=== PATIENT | female | born 1945 | race Caucasian/White ===

== ENCOUNTER 2016-07-27 14:31 | Emergency (ER) | payer MEDICARE ==
[2016-07-27] MEDS ORDERED: SODIUM CHLORIDE 0.9% 1,000 ML IV STA (15:24)
[2016-07-27] MEDS ORDERED: SODIUM CHLORIDE 0.9% 500 ML IV STA (15:24)
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
[2016-07-27 15:56] LABS: Anisocytosis Slight; Basophils % (A) 0 %; CH 28.9; CHCM 32.3; Eosinophils # (A) 0.1 k/uL (0-0.7); Eosinophils % (A) 1 %; HCT 38.2 % (34.0-46.0); HDW 3.05; HGB 12.2 gm/dL (11.4-16.0); Hypochromasia Slight; Luc # (Auto) 0.25; Luc % (Auto) 3; Lymphocytes # (A) 0.5 k/uL (1.0-4.8); Lymphocytes % (A) 7 %; MCH 28.6 pg (25.0-35.0); MCHC 31.8 g/dL (31.0-37.0); MCV 89.8 fL (80.0-100.0); Mean Platelet Volume 6.8; Monocytes # (A) 0.3 k/uL (0-1.0); Monocytes % (A) 4 %; Neutrophils # (A) 6.7 k/uL (1.3-7.7); Neutrophils % (A) 85 %; RBC 4.26 m/uL (3.80-5.40); RDW 17.9 % (11.5-15.5); WBC 7.8 k/uL (3.8-10.6)
[2016-07-27 16:10] LABS: ALT 41 U/L (9-52); AST 25 U/L (14-36); Alkaline Phosphatase 61 U/L (38-126); Anion Gap 13 mmol/L; Blood Urea Nitrogen 16 mg/dL (7-17); Calcium 9.5 mg/dL (8.4-10.2); Carbon Dioxide 30 mmol/L (22-30); Chloride 99 mmol/L (98-107); Glucose 104 mg/dL (74-99); Non-African American GFR(MDRD) >60 (>60 ml/min/1.73 sqM); Potassium 3.3 mmol/L (3.5-5.1); Sodium 142 mmol/L (137-145); Total Bilirubin 0.4 mg/dL (0.2-1.3); Total Protein 6.8 g/dL (6.3-8.2)
[2016-07-27 16:29] LABS: Appearance,Urine Clear (Clear); Bacteria,Urine Rare /hpf; Bilirubin,Urine Negative (Negative); Glucose,Urine (UA) Negative (Negative); Ketones,Urine Negative (Negative); Leukocyte Esterase,Urine Negative (Negative); Mucus,Urine Rare /hpf; Nitrite,Urine Negative (Negative); PH, Urine 6.5 (5.0-8.0); Particle Count 3590; Protein,Urine 1+ (Negative); RBC,Urine 5 /hpf (0-5); Specific Gravity,Urine 1.021 (1.001-1.035); Squamous Epithelial Cell,Urine <1 /hpf (0-4); UA Billing (MACRO vs. MICRO) MICRO; Urobilinogen,Urine <2.0 mg/dL (<2.0); WBC,Urine 2 /hpf (0-5)
[2016-07-27] MEDS ORDERED: POTASSIUM CHLORIDE ER 20 MEQ TAB.ER PO STA (16:44)
[2016-07-27] MEDS ORDERED: MUPIROCIN 2% OINT 22 GM TUBE TOPICAL SCH (17:00)
[2016-07-27 18:04] VITALS: BP 148/71; PULSE 63; RESP 18; TEMP 97.6
== END 2016-07-27 18:03 | disposition home or self-care (01) ==
LOC: EC 14:31
DX: M34.9 Systemic sclerosis, unspecified (principal); T65.891A Toxic effect of other specified substances, accidental (unintentional), initial encounter; T21.54XA Corrosion of first degree of lower back, initial encounter; Z79.899 Other long term (current) drug therapy; Z79.52 Long term (current) use of systemic steroids; Z88.2 Allergy status to sulfonamides; F32.9 Major depressive disorder, single episode, unspecified; K22.70 Barrett's esophagus without dysplasia; I27.2 Other secondary pulmonary hypertension
CPT/HCPCS: 36415; 80053; 81001; 85025; 87086; 96360; 99285

== ENCOUNTER 2016-09-14 13:13 | Inpatient (IN) | payer MEDICARE ==
[2016-09-14] MEDS ORDERED: SODIUM CHLORIDE 0.9% 500 ML IV STA (15:44)
--- NOTE | 2016-09-14 15:55 | ED ---
General Adult HPI - General Chief complaint: Upper Respiratory Infection Stated complaint: weakness Time Seen by Provider: 09/14/16 15:17 Source: patient, family, RN notes reviewed, old records reviewed Mode of arrival: wheelchair Limitations: no limitations - History of Present Illness Initial comments: Chief complaint and history of present illness 70-year-old female here with significant other. The patient reports that she has had a productive brownish to greenish colored phlegm cough increasing since 4 AM this morning. Also feels somewhat dizzy. Patient reports she fell several weeks ago. Patient generally feels weak and tired. Discomfort with coughing. No nausea no vomiting no diarrhea. No reported neuro deficits. No focal or lateralizing complaints. - Related Data Home Medications Medication Instructions Recorded Confirmed Oxymorphone HCl [Opana ER] 20 mg PO DAILY PRN 11/11/13 09/14/16 fentaNYL 100MCG/HR PATCH 1 patch TRANSDERM Q48H 11/11/13 09/14/16 [Duragesic 100MCG/HR] Methotrexate Sodium [Methotrexate] 25 mg PO PRESCOTT 12/09/14 09/14/16 Furosemide [Lasix] 20 mg PO DAILY PRN 03/19/15 09/14/16 Cholecalciferol [Vitamin D3] 5,000 unit PO DAILY 02/23/16 09/14/16 Esomeprazole Magnesium [NexIUM] 20 mg PO BID 02/23/16 09/14/16 Sertraline HCl [Sertraline HCl] 200 mg PO QAM 02/23/16 09/14/16 predniSONE 10 mg PO DAILY 02/23/16 09/14/16 Folic Acid 1 mg PO DAILY 06/30/16 09/14/16 Ibuprofen [Motrin] 600 mg PO Q12H PRN 06/30/16 09/14/16 Sildenafil [Revatio] 20 mg PO TID 06/30/16 09/14/16 traZODone HCL [Desyrel] 50 mg PO HS 06/30/16 09/14/16 Previous Rx's Medication Instructions Recorded Levofloxacin [Levaquin] 500 mg PO DAILY #9 tab 09/14/16 Allergies Allergy/AdvReac Type Severity Reaction Status Date / Time Sulfa (Sulfonamide Allergy Rash/Hives Verified 09/14/16 16:32 Antibiotics) Review of Systems ROS Statement: Those systems with pertinent positive or pertinent negative responses have been documented in the HPI. Review of systems. Patient denies any headache or visual acuity changes. Denies any neck pain. Reports that she been dizzy several times since bumping her head after a fall over a week ago. Patient reports she started having productive cough this morning around 4 AM which may difficult to sleep. She used her significant other's albuterol updraft machine which helped. She otherwise uses a puffer. Patient's denying any chest pain or less she coughs. No nausea no vomiting no back pain. No extremity weakness specific to any particular extremity but she reports she just generally feels weak and tired. Otherwise denying any pain. All systems are reviewed Past medical problems significant for pulmonary hypertension, scleroderma and Osorio's esophagitis. Surgeries include total hysterectomy which led to adhesions and a bowel resection. As well as cholecystectomy and appendectomy. Patient denies any other surgeries. Family history significant for father with throat cancer. Patient has ALLERGIES to sulfa. She quit smoking 32 years ago. Drinks alcohol rarely socially. ROS Other: All systems not noted in ROS Statement are negative. Past Medical History Past Medical History: Hypertension Additional Past Medical History / Comment(s): sclerederma, osorio's disease, gaves disease History of Any Multi-Drug Resistant Organisms: None Reported Past Surgical History: Bowel Resection, Cholecystectomy, Hysterectomy Past Psychological History: Depression Smoking Status: Never smoker Past Alcohol Use History: None Reported Past Drug Use History: None Reported General Exam - General Exam Comments Initial Comments: General: The patient is awake and alert, in no distress, and does not appear acutely ill. States she started having significant coughing which is productive brownish to greenish in color since 4 AM. Anterior chest wall pain with coughing which is reproducible. Vital signs show temperature 97.4 pulse elevated at 1:15. Respiratory rate 18 pulse ox 95% room air blood pressure 121/ 59. Eye: Pupils are equal, round and reactive to light, extra-ocular movements are intact ; there is normal conjunctiva bilaterally. No signs of icterus. Ears, nose, mouth and throat: There are moist mucous membranes and no oral lesions. Neck: The neck is supple, there is no tenderness , no anterior cervical lymphadenopathy. Cardiovascular: Tachycardic heart rate, 1:15.. No murmur, rub or gallop is appreciated. Respiratory: Lungs are clear to auscultation, respirations are non-labored, breath sounds are equal. No wheezes, stridor, rales, or rhonchi. Gastrointestinal: Soft, non-distended, non-tender abdomen without masses or organomegaly noted. There is no rebound or guarding present. No CVA tenderness. Bowel sounds are unremarkable. Back: There is no tenderness to palpation in the midline. There is no obvious deformity. No rashes noted. Musculoskeletal: Normal ROM, no tenderness, There is no pedal edema. There is no calf tenderness or swelling. Sensation intact. Patient's skin on her fingers extremely tight. Patient does have scleroderma Neurological: CN II-XII intact, There are no obvious motor or sensory deficits. Coordination appears grossly intact. Speech is normal. No neuro deficits noted or complained of. Skin: Patient has taken skin history scleroderma. Limitations: no limitations Course Vital Signs 09/14/16 09/14/16 09/14/16 13:25 15:30 16:00 Temperature 97.4 F L 97.8 F Pulse Rate 115 H 110 H Respiratory 18 20 18 Rate Blood Pressure 121/59 118/68 O2 Sat by Pulse 95 99 Oximetry EKG Findings - EKG Comments: EKG Findings:: EKG was done and reviewed at 1615 showing sinus tachycardia rate 12. No acute ST elevation no ectopy no ischemic changes. Rate 102. Arm was 150 QRS 84 QT [address] Morin Medical Decision Making - Medical Decision Making Medical decision making; patient's white count 10 hemoglobin 11 hematocrit 37 with a potassium 3.5. BUN 11 creatinine 0.6 with GFR greater than 60. Glucose 104. Troponin less than 0.012. Flu a and B reported to be negative by lab. Chest x-ray was done and reviewed by radiologist his final impression is new mild to moderate right lower lobe findings suggest developing bronchopneumonia. As read by Dr. Master Mcmahon CT of the brain was done and reviewed in its entirety. Radiologist's final impression is no acute intracranial hemorrhage, mass effect or midline shifts seen. As read by Dr. Mason The patient be started on Levaquin and sent home on Levaquin. Told to rehydrate herself at home. Continue with her home medications follow-up with family physician. - Lab Data Result diagrams: 09/14/16 17:06 09/14/16 17:06 Lab Results 09/14/16 09/14/16 09/14/16 Range/Units 16:21 17:06 17:06 WBC 10.2 (3.8-10.6) k/uL RBC 4.07 (3.80-5.40) m/uL Hgb 11.3 L (11.4-16.0) gm/dL Hct 37.7 (34.0-46.0) % MCV 92.7 (80.0-100.0) fL MCH 27.8 (25.0-35.0) pg MCHC 29.9 L (31.0-37.0) g/dL RDW 18.8 H (11.5-15.5) % Plt Count 240 (150-450) k/uL Neutrophils % (Manual) 74.0 % Band Neutrophils % 20.0 % Lymphocytes % (Manual) 4.0 % Monocytes % (Manual) 2.0 % Neutrophils # (Manual) 9.6 H (1.3-7.7) k/uL Lymphocytes # (Manual) 0.4 L (1.0-4.8) k/uL Monocytes # (Manual) 0.2 (0-1.0) k/uL Nucleated RBCs 0 (0-0) /100 WBC Manual Slide Review Performed Hypochromasia Slight Anisocytosis Slight Sodium 137 (137-145) mmol/L Potassium 3.5 (3.5-5.1) mmol/L Chloride 102 (98-107) mmol/L Carbon Dioxide 24 (22-30) mmol/L Anion Gap 11 mmol/L BUN 11 (7-17) mg/dL Creatinine 0.60 (0.52-1.04) mg/dL Est GFR (MDRD) Af Amer >60 (>60 ml/min/1.73 sqM) Est GFR (MDRD) Non-Af >60 (>60 ml/min/1.73 sqM) Glucose 104 H (74-99) mg/dL Calcium 9.2 (8.4-10.2) mg/dL Total Creatine Kinase (30-135) U/L CK-MB (CK-2) (0.0-2.4) ng/mL CK-MB (CK-2) Rel Index Troponin I (0.000-0.034) ng/mL Influenza Type A RNA Not Detected (Not Detectd) Influenza Type B (PCR) Not Detected (Not Detectd) 09/14/16 Range/Units 17:06 WBC (3.8-10.6) k/uL RBC (3.80-5.40) m/uL Hgb (11.4-16.0) gm/dL Hct (34.0-46.0) % MCV (80.0-100.0) fL MCH (25.0-35.0) pg MCHC (31.0-37.0) g/dL RDW (11.5-15.5) % Plt Count (150-450) k/uL Neutrophils % (Manual) % Band Neutrophils % % Lymphocytes % (Manual) % Monocytes % (Manual) % Neutrophils # (Manual) (1.3-7.7) k/uL Lymphocytes # (Manual) (1.0-4.8) k/uL Monocytes # (Manual) (0-1.0) k/uL Nucleated RBCs (0-0) /100 WBC Manual Slide Review Hypochromasia Anisocytosis Sodium (137-145) mmol/L Potassium (3.5-5.1) mmol/L Chloride (98-107) mmol/L Carbon Dioxide (22-30) mmol/L Anion Gap mmol/L BUN (7-17) mg/dL Creatinine (0.52-1.04) mg/dL Est GFR (MDRD) Af Amer (>60 ml/min/1.73 sqM) Est GFR (MDRD) Non-Af (>60 ml/min/1.73 sqM) Glucose (74-99) mg/dL Calcium (8.4-10.2) mg/dL Total Creatine Kinase 83 (30-135) U/L CK-MB (CK-2) 1.1 (0.0-2.4) ng/mL CK-MB (CK-2) Rel Index 1.3 Troponin I <0.012 (0.000-0.034) ng/mL Influenza Type A RNA (Not Detectd) Influenza Type B (PCR) (Not Detectd) Disposition Clinical Impression: Bronchopneumonia Disposition: HOME SELF-CARE Condition: Stable Instructions: Simple Eosinophilic Pneumonia (ED) Additional Instructions: Increase fluids, use updraft as needed, take Levaquin until completed. Prescriptions: Levofloxacin [Levaquin] 500 mg PO DAILY #9 tab Time of Disposition: 18:38
[2016-09-14 17:18] LABS: Anisocytosis Slight; CH 28.9; CHCM 31.3; HCT 37.7 % (34.0-46.0); HDW 2.81; HGB 11.3 gm/dL (11.4-16.0); Hypochromasia Slight; Immature Gran Flag Marked; MCH 27.8 pg (25.0-35.0); MCHC 29.9 g/dL (31.0-37.0); MCV 92.7 fL (80.0-100.0); RBC 4.07 m/uL (3.80-5.40); RDW 18.8 % (11.5-15.5); WBC 10.2 k/uL (3.8-10.6); WBC (Perox) 10.91
[2016-09-14 17:27] LABS: Anion Gap 11 mmol/L; Blood Urea Nitrogen 11 mg/dL (7-17); Calcium 9.2 mg/dL (8.4-10.2); Carbon Dioxide 24 mmol/L (22-30); Chloride 102 mmol/L (98-107); Glucose 104 mg/dL (74-99); Non-African American GFR(MDRD) >60 (>60 ml/min/1.73 sqM); Potassium 3.5 mmol/L (3.5-5.1); Sodium 137 mmol/L (137-145)
--- NOTE | 2016-09-14 17:29 | CT ---
EXAMINATION TYPE: CT brain wo con DATE OF EXAM: 09/14/2016 5:23 PM COMPARISON: NONE HISTORY: Patient fell 4 days ago with blow to head and complains of new onset dizziness. CT DLP: 1022 mGycm Automated exposure control for dose reduction was used. FINDINGS: There is no acute intracranial hemorrhage, mass effect, or midline shift identified. The ventricles and sulci are within normal limits in size. The globes are intact and the visualized sinuses are grecia ar. IMPRESSION: No acute intracranial hemorrhage, mass effect, or midline shift is seen.
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
[2016-09-14 17:38] LABS: Add Differential Manual Differential
[2016-09-14 17:41] LABS: Manual Review Performed; Nucleated Red Blood Cells 0 /100 WBC (0-0); Total Cells Counted 100
[2016-09-14 17:42] LABS: Creatine Kinase 83 U/L (30-135)
[2016-09-14 17:54] LABS: Creatine Kinase MB 1.1 ng/mL (0.0-2.4); Troponin I <0.012 ng/mL (0.000-0.034)
[2016-09-14] MEDS ORDERED: LEVOFLOXACIN 500MG-D5W PMX 500 MG in DEXTROSE/WATER 1 100ML.BAG IVPB STA (18:21)
[2016-09-14] MEDS ORDERED: LEVOFLOXACIN 500 MG TAB PO STA (18:31)
[2016-09-14] MEDS: LEVOFLOXACIN 500MG-D5W PMX 500 MG in DEXTROSE/WATER 1 100ML.BAG IVPB SCH (20:24)
[2016-09-14] MEDS ORDERED: ACETAMINOPHEN TAB 500 MG TAB PO STA (20:35)
[2016-09-14] MEDS ORDERED: ACETAMINOPHEN TAB 325 MG TAB PO PRN (20:58)
[2016-09-14] MEDS ORDERED: NALOXONE 0.4 MG/ML 1 ML VIAL IV PRN (20:58)
[2016-09-14] MEDS ORDERED: AZITHROMYCIN 500 MG in SODIUM CHLORIDE 0.9% 250 ML IVPB STA (21:03)
[2016-09-14] MEDS ORDERED: FUROSEMIDE 20 MG TAB PO PRN (21:04)
[2016-09-14] MEDS ORDERED: IBUPROFEN 600 MG TAB PO PRN (21:04)
[2016-09-14] MEDS: SODIUM CHLORIDE 0.9% 1,000 ML IV SCH (22:02)
[2016-09-14] MEDS: FAMOTIDINE 20 MG TAB PO SCH (22:46)
[2016-09-14 23:04] VITALS: BMI 31.5
[2016-09-15] MEDS: SILDENAFIL 20 MG TAB PO SCH ×4 (00:01→22:24)
[2016-09-15] MEDS: HEPARIN SODIUM,PORCINE 5,000 UNIT/ML 1 ML VIAL SQ SCH ×3 (08:18→23:31)
[2016-09-15] MEDS: guaiFENesin-Coden 100-10MG/5ML 10 ML CUP PO PRN (08:18)
[2016-09-15] MEDS: FAMOTIDINE 20 MG TAB PO SCH ×2 (08:19→21:32)
[2016-09-15] MEDS: CHOLECALCIFEROL 1,000 UNIT TAB PO SCH ×2 (08:19→08:26)
[2016-09-15] MEDS: FOLIC ACID 1 MG TAB PO SCH (08:19)
[2016-09-15] MEDS: SERTRALINE 100 MG TAB PO SCH (08:19)
[2016-09-15] MEDS: predniSONE 10 MG TAB PO SCH (10:41)
[2016-09-15] MEDS: SODIUM CHLORIDE 0.9% 1,000 ML IV SCH (14:47)
[2016-09-15] MEDS: OXYMORPHONE HCL 5 MG TABLET PO PRN (16:59)
[2016-09-15] MEDS: LEVOFLOXACIN 500MG-D5W PMX 500 MG in DEXTROSE/WATER 1 100ML.BAG IVPB SCH (20:40)
[2016-09-15] MEDS: AZITHROMYCIN 500 MG TAB PO SCH (20:43)
[2016-09-15] MEDS: traZODone HCL 50 MG TAB PO SCH (20:43)
[2016-09-15] MEDS: IPRATROPIUM-ALBUTEROL 3 ML NEB INHALATION PRN (21:41)
[2016-09-15] MEDS ORDERED: cefTRIAXone 1,000 MG in SODIUM CHLORIDE 0.9% 100 ML IVPB SCH (22:00)
--- NOTE | 2016-09-15 22:49 | HP ---
CHIEF COMPLAINT: Fever, cough. HISTORY OF PRESENT ILLNESS: This is a 70-year-old female who presents to the hospital with complaints of cough and fever. The patient's symptoms have been present for the past few days. In the emergency room, she was noted to have a temperature of 102.4. ( ) She had been seen in the emergency room also because of a recent fall. The patient fell 4 days ago. She has a history of scleroderma and has been on immunosuppressants. She denies any chest pain. No fever. No shortness of breath. No other symptoms. He past medical history is significant for Alexis esophagus and gastroesophageal reflux, scleroderma, thrombophlebitis, right ankle and left lower leg. Past surgical history significant for tonsillectomy, total abdominal hysterectomy, bilateral salpingo-oophorectomy, sternoclavicular muscle torticollis, bowel resection 1995. PERSONAL HISTORY: Nonsmoker, quit smoking 26 years ago. Used to smoke a pack per day for 18 years. Alcohol: None. ALLERGIES: SULFA, WHICH CAUSES HIVES. MEDICATIONS: 1. Trazodone 50 mg at bedtime. 2. Prednisone 10 mg daily. 3. Duragesic 100 mcg q.72 hours. 4. Revatio 20 mg t.i.d. 5. Sertraline 200 mg daily. 6. Oxymorphone 20 mg daily p.r.n. 7. Methotrexate 25 mg every Monday. 8. Ibuprofen 600 mg p.r.n. q.12. 9. Lasix 20 mg daily p.r.n. 10. folic acid 1 mg daily. 11. Nexium 20 mg b.i.d. 12. Vitamin D3 unit 5000 units daily. 13. Has been on Levaquin 500 mg daily. SOCIAL HISTORY: Patient is and lives with her spouse. She is recently retired. FAMILY MEDICAL HISTORY: Father at the age of 68. He had a hemorrhagic CVA and hypertension, also had laryngeal CA. mother at the age of 82. She had a history of sepsis post hip surgery. Has a brother, 86 and a brother, 67 in adequate health. No sisters. The patient has a son, 49 years of age, in good health. REVIEW OF SYSTEMS: NEURO: Denies any headaches, dizziness. No double vision, blurred vision. No symptoms of TIA, syncope, seizures. PSYCH: No anxiety, depression. CARDIAC: No chest pain, angina, palpitation. RESPIRATORY: Present complaint. No cough. No chest pain. GI: No nausea, vomiting. Abdominal pain, some diarrhea. : No symptoms of dysuria, hematuria, urgency, frequency. EXTREMITIES: Chronic pain. CONSTITUTIONAL: Fever, chills. PHYSICAL EXAMINATION: Pleasant female, at present in no distress. Vital signs reveal temperature 96.3, pulse 91, respirations 16, blood pressure 134/61, pulse ox 98% on 3L. Earlier in the emergency room, the patient had a temperature of 102.5. HEENT: Normocephalic. NECK: Supple. No JVD. Oral cavity is dry. Pupils reactive. Neck reveals no JVD, carotid bruits or thyromegaly. CHEST: Clear to percussion. Occasional rhonchi. CARDIAC: Distant heart sounds. S1, S2 with no gallops. Systolic murmur 2/6 left sternal border. ABDOMEN: Soft, no palpable masses. Bowel sounds normal. No organomegaly. No abdominal bruits. Extremities reveal trace edema. NEUROLOGICAL: Awake, alert, oriented with well-coordinated movements. Skin reveals some subcutaneous calcinosis. LABORATORY ASSESSMENT: Chest x-ray would suggest right lower lobe infiltrate. White count is normal at 10.2, hemoglobin 11.3. Electrolytes are normal. Influenza not detected. ASSESSMENT: 1. Pneumonia. 2. History of scleroderma. 3. Alexis esophagus. 4. Chronic pain. 5. History of pulmonary hypertension. PLAN: The patient is stable. Continue present medical regimen. The patient's condition was discussed with the patient. The patient has been on IV antibiotics. Prognosis remains guarded.
[2016-09-15] MEDS ORDERED: AZITHROMYCIN 500 MG in SODIUM CHLORIDE 0.9% 250 ML IVPB SCH (23:00)
[2016-09-16] MEDS: SODIUM CHLORIDE 0.9% 1,000 ML IV SCH ×2 (05:48→20:41)
[2016-09-16] MEDS: IPRATROPIUM-ALBUTEROL 3 ML NEB INHALATION PRN ×4 (07:23→19:50)
[2016-09-16] MEDS: FAMOTIDINE 20 MG TAB PO SCH ×2 (08:31→20:38)
[2016-09-16] MEDS: CHOLECALCIFEROL 1,000 UNIT TAB PO SCH (08:31)
[2016-09-16] MEDS: HEPARIN SODIUM,PORCINE 5,000 UNIT/ML 1 ML VIAL SQ SCH ×3 (08:31→23:06)
[2016-09-16] MEDS: SILDENAFIL 20 MG TAB PO SCH ×3 (08:32→23:06)
[2016-09-16] MEDS: SERTRALINE 100 MG TAB PO SCH (08:32)
[2016-09-16] MEDS: predniSONE 10 MG TAB PO SCH (08:32)
[2016-09-16] MEDS: FOLIC ACID 1 MG TAB PO SCH (08:32)
--- NOTE | 2016-09-16 12:37 | CDI ---
In responding to this query, please exercise your independent professional judgment. The [facility] Coding Staff and Clinical Documentation Specialists appreciate your assistance in clarifying documentation, maintaining compliance with coding guidelines, accurately documenting patients condition and capturing severity of illness. The fact that a question is asked does not imply that any particular answer is desired or expected. Communication forms are a method of clarifying documentation and are not made part of the Legal Health Record. Thank you in advance for your clarification. Last Revision, May [address] [place] [address] Documentation Clarification Form Date: 09/16/2016 12:30:00 PM From: Liza Minaya Admit Date: 09/14/2016 8:58:00 PM Patient Name: Darby Cordero Visit Number: [id number] Dr. Charly Quintanilla History/Risk Factors: Pneumonia On Immunosuppresants Scleroderma Clinical Indicators: WBC 10.2 Vitals: temp 102.5, hr 101, rr 20, bp 128/77, sats 97% 3Lnc Treatment: Antibiotics: IV Levquin given then d/c'd, IV Rocephin, PO Zithromax IV fluids @ 70 cc/hr In your professional opinion, can you please clarify if these findings signify one of the following conditions, whether the condition is POA, and cause, if known? Sepsis Other (please specify) Unable to Determine Please document in your progress notes and discharge summary in order to capture severity of illness and risk of mortality. Include clinical findings that support your diagnosis. FYI: Press F11 to launch patient chart. Place X here if this finding has no clinical significance, is not applicable or if you are not able to provide any additional documentation. MTDD
[2016-09-16] MEDS: guaiFENesin-Coden 100-10MG/5ML 10 ML CUP PO PRN (14:33)
[2016-09-16] MEDS: OXYMORPHONE HCL 5 MG TABLET PO PRN (14:33)
[2016-09-16] MEDS: traZODone HCL 50 MG TAB PO SCH (20:37)
[2016-09-16] MEDS: AZITHROMYCIN 500 MG TAB PO SCH (20:38)
[2016-09-17] MEDS: IPRATROPIUM-ALBUTEROL 3 ML NEB INHALATION PRN ×5 (02:28→19:54)
--- NOTE | 2016-09-17 06:59 | XR ---
EXAMINATION TYPE: XR chest 2V DATE OF EXAM: 09/17/2016 6:28 AM COMPARISON: Prior chest x-ray from 3 days ago. HISTORY: History of scleroderma and pulmonary hypertension presents with cough and pneumonia for 5 da ys TECHNIQUE: Frontal and lateral views of the chest are obtained. FINDINGS: A right internal jugular Mediport catheter are stable in appearance. There is no new focal air space opacity, pleural effusion, or pneumothorax seen. There is persistent right medial basilar infiltrate and/or atelectasis. The cardiac silhouette size is stable and mildly enlarged. The osse ous structures are intact. IMPRESSION: Persistent right medial basilar infiltrate and/or atelectasis, no new infiltrate is seen .
[2016-09-17 08:01] LABS: Anisocytosis Slight; CH 28.6; CHCM 30.6; HDW 2.72; Hypochromasia Moderate; MCH 29.1 pg (25.0-35.0); MCV 93.8 fL (80.0-100.0); Macrocytosis Slight; Mean Platelet Volume 7.2; RBC 2.99 m/uL (3.80-5.40); RDW 18.9 % (11.5-15.5)
[2016-09-17 08:04] LABS: HGB 8.7 gm/dL (11.4-16.0)
[2016-09-17] MEDS: SODIUM CHLORIDE 0.9% 1,000 ML IV SCH (08:17)
[2016-09-17] MEDS: CHOLECALCIFEROL 1,000 UNIT TAB PO SCH (08:18)
[2016-09-17] MEDS: HEPARIN SODIUM,PORCINE 5,000 UNIT/ML 1 ML VIAL SQ SCH ×3 (08:18→23:01)
[2016-09-17] MEDS: FAMOTIDINE 20 MG TAB PO SCH ×2 (08:19→20:10)
[2016-09-17] MEDS: SERTRALINE 100 MG TAB PO SCH (08:19)
[2016-09-17] MEDS: FOLIC ACID 1 MG TAB PO SCH (08:19)
[2016-09-17] MEDS: SILDENAFIL 20 MG TAB PO SCH ×3 (08:19→23:01)
[2016-09-17] MEDS: predniSONE 10 MG TAB PO SCH (08:19)
--- NOTE | 2016-09-17 09:40 | PN ---
CHIEF COMPLAINT: Re-evaluation. HISTORY OF PRESENT ILLNESS: This is a 70-year-old who was admitted to the hospital with fever and suggestion of pneumonia. The patient has an underlying history of scleroderma and is on immunosuppressive. The patient was feeling better yesterday evening, however, this morning she feels tired out and some wheezing, occasional cough and congestion. The patient has no further fever. REVIEW OF SYSTEMS: NEURO: Denies any headaches, dizziness. PSYCH: No anxiety. CARDIAC: No chest pain, angina, palpitation. RESPIRATORY: No shortness of breath, cough. GI: No nausea, vomiting, abdominal pain. Does have history of mild chronic diarrhea. : No symptoms of dysuria, hematuria. EXTREMITIES: No pain. CONSTITUTIONAL: The patient extremities, back pain. CONSTITUTIONAL: No fever or chills. PHYSICAL EXAMINATION: Pleasant female in no distress at present. Vital signs reveal temperature 97.3, pulse 83, respirations 18, blood pressure 128/58, pulse ox 98% on 3 liters. HEENT: Normocephalic. NECK: No JVD. Chest is clear to auscultation with few rhonchi, scattered. CARDIAC: Distant heart sounds. S1, S2 with no gallops. Systolic murmur 2/6 left sternal border. ABDOMEN: Soft. Bowel sounds present. EXTREMITIES: Reveal no edema. NEUROLOGICAL: Awake, alert, oriented with well coordinated movements. LABORATORY ASSESSMENT: None new. ASSESSMENT: 1. Right lower lobe pneumonia. 2. Scleroderma. 3. Hypertension. 4. On immunosuppressive. PLAN: The patient is stable. Continue present medical regimen. The patient's condition discussed with the patient says. The patient's fevers had defervesced and the patient has no further fever. We will continue the same regimen of antibiotic. Patient's condition was discussed with the patient. Prognosis guarded. Repeat chest x-ray and labs in the morning.
[2016-09-17] MEDS ORDERED: methylPREDNISolone SOD SUCCI 125 MG/2 ML VIAL IV SCH (10:15)
[2016-09-17] MEDS ORDERED: RX INFO: IV CONTRAST WAS GIVEN 1 EACH MISC MISCELLANE PRN (13:46)
--- NOTE | 2016-09-17 13:56 | P.CNPUL ---
History of Present Illness Consult date: 09/17/16 Reason for consult: dyspnea History of present illness: 70-year-old female patient with history of scleroderma who is presenting to the hospital because of worsening shortness of breath, cough, increased sweats, and progressive worsening in the respiratory status over the past 4 days. The patient has been under the care of Dr. Quintanilla and [facility] regarding her scleroderma. Her disease was diagnosed many years back and she was told to have limited disease to her skin without the typical crest manifestation. The patient has also been told not to have any interstitial lung disease or pulmonary hypertension yet she tells that she has seen Dr. Letty Valadez at [facility] and she was been placed on Rovatio which is a medication typically uses for pulmonary hypertension. In terms of therapy, she had Cytoxan therapy many years back and she quit that 3 years ago and currently she is on methotrexate on a weekly basis. She has chronic GE reflux/Osorio's esophagus and telangiectasias. No long-term oxygen therapy. No anticoagulation. She has a remote history of DVT of the lower extremities yet she has not been on the coagulation for all this years. In terms of this current hospitalization, the patient is having increased dry cough which is episodic and quite frequent. Unable to bring up any sputum. No chest pain. She has crackles in lung bases are rather coarse and she has a chest x-ray that was done at time of admission that showed a limited right lower lobe pulmonary infiltrates and subsequent chest x-ray showed cardiomegaly with some increased interstitial markings. No consolidation. No focal airspace disease. Nevertheless, the patient is hypoxic and currently she is on 4l/min of oxygen by nasal cannula. She tells that her breathing condition has been essentially poor and on and off she was being respiratory infections since May 2016. No previous reports Ustick lung infections. She is currently covered with a combination of Rocephin and Zithromax. Improvement has been limited and for that reason a pulmonary consultation was requested. Review of Systems full review of system was done and the positive findings are almost above in history of present illness Past Medical History Past Medical History: Hypertension Additional Past Medical History / Comment(s): sclerederma, osorio's disease, gaves disease, pulmonary hypertension, History of Any Multi-Drug Resistant Organisms: None Reported Past Surgical History: Bowel Resection, Cholecystectomy, Hysterectomy Additional Past Surgical History / Comment(s): ovaries removed also Past Psychological History: Depression Smoking Status: Never smoker Past Alcohol Use History: None Reported Past Drug Use History: None Reported - Past Family History Father Family Medical History: Cancer Additional Family Medical History / Comment(s): throat cancer Mother Family Medical History: Chest Pain / Angina, Osteoarthritis (OA) Medications and Allergies Home Medications Medication Instructions Recorded Confirmed Type Oxymorphone HCl [Opana ER] 20 mg PO DAILY PRN 11/11/13 09/14/16 History fentaNYL 100MCG/HR PATCH 1 patch TRANSDERM Q48H 11/11/13 09/14/16 History [Duragesic 100MCG/HR] Methotrexate Sodium [Methotrexate] 25 mg PO PRESCOTT 12/09/14 09/14/16 History Furosemide [Lasix] 20 mg PO DAILY PRN 03/19/15 09/14/16 History Cholecalciferol [Vitamin D3] 5,000 unit PO DAILY 02/23/16 09/14/16 History Esomeprazole Magnesium [NexIUM] 20 mg PO BID 02/23/16 09/14/16 History Sertraline HCl [Sertraline HCl] 200 mg PO QAM 02/23/16 09/14/16 History predniSONE 10 mg PO DAILY 02/23/16 09/14/16 History Folic Acid 1 mg PO DAILY 06/30/16 09/14/16 History Ibuprofen [Motrin] 600 mg PO Q12H PRN 06/30/16 09/14/16 History Sildenafil [Revatio] 20 mg PO TID 06/30/16 09/14/16 History traZODone HCL [Desyrel] 50 mg PO HS 06/30/16 09/14/16 History Allergies Allergy/AdvReac Type Severity Reaction Status Date / Time Sulfa (Sulfonamide Allergy Rash/Hives Verified 09/14/16 16:32 Antibiotics) Physical Exam Vitals: Vital Signs Temp Pulse Pulse Pulse Resp BP Pulse Ox 09/17/16 11:15 94 09/17/16 11:05 92 09/17/16 08:00 20 09/17/16 07:22 108 H 09/17/16 07:10 104 H 09/17/16 07:00 98.4 F 94 20 140/69 95 09/17/16 02:37 99 09/17/16 02:28 96 09/17/16 00:00 17 09/16/16 22:09 98.2 F 93 17 126/60 94 L 09/16/16 20:58 92 L 09/16/16 20:00 77 09/16/16 19:50 80 09/16/16 16:13 84 09/16/16 16:00 84 18 09/16/16 15:00 97.8 F 77 18 116/63 97 Intake and Output 09/16/16 09/17/16 09/17/16 22:59 06:59 14:59 Intake Total 610 560 Balance 610 560 Intake: IV 560 560 Sodium Chloride 0.9% 1, 560 560 000 ml @ 70 mls/hr IV . [id number] UMESH Rx#:[id number] Oral 50 Other: Voiding Method Toilet Toilet Toilet # Voids 2 1 1 # Bowel Movements 1 1 Head exam was generally normal. There was no scleral icterus or corneal arcus. Mucous membranes were moist.Neck was supple and without jugular venous distension, thyromegaly, or carotid bruits. Carotids were easily palpable bilaterally. There was no adenopathy. There is some skin thickening over the anterior neck area consistent with scleroderma. Lung sounds are diminished and there is some coarse crackles in lung bases bilaterally.Cardiac exam revealed the PMI to be normally situated and sized. The rhythm was regular and no extrasystoles were noted during several minutes of auscultation. The first and second heart sounds were normal and physiologic splitting of the second heart sound was noted. There were no murmurs, rubs, clicks, or gallops.Abdominal exam revealed normal bowel sounds. The abdomen was soft, non-tender, and without masses, organomegaly, or appreciable enlargement of the abdominal aorta. Extremities reveal skin changes consistent with scleroderma. There are occasional telangiectasias involving the skin. No cyanosis. No clubbing. Neurologically awake and there is no focal neurological deficit. Results - Laboratory Findings CBC and BMP: 09/17/16 07:02 09/14/16 17:06 Abnormal lab findings: Abnormal Labs 09/17/16 07:02 RBC 2.99 L Hgb 8.7 L D Hct 28.0 L RDW 18.9 H - Diagnostic Findings Chest x-ray: image reviewed Assessment and Plan Plan: Assessment 1 acute hypoxic respiratory failure and a 70-year-old female patient who presented with symptoms of increased shortness of breath and cough with some limited infiltration of the right lung base raising the suspicion for pneumonia. In fact the patient was febrile at time of admission and she had a T -max of 102.5. Cultures of been all negative and the patient is immunosuppressed with the utilization of methotrexate for scleroderma. 2 scleroderma, limited 3 questionable pulmonary hypertension maintained on sildenafil by mouth which is typically used for pulmonary hypertension treatment and scleroderma patient although typically not as a single agent. 4 remote history of DVT, currently on no anticoagulants 5 Osorio's esophagus with significant esophageal dysmotility and GERD 6 marked drop in hemoglobin down to 8.7 from baseline of 11.3, no evidence of any GI bleed Plan There is an obvious consented for a pulmonary infection in an immunocompromised patient with methotrexate. Toxicity from methotrexate involving the lungs and oriented interstitial lung disease secondary to scleroderma is felt to be less likely due to the rather acuteness of the patient's presentation and the presence of fever which typically support an acute infection over the other possibilities. In terms of an infection, the possibilities of many specially the patient is immunocompromised. One possibility is a PCP lung infection specially the patient has a rather subacute course and she's been feeling poorly over the past 2-3 months at least. As such, a computed tomography scan of the chest will be needed to characterize the extent of the pulmonary infiltration and decide if the bronchoscopy will be needed for a bronchioloalveolar lavage and microbial analysis. Meanwhile, continue the Rocephin and Zithromax for now. I am also concerned of the possibility of pulmonary hypertension I think is very reasonable to obtain an echocardiogram to reassess the patient's PA pressures. Continue the oral sildenafil for now.
[2016-09-17] MEDS: OXYMORPHONE HCL 5 MG TABLET PO PRN (17:05)
[2016-09-17] MEDS: guaiFENesin-Coden 100-10MG/5ML 10 ML CUP PO PRN (17:05)
[2016-09-17] MEDS: methylPREDNISolone SOD SUCCI 125 MG/2 ML VIAL IV SCH ×2 (17:06→23:01)
--- NOTE | 2016-09-17 19:39 | CT ---
EXAMINATION TYPE: CT chest w con DATE OF EXAM: 09/17/2016 3:23 PM COMPARISON: Prior chest x-ray same day, prior chest CT 26 October 2012 HISTORY: Dyspnea, Scleroderma CT DLP: 439.80 mGycm Automated exposure control for dose reduction was used. CONTRAST: CT scan of the chest is performed with IV Contrast, patient injected with 100 ml mL of Omnipaque 300. FINDINGS: LUNGS: There are areas of groundglass opacity within the lungs, parenchymal bands are also present. T here are septal subpleural lines especially at the lung bases. Dependent atelectatic changes with sma ll effusions are present. No endobronchial lesion or pericardial effusion is evident. MEDIASTINUM: There are no greater than 1 cm hilar or mediastinal lymph nodes. No pericardial effusi on is seen. AORTA: No additional significant abnormality is seen. OTHER: No additional significant abnormality is seen. IMPRESSION: Abnormal findings in the lungs as described could be indicative of patient's underlying diagnosis, there are areas of alveolitis, parenchymal bands as described.
[2016-09-17] MEDS: traZODone HCL 50 MG TAB PO SCH (20:10)
[2016-09-17] MEDS: AZITHROMYCIN 500 MG TAB PO SCH (20:10)
[2016-09-18] MEDS: IPRATROPIUM-ALBUTEROL 3 ML NEB INHALATION PRN ×4 (07:24→20:25)
[2016-09-18] MEDS: SODIUM CHLORIDE 0.9% 1,000 ML IV SCH ×2 (07:41→08:32)
[2016-09-18 08:22] LABS: Anisocytosis Slight; CH 28.6; CHCM 30.1; HCT 30.2 % (34.0-46.0); HDW 2.78; HGB 9.5 gm/dL (11.4-16.0); Hypochromasia Marked; MCH 29.8 pg (25.0-35.0); MCHC 31.4 g/dL (31.0-37.0); MCV 95.1 fL (80.0-100.0); Macrocytosis Slight; Mean Platelet Volume 7.5; RBC 3.17 m/uL (3.80-5.40); RDW 18.6 % (11.5-15.5); WBC 3.6 k/uL (3.8-10.6)
[2016-09-18] MEDS: CHOLECALCIFEROL 1,000 UNIT TAB PO SCH (08:30)
[2016-09-18] MEDS: SERTRALINE 100 MG TAB PO SCH (08:31)
[2016-09-18] MEDS: FAMOTIDINE 20 MG TAB PO SCH ×2 (08:31→21:14)
[2016-09-18] MEDS: methylPREDNISolone SOD SUCCI 125 MG/2 ML VIAL IV SCH ×2 (08:31→16:16)
[2016-09-18] MEDS: HEPARIN SODIUM,PORCINE 5,000 UNIT/ML 1 ML VIAL SQ SCH ×2 (08:31→16:17)
[2016-09-18] MEDS: SILDENAFIL 20 MG TAB PO SCH ×3 (08:32→22:12)
[2016-09-18] MEDS: FOLIC ACID 1 MG TAB PO SCH (08:32)
[2016-09-18] MEDS ORDERED: METHOTREXATE SODIUM 2.5 MG TAB PO SCH (09:00)
--- NOTE | 2016-09-18 11:26 | PN ---
DATE OF SERVICE: 09/17/2016 CHIEF COMPLAINT: Reevaluation. HISTORY OF PRESENT ILLNESS: This 70-year-old female was admitted to the hospital because of shortness of breath, cough, fever. The patient's fever has defervesced. The patient was feeling somewhat better yesterday; however, this morning the patient went for an x-ray and without the oxygen got extremely short of breath. Later in the night she got a little delirious when the oxygen had fallen off and she had been without oxygen in the sleep. She is feeling otherwise reasonable except for dyspnea. REVIEW OF SYSTEMS: NEURO: Denies any headaches, dizziness. PSYCH: No anxiety. Some apprehension. CARDIAC: No chest pain, angina, palpitations. RESPIRATORY: Shortness of breath, cough. No hemoptysis. GI: No nausea, vomiting, abdominal pain, diarrhea. : No symptoms of dysuria, hematuria, urgency, frequency. EXTREMITIES: No pain or edema. CONSTITUTIONAL: No fever, chills. PHYSICAL EXAMINATION: Pleasant female, at present been afebrile, temperature 98.4, pulse 94, respirations 20, blood pressure 140/69, pulse ox 95% on 4 L. HEENT: Normocephalic. NECK: No JVD. CHEST: Reveals decreased air flow with a few rhonchi at the right base. No wheezing appreciated. CARDIAC: Distant heart sounds. S1, S2 with no gallops. Systolic murmur 2/6 left sternal border. ABDOMEN: Soft. Bowel sounds present. EXTREMITIES: Trace edema. NEUROLOGIC: Awake, alert, oriented with well-coordinated movements. LABORATORY ASSESSMENT: CBC revealed a hemoglobin of 8.7, white count 9.0. Chest x-ray reveals no changes except some persistent right lower lobe atelectasis versus infiltrate. ASSESSMENT: 1. Acute respiratory failure. 2. Pneumonia. 3. History of scleroderma. 4. Anemia with drop in hemoglobin now with no evidence of bleeding. 5. History of pulmonary hypertension. PLAN: Patient at present is stable with oxygen; however, the patient's general condition is guarded. We will have pulmonary disease reevaluate the patient. Patient's condition was discussed with the patient. Prognosis is guarded. Condition discussed with spouse.
--- NOTE | 2016-09-18 13:23 | P.PN ---
Subjective Principal diagnosis: 70-year-old female patient with history of scleroderma who is presenting to the hospital because of worsening shortness of breath, cough, increased sweats, and progressive worsening in the respiratory status over the past 4 days. The patient has been under the care of Dr. Quintanilla and [facility] regarding her scleroderma. Her disease was diagnosed many years back and she was told to have limited disease to her skin without the typical crest manifestation. The patient has also been told not to have any interstitial lung disease or pulmonary hypertension yet she tells that she has seen Dr. Letty Valadez at [facility] and she was been placed on Rovatio which is a medication typically uses for pulmonary hypertension. In terms of therapy, she had Cytoxan therapy many years back and she quit that 3 years ago and currently she is on methotrexate on a weekly basis. She has chronic GE reflux/Alexis's esophagus and telangiectasias. No long-term oxygen therapy. No anticoagulation. She has a remote history of DVT of the lower extremities yet she has not been on the coagulation for all this years. In terms of this current hospitalization, the patient is having increased dry cough which is episodic and quite frequent. Unable to bring up any sputum. No chest pain. She has crackles in lung bases are rather coarse and she has a chest x-ray that was done at time of admission that showed a limited right lower lobe pulmonary infiltrates and subsequent chest x-ray showed cardiomegaly with some increased interstitial markings. No consolidation. No focal airspace disease. Nevertheless, the patient is hypoxic and currently she is on 4l/min of oxygen by nasal cannula. She tells that her breathing condition has been essentially poor and on and off she was being respiratory infections since May 2016. No previous reports Ustick lung infections. She is currently covered with a combination of Rocephin and Zithromax. Improvement has been limited and for that reason a pulmonary consultation was requested. On today's evaluation of 09/18/2016, the patient is still having difficulty breathing and cough. Infected condition is been essentially unchanged over the past 24 hours. As mentioned earlier, pneumonia was suspected and the patient was sent for a CAT scan of the chest which showed no evidence of an interstitial lung disease. There was some limited groundglass opacities in the lung bases bilaterally along with some parenchymal bands in the lung bases. Small effusions are also present. No mediastinal lymphadenopathy. The overall picture is consistent with an underlying infectious process. The patient has not shown adequate response to the routine antibiotics are being utilized. I think she will need a bronchoscopy for bronchoalveolar lavage to make sure there is no opportunistic infection underlying condition. Objective - Vital Signs Vital signs: Vital Signs Temp 96.6 F L 09/18/16 07:00 Pulse 76 09/18/16 11:07 Resp 20 09/18/16 07:00 BP 134/76 09/18/16 07:00 Pulse Ox 92 L 09/18/16 07:00 Intake & Output 09/17/16 09/18/16 09/18/16 18:59 06:59 18:59 Intake Total 940 560 Balance 940 560 Intake: IV 490 560 Sodium Chloride 0.9% 1, 490 560 000 ml @ 70 mls/hr IV . [id number] UMESH Rx#:[id number] Intake, IV Titration 50 Amount cefTRIAXone 1,000 mg In 50 Sodium Chloride 0.9% 50 ml @ 100 mls/hr IVPB Q24H UMESH Rx#:[id number] Oral 400 Other: Voiding Method Toilet Toilet Toilet # Voids 2 2 # Bowel Movements 1 - Exam Head exam was generally normal. There was no scleral icterus or corneal arcus. Mucous membranes were moist.Neck was supple and without jugular venous distension, thyromegaly, or carotid bruits. Carotids were easily palpable bilaterally. There was no adenopathy. There is some skin thickening over the anterior neck area consistent with scleroderma. Lung sounds are diminished and there is some coarse crackles in lung bases bilaterally.Cardiac exam revealed the PMI to be normally situated and sized. The rhythm was regular and no extrasystoles were noted during several minutes of auscultation. The first and second heart sounds were normal and physiologic splitting of the second heart sound was noted. There were no murmurs, rubs, clicks, or gallops.Abdominal exam revealed normal bowel sounds. The abdomen was soft, non-tender, and without masses, organomegaly, or appreciable enlargement of the abdominal aorta. Extremities reveal skin changes consistent with scleroderma. There are occasional telangiectasias involving the skin. No cyanosis. No clubbing. Neurologically awake and there is no focal neurological deficit. - Labs CBC & Chem 7: 09/18/16 07:41 09/14/16 17:06 Labs: Abnormal Lab Results - Last 24 Hours (Table) 09/18/16 Range/Units 07:41 WBC 3.6 L (3.8-10.6) k/uL RBC 3.17 L (3.80-5.40) m/uL Hgb 9.5 L (11.4-16.0) gm/dL Hct 30.2 L (34.0-46.0) % RDW 18.6 H (11.5-15.5) % Assessment and Plan Plan: Assessment 1 acute hypoxic respiratory failure and a 70-year-old female patient who presented with symptoms of increased shortness of breath and cough with some limited infiltration of the right lung base raising the suspicion for pneumonia. In fact the patient was febrile at time of admission and she had a T -max of 102.5. Cultures of been all negative and the patient is immunosuppressed with the utilization of methotrexate for scleroderma. On 09/18/2016, CAT scan of the chest was done and showed some limited groundglass changes in lung bases bilaterally without evidence of any interstitial lung disease. I do suspect that this is a infectious process which has not responded to routine antibiotics and the patient will benefit from bronchoscopy and bronchial alveolar lavage looking for any which was taken infections. 2 scleroderma, limited 3 questionable pulmonary hypertension maintained on sildenafil by mouth which is typically used for pulmonary hypertension treatment and scleroderma patient although typically not as a single agent. 4 remote history of DVT, currently on no anticoagulants 5 Alexis's esophagus with significant esophageal dysmotility and GERD 6 marked drop in hemoglobin down to 8.7 from baseline of 11.3, no evidence of any GI bleed Plan There is an obvious consented for an underlying lung infection based on the CAT scan findings. Doubt interstitial lung disease. No scleroderma lungs. Based on this, and based on the failure to respond to routine antibiotics, would recommend a bronchoscopy and the bronchioloalveolar lavage to make sure there is no open shows thick infection underlying this patient's symptoms. I think it 's reasonable to hold the methotrexate for a while. Subsequent hemoglobin today is at 9.5. I have elected discussion with the patient and her . I think is reasonable to keep her nothing by mouth and significant do a bronchoscopy and the bronchioloalveolar lavage of her lungs tomorrow during this current hospital stay.
[2016-09-18] MEDS: guaiFENesin-Coden 100-10MG/5ML 10 ML CUP PO PRN ×2 (13:46→19:37)
[2016-09-18] MEDS: OXYMORPHONE HCL 5 MG TABLET PO PRN (19:37)
[2016-09-18] MEDS: traZODone HCL 50 MG TAB PO SCH (21:14)
[2016-09-18] MEDS: LEVOFLOXACIN 750MG-D5W PMX 750 MG in DEXTROSE/WATER 1 150ML.BAG IVPB SCH (22:12)
[2016-09-19] MEDS: HEPARIN SODIUM,PORCINE 5,000 UNIT/ML 1 ML VIAL SQ SCH
[2016-09-19] MEDS: SODIUM CHLORIDE 0.9% 1,000 ML IV SCH ×3 (05:23→23:18)
[2016-09-19] MEDS: IPRATROPIUM-ALBUTEROL 3 ML NEB INHALATION PRN (07:55)
[2016-09-19 09:59] LABS: ALT 33 U/L (9-52); AST 18 U/L (14-36); Alkaline Phosphatase 40 U/L (38-126); Anion Gap 11 mmol/L; Blood Urea Nitrogen 20 mg/dL (7-17); Calcium 8.8 mg/dL (8.4-10.2); Carbon Dioxide 24 mmol/L (22-30); Chloride 107 mmol/L (98-107); Glucose 110 mg/dL (74-99); Non-African American GFR(MDRD) >60 (>60 ml/min/1.73 sqM); Potassium 3.8 mmol/L (3.5-5.1); Sodium 142 mmol/L (137-145); Total Bilirubin 0.4 mg/dL (0.2-1.3); Total Protein 5.8 g/dL (6.3-8.2)
[2016-09-19] MEDS: methylPREDNISolone SOD SUCCI 125 MG/2 ML VIAL IV SCH ×4 (10:10→23:18)
[2016-09-19] MEDS: CHOLECALCIFEROL 1,000 UNIT TAB PO SCH (10:11)
[2016-09-19] MEDS: FAMOTIDINE 20 MG TAB PO SCH ×2 (10:11→21:19)
[2016-09-19] MEDS: FOLIC ACID 1 MG TAB PO SCH (10:12)
[2016-09-19] MEDS: SILDENAFIL 20 MG TAB PO SCH ×3 (10:13→21:18)
--- NOTE | 2016-09-19 10:27 | ECHOF ---
Referral Reason:DYSPNEA MEASUREMENTS -------- HEIGHT: 160.0 cm WEIGHT: 80.7 kg BP: 139/81 RVIDd: 3.2 cm (< 3.3) IVSd: 1.1 cm (0.6 - 1.1) LVIDd: 4.7 cm (3.9 - 5.3) LVPWd: 1.2 cm (0.6 - 1.1) IVSs: 1.7 cm LVIDs: 3.2 cm LVPWs: 1.9 cm LA Diam: 3.6 cm (2.7 - 3.8) LAESV Index (A-L): 16.29 ml/m Ao Diam: 2.6 cm (2.0 - 3.7) AV Cusp: 1.8 cm (1.5 - 2.6) LA Diam: 3.8 cm (2.7 - 3.8) MV EXCURSION: 13.536 mm (> 18.000) MV EF SLOPE: 127 mm/s (70 - 150) EPSS: 0.8 cm MV E Iker: 1.36 m/s MV DecT: 143 ms MV A Iker: 1.20 m/s MV E/A Ratio: 1.13 AV maxP.27 mmHg AV meanP.27 mmHg RAP: 10.00 mmHg RVSP: 43.58 mmHg FINDINGS -------- This was a technically adequate study. The left ventricular size is normal. There is borderline concentric left ventricular hypertrophy. Overall left ventricular systolic function is normal with, an EF between 55 - 60 %. The right ventricle is normal in size. Normal LA size by volume 22+/-6 ml/m2. The aortic valve was not well visualized. The mitral valve leaflets are mildly thickened. Mild mitral annular calcification present. Mild mitral regurgitation is present. Mild tricuspid regurgitation present. There is mild pulmonary hypertension. The right ventricular systolic pressure, as measured by Doppler, is 43.58mmHg. The pulmonic valve was not well visualized. The aortic root size is normal. Normal inferior vena cava with less than 50% inspiratory collapse consistent with estimated right atrial pressure of 10 mmHg. There is no pericardial effusion. CONCLUSIONS -------- 1. This was a technically adequate study. 2. Mild mitral regurgitation is present. 3. Mild tricuspid regurgitation present. 4. There is mild pulmonary hypertension. 5. The right ventricular systolic pressure, as measured by Doppler, is 43.58mmHg. 6. The pulmonic valve was not well visualized. 7. The aortic root size is normal. 8. Normal inferior vena cava with less than 50% inspiratory collapse consistent with estimated right atrial pressure of 10 mmHg. 9. There is no pericardial effusion. 10. The left ventricular size is normal. 11. There is borderline concentric left ventricular hypertrophy. 12. Overall left ventricular systolic function is normal with, an EF between 55 - 60 %. 13. The right ventricle is normal in size. 14. Normal LA size by volume 22+/-6 ml/m2. 15. The aortic valve was not well visualized. 16. The mitral valve leaflets are mildly thickened. 17. Mild mitral annular calcification present. SOFTWARE DEVELOPER CONSULTANT: Sana Courtney RDCS
[2016-09-19] MEDS ORDERED: SALINE NASAL GEL 14.1 GM TUBE TOPICAL PRN (10:58)
[2016-09-19] MEDS ORDERED: SODIUM CHLORIDE 0.65% NASAL SPRAY 44 ML BTL NASAL PRN (11:00)
[2016-09-19] MEDS ORDERED: GLYCOPYRROLATE 0.2 MG/ML 2 ML VIAL ONE (12:15)
[2016-09-19] MEDS ORDERED: PROPOFOL 10 MG/ML 20 ML VIAL IV ONE (12:15)
[2016-09-19] MEDS ORDERED: LIDOCAINE 1% INJ 10MG/ML (20 ML MDV) ONE (12:15)
[2016-09-19] MEDS ORDERED: fentaNYL (PF) 50 MCG/ML 2 ML AMP ONE (12:15)
[2016-09-19] MEDS ORDERED: KETAMINE 10 MG/ML 20 ML VIAL ONE (12:15)
[2016-09-19] MEDS ORDERED: MIDAZOLAM 2 MG/2 ML VIAL ONE (12:15)
[2016-09-19] MEDS ORDERED: IV FLUID CONTINUATION 1,000 ML IV ONE (12:17)
[2016-09-19] MEDS ORDERED: LIDOCAINE 2% INJ 20 MG/ML INTRATRACH ONE (12:42)
--- NOTE | 2016-09-19 13:48 | P.PN ---
Subjective Principal diagnosis: Bilateral pneumonia, history of scleroderma. 70-year-old female patient with history of scleroderma who is presenting to the hospital because of worsening shortness of breath, cough, increased sweats, and progressive worsening in the respiratory status over the past 4 days. The patient has been under the care of Dr. Quintanilla and [facility] regarding her scleroderma. Her disease was diagnosed many years back and she was told to have limited disease to her skin without the typical crest manifestation. The patient has also been told not to have any interstitial lung disease or pulmonary hypertension yet she tells that she has seen Dr. Letty Valadez at [facility] and she was been placed on Rovatio which is a medication typically uses for pulmonary hypertension. In terms of therapy, she had Cytoxan therapy many years back and she quit that 3 years ago and currently she is on methotrexate on a weekly basis. She has chronic GE reflux/Alexis's esophagus and telangiectasias. No long-term oxygen therapy. No anticoagulation. She has a remote history of DVT of the lower extremities yet she has not been on the coagulation for all this years. In terms of this current hospitalization, the patient is having increased dry cough which is episodic and quite frequent. Unable to bring up any sputum. No chest pain. She has crackles in lung bases are rather coarse and she has a chest x-ray that was done at time of admission that showed a limited right lower lobe pulmonary infiltrates and subsequent chest x-ray showed cardiomegaly with some increased interstitial markings. No consolidation. No focal airspace disease. Nevertheless, the patient is hypoxic and currently she is on 4l/min of oxygen by nasal cannula. She tells that her breathing condition has been essentially poor and on and off she was being respiratory infections since May 2016. No previous reports Ustick lung infections. She is currently covered with a combination of Rocephin and Zithromax. Improvement has been limited and for that reason a pulmonary consultation was requested. On today's evaluation of 09/18/2016, the patient is still having difficulty breathing and cough. Infected condition is been essentially unchanged over the past 24 hours. As mentioned earlier, pneumonia was suspected and the patient was sent for a CAT scan of the chest which showed no evidence of an interstitial lung disease. There was some limited groundglass opacities in the lung bases bilaterally along with some parenchymal bands in the lung bases. Small effusions are also present. No mediastinal lymphadenopathy. The overall picture is consistent with an underlying infectious process. The patient has not shown adequate response to the routine antibiotics are being utilized. I think she will need a bronchoscopy for bronchoalveolar lavage to make sure there is no opportunistic infection underlying condition. Patient was reevaluated today on 09/19/2016, she is basically about the same, continues to have shortness of breath and cough. She is not changing much, I reviewed the CT of the chest, and I discussed her condition with Dr. Wilcox who saw her for the last few days, and we both agreed on scheduling the patient for bronchoscopy today which I did in the last 12 hours. Her findings are mostly findings of infection and. Secretions noted in the airways bilaterally especially in the lower lobe. Lavage of the right middle lobe and left lower lobe was done. And the fluid was sent for different diagnostic studies. Objective - Vital Signs Vital signs: Vital Signs Temp 97.5 F L 09/19/16 07:00 Pulse 80 09/19/16 08:10 Resp 16 09/19/16 07:00 BP 139/81 09/19/16 07:00 Pulse Ox 100 09/19/16 07:00 Intake & Output 09/18/16 09/19/16 09/19/16 18:59 06:59 18:59 Intake Total 540 910 200 Balance 540 910 200 Intake: IV 490 420 200 Sodium Chloride 0.9% 1, 490 420 000 ml @ 70 mls/hr IV . [id number] [facility] Rx#:[id number] Intake, IV Titration 50 50 Amount cefTAZidime 1 gm In 50 Sodium Chloride 0.9% 50 ml @ 100 mls/hr IVPB Q8HR [facility] Rx#:[id number] cefTRIAXone 1,000 mg In 50 Sodium Chloride 0.9% 50 ml @ 100 mls/hr IVPB Q24H [facility] Rx#:[id number] Oral 440 Other: Voiding Method Toilet Toilet Toilet # Voids 2 2 - Exam Head exam was generally normal. There was no scleral icterus or corneal arcus. Mucous membranes were moist.Neck was supple and without jugular venous distension, thyromegaly, or carotid bruits. Carotids were easily palpable bilaterally. There was no adenopathy. There is some skin thickening over the anterior neck area consistent with scleroderma. Lung sounds are diminished and there is some coarse crackles in lung bases bilaterally.Cardiac exam revealed the PMI to be normally situated and sized. The rhythm was regular and no extrasystoles were noted during several minutes of auscultation. The first and second heart sounds were normal and physiologic splitting of the second heart sound was noted. There were no murmurs, rubs, clicks, or gallops. Abdominal exam revealed normal bowel sounds. The abdomen was soft, non-tender, and without masses, organomegaly, or appreciable enlargement of the abdominal aorta. Extremities reveal skin changes consistent with scleroderma. There are occasional telangiectasias involving the skin. No cyanosis. No clubbing. Neurologically awake and there is no focal neurological deficit. - Labs CBC & Chem 7: 09/18/16 07:41 09/19/16 07:53 Labs: Abnormal Lab Results - Last 24 Hours (Table) 09/19/16 Range/Units 07:53 BUN 20 H (7-17) mg/dL Glucose 110 H (74-99) mg/dL Total Protein 5.8 L (6.3-8.2) g/dL Albumin 3.2 L (3.5-5.0) g/dL Assessment and Plan Plan: 1 acute hypoxic respiratory failure and a 70-year-old female patient who presented with symptoms of increased shortness of breath and cough with some limited infiltration of the right lung base raising the suspicion for pneumonia. In fact the patient was febrile at time of admission and she had a T -max of 102.5. Cultures of been all negative and the patient is immunosuppressed with the utilization of methotrexate for scleroderma. On 09/18/2016, CAT scan of the chest was done and showed some limited groundglass changes in lung bases bilaterally without evidence of any interstitial lung disease. I do suspect that this is a infectious process which has not responded to routine antibiotics and the patient will benefit from bronchoscopy and bronchial alveolar lavage looking for any which was taken infections. On 09/19/2016, patient underwent a bronchoscopy and BAL, results of which are pending. But the findings of the airways were mostly findings of infection with purulent secretions noted in lower lobe. 2 scleroderma, limited 3 questionable pulmonary hypertension maintained on sildenafil by mouth which is typically used for pulmonary hypertension treatment and scleroderma patient although typically not as a single agent. 4 remote history of DVT, currently on no anticoagulants 5 Alexis's esophagus with significant esophageal dysmotility and GERD 6 marked drop in hemoglobin down to 8.7 from baseline of 11.3, no evidence of any GI bleed Recommendation: Continue present antibiotics, will adjust antibiotics accordingly based on the cultures from the BAL which are pending. Discussed her condition with her after the bronchoscopy procedure. Time with Patient: Less than 30
[2016-09-19] MEDS: SERTRALINE 100 MG TAB PO SCH (14:04)
[2016-09-19 16:17] LABS: RBC, Body Fluid 2100 /uL
--- NOTE | 2016-09-19 17:07 | PN ---
DATE OF SERVICE: 09/18/2016 CHIEF COMPLAINT: Re-evaluation. HISTORY OF PRESENT ILLNESS: This lady was admitted to the hospital with shortness of breath, cough, and fever. The patient is noted to have evidence suggestive of pneumonia. The patient's chest CT shows ( ). She does have an underlying history of scleroderma. The patient has been afebrile following initial temperature. However, the patient continues to have shortness of breath. She does have underlying suggestion of pulmonary hypertension. Echocardiogram pending. REVIEW OF SYSTEMS: NEURO: Denies any headaches, dizziness. PSYCH: Some anxiety. CARDIAC: No chest pain, angina, palpitations. RESPIRATORY: Cough. No hemoptysis. GI: No nausea, vomiting, abdominal pain, diarrhea. : No dysuria or hematuria. EXTREMITIES: No pain. CONSTITUTIONAL: No fever or chills. PHYSICAL EXAMINATION: Pleasant 70-year-old female, at present afebrile, temperature 96.6, pulse 75, respirations 20, blood pressure 134/76, pulse ox of 92% on 4 liters. HEENT: Normocephalic. NECK: No JVD. Chest is clear to percussion. The patient has some rhonchi and crackles at the right base. Lung burks reveal otherwise adequate air flow. No wheezing. CARDIAC: Distant heart sounds. S1, S2 with no gallops. Systolic murmur 2/6 left sternal border. ABDOMEN: Soft. Bowel sounds present. EXTREMITIES: Trace edema. NEUROLOGIC: Awake, alert, oriented x3 with well-coordinated movements. LABORATORY ASSESSMENT: CBC revealed a white count of 3.6. Hemoglobin is 9.5, platelets 231 CAT scan as mentioned above. ASSESSMENT: 1. Alveolitis. 2. Acute respiratory failure. 3. Scleroderma. 4. Pulmonary hypertension. PLAN: Continue present medical regimen. The patient's condition was discussed with the patient. We will switch antibiotics to Fortaz and Levaquin. The patient has been evaluated by pulmonary and plan for bronchoscopy.
[2016-09-19] MEDS: LEVOFLOXACIN 750MG-D5W PMX 750 MG in DEXTROSE/WATER 1 150ML.BAG IVPB SCH (21:18)
[2016-09-19] MEDS: traZODone HCL 50 MG TAB PO SCH (21:19)
[2016-09-19] MEDS: guaiFENesin-Coden 100-10MG/5ML 10 ML CUP PO PRN (22:10)
[2016-09-20] MEDS: CHOLECALCIFEROL 1,000 UNIT TAB PO SCH (08:07)
[2016-09-20] MEDS: FAMOTIDINE 20 MG TAB PO SCH ×2 (08:09→21:07)
[2016-09-20] MEDS: FOLIC ACID 1 MG TAB PO SCH (08:09)
[2016-09-20] MEDS: SILDENAFIL 20 MG TAB PO SCH ×3 (08:09→21:07)
[2016-09-20] MEDS: SERTRALINE 100 MG TAB PO SCH (08:09)
[2016-09-20] MEDS: predniSONE 20 MG TAB PO SCH (08:54)
--- NOTE | 2016-09-20 10:57 | PCN ---
DATE OF PROCEDURE: PROCEDURE: Bronchoscopy with bronchoalveolar lavage of the right lobe and left lower lobe, plus random washings of purulent secretions bilaterally. PREOPERATIVE DIAGNOSIS: Pneumonia involving both lungs, especially left lower lobe and right lower lobe. POSTOPERATIVE DIAGNOSIS: Pneumonia involving both lungs, especially left lower lobe and right lower lobe. ANESTHESIA USED: IV conscious sedation. Please refer to HOTBED LEVER OPERATOR documentation. DESCRIPTION OF PROCEDURE: Patient was prepared according to the bronchoscopy protocol. The patient was placed in a supine position. O2 was applied via nasal cannula, and we were monitoring O2 saturation continuously via pulse oximetry. Cardiac rhythm was also monitored continuously and blood pressure was intermittently monitored. After adequate IV conscious sedation, once 2% lidocaine was placed instilled into the right nostril, and the bronchoscope was advanced through the right nostril down to the area of the vocal cords. The vocal cords were patent. Lidocaine was applied over the vocal cords and the bronchoscope was advanced further down and a thorough examination was done of the trachea, dannielle, right upper lobe, right middle lobe, right lower lobe, left upper lobe, lingula, and left lower lobe. 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 There was evidence of purulent secretions in both lungs, and these secretions were also noted to be in the distal trachea and in the dannielle area. The secretions were suctioned thoroughly, and I was able to do a lavage of the right middle lobe and a lavage of the left lower lobe. Purulent secretions were obtained and they were sent for different diagnostic studies. Close examination of the right upper lobe, and left upper lobe showed thickened mucosa, but no evidence of suspicious endobronchial tumors. Again, thickening of the mucosa was noted throughout the whole bronchial tree. The procedure was well tolerated. No evidence of any immediate complication. Fluid was sent for different diagnostic studies and different cultures including PCP stain and PCR.
[2016-09-20] MEDS: IPRATROPIUM-ALBUTEROL 3 ML NEB INHALATION PRN ×3 (11:04→19:24)
[2016-09-20] MEDS: guaiFENesin-Coden 100-10MG/5ML 10 ML CUP PO PRN (12:23)
--- NOTE | 2016-09-20 12:54 | PN ---
CHIEF COMPLAINT: Re-evaluation. HISTORY OF PRESENT ILLNESS: This is a 70-year-old female was admitted to the hospital with pneumonia. The patient suspected of gram-negative pneumonia and has been started on Fortaz and Levaquin. The patient is feeling somewhat better today. She does have some degree of pulmonary hypertension and scleroderma. The patient is being followed by pulmonary. REVIEW OF SYSTEMS: NEURO: Denies any headaches, dizziness. PSYCH: No anxiety. CARDIAC: No chest pain, angina, palpitation. RESPIRATORY: Some shortness of breath. No cough, hemoptysis. GI: No nausea, vomiting, abdominal pain, diarrhea. : No symptoms of dysuria, hematuria, urgency, frequency. EXTREMITIES: No pain or edema. CONSTITUTIONAL: No fever or chills. PHYSICAL EXAMINATION: Pleasant female in no distress with oxygen on. VITAL SIGNS: Temperature 97.5, pulse 70, respirations 16, blood pressure 139/81, pulse ox 100% on 4-L. HEENT: Normocephalic. NECK: No JVD. CHEST EXAMINATION: Clear to percussion. The patient has some dry crackles. CARDIAC: Distant S1, S2. No gallops. Systolic murmur 2/6 left sternal border. ABDOMEN: Soft. Bowel sounds present. EXTREMITIES: No edema. Trace edema. NEUROLOGIC: Awake, alert, oriented with well coordinated movements. LABORATORY ASSESSMENT: Electrolytes are normal. BUN 20, creatinine 0.7, albumin 3.2. ASSESSMENT: 1. Alveolitis/pneumonitis. 2. Scleroderma. 3. Anemia. 4. Acute respiratory failure. PLAN: The patient is stable. Continue present medical regimen. The patient's condition discussed with the patient. Prognosis guarded. Patient being followed by Pulmonary.
--- NOTE | 2016-09-20 13:28 | P.PN ---
Subjective Principal diagnosis: Bilateral pneumonia, history of scleroderma. 70-year-old female patient with history of scleroderma who is presenting to the hospital because of worsening shortness of breath, cough, increased sweats, and progressive worsening in the respiratory status over the past 4 days. The patient has been under the care of Dr. Quintanilla and [facility] regarding her scleroderma. Her disease was diagnosed many years back and she was told to have limited disease to her skin without the typical crest manifestation. The patient has also been told not to have any interstitial lung disease or pulmonary hypertension yet she tells that she has seen Dr. Letty Valadez at [facility] and she was been placed on Rovatio which is a medication typically uses for pulmonary hypertension. In terms of therapy, she had Cytoxan therapy many years back and she quit that 3 years ago and currently she is on methotrexate on a weekly basis. She has chronic GE reflux/Alexis's esophagus and telangiectasias. No long-term oxygen therapy. No anticoagulation. She has a remote history of DVT of the lower extremities yet she has not been on the coagulation for all this years. In terms of this current hospitalization, the patient is having increased dry cough which is episodic and quite frequent. Unable to bring up any sputum. No chest pain. She has crackles in lung bases are rather coarse and she has a chest x-ray that was done at time of admission that showed a limited right lower lobe pulmonary infiltrates and subsequent chest x-ray showed cardiomegaly with some increased interstitial markings. No consolidation. No focal airspace disease. Nevertheless, the patient is hypoxic and currently she is on 4l/min of oxygen by nasal cannula. She tells that her breathing condition has been essentially poor and on and off she was being respiratory infections since May 2016. No previous reports Ustick lung infections. She is currently covered with a combination of Rocephin and Zithromax. Improvement has been limited and for that reason a pulmonary consultation was requested. On today's evaluation of 09/18/2016, the patient is still having difficulty breathing and cough. Infected condition is been essentially unchanged over the past 24 hours. As mentioned earlier, pneumonia was suspected and the patient was sent for a CAT scan of the chest which showed no evidence of an interstitial lung disease. There was some limited groundglass opacities in the lung bases bilaterally along with some parenchymal bands in the lung bases. Small effusions are also present. No mediastinal lymphadenopathy. The overall picture is consistent with an underlying infectious process. The patient has not shown adequate response to the routine antibiotics are being utilized. I think she will need a bronchoscopy for bronchoalveolar lavage to make sure there is no opportunistic infection underlying condition. Patient was reevaluated today on 09/19/2016, she is basically about the same, continues to have shortness of breath and cough. She is not changing much, I reviewed the CT of the chest, and I discussed her condition with Dr. Wilcox who saw her for the last few days, and we both agreed on scheduling the patient for bronchoscopy today which I did in the last 12 hours. Her findings are mostly findings of infection and. Secretions noted in the airways bilaterally especially in the lower lobe. Lavage of the right middle lobe and left lower lobe was done. And the fluid was sent for different diagnostic studies. The patient was seen again today 09/20/2016 on the regular medical floor. She is awake and alert in no acute distress. She is status post bronchoscopy with BAL yesterday. Cultures are pending. She is maintained on ceftazidime and Levaquin. She denies any worsening shortness of breath. She continues with a loose nonproductive cough. Her cough has subsided today as compared to yesterday. Objective - Vital Signs Vital signs: Vital Signs Temp 97 F L 09/20/16 07:00 Pulse 64 09/20/16 11:15 Resp 20 09/20/16 07:00 BP 166/79 09/20/16 07:00 Pulse Ox 98 09/20/16 07:00 Intake & Output 09/19/16 09/20/16 09/20/16 18:59 06:59 18:59 Intake Total 760 490 Balance 760 490 Weight 80.739 kg Intake: IV 760 490 Sodium Chloride 0.9% 1, 560 490 000 ml @ 70 mls/hr IV . [id number] [facility] Rx#:[id number] Other: Voiding Method Toilet Toilet Toilet # Voids 3 2 - Exam GENERAL EXAM: Alert, comfortable in no apparent distress. HEAD: Normocephalic. EYES: Normal reaction of pupils, equal size. NOSE: Clear with pink turbinates. THROAT: No erythema or exudates. NECK: No masses, no JVD. CHEST: No chest wall deformity. LUNGS: Equal air entry with few scattered rhonchi. Diminished. CVS: S1 and S2 normal with no audible murmurs, regular rhythm. ABDOMEN: No hepatosplenomegaly, normal bowel sounds, no guarding or rigidity. Extremities: Changes of scleroderma noted. Peripheral pulses are intact. - Labs CBC & Chem 7: 09/18/16 07:41 09/19/16 07:53 Labs: Microbiology - Last 24 Hours (Table) 09/19/16 12:40 Gram Stain - Preliminary Bronchial Washings - Right Bronchial Washings Culture - Preliminary 09/19/16 12:40 Fungal Culture - Preliminary Bronchial Washings - Right 09/19/16 12:40 Acid Fast Bacilli Culture - Preliminary Bronchial Washings - Right Assessment and Plan Plan: Impression: 1 acute hypoxic respiratory failure and a 70-year-old female patient who presented with symptoms of increased shortness of breath and cough with some limited infiltration of the right lung base raising the suspicion for pneumonia. In fact the patient was febrile at time of admission and she had a T -max of 102.5. Cultures of been all negative and the patient is immunosuppressed with the utilization of methotrexate for scleroderma. On 09/18/2016, CAT scan of the chest was done and showed some limited groundglass changes in lung bases bilaterally without evidence of any interstitial lung disease. I do suspect that this is a infectious process which has not responded to routine antibiotics and the patient will benefit from bronchoscopy and bronchial alveolar lavage looking for any which was taken infections. On 09/19/2016, patient underwent a bronchoscopy and BAL, results of which are pending. But the findings of the airways were mostly findings of infection with purulent secretions noted in lower lobe. on 09/20/2016 the patient is awake and alert in no acute distress. She is breathing easier today as compared to yesterday. Cultures pending. 2 scleroderma, limited 3 questionable pulmonary hypertension maintained on sildenafil by mouth which is typically used for pulmonary hypertension treatment and scleroderma patient although typically not as a single agent. 4 remote history of DVT, currently on no anticoagulants 5 Alexis's esophagus with significant esophageal dysmotility and GERD 6 marked drop in hemoglobin down to 8.7 from baseline of 11.3, no evidence of any GI bleed. Most recent hemoglobin 9.5. Plan: The patient was seen and evaluated by Dr. Hdez. She continues to improve daily. We are waiting culture results from them bronchial lavage. we'll continue with her current medications for now. We will increase her activity as tolerated. We'll continue to follow.
[2016-09-20] MEDS: OXYMORPHONE HCL 5 MG TABLET PO PRN (16:56)
[2016-09-20] MEDS: LEVOFLOXACIN 750MG-D5W PMX 750 MG in DEXTROSE/WATER 1 150ML.BAG IVPB SCH (20:04)
[2016-09-20] MEDS: traZODone HCL 50 MG TAB PO SCH (21:07)
--- NOTE | 2016-09-21 07:47 | XR ---
EXAMINATION TYPE: XR chest 2V DATE OF EXAM: 09/21/2016 6:44 AM COMPARISON: 09/17/2016 TECHNIQUE: PA and lateral views submitted. HISTORY: Pneumonia FINDINGS: Lateral view demonstrates tiny bilateral effusions and degenerative change of the spine. Mediport cat heter seen the heart is mildly enlarged. There is subsegmental changes along the left lung base near the costophrenic angle. IMPRESSION: 1. Subsegmental changes bilateral lung bases with tiny effusions particularly on the lateral view. Di fferential include pneumonia correlate clinically. Findings appear stable.
[2016-09-21] MEDS: CHOLECALCIFEROL 1,000 UNIT TAB PO SCH (08:32)
--- NOTE | 2016-09-21 08:34 | PN ---
DATE OF SERVICE: 09/20/2016 CHIEF COMPLAINT: Re-evaluation. HISTORY OF PRESENT ILLNESS: A 70-year-old female was admitted to the hospital with fever and a suspected right lower lobe pneumonia. The patient has underlying history of scleroderma. She is actually feeling somewhat better today. She did have a bronchoscopy yesterday. Bronchoscopy shows inflammatory cells. No evidence of malignancy. REVIEW OF SYSTEMS: NEURO: Denies any headaches, dizziness. PSYCH: No anxiety. CARDIAC: No chest pain, angina, palpitation. RESPIRATORY: Denies much shortness of breath, except when she moves. Persistent cough, which is improving. GI: No nausea, vomiting, abdominal pain. Loose stools. : No symptoms of dysuria, hematuria. EXTREMITIES: Some chronic pain. CONSTITUTIONAL: No fever or chills. PHYSICAL EXAMINATION: Pleasant female in no distress. Vital signs reveals temperature 97, pulse 59, respirations 20, blood pressure 166/79, pulse ox of 98% on 2 liters. HEENT: Normocephalic. NECK: No JVD. CHEST: Clear to auscultation with mild decreased air flow at the bases but improved air flow compared to admission. A few scattered rhonchi. CARDIAC: Distant heart sounds. S1, S2 with no gallops. Systolic murmur 2/6 left sternal border. ABDOMEN: Soft, no palpable masses. Bowel sounds normal. No organomegaly. No abdominal bruits. EXTREMITIES: Trace edema in lower extremities. NEUROLOGIC: Awake, alert, oriented, well-coordinated movements. LABORATORY ASSESSMENT: As mentioned above. Bronchial washes do show some Tatiana albicans. ASSESSMENT: 1. Pneumonia alveolitis, improving, suspect gram-negative. 2. History of scleroderma. 3. Anemia. 4. History of depression, controlled. 5. History of pulmonary hypertension. PLAN: The patient is stable. Continue present medical regimen. The patient's condition discussed with the patient. Prognosis remains guarded. Pulmonary is following the patient. The patient's condition ( ) pulmonary feels patient is improving. We will discontinue the Solu-Medrol. Replace the patient's heparin dozing back as the patient bronchoscope was done. Patient's general condition discussed with the patient. Prognosis guarded.
[2016-09-21] MEDS: FLUCONAZOLE 150 MG TAB PO SCH (09:21)
[2016-09-21] MEDS: FAMOTIDINE 20 MG TAB PO SCH ×2 (09:23→21:25)
[2016-09-21] MEDS: SERTRALINE 100 MG TAB PO SCH (09:26)
[2016-09-21] MEDS: predniSONE 20 MG TAB PO SCH (09:26)
[2016-09-21] MEDS: FOLIC ACID 1 MG TAB PO SCH (09:26)
[2016-09-21] MEDS: SILDENAFIL 20 MG TAB PO SCH ×3 (09:26→21:25)
--- NOTE | 2016-09-21 12:17 | P.PN ---
Subjective Principal diagnosis: Bilateral pneumonia, history of scleroderma. 70-year-old female patient with history of scleroderma who is presenting to the hospital because of worsening shortness of breath, cough, increased sweats, and progressive worsening in the respiratory status over the past 4 days. The patient has been under the care of Dr. Quintanilla and [facility] regarding her scleroderma. Her disease was diagnosed many years back and she was told to have limited disease to her skin without the typical crest manifestation. The patient has also been told not to have any interstitial lung disease or pulmonary hypertension yet she tells that she has seen Dr. Letty Valadez at [facility] and she was been placed on Rovatio which is a medication typically uses for pulmonary hypertension. In terms of therapy, she had Cytoxan therapy many years back and she quit that 3 years ago and currently she is on methotrexate on a weekly basis. She has chronic GE reflux/Alexis's esophagus and telangiectasias. No long-term oxygen therapy. No anticoagulation. She has a remote history of DVT of the lower extremities yet she has not been on the coagulation for all this years. In terms of this current hospitalization, the patient is having increased dry cough which is episodic and quite frequent. Unable to bring up any sputum. No chest pain. She has crackles in lung bases are rather coarse and she has a chest x-ray that was done at time of admission that showed a limited right lower lobe pulmonary infiltrates and subsequent chest x-ray showed cardiomegaly with some increased interstitial markings. No consolidation. No focal airspace disease. Nevertheless, the patient is hypoxic and currently she is on 4l/min of oxygen by nasal cannula. She tells that her breathing condition has been essentially poor and on and off she was being respiratory infections since May 2016. No previous reports Ustick lung infections. She is currently covered with a combination of Rocephin and Zithromax. Improvement has been limited and for that reason a pulmonary consultation was requested. On today's evaluation of 09/18/2016, the patient is still having difficulty breathing and cough. Infected condition is been essentially unchanged over the past 24 hours. As mentioned earlier, pneumonia was suspected and the patient was sent for a CAT scan of the chest which showed no evidence of an interstitial lung disease. There was some limited groundglass opacities in the lung bases bilaterally along with some parenchymal bands in the lung bases. Small effusions are also present. No mediastinal lymphadenopathy. The overall picture is consistent with an underlying infectious process. The patient has not shown adequate response to the routine antibiotics are being utilized. I think she will need a bronchoscopy for bronchoalveolar lavage to make sure there is no opportunistic infection underlying condition. Patient was reevaluated today on 09/19/2016, she is basically about the same, continues to have shortness of breath and cough. She is not changing much, I reviewed the CT of the chest, and I discussed her condition with Dr. Wilcox who saw her for the last few days, and we both agreed on scheduling the patient for bronchoscopy today which I did in the last 12 hours. Her findings are mostly findings of infection and. Secretions noted in the airways bilaterally especially in the lower lobe. Lavage of the right middle lobe and left lower lobe was done. And the fluid was sent for different diagnostic studies. The patient was seen again today 09/20/2016 on the regular medical floor. She is awake and alert in no acute distress. She is status post bronchoscopy with BAL yesterday. Cultures are pending. She is maintained on ceftazidime and Levaquin. She denies any worsening shortness of breath. She continues with a loose nonproductive cough. Her cough has subsided today as compared to yesterday. She is seen again today 09/21/2016 in follow-up. She is awake and alert in no acute distress. Today's chest x-ray shows minimal atelectatic changes in the bases otherwise clear. Bronchoscopy wash revealed Tatiana albicans otherwise unremarkable She's been initiated on Diflucan. Cytology is negative for malignancy. She is maintaining O2 saturations in the mid 90s on room air. She is afebrile. Objective - Vital Signs Vital signs: Vital Signs Temp 98.4 F 09/21/16 07:00 Pulse 69 09/21/16 07:00 Resp 18 09/21/16 07:00 BP 142/61 09/21/16 07:00 Pulse Ox 94 L 09/21/16 08:07 Intake & Output 09/20/16 09/21/16 09/21/16 18:59 06:59 18:59 Intake Total 70 600 Balance 70 600 Intake: Intake, IV Titration 70 200 Amount Levofloxacin 750Mg-D5w 150 Pmx 750 mg In Dextrose/ Water 1 150ml.bag @ 100 mls/hr IVPB Q24H [facility] Rx#: [id number] Sodium Chloride 0.9% 1, 70 000 ml @ 70 mls/hr IV . [id number] [facility] Rx#:[id number] cefTAZidime 1 gm In 50 Sodium Chloride 0.9% 50 ml @ 100 mls/hr IVPB Q8HR [facility] Rx#:[id number] Oral 400 Other: Voiding Method Toilet Toilet # Voids 2 1 - Exam GENERAL EXAM: Alert, comfortable in no apparent distress. HEAD: Normocephalic. EYES: Normal reaction of pupils, equal size. NOSE: Clear with pink turbinates. THROAT: No erythema or exudates. NECK: No masses, no JVD. CHEST: No chest wall deformity. LUNGS: Equal air entry with few scattered rhonchi. Diminished. CVS: S1 and S2 normal with no audible murmurs, regular rhythm. ABDOMEN: No hepatosplenomegaly, normal bowel sounds, no guarding or rigidity. Extremities: Changes of scleroderma noted. Peripheral pulses are intact. - Labs CBC & Chem 7: 09/18/16 07:41 09/19/16 07:53 Labs: Microbiology - Last 24 Hours (Table) 09/19/16 12:40 Gram Stain - Final Bronchial Washings - Right Bronchial Washings Culture - Final Tatiana albicans 09/19/16 12:40 Acid Fast Bacilli Smear - Final Bronchial Washings - Right Acid Fast Bacilli Culture - Preliminary Assessment and Plan Plan: Impression: 1 acute hypoxic respiratory failure and a 70-year-old female patient who presented with symptoms of increased shortness of breath and cough with some limited infiltration of the right lung base raising the suspicion for pneumonia. In fact the patient was febrile at time of admission and she had a T -max of 102.5. Cultures of been all negative and the patient is immunosuppressed with the utilization of methotrexate for scleroderma. On 09/18/2016, CAT scan of the chest was done and showed some limited groundglass changes in lung bases bilaterally without evidence of any interstitial lung disease. I do suspect that this is a infectious process which has not responded to routine antibiotics and the patient will benefit from bronchoscopy and bronchial alveolar lavage looking for any which was taken infections. On 09/19/2016, patient underwent a bronchoscopy and BAL, results of which are pending. But the findings of the airways were mostly findings of infection with purulent secretions noted in lower lobe. on 09/20/2016 the patient is awake and alert in no acute distress. She is breathing easier today as compared to yesterday. Cultures pending. On 09/21/2016 pathology is negative for malignancy, only Tatiana albicans on bronchial wash. Initiated on Diflucan. Chest x-rays improved. 2 scleroderma, limited 3 questionable pulmonary hypertension maintained on sildenafil by mouth which is typically used for pulmonary hypertension treatment and scleroderma patient although typically not as a single agent. 4 remote history of DVT, currently on no anticoagulants 5 Alexis's esophagus with significant esophageal dysmotility and GERD 6 marked drop in hemoglobin down to 8.7 from baseline of 11.3, no evidence of any GI bleed. Most recent hemoglobin 9.5. Plan: The patient was seen and evaluated by Dr. Hdez. She is stable from the pulmonary standpoint and is cleared for discharge once cleared medically. She' ll complete her course of antibiotics, Diflucan and prednisone taper to her daily dose of 10 mg. She could follow-up in our office in 1-2 weeks' time. She is however encouraged to call sooner with any recurrence of symptoms or other questions or concerns.
[2016-09-21] MEDS: LEVOFLOXACIN 750MG-D5W PMX 750 MG in DEXTROSE/WATER 1 150ML.BAG IVPB SCH (19:47)
[2016-09-21] MEDS: traZODone HCL 50 MG TAB PO SCH (21:24)
[2016-09-21] MEDS: guaiFENesin-Coden 100-10MG/5ML 10 ML CUP PO PRN (21:31)
[2016-09-21 22:30] VITALS: RESP 16
[2016-09-22] MEDS: HEPARIN SODIUM,PORCINE 5,000 UNIT/ML 1 ML VIAL SQ SCH ×3 (00:43→08:51)
[2016-09-22 07:59] LABS: Mis test requested (Non-blood) P.jirovecii (PCP)
[2016-09-22 08:06] VITALS: BP 139/80; PULSE 74; TEMP 98
[2016-09-22] MEDS: CHOLECALCIFEROL 1,000 UNIT TAB PO SCH (08:30)
[2016-09-22] MEDS: predniSONE 20 MG TAB PO SCH (08:41)
[2016-09-22] MEDS: FAMOTIDINE 20 MG TAB PO SCH (08:41)
[2016-09-22] MEDS: FOLIC ACID 1 MG TAB PO SCH (08:41)
[2016-09-22] MEDS: SERTRALINE 100 MG TAB PO SCH (08:41)
[2016-09-22] MEDS: FLUCONAZOLE 150 MG TAB PO SCH (08:41)
[2016-09-22] MEDS: SILDENAFIL 20 MG TAB PO SCH (08:41)
--- NOTE | 2016-09-22 09:02 | PN ---
DATE OF SERVICE: 09/21/2016 CHIEF COMPLAINT: Re-evaluation. HISTORY OF PRESENT ILLNESS: This is a 70-year-old female feels better today. She does have she says she had an uncomfortable night. However, no fever or chills. No shortness of breath. Does have some cough. REVIEW OF SYSTEMS: NEURO: Denies any headaches, dizziness. PSYCH: No anxiety. Some apprehension. CARDIAC: No chest pain, angina, palpitation. RESPIRATORY: Denies shortness of breath and a little cough. No hemoptysis. GI: No nausea, vomiting, abdominal pain some loose stools. : No symptoms of dysuria, hematuria. EXTREMITIES: No pain. CONSTITUTIONAL: No fever, chills. PHYSICAL EXAMINATION: Pleasant female in no distress. Vital signs reveal temperature 98.4, pulse 69. Respirations are 18, blood pressure 142/61, pulse ox 94% on room air. HEENT: Normocephalic. NECK: No JVD. Chest is clear to auscultation with mild decreased air flow at the bases. CARDIAC: Distant heart sounds. S1, S2 with no gallops. Systolic murmur 2/6 left sternal border. ABDOMEN: Soft, no palpable masses. Bowel sounds present. Extremities reveal trace edema. NEUROLOGIC: Awake, alert, oriented with well-coordinated movements. LABORATORY ASSESSMENT: Chest x-ray which was reviewed with the radiologist. Does show subsegmental changes both in the basis and tiny effusions especially noted on the lateral view. Findings are stable. ASSESSMENT: 1. Resolving pneumonia, probably gram-negative. 2. History of scleroderma. 3. Underlying history of pulmonary hypertension. PLAN: The patient is stable. Continue present medical regimen. The patient's condition discussed with the patient. Prognosis guarded. Potentially discharge home tomorrow. Patient to be monitored for any hypoxia with activity if she does, then she may require oxygen. The patient's condition was discussed with the patient. Prognosis guarded. Patient is seen by pulmonary.
[2016-09-22 16:02] LABS: Mis test requested (Non-blood) Mycoplasma pneumoPCR
--- NOTE | 2016-09-29 10:00 | P.DS ---
Providers Date of admission: 09/14/16 20:58 Attending physician: Charly Quintanilla Consults: 09/17/16 12:06 Consult Physician Urgent Consulting Provider: Josey Wilcox Consult Reason/Comments: sob Do you want consulting provider notified?: Yes Primary care physician: Charly Quintanilla Hospital Course: Hospital course: This 70-year-old female was admitted to the hospital because of shortness of breath cough and a high temperature. Patient has a history of scleroderma. She has had recent respiratory infections treated. She is known to have associated pulmonary hypertension on treatment. Patient follows with the physicians at specialty clinics in [facility]. Patient in view of her bowel was admitted to the hospital started on IV antibiotics. She is noted to have evidence suggestive of right lower lobe pneumonia. The patient was not progressing well. She was at this point switched over to 4 days and continue Levaquin with suspicion that she may have a gram-negative pneumonia. Patient is an immunocompromised host due to taking methotrexate. And history of scleroderma. Patient was seen by pulmonary. She was taken in for bronchoscopy and lavage. Noted to have inflammatory cells. She did have also Tatiana in the sputum. The patient with the changeover antibiotics condition improved significantly. Her acute shortness of breath and hypoxia resolved. Patient has a history of chronic anemia and did drop her hemoglobin soft with no evidence of bleeding. At this point patient was stable enough to be discharged. Patient will follow up with Dr. Quintanilla and her specialty clinics at [facility] Final diagnosis to include 1. Right lower lobe pneumonia probably gram-negative 2. Acute respiratory failure 3. Immunocompromised status due to medical therapy 4. Scleroderma 5. Anemia 6. Chronic pain 7. Pulmonary hypertension Patient Condition at Discharge: Stable Plan - Discharge Summary New Discharge Prescriptions: Levofloxacin [Levaquin] 500 mg PO DAILY #9 tab predniSONE 10 mg PO DIRECTED #30 tab Discharge Medication List Oxymorphone HCl [Opana ER] 20 mg PO DAILY PRN 11/11/13 [History] fentaNYL 100MCG/HR PATCH [Duragesic 100MCG/HR] 1 patch TRANSDERM Q48H 11/11/13 [ History] Furosemide [Lasix] 20 mg PO DAILY PRN 03/19/15 [History] Cholecalciferol [Vitamin D3] 5,000 unit PO DAILY 02/23/16 [History] Esomeprazole Magnesium [NexIUM] 20 mg PO BID 02/23/16 [History] Sertraline HCl [Sertraline HCl] 200 mg PO QAM 02/23/16 [History] Folic Acid 1 mg PO DAILY 06/30/16 [History] Ibuprofen [Motrin] 600 mg PO Q12H PRN 06/30/16 [History] Sildenafil [Revatio] 20 mg PO TID 06/30/16 [History] traZODone HCL [Desyrel] 50 mg PO HS 06/30/16 [History] Levofloxacin [Levaquin] 500 mg PO DAILY #9 tab 09/14/16 [Rx] predniSONE 10 mg PO DIRECTED #30 tab 09/22/16 [Rx] Follow up Appointment(s)/Referral(s): Charly Quintanilla MD [Primary Care Provider] - 09/27/16 10:30 am Patient Instructions/Handouts: Prednisone (By mouth), Levofloxacin (By mouth), Pneumonia (DC) Activity/Diet/Wound Care/Special Instructions: Increase fluids, take Levaquin until completed. Discharge Disposition: HOME SELF-CARE
== END 2016-09-22 10:25 | disposition home or self-care (01) | DRG 177 ==
LOC: EC 13:13 → 5MS5E 20:58
PROVIDERS: ADMIT Internal Medicine; ATTEND Internal Medicine
PROC: 0B9B8ZX Drainage of Left Lower Lobe Bronchus, Via Natural or Artificial Opening Endoscopic, Diagnostic (ICD-10-PCS; principal; 2016-09-19 07:30)
PROC: 0B958ZX Drainage of Right Middle Lobe Bronchus, Via Natural or Artificial Opening Endoscopic, Diagnostic (ICD-10-PCS; principal; 2016-09-19 07:30)
DX: J15.6 Pneumonia due to other Gram-negative bacteria (principal); J96.01 Acute respiratory failure with hypoxia; I27.2 Other secondary pulmonary hypertension; I10 Essential (primary) hypertension; D64.9 Anemia, unspecified; G89.29 Other chronic pain; K21.9 Gastro-esophageal reflux disease without esophagitis; K22.4 Dyskinesia of esophagus; K22.70 Barrett's esophagus without dysplasia; M34.9 Systemic sclerosis, unspecified; Z80.2 Family history of malignant neoplasm of other respiratory and intrathoracic organs; Z80.8 Family history of malignant neoplasm of other organs or systems; Z82.49 Family history of ischemic heart disease and other diseases of the circulatory system; Z86.718 Personal history of other venous thrombosis and embolism; Z86.72 Personal history of thrombophlebitis; Z87.891 Personal history of nicotine dependence; Z90.710 Acquired absence of both cervix and uterus; Z91.81 History of falling; Z88.2 Allergy status to sulfonamides; Z79.52 Long term (current) use of systemic steroids; Z79.899 Other long term (current) drug therapy
CPT/HCPCS: 31624; 36415; 70450; 71020; 71260; 80048; 80053; 82550; 82553; 84484; 85025; 85027; 87070; 87102; 87116; 87205; 87206; 87252; 87299; 87496; 87498; 87502; 87529; 87541; 87581; 87798; 88108; 88305; 89050; 93005; 93306; 94640; 94760; 96361; 96365; 99285

== ENCOUNTER → 2016-10-03 | Outpatient (CLI) | payer MEDICARE ==
--- NOTE | 2016-10-03 13:36 | US ---
EXAMINATION TYPE: US venous doppler duplex LE LT DATE OF EXAM: 10/03/2016 1:25 PM COMPARISON: NONE CLINICAL HISTORY: M79.89 Other specified soft tissue disorders LLE. Swelling to left leg SIDE PERFORMED: Left VESSELS IMAGED: External Iliac Vein (EIV) Common Femoral Vein Deep Femoral Vein Greater Saphenous Vein * Femoral Vein Popliteal Vein Small Saphenous Vein * Proximal Calf Veins (* superficial vessels) No popliteal fossa lesion was identified. Left Leg: Appears negative for DVT Tech impression to Dr Dong at [facility] @ 1:25 IMPRESSION: THIS EXAMINATION IS NEGATIVE FOR DVT WITHIN THE LEFT LEG.
== END | disposition home or self-care (01) ==
LOC: RADUSWWP 13:04
PROVIDERS: ATTEND Emergency Medicine
DX: M79.89 Other specified soft tissue disorders (principal)

== ENCOUNTER → 2016-12-14 | Outpatient (CLI) | payer MEDICARE ==
[2016-12-14 13:44] LABS: Basophils % (A) 0 %; CH 27.4; CHCM 31.8; Eosinophils # (A) 0.2 k/uL (0-0.7); Eosinophils % (A) 2 %; HCT 36.3 % (34.0-46.0); HDW 3.06; HGB 11.6 gm/dL (11.4-16.0); Hypochromasia Slight; Luc % (Auto) 1; Lymphocytes # (A) 0.3 k/uL (1.0-4.8); Lymphocytes % (A) 3 %; MCH 27.6 pg (25.0-35.0); MCHC 31.9 g/dL (31.0-37.0); MCV 86.4 fL (80.0-100.0); Mean Platelet Volume 6.6; Monocytes # (A) 0.2 k/uL (0-1.0); Monocytes % (A) 2 %; Neutrophils # (A) 7.9 k/uL (1.3-7.7); Neutrophils % (A) 92 %; RBC 4.21 m/uL (3.80-5.40); RDW 15.9 % (11.5-15.5); WBC 8.6 k/uL (3.8-10.6); WBC (Perox) 9.08
[2016-12-14 14:04] LABS: ALT 36 U/L (9-52); AST 19 U/L (14-36); Alkaline Phosphatase 50 U/L (38-126); Anion Gap 11 mmol/L; Blood Urea Nitrogen 17 mg/dL (7-17); Carbon Dioxide 24 mmol/L (22-30); Chloride 107 mmol/L (98-107); Glucose 109 mg/dL (74-99); Iron 55 ug/dL (37-170); Non-African American GFR(MDRD) >60 (>60 ml/min/1.73 sqM); Potassium 4.3 mmol/L (3.5-5.1); Sodium 142 mmol/L (137-145); Total Bilirubin 0.2 mg/dL (0.2-1.3); Total Protein 6.6 g/dL (6.3-8.2)
[2016-12-14 14:13] LABS: % Iron Saturation 13.4 % (20-50); Total Iron Binding Capacity 410 ug/dL (265-497)
[2016-12-14 14:51] LABS: Vitamin B12 292 pg/mL
== END | disposition home or self-care (01) ==
LOC: LABWHC1 13:11
PROVIDERS: ATTEND Physician Assistant
DX: E61.1 Iron deficiency (principal); G62.9 Polyneuropathy, unspecified; R53.83 Other fatigue
CPT/HCPCS: 36415; 80053; 82607; 82728; 83540; 83550; 84207; 84439; 84443; 84466; 84481; 85025

== ENCOUNTER → 2017-01-02 | Outpatient (CLI) | payer MEDICARE ==
[2017-01-02 13:08] LABS: ALT 49 U/L (9-52); AST 35 U/L (14-36); Alkaline Phosphatase 66 U/L (38-126); Anion Gap 11 mmol/L; Blood Urea Nitrogen 17 mg/dL (7-17); Calcium 9.5 mg/dL (8.4-10.2); Carbon Dioxide 25 mmol/L (22-30); Chloride 105 mmol/L (98-107); Glucose 99 mg/dL (74-99); Non-African American GFR(MDRD) >60 (>60 ml/min/1.73 sqM); Potassium 4.9 mmol/L (3.5-5.1); Sodium 141 mmol/L (137-145); Total Bilirubin 0.4 mg/dL (0.2-1.3); Total Protein 6.9 g/dL (6.3-8.2)
[2017-01-02 13:13] LABS: Anisocytosis Slight; Basophils % (A) 0 %; CH 26.7; CHCM 31.7; Eosinophils # (A) 0.1 k/uL (0-0.7); Eosinophils % (A) 2 %; HCT 37.6 % (34.0-46.0); HDW 3.02; HGB 12.1 gm/dL (11.4-16.0); Hypochromasia Slight; Luc % (Auto) 1; Lymphocytes # (A) 0.3 k/uL (1.0-4.8); Lymphocytes % (A) 3 %; MCH 27.2 pg (25.0-35.0); MCHC 32.2 g/dL (31.0-37.0); MCV 84.6 fL (80.0-100.0); Mean Platelet Volume 7.2; Monocytes # (A) 0.3 k/uL (0-1.0); Monocytes % (A) 4 %; Neutrophils # (A) 7.9 k/uL (1.3-7.7); Neutrophils % (A) 90 %; RBC 4.44 m/uL (3.80-5.40); RDW 17.5 % (11.5-15.5); WBC 8.8 k/uL (3.8-10.6); WBC (Perox) 9.23
== END | disposition home or self-care (01) ==
LOC: LABWHC1 12:16
PROVIDERS: ATTEND Internal Medicine
DX: Z51.81 Encounter for therapeutic drug level monitoring (principal); M34.9 Systemic sclerosis, unspecified; D64.9 Anemia, unspecified
CPT/HCPCS: 36415; 80053; 85025

== ENCOUNTER → 2017-02-15 | Outpatient (CLI) | payer MEDICARE ==
--- NOTE | 2017-02-16 10:49 | MM ---
Reason for exam: screening (asymptomatic). Last mammogram was performed 1 year and 10 months ago. History: Patient is postmenopausal. Family history of breast cancer in maternal aunt. Taking estrogen for 16 years. Physical Findings: A clinical breast exam by your physician is recommended on an annual basis and results should be correlated with mammographic findings. MG 3D Screening Mammo W/Cad Bilateral CC and MLO view(s) were taken. Prior study comparison: May 01, 2015, bilateral MG screening mammo w CAD. April 13, 2011, bilateral digital screening mammo w/CAD. The breast tissue is heterogeneously dense. This may lower the sensitivity of mammography. No significant changes when compared with prior studies. ASSESSMENT: Negative, BI-RAD 1 RECOMMENDATION: Routine screening mammogram of both breasts in 1 year.
== END | disposition home or self-care (01) ==
LOC: RADMAMWWP 13:13
PROVIDERS: ATTEND Internal Medicine
DX: Z12.31 Encounter for screening mammogram for malignant neoplasm of breast (principal)
CPT/HCPCS: 77063; G0202

== ENCOUNTER → 2017-02-15 | Outpatient (CLI) | payer MEDICARE ==
[2017-02-15 13:35] LABS: Appearance,Urine Clear (Clear); Bilirubin,Urine Negative (Negative); Glucose,Urine (UA) Negative (Negative); Ketones,Urine Negative (Negative); Leukocyte Esterase,Urine Negative (Negative); Nitrite,Urine Negative (Negative); Protein,Urine Trace (Negative); Specific Gravity,Urine 1.015 (1.001-1.035); UA Billing (MACRO vs. MICRO) CHEM; Urobilinogen,Urine <2.0 mg/dL (<2.0)
[2017-02-15 13:54] LABS: Anisocytosis Slight; Basophils % (A) 0 %; CH 25.6; CHCM 30.4; Eosinophils # (A) 0.1 k/uL (0-0.7); Eosinophils % (A) 1 %; HCT 34.1 % (34.0-46.0); HDW 3.21; HGB 10.6 gm/dL (11.4-16.0); Hypochromasia Marked; Luc # (Auto) 0.19; Luc % (Auto) 2; Lymphocytes # (A) 0.5 k/uL (1.0-4.8); Lymphocytes % (A) 5 %; MCH 26.3 pg (25.0-35.0); MCV 84.7 fL (80.0-100.0); Monocytes # (A) 0.5 k/uL (0-1.0); Monocytes % (A) 5 %; Neutrophils # (A) 8.6 k/uL (1.3-7.7); Neutrophils % (A) 87 %; RBC 4.03 m/uL (3.80-5.40); RDW 17.3 % (11.5-15.5); WBC 9.9 k/uL (3.8-10.6); WBC (Perox) 10.21
== END | disposition home or self-care (01) ==
LOC: LABWHC1 12:41
PROVIDERS: ATTEND Internal Medicine
DX: Z01.812 Encounter for preprocedural laboratory examination (principal); R82.79 Other abnormal findings on microbiological examination of urine
CPT/HCPCS: 36415; 81003; 85025; 87070; 87086; 93005; 99213

== ENCOUNTER → 2017-07-05 | Outpatient (CLI) | payer MEDICARE ==
[2017-07-05 15:51] LABS: Anisocytosis Moderate; Basophils % (A) 0 %; Eosinophils # (A) 0.1 k/uL (0-0.7); Eosinophils % (A) 0 %; HCT 35.8 % (34.0-46.0); HGB 10.3 gm/dL (11.4-16.0); Hypochromasia Marked; Lymphocytes # (A) 0.2 k/uL (1.0-4.8); Lymphocytes % (A) 2 %; MCH 25.5 pg (25.0-35.0); MCHC 28.8 g/dL (31.0-37.0); MCV 88.7 fL (80.0-100.0); Macrocytosis Slight; Microcytosis Slight; Monocytes # (A) 0.2 k/uL (0-1.0); Monocytes % (A) 2 %; Neutrophils # (A) 9.8 k/uL (1.3-7.7); Neutrophils % (A) 95 %; Platelet Count 384 k/uL (150-450); RBC 4.03 m/uL (3.80-5.40); RDW 22.9 % (11.5-15.5); WBC 10.4 k/uL (3.8-10.6)
[2017-07-05 15:58] LABS: ALT 42 U/L (9-52); AST 30 U/L (14-36); Albumin 4.1 g/dL (3.5-5.0); Alkaline Phosphatase 56 U/L (38-126); Anion Gap 11 mmol/L; Blood Urea Nitrogen 14 mg/dL (7-17); Calcium 9.6 mg/dL (8.4-10.2); Carbon Dioxide 26 mmol/L (22-30); Chloride 104 mmol/L (98-107); Glucose 131 mg/dL (74-99); Potassium 4.1 mmol/L (3.5-5.1); Sodium 141 mmol/L (137-145); Total Bilirubin 0.4 mg/dL (0.2-1.3); Total Protein 6.5 g/dL (6.3-8.2)
== END | disposition home or self-care (01) ==
LOC: LABWHC1 15:16
PROVIDERS: ATTEND Internal Medicine
DX: M34.9 Systemic sclerosis, unspecified (principal); Z51.81 Encounter for therapeutic drug level monitoring; Z92.21 Personal history of antineoplastic chemotherapy
CPT/HCPCS: 36415; 80053; 85025; 88108

== ENCOUNTER 2017-10-31 10:01 | Day surgery (SDC) | payer MEDICARE ==
[2017-10-25 12:53] VITALS: BMI 31.1
[~2017-10-31 10:01] MED LIST: LACTATED RINGERS 1,000 ML IV SCH; LIDOCAINE 1% 20 ML VIAL (10MG/ML) FOR IV START INTRADERMA PRN
[2017-10-31 11:04] VITALS: RESP 18; TEMP 99.1
[2017-10-31] MEDS: CYCLOPENTOLATE 1% OPHTH SOLN 2 ML BTL OP ONE ×3 (11:10→11:23)
[2017-10-31] MEDS: PHENYLEPHRINE 10% OPHTH DROPS 5 ML BTL OP ONE ×3 (11:12→11:25)
[2017-10-31] MEDS: FLURBIPROFEN 0.03% OPHTH DROPS 2.5 ML BTL OP ONE ×3 (11:14→11:28)
[2017-10-31] MEDS ORDERED: LACTATED RINGERS 1,000 ML IV ONE (11:18)
[2017-10-31 11:21] LABS: Glucose,Whole Blood 91 mg/dL (75-99)
[2017-10-31] MEDS ORDERED: PROPOFOL 10 MG/ML 20 ML VIAL IV ONE (11:51)
[2017-10-31] MEDS ORDERED: LIDOCAINE 1% INJ 10MG/ML (20 ML MDV) ONE (11:51)
[2017-10-31] MEDS ORDERED: BALANCED SALT IRRIG SOLN COMB2 15 ML IRRIG.SOLN INTRAOCULA ONE (12:02)
[2017-10-31] MEDS ORDERED: TIMOLOL 0.5% OPHTH SOLN (PF) 0.2 ML DROPERETTE RIGHT EYE ONE (12:02)
[2017-10-31] MEDS ORDERED: NEOMYCIN-POLYMYXIN-DEXAMETH OINT 3.5 GM TUBE RIGHT EYE ONE (12:02)
[2017-10-31] MEDS ORDERED: HYALURONATE SODIUM INTRAOCULAR 1 EACH SYRINGE (10MG/ML) INTRAOCULA ONE (12:02)
[2017-10-31] MEDS ORDERED: EPINEPHrine (PF) 0.5 ML in BALANCED SALT IRRIG SOLN COMB2 500 ML IRRIGATION ONE (12:04)
--- NOTE | 2017-10-31 12:19 | P.OP ---
Date of Procedure: 10/31/17 Procedure(s) Performed: PREOPERATIVE DIAGNOSIS: Cataract, right eye. POSTOPERATIVE DIAGNOSIS: Cataract, right eye. OPERATION: Phacoemulsification cataract, right eye. DESCRIPTION OF PROCEDURE: The patient was taken to the preoperative holding area. Intravenous Propofol was given so as to bring about adequate sedation. The following mixture was given for local anesthesia: 5 mL of 2% lidocaine, 5 mL of 0.75% Marcaine, and 1 mL of Wydase. Approximately 4 mL was injected in the retrobulbar space of the surgical eye. Additional 1 mL was then directed to the temporal area of the surgical eye. This was performed to allow adequate neurological block of the facial muscles. The patient was revived and then taken into the operative room. The patient was prepped and draped in the usual sterile manner for the operative eye. A lid speculum was put into position. The conjunctiva was resected back from the limbus in the 12 o'clock position. Bleeding was controlled with electrocautery. A #69 blade was then used and a half-thickness scleral incision approximately 1-mm posterior to the limbus was made on bare sclera. This was shelved in the clear cornea using a crescent knife. Next a 15-degree blade was used to make a stab incision at the 3 o' clock position at the corneolimbal interface. Keratome blade was then used and the superior wound was extended into the anterior chamber. Viscoelastic was injected into the anterior chamber and to maintain its form. Next, a cystotome was used and a continuous anterior capsulotomy was made without difficulty. Hydrodissection using a blunt cannula and BSS was performed. Phaco probe was then employed and a groove extending from 12 to 6 o'clock in the lens was created. A Roby wand was used through the stab incision so as to perform a divide and conquer technique. Next an irrigation aspiration probe was utilized and any residual cortex was removed from the eye. Again, viscoelastic was injected into the anterior chamber. An Mitchell posterior chamber lens implant was placed in the cartridge and injected into the anterior chamber without difficulty. The Wish Daysey hook was utilized to spin the lens into position and this was again performed without any difficulty. The irrigation and aspiration probe was again employed and any residual viscoelastic was removed from the eye. Then BSS was injected into the limbal stab incision and the anterior chamber re-inflated. The conjunctiva was reapproximated using electrocautery. One drop of 0.25% Timoptic was placed over the corneal along with TobraDex ophthalmic ointment. Two sterile patches and a Ibrahim eye shield were taped into position. The patient was transported to the recovery room in stable condition. Pathology: none sent Condition: stable Disposition: same day
[2017-10-31 12:44] VITALS: BP 124/63; PULSE 72
[2017-10-31] MEDS ORDERED: BUPIVACAINE (PF) 0.75% 5 ML, HYALURONIDASE, HUMAN RECOMB 150 UNIT, LIDOCAINE 2% (PF) 10... MISCELLANE ONE ×3 (23:00)
[2017-10-31] MEDS ORDERED: TIMOLOL 0.5% OPHTH DROPS 5 ML BTL OP ONE (23:00)
[2017-10-31] MEDS ORDERED: GENTAMICIN/PREDNISOL AC OPHTH OINT 3.5GM OPHTHALMIC ONE (23:00)
== END 2017-10-31 13:01 | disposition home or self-care (01) ==
LOC: OR 10:01
PROVIDERS: ATTEND Ophthalmology
DX: H25.13 Age-related nuclear cataract, bilateral (principal); I10 Essential (primary) hypertension; K21.9 Gastro-esophageal reflux disease without esophagitis; F32.9 Major depressive disorder, single episode, unspecified; I27.20 Pulmonary hypertension, unspecified; M34.9 Systemic sclerosis, unspecified; Z96.651 Presence of right artificial knee joint; Z87.891 Personal history of nicotine dependence; Z90.49 Acquired absence of other specified parts of digestive tract; Z90.710 Acquired absence of both cervix and uterus; Z86.718 Personal history of other venous thrombosis and embolism; Z88.2 Allergy status to sulfonamides; Z82.49 Family history of ischemic heart disease and other diseases of the circulatory system; Z82.61 Family history of arthritis; Z79.52 Long term (current) use of systemic steroids; Z79.899 Other long term (current) drug therapy
CPT/HCPCS: 66984; V2632; J3470; J2001 ×2; J0171; J2704

== ENCOUNTER → 2018-10-11 | Outpatient (CLI) | payer MEDICARE ==
--- NOTE | 2018-10-12 10:22 | BD ---
EXAMINATION TYPE: Axial Bone Density DATE OF EXAM: 10/11/2018 COMPARISON: 05.01.2015 CLINICAL HISTORY: 72 YR OLD FEMALE....ICD-10 CODE: Z78.0 POST MENOPAUSAL Height: 62 Weight: 192 FRAX RISK QUESTIONS: Glucocorticoids (More than 3mos): YES (Ex: prednisone, prednisolone, methylprednisolone, dexamethasone, and hydrocortisone). Secondary Osteoporosis: YES 3. Menopause before 45: YES RISK FACTORS HISTORY OF: Active: SOMEWHAT Postmenopausal woman: 43 YRS OLD, TOTAL HYST. Lost more than 2 inches in height since high school: YES MEDICATIONS: Prednisone or other steroids: PREDNISONE, 10 MG DAILY, FOR ABOUT 11 YRS, FOR SCLERODERMA. Thyroid Medications: YES, SYNTHROID, FOR ABOUT 2.5 YRS Additional Medications: LASIX, ZOLOFT, HX OF CHEMO, CALCIUM WITH VIT D, REFLUX MEDS, BIOLOGIC ACTEMRA Additional History: SCLERODERMA, EXAM MEASUREMENTS: Bone mineral densitometry was performed using the Attune RTD System. Bone mineral density as measured about the Lumbar spine is: ----- L1-L4(G/cm2): 1.589 T Score Values are as follows: ----- L1: 1.8 ----- L2: 1.8 ----- L3: 4.2 ----- L4: 5.5 ----- L1-L4: 3.4 Bone mineral density has: Decreased -4.7% since study of: 05.01.2015 Bone mineral density about the R hip (g/cm2): 1.178 Bone mineral density about the L hip (g/cm2): 1.300 T Score values are as follows: -----R Neck: -0.2 -----L Neck: 1.3 -----R Total: 1.3 -----L Total: 2.3 Bone mineral density has: Decreased -2.8% since study of: 05.01.2015 FRAX%s: THERE IS A 11.1% CHANCE FOR A MAJOR OSTEOPOROTIC FX AND A 0.9% FOR HIP.....PROBABILITY FOR FX IN 10 YRS TIME IMPRESSION: No evidence for osteoporosis or osteopenia. NOTE: T-SCORE=SD OF THE YOUNG ADULT MEAN.
--- NOTE | 2018-10-12 10:57 | MM ---
Reason for exam: screening (asymptomatic). Last mammogram was performed 1 year and 8 months ago. History: Patient is postmenopausal. Family history of breast cancer in maternal aunt. Took estrogen for 16 years. Physical Findings: A clinical breast exam by your physician is recommended on an annual basis and results should be correlated with mammographic findings. MG 3D Screening Mammo W/Cad Bilateral CC and MLO view(s) were taken. Prior study comparison: February 15, 2017, bilateral MG 3d screening mammo w/cad. May 01, 2015, bilateral MG screening mammo w CAD. The breast tissue is heterogeneously dense. This may lower the sensitivity of mammography. There is no discrete abnormality. No significant changes when compared with prior studies. ASSESSMENT: Benign, BI-RAD 2 RECOMMENDATION: Routine screening mammogram of both breasts in 1 year.
== END | disposition home or self-care (01) ==
LOC: RADMAMWWP 13:49
PROVIDERS: ATTEND Internal Medicine
DX: Z12.31 Encounter for screening mammogram for malignant neoplasm of breast (principal); Z13.820 Encounter for screening for osteoporosis; Z78.0 Asymptomatic menopausal state; Z79.52 Long term (current) use of systemic steroids
CPT/HCPCS: 77063; 77067; 77080

== ENCOUNTER → 2019-03-06 | Outpatient (CLI) | payer MEDICARE ==
--- NOTE | 2019-03-07 07:17 | US ---
EXAMINATION TYPE: US venous doppler duplex LE DATE OF EXAM: 03/06/2019 4:21 PM COMPARISON: NONE CLINICAL HISTORY: L94.1 LINEAR SCLERODERMA. SIDE PERFORMED: Bilateral TECHNIQUE: The lower extremity deep venous system is examined utilizing real time linear array sonog geovanna with graded compression, doppler sonography and color-flow sonography. VESSELS IMAGED: External Iliac Vein (EIV) Common Femoral Vein Deep Femoral Vein Greater Saphenous Vein * Femoral Vein Popliteal Vein Small Saphenous Vein * Proximal Calf Veins (* superficial vessels) Grayscale, color doppler, spectral doppler imaging performed of the deep veins of the lower extremiti es. There is normal flow, compressibility, vascular waveforms. Right Leg: Negative for DVT Left Leg: Negative for DVT IMPRESSION: No sonographic evidence of deep venous thrombosis within either lower extremity.
== END ==
LOC: RADUSWWP 13:40
PROVIDERS: ATTEND Internal Medicine Infectious Disease
DX: L94.1 Linear scleroderma (principal); L97.512 Non-pressure chronic ulcer of other part of right foot with fat layer exposed
CPT/HCPCS: 93922; 93970

== ENCOUNTER 2019-08-21 17:17 | Inpatient (IN) | payer MEDICARE ==
[2019-08-21] MEDS ORDERED: DEXAMETHASONE SOD PHOSPHATE 10 MG/ML 1 ML VIAL IV STA (18:38)
[2019-08-21] MEDS ORDERED: SODIUM CHLORIDE 0.9% 1,000 ML IV STA ×2 (18:38)
[2019-08-21] MEDS ORDERED: IPRATROPIUM-ALBUTEROL 3 ML NEB INHALATION STA (18:38)
[2019-08-21] MEDS ORDERED: KETOROLAC 30 MG/ML 1 ML VIAL IVP STA (18:38)
[2019-08-21] MEDS ORDERED: SODIUM CHLORIDE 0.9% 500 ML 500 ML IV STA (18:38)
[2019-08-21] MEDS ORDERED: ACETAMINOPHEN TAB 500 MG TAB PO STA (18:38)
--- NOTE | 2019-08-21 18:38 | ED ---
SOB HPI - General Chief Complaint: Shortness of Breath Stated Complaint: Flu symptoms Time Seen by Provider: 08/21/19 17:55 Source: patient, RN notes reviewed, old records reviewed Mode of arrival: ambulatory Limitations: no limitations - History of Present Illness Initial Comments: This is a 73-year-old female DF for evaluation patient has a for evaluation regarding weakness diagnosis of flu fever persistent fever with nausea no vomiting patient positive for flu but is very weak dehydrated and not feeling well for a few days now. Persistent fevers. MD Complaint: cough (Body aches and pains) -: days(s) Severity: moderate Severity scale (1-10): 5 Quality: aching Consistency: constant Improves With: nothing, rest Worsens With: nothing Context: recent URI, recent illness Associated Symptoms: cough, nausea/vomiting Treatments Prior to Arrival: none - Related Data Home Medications Medication Instructions Recorded Confirmed Furosemide [Lasix] 20 mg PO DAILY PRN 03/19/15 10/31/17 Cholecalciferol [Vitamin D3] 5,000 unit PO DAILY 02/23/16 10/31/17 Esomeprazole Magnesium [NexIUM] 20 mg PO BID 02/23/16 10/31/17 Sertraline HCl 200 mg PO QAM 02/23/16 10/31/17 Folic Acid 1 mg PO DAILY 06/30/16 10/31/17 Sildenafil [Revatio] 20 mg PO TID 06/30/16 10/31/17 traZODone HCL [Desyrel] 50 mg PO HS 06/30/16 10/31/17 Magnesium 200 mg PO DAILY 10/25/17 10/31/17 Methotrexate Sodium [Methotrexate] 22.5 mg PO PRESCOTT 10/25/17 10/31/17 Multivit-Min/Iron/Folic/Lutein 1 each PO DAILY 10/25/17 10/31/17 [Centrum Silver Women Tablet] Neurontin 1 tab PO TID 10/25/17 10/31/17 fentaNYL 75MCG/HR PATCH [Duragesic 75 mcg TRANSDERM Q72H 10/25/17 10/31/17 75MCG/HR] predniSONE 10 mg PO DAILY 10/25/17 10/31/17 Allergies Allergy/AdvReac Type Severity Reaction Status Date / Time Sulfa (Sulfonamide Allergy Rash/Hives Verified 08/21/19 17:45 Antibiotics) Review of Systems ROS Statement: Those systems with pertinent positive or pertinent negative responses have been documented in the HPI. ROS Other: All systems not noted in ROS Statement are negative. Past Medical History Past Medical History: Deep Vein Thrombosis (DVT), Eye Disorder, GERD/Reflux, Hypertension, Musculoskeletal Disorder Additional Past Medical History / Comment(s): violeta cataracts, neuropathy violeta feet, sclerederma, osorio's esophogus, gaves disease, (r/t stomach) pulmonary hypertension, History of Any Multi-Drug Resistant Organisms: None Reported Past Surgical History: Bowel Resection, Cholecystectomy, Hysterectomy, Joint Replacement Additional Past Surgical History / Comment(s): rt knee replacement, oopherectomy post partial hysterectomy, EGD, COLONOSCOPY Past Anesthesia/Blood Transfusion Reactions: No Reported Reaction Past Psychological History: Depression Smoking Status: Former smoker Past Alcohol Use History: None Reported Past Drug Use History: None Reported - Past Family History Father Family Medical History: Cancer Additional Family Medical History / Comment(s): throat cancer Mother Family Medical History: Chest Pain / Angina, Osteoarthritis (OA) General Exam Limitations: no limitations General appearance: alert, in no apparent distress Head exam: Present: atraumatic, normocephalic, normal inspection Eye exam: Present: normal appearance, PERRL, EOMI. Absent: scleral icterus, conjunctival injection, periorbital swelling ENT exam: Present: normal exam, mucous membranes moist Neck exam: Present: normal inspection. Absent: tenderness, meningismus, lymphadenopathy Respiratory exam: Present: normal lung sounds bilaterally. Absent: respiratory distress, wheezes, rales, rhonchi, stridor Cardiovascular Exam: Present: regular rate, normal rhythm, normal heart sounds. Absent: systolic murmur, diastolic murmur, rubs, gallop, clicks GI/Abdominal exam: Present: soft, normal bowel sounds. Absent: distended, tenderness, guarding, rebound, rigid Extremities exam: Present: normal inspection, full ROM, normal capillary refill. Absent: tenderness, pedal edema, joint swelling, calf tenderness Back exam: Present: normal inspection Neurological exam: Present: alert, oriented X3, CN II-XII intact Psychiatric exam: Present: normal affect, normal mood Skin exam: Present: warm, dry, intact, normal color. Absent: rash Course Vital Signs 08/21/19 08/21/19 08/21/19 17:42 20:29 20:35 Temperature 98.3 F Pulse Rate 61 76 80 Respiratory 18 Rate Blood Pressure 130/61 O2 Sat by Pulse 91 L Oximetry 08/21/19 20:49 Temperature 98.3 F Pulse Rate 90 Respiratory 18 Rate Blood Pressure 148/80 O2 Sat by Pulse 98 Oximetry - Reevaluation(s) Reevaluation #1: 08/21/19 22:13 Medical records reviewed Reevaluation #2: 08/21/19 22:13 Patient states she still feels very weak dehydrated, informed of test results, patient does not feel good to be discharged home - Consultations Consultation #1: spoke jon Robertson, Dr. Kolb is okay to admit Medical Decision Making - Medical Decision Making 73 female DF for evaluation of weakness recent diagnosis of positive flu but also with complicated urinary tract infection currently. We'll admit for IV antibiotics hydration and supportive therapy - Lab Data Result diagrams: 08/21/19 18:55 08/21/19 18:55 Lab Results 08/21/19 08/21/19 08/21/19 Range/Units 18:55 18:55 18:55 WBC 4.2 (3.8-10.6) k/uL RBC 4.76 (3.80-5.40) m/uL Hgb 14.6 (11.4-16.0) gm/dL Hct 46.2 H (34.0-46.0) % MCV 97.1 (80.0-100.0) fL MCH 30.7 (25.0-35.0) pg MCHC 31.6 (31.0-37.0) g/dL RDW 15.7 H (11.5-15.5) % Plt Count 235 (150-450) k/uL Neutrophils % 89 % Lymphocytes % 3 % Monocytes % 4 % Eosinophils % 1 % Basophils % 1 % Neutrophils # 3.7 (1.3-7.7) k/uL Lymphocytes # 0.1 L (1.0-4.8) k/uL Monocytes # 0.2 (0-1.0) k/uL Eosinophils # 0.1 (0-0.7) k/uL Basophils # 0.0 (0-0.2) k/uL Sodium 137 (137-145) mmol/L Potassium 3.1 L (3.5-5.1) mmol/L Chloride 103 (98-107) mmol/L Carbon Dioxide 25 (22-30) mmol/L Anion Gap 9 mmol/L BUN 20 H (7-17) mg/dL Creatinine 0.86 (0.52-1.04) mg/dL Est GFR (CKD-EPI)AfAm 79 (>60 ml/min/1.73 sqM) Est GFR (CKD-EPI)NonAf 68 (>60 ml/min/1.73 sqM) Glucose 135 H (74-99) mg/dL Plasma Lactic Acid Jeanmarie 1.2 (0.7-2.0) mmol/L Calcium 9.0 (8.4-10.2) mg/dL Phosphorus 3.7 (2.5-4.5) mg/dL Magnesium 2.0 (1.6-2.3) mg/dL Total Bilirubin 0.5 (0.2-1.3) mg/dL AST 51 H (14-36) U/L ALT 60 H (4-34) U/L Alkaline Phosphatase 92 (38-126) U/L Troponin I (0.000-0.034) ng/mL NT-Pro-B Natriuret Pep pg/mL Total Protein 6.4 (6.3-8.2) g/dL Albumin 4.0 (3.5-5.0) g/dL Urine Color Urine Appearance (Clear) Urine pH (5.0-8.0) Ur Specific Tyler (1.001-1.035) Urine Protein (Negative) Ur Protein Confirm Urine Glucose (UA) (Negative) Urine Ketones (Negative) Urine Blood (Negative) Urine Nitrite (Negative) Urine Bilirubin (Negative) Urine Urobilinogen (<2.0) mg/dL Ur Leukocyte Esterase (Negative) Urine RBC (0-5) /hpf Urine WBC (0-5) /hpf Urine WBC Clumps (None) /hpf Ur Squamous Epith Cells (0-4) /hpf Urine Bacteria (None) /hpf Hyaline Casts (0-2) /lpf Urine Mucus (None) /hpf Influenza Type A RNA (Not Detectd) Influenza Type B (PCR) (Not Detectd) 08/21/19 08/21/19 08/21/19 Range/Units 18:55 18:55 19:27 WBC (3.8-10.6) k/uL RBC (3.80-5.40) m/uL Hgb (11.4-16.0) gm/dL Hct (34.0-46.0) % MCV (80.0-100.0) fL MCH (25.0-35.0) pg MCHC (31.0-37.0) g/dL RDW (11.5-15.5) % Plt Count (150-450) k/uL Neutrophils % % Lymphocytes % % Monocytes % % Eosinophils % % Basophils % % Neutrophils # (1.3-7.7) k/uL Lymphocytes # (1.0-4.8) k/uL Monocytes # (0-1.0) k/uL Eosinophils # (0-0.7) k/uL Basophils # (0-0.2) k/uL Sodium (137-145) mmol/L Potassium (3.5-5.1) mmol/L Chloride (98-107) mmol/L Carbon Dioxide (22-30) mmol/L Anion Gap mmol/L BUN (7-17) mg/dL Creatinine (0.52-1.04) mg/dL Est GFR (CKD-EPI)AfAm (>60 ml/min/1.73 sqM) Est GFR (CKD-EPI)NonAf (>60 ml/min/1.73 sqM) Glucose (74-99) mg/dL Plasma Lactic Acid Jeanmarie (0.7-2.0) mmol/L Calcium (8.4-10.2) mg/dL Phosphorus (2.5-4.5) mg/dL Magnesium (1.6-2.3) mg/dL Total Bilirubin (0.2-1.3) mg/dL AST (14-36) U/L ALT (4-34) U/L Alkaline Phosphatase (38-126) U/L Troponin I <0.012 (0.000-0.034) ng/mL NT-Pro-B Natriuret Pep 115 pg/mL Total Protein (6.3-8.2) g/dL Albumin (3.5-5.0) g/dL Urine Color Urine Appearance (Clear) Urine pH (5.0-8.0) Ur Specific Tyler (1.001-1.035) Urine Protein (Negative) Ur Protein Confirm Urine Glucose (UA) (Negative) Urine Ketones (Negative) Urine Blood (Negative) Urine Nitrite (Negative) Urine Bilirubin (Negative) Urine Urobilinogen (<2.0) mg/dL Ur Leukocyte Esterase (Negative) Urine RBC (0-5) /hpf Urine WBC (0-5) /hpf Urine WBC Clumps (None) /hpf Ur Squamous Epith Cells (0-4) /hpf Urine Bacteria (None) /hpf Hyaline Casts (0-2) /lpf Urine Mucus (None) /hpf Influenza Type A RNA Detected H (Not Detectd) Influenza Type B (PCR) Not Detected (Not Detectd) 08/21/19 Range/Units 20:51 WBC (3.8-10.6) k/uL RBC (3.80-5.40) m/uL Hgb (11.4-16.0) gm/dL Hct (34.0-46.0) % MCV (80.0-100.0) fL MCH (25.0-35.0) pg MCHC (31.0-37.0) g/dL RDW (11.5-15.5) % Plt Count (150-450) k/uL Neutrophils % % Lymphocytes % % Monocytes % % Eosinophils % % Basophils % % Neutrophils # (1.3-7.7) k/uL Lymphocytes # (1.0-4.8) k/uL Monocytes # (0-1.0) k/uL Eosinophils # (0-0.7) k/uL Basophils # (0-0.2) k/uL Sodium (137-145) mmol/L Potassium (3.5-5.1) mmol/L Chloride (98-107) mmol/L Carbon Dioxide (22-30) mmol/L Anion Gap mmol/L BUN (7-17) mg/dL Creatinine (0.52-1.04) mg/dL Est GFR (CKD-EPI)AfAm (>60 ml/min/1.73 sqM) Est GFR (CKD-EPI)NonAf (>60 ml/min/1.73 sqM) Glucose (74-99) mg/dL Plasma Lactic Acid Jeanmarie (0.7-2.0) mmol/L Calcium (8.4-10.2) mg/dL Phosphorus (2.5-4.5) mg/dL Magnesium (1.6-2.3) mg/dL Total Bilirubin (0.2-1.3) mg/dL AST (14-36) U/L ALT (4-34) U/L Alkaline Phosphatase (38-126) U/L Troponin I (0.000-0.034) ng/mL NT-Pro-B Natriuret Pep pg/mL Total Protein (6.3-8.2) g/dL Albumin (3.5-5.0) g/dL Urine Color Yellow Urine Appearance Slightly Cloudy H (Clear) Urine pH 6.0 (5.0-8.0) Ur Specific Tyler 1.015 (1.001-1.035) Urine Protein 2+ H (Negative) Ur Protein Confirm PULMONARY DISEASE SPECIALIST Urine Glucose (UA) Negative (Negative) Urine Ketones Negative (Negative) Urine Blood Moderate (Negative) Urine Nitrite Positive H (Negative) Urine Bilirubin Negative (Negative) Urine Urobilinogen 0.2 (<2.0) mg/dL Ur Leukocyte Esterase Large (Negative) Urine RBC 13 H (0-5) /hpf Urine WBC 122 H (0-5) /hpf Urine WBC Clumps Few H (None) /hpf Ur Squamous Epith Cells 1 (0-4) /hpf Urine Bacteria Many H (None) /hpf Hyaline Casts 16 H (0-2) /lpf Urine Mucus Moderate H (None) /hpf Influenza Type A RNA (Not Detectd) Influenza Type B (PCR) (Not Detectd) - EKG Data -: EKG Interpreted by Me (EKG shows sinus rhythm rate of 90, WI 154, QRS 70, QTc 447) - Radiology Data Radiology results: report reviewed (Chest x-ray is negative for acute disease), image reviewed Disposition Clinical Impression: Weakness, UTI (urinary tract infection), Influenza Disposition: ADMITTED IP TO THIS HOSP Condition: Fair Is patient prescribed a controlled substance at d/c from ED?: No Referrals: Charly Quintanilla MD [Primary Care Provider] - 1-2 days
[2019-08-21 19:12] LABS: Basophils % (A) 1 %; Eosinophils # (A) 0.1 k/uL (0-0.7); Eosinophils % (A) 1 %; HCT 46.2 % (34.0-46.0); HGB 14.6 gm/dL (11.4-16.0); Lymphocytes # (A) 0.1 k/uL (1.0-4.8); Lymphocytes % (A) 3 %; MCH 30.7 pg (25.0-35.0); MCHC 31.6 g/dL (31.0-37.0); MCV 97.1 fL (80.0-100.0); Mean Platelet Volume 7.1; Monocytes # (A) 0.2 k/uL (0-1.0); Monocytes % (A) 4 %; Neutrophils # (A) 3.7 k/uL (1.3-7.7); Neutrophils % (A) 89 %; Platelet Count 235 k/uL (150-450); RBC 4.76 m/uL (3.80-5.40); RDW 15.7 % (11.5-15.5); WBC 4.2 k/uL (3.8-10.6)
[2019-08-21 19:22] LABS: Phosphorus 3.7 mg/dL (2.5-4.5); Potassium 3.1 mmol/L (3.5-5.1); Total Bilirubin 0.5 mg/dL (0.2-1.3); Total Protein 6.4 g/dL (6.3-8.2)
[2019-08-21] MEDS ORDERED: POTASSIUM BICARBONATE/CIT AC 20 MEQ TABLET.EFF PO ONE (19:33)
--- NOTE | 2019-08-21 19:40 | XR ---
EXAMINATION TYPE: XR chest 2V DATE OF EXAM: 08/21/2019 COMPARISON: 02/06/2017 HISTORY: Possible pneumonia. Weakness. TECHNIQUE: FINDINGS: Heart and mediastinum are normal. Lungs are clear. Diaphragm is normal. Bony thorax is inta ct. IMPRESSION: Normal chest. No change.
[2019-08-21 21:33] LABS: Appearance,Urine Slightly Cloudy (Clear); Bilirubin,Urine Negative (Negative); Blood,Urine Moderate (Negative); Color,Urine Yellow; Glucose,Urine (UA) Negative (Negative); Ketones,Urine Negative (Negative); Nitrite,Urine Positive (Negative); Protein,Urine 2+ (Negative); Specific Gravity,Urine 1.015 (1.001-1.035); Urobilinogen,Urine 0.2 mg/dL (<2.0)
[2019-08-21 21:34] LABS: Bacteria,Urine Many /hpf; Leukocyte Esterase,Urine Large (Negative); RBC,Urine 13 /hpf (0-5); Squamous Epithelial Cell,Urine 1 /hpf (0-4); WBC,Urine 122 /hpf (0-5)
[2019-08-21 21:35] LABS: Hyaline Casts,Urine 16 /lpf (0-2); Mucus,Urine Moderate /hpf
[2019-08-21] MEDS ORDERED: HYDROcodone/APAP 5-325MG 1 EACH TAB PO PRN (23:18)
--- NOTE | 2019-08-22 00:05 | P.HPIM ---
History of Present Illness H&P Date: 08/21/19 Chief Complaint: Fatigue and flulike symptoms The patient is a 73-year-old female with a past medical history of scleroderma, Raynaud's syndrome on chronic methotrexate and prednisone therapy who presented to the ER via private vehicle with chief complaint of weakness and fatigue and flulike symptoms. The patient reports symptoms of sore throat, weakness fatigue and myalgias in her extremities beginning this past Monday, she reports her was recently diagnosed with influenza and that both him and her taking Tamiflu, she reports taking 5 doses. She has had intermittent drenching sweats and fevers over the weekend and has had diminishing appetite, anorexia, weight loss and increasing weakness. She reports a nonproductive cough during that time and mild shortness of breath, she denies any wheezing. She denies any chest pain. She reports some loose stools, denies abdominal pain and nausea. She denies any recent exposure to antibiotics but appears to be taking Macrobid on review of her home meds. She reported being C. diff negative 4 weeks ago. She denies any dysuria or frequency but mentions urgency and incomplete voiding and diminished output In the ER the patient had a comprehensive workup, abnormal labs include serum potassium of 3.1, BUS of 20, blood sugar 135, AST 51 ALTs 60. EKG showed normal sinus rhythm, chest x-ray showed normal chest, influenza A was positive, urinalysis is nitrite positive cloudy large leuk esterase urine WBCs 122 with many urine bacteria Review of Systems Pertinent positives per HPI all other review is otherwise negative except per HPI Past Medical History Past Medical History: Deep Vein Thrombosis (DVT), Eye Disorder, GERD/Reflux, Hypertension, Musculoskeletal Disorder Additional Past Medical History / Comment(s): violeta cataracts, neuropathy violeta feet, sclerederma, osorio's esophogus, gaves disease, (r/t stomach) pulmonary hypertension, History of Any Multi-Drug Resistant Organisms: None Reported Past Surgical History: Bowel Resection, Cholecystectomy, Hysterectomy, Joint Replacement Additional Past Surgical History / Comment(s): rt knee replacement, oopherectomy post partial hysterectomy, EGD, COLONOSCOPY Past Anesthesia/Blood Transfusion Reactions: No Reported Reaction Past Psychological History: Depression Smoking Status: Former smoker Past Alcohol Use History: None Reported Past Drug Use History: None Reported - Past Family History Father Family Medical History: Cancer Additional Family Medical History / Comment(s): throat cancer Mother Family Medical History: Chest Pain / Angina, Osteoarthritis (OA) Medications and Allergies Home Medications Medication Instructions Recorded Confirmed Type Cholecalciferol [Vitamin D3] 5,000 unit PO DAILY 02/23/16 08/21/19 History Esomeprazole Magnesium [NexIUM] 20 mg PO BID 02/23/16 08/21/19 History Sertraline HCl 200 mg PO DAILY 02/23/16 08/21/19 History Sildenafil [Revatio] 20 mg PO TID 06/30/16 08/21/19 History Methotrexate Sodium [Methotrexate] 17.5 mg PO TH 10/25/17 08/21/19 History Multivit-Min/Iron/Folic/Lutein 1 tab PO DAILY 10/25/17 08/21/19 History [Centrum Silver Women Tablet] fentaNYL 75MCG/HR PATCH [Duragesic 1 patch TRANSDERM Q72H 10/25/17 08/21/19 History 75MCG/HR] predniSONE 5 mg PO DAILY 10/25/17 08/21/19 History Ferrous Sulfate [Feosol] 325 mg PO Q48H 08/21/19 08/21/19 History Folic Acid 0.4 mg PO DAILY 08/21/19 08/21/19 History Gabapentin 600 mg PO TID 08/21/19 08/21/19 History HYDROcodone/APAP 5-325MG [Stratton 1 tab PO DAILY PRN 08/21/19 08/21/19 History 5-325] Levothyroxine Sodium [Synthroid] 25 mcg PO DAILY 08/21/19 08/21/19 History Magnesium Oxide 400 mg PO DAILY 08/21/19 08/21/19 History Nitrofurantoin Monohyd/M-Cryst 100 mg PO BID 08/21/19 08/21/19 History [Macrobid] Oseltamivir [Tamiflu] 75 mg PO BID 08/21/19 08/21/19 History Tocilizumab [Actemra Actpen] 162 mg SQ WE 08/21/19 08/21/19 History guaiFENesin-Coden 100-10MG/5ML 10 ml PO Q6H PRN 08/21/19 08/21/19 History [Robitussin AC] predniSONE 2 mg PO DAILY 08/21/19 08/21/19 History traZODone HCL 100 mg PO HS 08/21/19 08/21/19 History Allergies Allergy/AdvReac Type Severity Reaction Status Date / Time Sulfa (Sulfonamide Allergy Rash/Hives Verified 08/21/19 17:45 Antibiotics) Physical Exam Vitals: Vital Signs Temp Pulse Resp BP Pulse Ox 08/21/19 20:49 98.3 F 90 18 148/80 98 08/21/19 20:35 80 08/21/19 20:29 76 08/21/19 17:42 98.3 F 61 18 130/61 91 L Intake and Output 08/21/19 08/21/19 08/22/19 14:59 22:59 06:59 Other: Weight 83.915 kg Constitutional: No acute distress, conversant, pleasant Eyes: Anicteric sclerae, moist conjunctiva, no lid-lag, PERRLA ENMT: NC/AT,Oropharynx clear, no erythema, exudates Neck:Supple, FROM, no masses, or JVD, No carotid bruits; No thyromegaly Lungs: Unlabored diminished with coarse breath sounds in the bases Cardiovascular: Heart regular in rate and rhythm, No murmurs, gallops, or rubs no peripheral edema Abdominal: Soft Nontender, nom distended, no guarding, no rebound or rigidity, Normoactive bowel sounds No hepatomegaly, No splenomegaly, No palpable mass No abdominal wall hernia noted Skin: Normal temperature, tone, texture, turgor, No induration No subcutaneous nodules, No rash, lesions, No ulcers Extremities:No digital cyanosis No clubbing, Pedal pulses intact and symmetrical Radial pulses intact and symmetrical, No calf tenderness Psychiatric: Alert and oriented to person, place and time, Appropriate affect Intact judgement Neuro: Muscles Strength 5/5 in all 4 extremities, Sensation to light touch grossly present throughout, Cranial nerves II-XII grossly intact. No focal sensory deficits Results CBC & Chem 7: 08/21/19 18:55 08/21/19 18:55 Labs: Abnormal Lab Results - Last 24 Hours (Table) 08/21/19 08/21/19 08/21/19 Range/Units 18:55 18:55 19:27 Hct 46.2 H (34.0-46.0) % RDW 15.7 H (11.5-15.5) % Lymphocytes # 0.1 L (1.0-4.8) k/uL Potassium 3.1 L (3.5-5.1) mmol/L BUN 20 H (7-17) mg/dL Glucose 135 H (74-99) mg/dL AST 51 H (14-36) U/L ALT 60 H (4-34) U/L Urine Appearance (Clear) Urine Protein (Negative) Urine Nitrite (Negative) Urine RBC (0-5) /hpf Urine WBC (0-5) /hpf Urine WBC Clumps (None) /hpf Urine Bacteria (None) /hpf Hyaline Casts (0-2) /lpf Urine Mucus (None) /hpf Influenza Type A RNA Detected H (Not Detectd) 08/21/19 Range/Units 20:51 Hct (34.0-46.0) % RDW (11.5-15.5) % Lymphocytes # (1.0-4.8) k/uL Potassium (3.5-5.1) mmol/L BUN (7-17) mg/dL Glucose (74-99) mg/dL AST (14-36) U/L ALT (4-34) U/L Urine Appearance Slightly Cloudy H (Clear) Urine Protein 2+ H (Negative) Urine Nitrite Positive H (Negative) Urine RBC 13 H (0-5) /hpf Urine WBC 122 H (0-5) /hpf Urine WBC Clumps Few H (None) /hpf Urine Bacteria Many H (None) /hpf Hyaline Casts 16 H (0-2) /lpf Urine Mucus Moderate H (None) /hpf Influenza Type A RNA (Not Detectd) Assessment and Plan Assessment: Flu Hypokalemia Urinary tract infection Transaminitis Generalized weakness Plan: The patient is placed in observation anticipated less than 2 midnight stay with the flu after presenting with systemic signs of fever and generalized weakness and fatigue the patient on chronic immunosuppression with methotrexate and prednisone due to scleroderma and Raynaud's syndrome. The patient was started outpatient with Tamiflu which will be continued for another 5 doses, she is placed on IV fluid hydration, supportive therapy with antiemetics antipyretics pain medications. Her potassium will be replaced, the patient is also started on empiric IV antibiotics with Rocephin for potential UTI. Blood and urine Urine cultures are pending. She is also started on duo nebs bronchitis either breathing treatments. We'll continue to follow her clinical course. CODE STATUS: Full code Anticipated discharge place: Home Discussed plan of care with: Patient ER physician Greater than 60 minutes was spent in evaluation of this patient
[2019-08-22] MEDS: OSELTAMIVIR 75 MG CAP PO SCH ×3 (01:00→21:22)
[2019-08-22] MEDS: traZODone HCL 50 MG TAB PO SCH ×2 (01:05→21:22)
[2019-08-22] MEDS: POTASSIUM CHLORIDE 20 MEQ in WATER FOR INJECTION 1 100ML.BAG IVPB SCH ×2 (01:06→08:55)
[2019-08-22] MEDS: guaiFENesin-Coden 100-10MG/5ML 10 ML CUP PO PRN ×3 (03:00→19:43)
[2019-08-22] MEDS: IPRATROPIUM-ALBUTEROL 3 ML NEB INHALATION SCH ×6 (03:17→23:16)
[2019-08-22] MEDS: LEVOTHYROXINE 25 MCG TAB PO SCH (09:04)
[2019-08-22] MEDS: CHOLECALCIFEROL 1,000 UNIT TAB PO SCH (09:07)
[2019-08-22] MEDS: predniSONE 5 MG TAB PO SCH (09:09)
[2019-08-22] MEDS: PANTOPRAZOLE 40 MG TABLET PO SCH ×2 (09:09→21:22)
[2019-08-22] MEDS: predniSONE 1 MG TAB PO SCH (09:10)
[2019-08-22] MEDS: FOLIC ACID 1 MG TAB PO SCH (09:10)
[2019-08-22] MEDS: SILDENAFIL 20 MG TAB PO SCH ×3 (09:11→21:34)
[2019-08-22] MEDS: MAGNESIUM OXIDE 400 MG TAB PO SCH (09:11)
[2019-08-22] MEDS: VIT A,C & E-LUTEIN-MINERALS 1 EACH TAB PO SCH (09:12)
[2019-08-22] MEDS: SERTRALINE 100 MG TAB PO SCH (09:12)
[2019-08-22] MEDS: GABAPENTIN 300 MG CAP PO SCH ×3 (09:17→21:22)
--- NOTE | 2019-08-22 14:38 | P.PN ---
Subjective Progress Note Date: 08/22/19 Principal diagnosis: Flu Patient was seen and examined. No acute events overnight. Patient needs report dry cough and intense fatigue and generalized weakness. She continues report urinary urgency but no dysuria or hematuria. She denies any chest pain or palpitations. No nausea or vomiting. No fever but does report chills. Objective - Vital Signs Vital signs: Vital Signs Temp 98.5 F 08/22/19 07:00 Pulse 91 08/22/19 11:26 Resp 16 08/22/19 08:00 BP 129/67 08/22/19 07:00 Pulse Ox 99 08/22/19 07:00 Intake & Output 08/21/19 08/22/19 08/22/19 18:59 06:59 18:59 Weight 83.915 kg - Exam General: [non toxic], [no distress], [appears at stated age] Derm: [warm], [dry] Head: [atraumatic], [normocephalic], [symmetric] Eyes: [EOMI], [no lid lag], [anicteric sclera] Mouth: [no lip lesion], [mucus membranes moist] Cardiovascular: [S1S2 reg], [tachycardia], [positive posterior tibial pulse bilateral], Lungs: [Expiratory wheezing bilateral], [no rhonchi, no rales] , [no accessory muscle use] Abdominal: [soft], [ nontender to palpation], [no guarding], [no appreciable organomegaly] Ext: [no gross muscle atrophy], [no edema], [no contractures] Neuro: [no focal neuro deficits] Psych: [Alert], [oriented], [appropriate affect] - Labs CBC & Chem 7: 08/21/19 18:55 08/21/19 18:55 Labs: Abnormal Lab Results - Last 24 Hours (Table) 08/21/19 08/21/19 08/21/19 Range/Units 18:55 18:55 19:27 Hct 46.2 H (34.0-46.0) % RDW 15.7 H (11.5-15.5) % Lymphocytes # 0.1 L (1.0-4.8) k/uL Potassium 3.1 L (3.5-5.1) mmol/L BUN 20 H (7-17) mg/dL Glucose 135 H (74-99) mg/dL AST 51 H (14-36) U/L ALT 60 H (4-34) U/L Urine Appearance (Clear) Urine Protein (Negative) Urine Nitrite (Negative) Urine RBC (0-5) /hpf Urine WBC (0-5) /hpf Urine WBC Clumps (None) /hpf Urine Bacteria (None) /hpf Hyaline Casts (0-2) /lpf Urine Mucus (None) /hpf Influenza Type A RNA Detected H (Not Detectd) 08/21/19 Range/Units 20:51 Hct (34.0-46.0) % RDW (11.5-15.5) % Lymphocytes # (1.0-4.8) k/uL Potassium (3.5-5.1) mmol/L BUN (7-17) mg/dL Glucose (74-99) mg/dL AST (14-36) U/L ALT (4-34) U/L Urine Appearance Slightly Cloudy H (Clear) Urine Protein 2+ H (Negative) Urine Nitrite Positive H (Negative) Urine RBC 13 H (0-5) /hpf Urine WBC 122 H (0-5) /hpf Urine WBC Clumps Few H (None) /hpf Urine Bacteria Many H (None) /hpf Hyaline Casts 16 H (0-2) /lpf Urine Mucus Moderate H (None) /hpf Influenza Type A RNA (Not Detectd) Microbiology - Last 24 Hours (Table) 08/21/19 20:51 Urine Culture - Preliminary Urine,Voided Assessment and Plan Assessment: Influenza with COPD exacerbation Urinary tract infection Hypokalemia Transaminitis Influenza A positive. Plans: Tamiflu. DuoNeb scheduled. Continue home dose of prednisone. Robitussin as needed for cough. Supplemental O2 to maintain O2 saturation greater than 92%. UA positive nitrite. Plans: Continue Rocephin. Follow urine culture. Potassium 3.1. Plans: Replacement protocol. Repeat BMP tomorrow morning. AST 51 ALT 60. Unknown significance. Plans: Repeat CMP tomorrow morning. [Patient continues to complain of generalized weakness, shortness of breath with wheezing. Hemodynamically she is stable. We will continue to monitor the patient overnight with nebulize treatments [id number]. Continue IV antibiotics for UTI. Plans on DC tomorrow if patient improved.]
[2019-08-22] MEDS: traZODone HCL 100 MG TAB PO SCH ×2 (21:22→21:29)
[2019-08-23] MEDS: IPRATROPIUM-ALBUTEROL 3 ML NEB INHALATION SCH ×5 (03:52→20:22)
[2019-08-23] MEDS: LEVOTHYROXINE 25 MCG TAB PO SCH (05:43)
[2019-08-23] MEDS: GABAPENTIN 300 MG CAP PO SCH ×3 (08:26→21:08)
[2019-08-23] MEDS: OSELTAMIVIR 75 MG CAP PO SCH ×2 (08:27→21:07)
[2019-08-23] MEDS: SILDENAFIL 20 MG TAB PO SCH ×3 (08:27→22:20)
[2019-08-23] MEDS: VIT A,C & E-LUTEIN-MINERALS 1 EACH TAB PO SCH (08:27)
[2019-08-23] MEDS: SERTRALINE 100 MG TAB PO SCH (08:28)
[2019-08-23] MEDS: PANTOPRAZOLE 40 MG TABLET PO SCH ×2 (08:28→21:07)
[2019-08-23] MEDS: predniSONE 1 MG TAB PO SCH (08:28)
[2019-08-23] MEDS: predniSONE 5 MG TAB PO SCH (08:28)
[2019-08-23] MEDS: FOLIC ACID 1 MG TAB PO SCH (08:29)
[2019-08-23] MEDS: CHOLECALCIFEROL 1,000 UNIT TAB PO SCH (08:29)
[2019-08-23] MEDS: MAGNESIUM OXIDE 400 MG TAB PO SCH (08:29)
[2019-08-23 08:54] LABS: Albumin 3.8 g/dL (3.5-5.0); Calcium 8.5 mg/dL (8.4-10.2); Potassium 2.8 mmol/L (3.5-5.1); Total Bilirubin 0.5 mg/dL (0.2-1.3); Total Protein 6.1 g/dL (6.3-8.2)
[2019-08-23 09:00] LABS: Anisocytosis Slight; Basophils % (A) 1 %; Eosinophils # (A) 0.2 k/uL (0-0.7); Eosinophils % (A) 3 %; HGB 13.8 gm/dL (11.4-16.0); Lymphocytes % (A) 13 %; MCH 31.5 pg (25.0-35.0); MCV 98.5 fL (80.0-100.0); Macrocytosis Slight; Mean Platelet Volume 7.6; Monocytes # (A) 0.4 k/uL (0-1.0); Monocytes % (A) 5 %; Neutrophils % (A) 77 %; Platelet Count 277 k/uL (150-450); RBC 4.37 m/uL (3.80-5.40); RDW 16.1 % (11.5-15.5); WBC 7.7 k/uL (3.8-10.6)
[2019-08-23] MEDS ORDERED: FERROUS SULFATE 325 MG TAB PO SCH (09:00)
[2019-08-23] MEDS ORDERED: Potassium Replacement Protocol 1 EACH MISC MISCELLANE PRN (11:30)
[2019-08-23] MEDS ORDERED: BENZONATATE 100 MG CAP PO PRN (12:12)
[2019-08-23] MEDS ORDERED: BENZONATATE 100 MG CAP PO STA (12:12)
[2019-08-23] MEDS ORDERED: POTASSIUM CHLORIDE 2 MEQ/ML 20 ML VIAL IVPB SCH (12:15)
--- NOTE | 2019-08-23 12:19 | P.PN ---
Subjective Progress Note Date: 08/23/19 Principal diagnosis: Flu Patient was seen and examined. No acute events overnight. Patient continues to report dry cough and intense fatigue and generalized weakness. Patient states her appetite has improved. Patient reports diarrhea that has been ongoing since admission. Patient states C. diff was ruled out by her PCP. She continues report urinary urgency but no dysuria or hematuria. She denies any chest pain or palpitations. No nausea or vomiting. No fever but does report chills. Objective - Vital Signs Vital signs: Vital Signs Temp 96.9 F L 08/23/19 04:32 Pulse 74 08/23/19 11:54 Resp 20 08/23/19 04:32 BP 114/61 08/23/19 04:32 Pulse Ox 93 L 08/23/19 04:32 Intake & Output 08/22/19 08/23/19 08/23/19 18:59 06:59 18:59 Intake Total 1810 Balance 1810 Intake: Intake, IV Titration 500 Amount Sodium Chloride 0.9% 1, 400 000 ml @ 100 mls/hr IV . Q10H STA Rx#:[id number] cefTRIAXone 1 gm In 100 Sodium Chloride 0.9% 50 ml @ 100 mls/hr IVPB Q12H UMESH Rx#:[id number] Oral 1310 Other: # Voids 2 2 - Exam General: [non toxic], [no distress], [appears at stated age] Derm: [warm], [dry] Head: [atraumatic], [normocephalic], [symmetric] Eyes: [EOMI], [no lid lag], [anicteric sclera] Mouth: [no lip lesion], [mucus membranes moist] Cardiovascular: [S1S2 reg], [no murmur], [positive posterior tibial pulse bilateral], Lungs: [Decreased breath sounds bilaterally], [no rhonchi, no rales] , [no accessory muscle use] Abdominal: [soft], [ nontender to palpation], [no guarding], [no appreciable organomegaly] Ext: [no gross muscle atrophy], [no edema], [no contractures] Neuro: [no focal neuro deficits] Psych: [Alert], [oriented], [appropriate affect] - Labs CBC & Chem 7: 08/23/19 08:11 02/21/20 08:11 Labs: Abnormal Lab Results - Last 24 Hours (Table) 08/23/19 08/23/19 Range/Units 08:11 08:11 RDW 16.1 H (11.5-15.5) % Potassium 2.8 L (3.5-5.1) mmol/L Chloride 109 H (98-107) mmol/L Carbon Dioxide 17 L (22-30) mmol/L AST 42 H (14-36) U/L ALT 36 H (4-34) U/L Total Protein 6.1 L (6.3-8.2) g/dL Microbiology - Last 24 Hours (Table) 08/21/19 20:51 Urine Culture - Preliminary Urine,Voided Gram Neg Bacilli 08/21/19 18:55 Blood Culture - Preliminary Blood No Growth after 24 hours Assessment and Plan Assessment: Influenza with COPD exacerbation Hyperchloremic metabolic acidosis Urinary tract infection Hypokalemia likely related to diarrhea Transaminitis Influenza A positive. Plans: Tamiflu. DuoNeb scheduled. Continue home dose of prednisone. Scheduled Robitussin for cough and added Tessalon Perles. Supplemental O2 to maintain O2 saturation greater than 92%. Likely due to infused IVF. Plans: DC IVF and encourage hydration by mouth. UA positive nitrite. Plans: Continue Rocephin. Follow urine culture. Potassium 2.8. Related to diarrhea. Plans: Replacement protocol. Repeat BMP in the afternoon. AST 42 ALT 36. Unknown significance. Plans: Patient will need to follow-up in the outpatient setting with her PCP. [Patient shows slight improvement. Hemodynamically she is stable. Her potassium has further decreased this morning and will be replaced intravenously and oral. Repeat BMP in the afternoon. Likely DC today if potassium normalized.]
[2019-08-23] MEDS: guaiFENesin-Coden 100-10MG/5ML 10 ML CUP PO SCH ×2 (13:13→18:51)
[2019-08-23] MEDS: POTASSIUM CHLORIDE ER 20 MEQ TAB.ER PO SCH ×3 (13:13→15:12)
[2019-08-23] MEDS: POTASSIUM CHLORIDE 10 MEQ in WATER FOR INJECTION 1 100ML.BAG IVPB SCH ×4 (13:14→22:26)
[2019-08-23] MEDS: traZODone HCL 50 MG TAB PO SCH (21:08)
[2019-08-24] MEDS: IPRATROPIUM-ALBUTEROL 3 ML NEB INHALATION SCH ×4 (00:27→13:20)
[2019-08-24] MEDS: guaiFENesin-Coden 100-10MG/5ML 10 ML CUP PO SCH ×3 (01:36→12:52)
[2019-08-24] MEDS: LEVOTHYROXINE 25 MCG TAB PO SCH (05:14)
[2019-08-24 05:38] VITALS: RESP 20
[2019-08-24 08:42] LABS: African American GFR (CKD) >90 (>60 ml/min/1.73 sqM); Anion Gap 6 mmol/L; Blood Urea Nitrogen 14 mg/dL (7-17); Calcium 8.6 mg/dL (8.4-10.2); Carbon Dioxide 23 mmol/L (22-30); Chloride 109 mmol/L (98-107); Glucose 67 mg/dL (74-99); Non-African American GFR(CKD) 86 (>60 ml/min/1.73 sqM); Potassium 3.7 mmol/L (3.5-5.1); Sodium 138 mmol/L (137-145)
[2019-08-24] MEDS: PANTOPRAZOLE 40 MG TABLET PO SCH (10:28)
[2019-08-24] MEDS: SERTRALINE 100 MG TAB PO SCH (10:28)
[2019-08-24] MEDS: GABAPENTIN 300 MG CAP PO SCH (10:28)
[2019-08-24] MEDS: MAGNESIUM OXIDE 400 MG TAB PO SCH (10:29)
[2019-08-24] MEDS: OSELTAMIVIR 75 MG CAP PO SCH (10:29)
[2019-08-24] MEDS: FOLIC ACID 1 MG TAB PO SCH (10:29)
[2019-08-24] MEDS: CHOLECALCIFEROL 1,000 UNIT TAB PO SCH (10:31)
[2019-08-24] MEDS: VIT A,C & E-LUTEIN-MINERALS 1 EACH TAB PO SCH (10:49)
[2019-08-24] MEDS: predniSONE 1 MG TAB PO SCH (10:49)
[2019-08-24] MEDS: SILDENAFIL 20 MG TAB PO SCH (10:49)
[2019-08-24] MEDS: predniSONE 5 MG TAB PO SCH (10:49)
--- NOTE | 2019-08-24 10:57 | P.DS ---
Providers Date of admission: 08/23/19 09:06 Expected date of discharge: 08/24/19 Attending physician: Gregory Crenshaw MD Primary care physician: Charly Quintanilla [facility] Course: 73-year-old female with a past medical history of scleroderma, Raynaud's syndrome on chronic methotrexate and prednisone therapy who presented to the ER via private vehicle with chief complaint of weakness and fatigue and flulike symptoms. The patient reports symptoms of sore throat, weakness fatigue and myalgias in her extremities beginning this past Monday, she reports her was recently diagnosed with influenza and that both him and her taking Tamiflu, she reports taking 5 doses. Patient also had complaints of diarrhea prior to admission. In the ED, she underwent comprehensive workup. Abnormal labs include serum potassium of 3.1, BUN of 20, blood sugar 135, AST 51 ALT 60. EKG showed normal sinus rhythm, chest x-ray showed normal chest, influenza A was positive, urinalysis is nitrite positive. Patient was admitted for symptomatic treatment of influenza and for urinary tract infection. Patient had COPD exacerbation secondary to influenza. She was restarted on Tamiflu. She was given DuoNeb scheduled. She was continued on her home dose of prednisone. She was given Robitussin with codeine along with Tessalon Perles for cough that she had. Patient was initially started on Rocephin for UTI. Urine culture came back positive for E. coli that is indeterminant with ceftriaxone. Plan was to discharge the patient home with nitrofurantoin for a total of 3 days. Patient continued to have diarrhea and was noted to be hypokalemic which needed to be replaced. C. diff was checked 4 weeks ago due to this diarrhea and was negative. Patient was seen and examined. No acute events overnight. Patient reports considerable improvement in her cough since starting Tessalon. She continues to have diarrhea but improved today. She denies any chest pain, shortness of breath or palpitations. No nausea or vomiting. No fever or chills. Want to go home today. General: [non toxic], [no distress], [appears at stated age] Derm: [warm], [dry] Head: [atraumatic], [normocephalic], [symmetric] Eyes: [EOMI], [no lid lag], [anicteric sclera] Mouth: [no lip lesion], [mucus membranes moist] Cardiovascular: [S1S2 reg], [no murmur], [positive DP pulse bilateral], Lungs: [Decreased breath sounds bilaterally], [no rhonchi, no rales] , [no accessory muscle use] Abdominal: [soft], [ nontender to palpation], [no guarding], [no appreciable organomegaly] Ext: [no gross muscle atrophy], [no edema], [no contractures] Neuro: [no focal neuro deficits] Psych: [Alert], [oriented], [appropriate affect] Influenza with COPD exacerbation Hyperchloremic metabolic acidosis Urinary tract infection Hypokalemia likely related to diarrhea Transaminitis Influenza A positive. Plans: Tamiflu. DuoNeb scheduled. Continue home dose of prednisone. Scheduled Robitussin for cough and added Tessalon Perles. Supplem ental O2 to maintain O2 saturation greater than 92%. Likely due to infused IVF. Plans: DC IVF and encourage hydration by mouth. UA positive nitrite. Urine culture positive for E. coli sensitive to n itrofurantoin. Plans: Switched to nitrofurantoin for discharge. Potassium 2.8. Related to diarrhea. Plans: Potassium is within normal limits today. AST 42 ALT 36. Unknown significance. Plans: Patient will need to follow-up in the outpatient setting with her PCP. [Patient shows slight improvement. Hemodynamically she is stable. DC home today. This complex discharge took about 35 minutes to complete.] Pertinent Studies: Chest x-ray Patient Condition at Discharge: Stable Plan - Discharge Summary New Discharge Prescriptions: New Oseltamivir [Tamiflu] 75 mg PO BID #14 cap Benzonatate [Tessalon Perles] 100 mg PO TID PRN #21 cap PRN Reason: Cough Continue Cholecalciferol [Vitamin D3 (25 Mcg = 1000 Iu)] 5,000 unit PO DAILY Sertraline HCl 200 mg PO DAILY Esomeprazole Magnesium [NexIUM] 20 mg PO BID Sildenafil [Revatio] 20 mg PO TID Methotrexate Sodium [Methotrexate] 17.5 mg PO TH predniSONE 5 mg PO DAILY fentaNYL 75MCG/HR PATCH [Duragesic 75MCG/HR] 1 patch TRANSDERM Q72H Multivit-Min/Iron/Folic/Lutein [Centrum Silver Women Tablet] 1 tab PO DAILY guaiFENesin-Coden 100-10MG/5ML [Robitussin AC] 10 ml PO Q6H PRN PRN Reason: Cough HYDROcodone/APAP 5-325MG [[place]ax[place] 5-325] 1 tab PO DAILY PRN PRN Reason: Pain Ferrous Sulfate [Feosol] 325 mg PO Q48H Magnesium Oxide 400 mg PO DAILY Gabapentin 600 mg PO TID Folic Acid 0.4 mg PO DAILY traZODone HCL 100 mg PO HS Levothyroxine Sodium [Synthroid] 25 mcg PO DAILY predniSONE 2 mg PO DAILY Tocilizumab [Actemra Actpen] 162 mg SQ WE Nitrofurantoin Monohyd/M-Cryst [Macrobid] 100 mg PO BID #6 cap Discontinued Oseltamivir [Tamiflu] 75 mg PO BID Discharge Medication List Cholecalciferol [Vitamin D3 (25 Mcg = 1000 Iu)] 5,000 unit PO DAILY 02/23/16 [History] Esomeprazole Magnesium [NexIUM] 20 mg PO BID 02/23/16 [History] Sertraline HCl 200 mg PO DAILY 02/23/16 [History] Sildenafil [Revatio] 20 mg PO TID 06/30/16 [History] Methotrexate Sodium [Methotrexate] 17.5 mg PO TH 10/25/17 [History] Multivit-Min/Iron/Folic/Lutein [Centrum Silver Women Tablet] 1 tab PO DAILY 10/25/17 [History] fentaNYL 75MCG/HR PATCH [Duragesic 75MCG/HR] 1 patch TRANSDERM Q72H 10/25/17 [History] predniSONE 5 mg PO DAILY 10/25/17 [History] Ferrous Sulfate [Feosol] 325 mg PO Q48H 08/21/19 [History] Folic Acid 0.4 mg PO DAILY 08/21/19 [History] Gabapentin 600 mg PO TID 08/21/19 [History] HYDROcodone/APAP 5-325MG [Baxter 5-325] 1 tab PO DAILY PRN 08/21/19 [History] Levothyroxine Sodium [Synthroid] 25 mcg PO DAILY 08/21/19 [History] Magnesium Oxide 400 mg PO DAILY 08/21/19 [History] Tocilizumab [Actemra Actpen] 162 mg SQ WE 08/21/19 [History] guaiFENesin-Coden 100-10MG/5ML [Robitussin AC] 10 ml PO Q6H PRN 08/21/19 [History] predniSONE 2 mg PO DAILY 08/21/19 [History] traZODone HCL 100 mg PO HS 08/21/19 [History] Benzonatate [Tessalon Perles] 100 mg PO TID PRN #21 cap 08/24/19 [Rx] Nitrofurantoin Monohyd/M-Cryst [Macrobid] 100 mg PO BID #6 cap 08/24/19 [Rx] Oseltamivir [Tamiflu] 75 mg PO BID #14 cap 08/24/19 [Rx] Follow up Appointment(s)/Referral(s): Charly Quintanilla MD [Primary Care Provider] - 1-2 days Activity/Diet/Wound Care/Special Instructions: Diet: Low fiber Follow-up PCP within 3 days of discharge. Take Tamiflu for another 7 days. Take nitrofurantoin for 3 days. Take all medications as advised. Discharge Disposition: HOME SELF-CARE
[2019-08-24] MEDS ORDERED: POTASSIUM CHLORIDE ER 20 MEQ TAB.ER PO SCH (11:00)
[2019-08-24 12:48] VITALS: BP 135/75; PULSE 91; TEMP 98
== END 2019-08-24 14:04 | disposition home or self-care (01) | DRG 191 ==
LOC: EC 17:17 → 4SSUR 22:12 → 5NMEDONC 08-22 14:27 → OBSVTOIN 08-23 09:06 → UNDODISIN 08-24 14:04
PROVIDERS: ADMIT Family Medicine; ATTEND Family Medicine
DX: J44.1 Chronic obstructive pulmonary disease with (acute) exacerbation (principal); E87.2 Acidosis; N39.0 Urinary tract infection, site not specified; J10.1 Influenza due to other identified influenza virus with other respiratory manifestations; I27.20 Pulmonary hypertension, unspecified; M34.9 Systemic sclerosis, unspecified; B96.20 Unspecified Escherichia coli [E. coli] as the cause of diseases classified elsewhere; E87.6 Hypokalemia; F32.9 Major depressive disorder, single episode, unspecified; I10 Essential (primary) hypertension; I73.00 Raynaud's syndrome without gangrene; K22.70 Barrett's esophagus without dysplasia; E86.0 Dehydration; H26.9 Unspecified cataract; K21.9 Gastro-esophageal reflux disease without esophagitis; R19.7 Diarrhea, unspecified; R74.0 Nonspecific elevation of levels of transaminase and lactic acid dehydrogenase [LDH]; G62.9 Polyneuropathy, unspecified; E05.00 Thyrotoxicosis with diffuse goiter without thyrotoxic crisis or storm; Z79.890 Hormone replacement therapy; Z79.899 Other long term (current) drug therapy; Z79.52 Long term (current) use of systemic steroids; Z96.651 Presence of right artificial knee joint; Z90.711 Acquired absence of uterus with remaining cervical stump; Z87.891 Personal history of nicotine dependence; Z88.2 Allergy status to sulfonamides; Z86.718 Personal history of other venous thrombosis and embolism; Z90.49 Acquired absence of other specified parts of digestive tract; Z90.722 Acquired absence of ovaries, bilateral; Z80.8 Family history of malignant neoplasm of other organs or systems; Z82.61 Family history of arthritis
CPT/HCPCS: 36415; 71046; 80048; 80053; 81001; 83605; 83735; 83880; 84100; 84484; 85025; 87040; 87077; 87086; 87186; 87502; 93005; 94640; 96361; 96365; 96366; 96375; 99285

== ENCOUNTER → 2019-12-23 | Outpatient (CLI) | payer MEDICARE | END | disposition home or self-care (01) | LOC: LABWHC1 10:50 | PROVIDERS: ATTEND Internal Medicine | DX: Z11.59 Encounter for screening for other viral diseases (principal) ==

== ENCOUNTER 2020-04-09 16:50 | Emergency (ER) | payer MEDICARE ==
[2020-04-09 17:16] VITALS: TEMP 98
--- NOTE | 2020-04-09 17:35 | ED ---
General Adult HPI - General Chief complaint: Extremity Problem,Nontraumatic Stated complaint: Doppler Us sent by PCP Time Seen by Provider: 04/09/20 17:08 Source: patient, RN/MD (I did speak with Dr. cardenas who wanted patient to have ultrasound), RN notes reviewed Mode of arrival: wheelchair Limitations: no limitations - History of Present Illness Initial comments: Patient is a pleasant 74-year-old female presenting to the emergency Department with complaints of right leg swelling. Onset of symptoms was this morning. Patient does have some discomfort. No fever. Patient does have history of DVT 47 years ago. Patient is not currently on any anticoagulation. Patient does have history of cellulitis with similar symptoms previously. No chest pain. Patient has chronic dyspnea from scleroderma that is unchanged. - Related Data Home Medications Medication Instructions Recorded Confirmed Cholecalciferol [Vitamin D3 (25 5,000 unit PO DAILY 02/23/16 08/21/19 Mcg = 1000 Iu)] Esomeprazole Magnesium [NexIUM] 20 mg PO BID 02/23/16 08/21/19 Sertraline HCl 200 mg PO DAILY 02/23/16 08/21/19 Sildenafil [Revatio] 20 mg PO TID 06/30/16 08/21/19 Multivit-Min/Iron/Folic/Lutein 1 tab PO DAILY 10/25/17 08/21/19 [Centrum Silver Women Tablet] fentaNYL 75MCG/HR PATCH [Duragesic 1 patch TRANSDERM Q72H 10/25/17 08/21/19 75MCG/HR] metHOTREXate sodium [Methotrexate] 17.5 mg PO TH 10/25/17 08/21/19 predniSONE 5 mg PO DAILY 10/25/17 08/21/19 Ferrous Sulfate [Feosol] 325 mg PO Q48H 08/21/19 08/21/19 Folic Acid 0.4 mg PO DAILY 08/21/19 08/21/19 Gabapentin 600 mg PO TID 08/21/19 08/21/19 HYDROcodone/APAP 5-325MG [[place] 1 tab PO DAILY PRN 08/21/19 08/21/19 5-325] Levothyroxine Sodium [Synthroid] 25 mcg PO DAILY 08/21/19 08/21/19 Magnesium Oxide 400 mg PO DAILY 08/21/19 08/21/19 Tocilizumab [Actemra Actpen] 162 mg SQ WE 08/21/19 08/21/19 guaiFENesin-Coden 100-10MG/5ML 10 ml PO Q6H PRN 08/21/19 08/21/19 [Robitussin AC] predniSONE 2 mg PO DAILY 08/21/19 08/21/19 traZODone HCL 100 mg PO HS 08/21/19 08/21/19 Previous Rx's Medication Instructions Recorded Benzonatate [Tessalon Perles] 100 mg PO TID PRN #21 cap 08/24/19 Nitrofurantoin Monohyd/M-Cryst 100 mg PO BID #6 cap 08/24/19 [Macrobid] Oseltamivir [Tamiflu] 75 mg PO BID #14 cap 08/24/19 Cephalexin [Keflex] 500 mg PO QID #40 cap 04/09/20 Allergies Allergy/AdvReac Type Severity Reaction Status Date / Time Sulfa (Sulfonamide Allergy Rash/Hives Verified 04/09/20 17:16 Antibiotics) Review of Systems ROS Statement: Those systems with pertinent positive or pertinent negative responses have been documented in the HPI. ROS Other: All systems not noted in ROS Statement are negative. Constitutional: Denies: fever Eyes: Denies: eye pain ENT: Denies: ear pain Respiratory: Reports: as per HPI. Denies: cough Cardiovascular: Denies: chest pain Endocrine: Denies: fatigue Gastrointestinal: Denies: abdominal pain Genitourinary: Denies: dysuria Musculoskeletal: Denies: back pain Skin: Reports: as per HPI, rash Past Medical History Past Medical History: Deep Vein Thrombosis (DVT), Eye Disorder, GERD/Reflux, Hypertension, Musculoskeletal Disorder Additional Past Medical History / Comment(s): violeta cataracts, neuropathy violeta feet, sclerederma, osorio's esophogus, gaves disease, (r/t stomach) pulmonary hypertension, History of Any Multi-Drug Resistant Organisms: None Reported Past Surgical History: Bowel Resection, Cholecystectomy, Hysterectomy, Joint Replacement Additional Past Surgical History / Comment(s): rt knee replacement, oopherectomy post partial hysterectomy, EGD, COLONOSCOPY Past Anesthesia/Blood Transfusion Reactions: No Reported Reaction Past Psychological History: Depression Smoking Status: Never smoker Past Alcohol Use History: Rare Past Drug Use History: None Reported - Past Family History Father Family Medical History: Cancer Additional Family Medical History / Comment(s): throat cancer Mother Family Medical History: Chest Pain / Angina, Osteoarthritis (OA) General Exam Limitations: no limitations General appearance: alert, in no apparent distress Head exam: Present: normocephalic Eye exam: Present: normal appearance Neck exam: Present: normal inspection Respiratory exam: Present: normal lung sounds bilaterally Cardiovascular Exam: Present: regular rate, normal rhythm Expanded Peripheral pulses: 2+: Posterior Tibialis (R), Dorsalis Pedis (R) GI/Abdominal exam: Present: soft. Absent: tenderness Extremities exam: Present: other (Right lower leg with mild swelling and erythema. There is warmth. There is some tenderness in the calf and popliteal region) Neurological exam: Present: alert. Absent: motor sensory deficit Psychiatric exam: Present: normal affect, normal mood Skin exam: Present: erythema Course Vital Signs 04/09/20 17:12 Temperature 98.0 F Pulse Rate 56 L Respiratory 18 Rate Blood Pressure 121/52 O2 Sat by Pulse 96 Oximetry Medical Decision Making - Medical Decision Making Patient reevaluated and updated - Radiology Data Radiology results: report reviewed (Ultrasound negative for DVT) Disposition Clinical Impression: Cellulitis of right lower leg Disposition: HOME SELF-CARE Condition: Stable Instructions (If sedation given, give patient instructions): Cellulitis (ED) Additional Instructions: Please follow-up with primary care physician in the next day or 2 for recheck. Return for chest pain or shortness of breath, fevers, increased pain or swelling, increased redness or warmth, worsening symptoms or other concerns. Prescription was sent to [facility] Prescriptions: Cephalexin [Keflex] 500 mg PO QID #40 cap Is patient prescribed a controlled substance at d/c from ED?: No Referrals: Martin Cardenas MD [Primary Care Provider] - 1-2 days Time of Disposition: 19:23
--- NOTE | 2020-04-09 19:01 | US ---
EXAMINATION TYPE: US venous doppler duplex LE RT DATE OF EXAM: 04/09/2020 6:32 PM COMPARISON: US 2019 CLINICAL HISTORY: Pain and swelling. Pain and swelling within right leg x 1 day. Hx DVT many years ag o in the lower extremities. Patient does not take blood thinners. SIDE PERFORMED: Right TECHNIQUE: The lower extremity deep venous system is examined utilizing real time linear array sonog geovanna with graded compression, doppler sonography and color-flow sonography. VESSELS IMAGED: External Iliac Vein (EIV) Common Femoral Vein Deep Femoral Vein Greater Saphenous Vein * Femoral Vein Popliteal Vein Small Saphenous Vein * Proximal Calf Veins (* superficial vessels) RIGHT LOWER EXTREMITY FINDINGS: No direct or indirect evidence of DVT from the prox calf veins to EI V. IMPRESSION: Negative for DVT, right lower extremity.
[2020-04-09] MEDS ORDERED: CEPHALEXIN 500MG STARTER PACK 4 CAP BTL PO STA (19:26)
[2020-04-10 00:13] VITALS: BP 123/70; PULSE 64; RESP 19
== END 2020-04-09 19:44 | disposition home or self-care (01) ==
LOC: SUPCPDRO 16:50 → EC 16:50
DX: L03.115 Cellulitis of right lower limb (principal); F32.9 Major depressive disorder, single episode, unspecified; G62.9 Polyneuropathy, unspecified; K21.9 Gastro-esophageal reflux disease without esophagitis; I10 Essential (primary) hypertension; I27.20 Pulmonary hypertension, unspecified; M34.9 Systemic sclerosis, unspecified; K22.70 Barrett's esophagus without dysplasia; Z79.899 Other long term (current) drug therapy; Z79.52 Long term (current) use of systemic steroids; Z88.2 Allergy status to sulfonamides; Z86.718 Personal history of other venous thrombosis and embolism; Z96.651 Presence of right artificial knee joint; Z90.49 Acquired absence of other specified parts of digestive tract
CPT/HCPCS: 99283

== ENCOUNTER → 2020-05-20 | Outpatient (CLI) | payer MEDICARE | END | disposition home or self-care (01) | LOC: LABWHC1 11:13 | PROVIDERS: ATTEND Internal Medicine | DX: Z20.828 Contact with and (suspected) exposure to other viral communicable diseases (principal) | CPT/HCPCS: 36415; 86769 ==

== ENCOUNTER → 2020-08-17 | Outpatient (CLI) | payer MEDICARE ==
[2020-08-17 21:52] LABS: Protein, Total 6.8 g/dL (6.2-8.2)
[2020-08-17 22:57] LABS: Ferritin 23.5 ng/mL (10.0-291.0)
[2020-08-17 23:13] LABS: % Iron Saturation 13.81 (12.00-45.00); Folate, Serum >24.0 ng/mL; Iron 70 ug/dL (50-170); Total Iron Binding Capacity 507 ug/dL (228-460)
[2020-08-18 08:31] LABS: Free Kappa Lt Chain Qnt, Serum 1.03 mg/dL (0.33-1.94)
[2020-08-18 13:59] LABS: Albumin 4.65 g/dL (3.80-4.90); Gamma Globulin 0.49 g/dL (0.70-1.50)
== END | disposition home or self-care (01) ==
LOC: LABWHC1 12:26
PROVIDERS: ATTEND Internal Medicine
DX: D50.0 Iron deficiency anemia secondary to blood loss (chronic) (principal); M34.9 Systemic sclerosis, unspecified; D75.9 Disease of blood and blood-forming organs, unspecified
CPT/HCPCS: 36415; 82607; 82728; 82746; 83540; 83550; 83883; 84165; 84166; 84443; 86334

== ENCOUNTER → 2020-12-03 | Outpatient (CLI) | payer MEDICARE ==
[2020-12-03 15:08] LABS: Basophils # (A) 0.02 X 10*3/uL (0.00-0.10); Basophils % (A) 0.5 %; Eosinophils # (A) 0.07 X 10*3/uL (0.04-0.35); Eosinophils % (A) 1.7 %; HCT 33.1 % (37.2-46.3); HGB 10.9 g/dL (12.0-15.0); Lymphocytes # (A) 0.68 X 10*3/uL (0.90-5.00); Lymphocytes % (A) 16.2 %; MCH 35.5 pg (27.0-32.0); MCHC 32.9 g/dL (32.0-37.0); MCV 107.8 fL (80.0-97.0); Mean Platelet Volume 9.1 fL (9.5-12.2); Monocytes # (A) 0.56 X 10*3/uL (0.20-1.00); Monocytes % (A) 13.4 %; Neutrophils # (A) 2.82 X 10*3/uL (1.80-7.70); Neutrophils % (A) 67.2 %; Platelet Count 242 X 10*3/uL (140-440); RBC 3.07 X 10*6/uL (4.10-5.20); RDW 21.8 % (11.5-14.5); WBC 4.19 X 10*3/uL (4.50-10.00)
[2020-12-04 04:54] LABS: African American GFR (CKD) 84.2 (60.0-200.0); Albumin 4.3 g/dL (3.80-4.90); Albumin/Globulin Ratio 2.53 (1.60-3.17); BUN/Creat Ratio 21.25 Ratio (12.00-20.00); Calcium 9.3 mg/dL (8.7-10.3); Globulin 1.7 g/dL (1.6-3.3); Non-African American GFR(CKD) 72.6 (60.0-200.0); Potassium 3.9 mmol/L (3.5-5.5); Total Bilirubin 0.3 mg/dL (0.3-1.2)
== END | disposition home or self-care (01) ==
LOC: LABWHC1 09:35
PROVIDERS: ATTEND Internal Medicine
DX: M34.9 Systemic sclerosis, unspecified (principal)
CPT/HCPCS: 36415; 80053; 85025

== ENCOUNTER → 2020-12-03 | Outpatient (CLI) | payer MEDICARE ==
--- NOTE | 2020-12-03 15:13 | US ---
EXAMINATION TYPE: US kidneys/renal and bladder DATE OF EXAM: 12/03/2020 COMPARISON: 10/26/2012 recent prior MRI comparison is not at this institution. CLINICAL HISTORY: N28.1 BENIGN CYST OF KIDNEY. Recent MRI, not here, showed renal cysts EXAM MEASUREMENTS: Right Kidney: 9.2 x 4.0 x 4.9 cm Left Kidney: 9.2 x 4.5 x 4.5 cm Right Kidney: superior pole cyst seen 2.1 x 1.4 x 1.3cm Left Kidney: inferior pole cyst seen = 1.4 x 1.6 x 1.3cm Bladder: wnl Bilateral Jets seen: yes No hydronephrosis or shadowing renal calculi. There are bilateral renal cysts. IMPRESSION: 1. Bilateral renal cysts. 2. No hydronephrosis or shadowing renal calculi.
== END | disposition home or self-care (01) ==
LOC: RADUSWWP 09:02
PROVIDERS: ATTEND Internal Medicine
DX: N28.1 Cyst of kidney, acquired (principal)
CPT/HCPCS: 76770

== ENCOUNTER → 2020-12-29 | Outpatient (CLI) | payer MEDICARE ==
--- NOTE | 2020-12-29 12:48 | US ---
EXAMINATION TYPE: US venous doppler duplex LE RT DATE OF EXAM: 12/29/2020 12:12 PM COMPARISON: NONE CLINICAL HISTORY: I80.0 Phlebitis and thrombophlebitis of superficia. Swelling. SIDE PERFORMED: Right TECHNIQUE: The lower extremity deep venous system is examined utilizing real time linear array sonog geovanna with graded compression, doppler sonography and color-flow sonography. VESSELS IMAGED: Common Femoral Vein Deep Femoral Vein Greater Saphenous Vein * Femoral Vein Popliteal Vein Small Saphenous Vein * Proximal Calf Veins (* superficial vessels) Right Leg: Negative for DVT IMPRESSION: No evidence for DVT at this time.
== END | disposition home or self-care (01) ==
LOC: RADUSWWP 11:47
PROVIDERS: ATTEND Podiatrist
DX: Z48.89 Encounter for other specified surgical aftercare (principal); I80.9 Phlebitis and thrombophlebitis of unspecified site; M20.21 Hallux rigidus, right foot; M77.8 Other enthesopathies, not elsewhere classified; L97.513 Non-pressure chronic ulcer of other part of right foot with necrosis of muscle; M19.071 Primary osteoarthritis, right ankle and foot

== ENCOUNTER 2021-01-01 18:51 | Inpatient (IN) | payer MEDICARE ==
[2021-01-01] MEDS ORDERED: HYDROmorphone 0.5 MG/0.5 ML SYRINGE IVP STA (19:25)
[2021-01-01] MEDS ORDERED: ONDANSETRON 4 MG/2 ML VIAL IVP STA (19:25)
--- NOTE | 2021-01-01 19:38 | ED ---
Extremity Problem HPI - General Chief complaint: Extremity Problem,Nontraumatic Stated complaint: infected toe Time Seen by Provider: 01/01/21 18:57 Source: patient Mode of arrival: ambulatory Limitations: no limitations - History of Present Illness Initial comments: 75-year-old female patient who is post-op day #11 after foot surgery with Dr. Ricketts [facility], presents for evaluation of swelling and redness to her foot and leg. She also reports purulent drainage from the incision site. Patient states that she had the dressing removed on Monday and it looked similar, she has been taking Augmentin and it does not appear improved at all. She reports pain over the dorsal aspect of her right great toe. Does take [place] twice daily with minimal relief. Denies any fever, chills, nausea, or vomiting. Denies having diabetes. Does have history of scleroderma and neuropathy. - Related Data Home Medications Medication Instructions Recorded Confirmed Cholecalciferol [Vitamin D3 (25 5,000 unit PO DAILY 02/23/16 08/21/19 Mcg = 1000 Iu)] Esomeprazole Magnesium [NexIUM] 20 mg PO BID 02/23/16 08/21/19 Sertraline HCl 200 mg PO DAILY 02/23/16 08/21/19 Sildenafil [Revatio] 20 mg PO TID 06/30/16 08/21/19 Multivit-Min/Iron/Folic/Lutein 1 tab PO DAILY 10/25/17 08/21/19 [Centrum Silver Women Tablet] fentaNYL 75MCG/HR PATCH [Duragesic 1 patch TRANSDERM Q72H 10/25/17 08/21/19 75MCG/HR] metHOTREXate sodium [Methotrexate] 17.5 mg PO TH 10/25/17 08/21/19 predniSONE 5 mg PO DAILY 10/25/17 08/21/19 Ferrous Sulfate [Feosol] 325 mg PO Q48H 08/21/19 08/21/19 Folic Acid 0.4 mg PO DAILY 08/21/19 08/21/19 Gabapentin 600 mg PO TID 08/21/19 08/21/19 HYDROcodone/APAP 5-325MG [[place] 1 tab PO DAILY PRN 08/21/19 08/21/19 5-325] Levothyroxine Sodium [Synthroid] 25 mcg PO DAILY 08/21/19 08/21/19 Magnesium Oxide 400 mg PO DAILY 08/21/19 08/21/19 Tocilizumab [Actemra Actpen] 162 mg SQ WE 08/21/19 08/21/19 guaiFENesin-Coden 100-10MG/5ML 10 ml PO Q6H PRN 08/21/19 08/21/19 [Robitussin AC] predniSONE 2 mg PO DAILY 08/21/19 08/21/19 traZODone HCL 100 mg PO HS 08/21/19 08/21/19 Previous Rx's Medication Instructions Recorded Benzonatate [Tessalon Perles] 100 mg PO TID PRN #21 cap 08/24/19 Nitrofurantoin Monohyd/M-Cryst 100 mg PO BID #6 cap 08/24/19 [Macrobid] Oseltamivir [Tamiflu] 75 mg PO BID #14 cap 08/24/19 Cephalexin [Keflex] 500 mg PO QID #40 cap 04/09/20 Allergies Allergy/AdvReac Type Severity Reaction Status Date / Time Sulfa (Sulfonamide Allergy Rash/Hives Verified 01/01/21 18:55 Antibiotics) Review of Systems ROS Statement: Those systems with pertinent positive or pertinent negative responses have been documented in the HPI. ROS Other: All systems not noted in ROS Statement are negative. Past Medical History Past Medical History: Deep Vein Thrombosis (DVT), Eye Disorder, GERD/Reflux, Hypertension, Musculoskeletal Disorder Additional Past Medical History / Comment(s): violeta cataracts, neuropathy violeta feet, sclerederma, osoroi's esophogus, gaves disease, (r/t stomach) pulmonary hypertension, History of Any Multi-Drug Resistant Organisms: None Reported Past Surgical History: Bowel Resection, Cholecystectomy, Hysterectomy, Joint Replacement Additional Past Surgical History / Comment(s): rt knee replacement, oopherectomy post partial hysterectomy, EGD, COLONOSCOPY. Right foot surgery Past Anesthesia/Blood Transfusion Reactions: No Reported Reaction Past Psychological History: Depression Smoking Status: Never smoker Past Alcohol Use History: Rare Past Drug Use History: None Reported - Past Family History Father Family Medical History: Cancer Additional Family Medical History / Comment(s): throat cancer Mother Family Medical History: Chest Pain / Angina, Osteoarthritis (OA) General Exam Limitations: no limitations General appearance: alert, in no apparent distress, other (This is a well- developed, well-nourished elderly female patient in no acute distress. Vital signs upon presentation are temperature 98.2F, pulse 83, respirations 16, blood pressure 167/76, pulse ox 98% on room air.) Eye exam: Present: normal appearance, PERRL, EOMI. Absent: scleral icterus, conjunctival injection, periorbital swelling ENT exam: Present: normal exam, normal oropharynx, mucous membranes moist Respiratory exam: Present: normal lung sounds bilaterally. Absent: respiratory distress, wheezes, rales, rhonchi, stridor Cardiovascular Exam: Present: regular rate, normal rhythm, normal heart sounds. Absent: systolic murmur, diastolic murmur, rubs, gallop, clicks Extremities exam: Present: full ROM, normal capillary refill, other (Soft tissue swelling with overlying erythema noted from the right great toe extending over the dorsal foot and anterior lower leg. 6cm incision noted to the lateral great toe, with areas of possible necrosis, purulent drainage. Pedal pulse 2+. ). Absent: normal inspection, tenderness, pedal edema, joint swelling, calf tenderness Neurological exam: Present: alert, oriented X3, CN II-XII intact Psychiatric exam: Present: normal affect, normal mood Skin exam: Present: warm, dry, intact, normal color. Absent: rash Course Vital Signs 01/01/21 18:52 Temperature 98.0 F Pulse Rate 83 Respiratory 16 Rate Blood Pressure 167/76 O2 Sat by Pulse 98 Oximetry Medical Decision Making - Medical Decision Making 75-year-old female patient is postop day #11 after having foot surgery with Dr. Ricketts , comes in reporting swelling, redness, increased pain to the foot. She has been taking Augmentin for the last 4-5 days. No fever. Vitals are normal. White blood cell count is normal. Physical examination did reveal purulent drainage, soft tissue swelling, overlying erythema, possible necrosis to the overlying skin. Xray negative for osteomyelitis. She will be admitted for IV antibiotics. Orthopedics consulted. She is agreeable this plan. Case discussed with my attending Dr. Silva. - Lab Data Result diagrams: 01/01/21 19:51 01/01/21 19:51 Lab Results 01/01/21 01/01/21 01/01/21 Range/Units 19:51 19:51 19:51 WBC 6.2 (3.8-10.6) k/uL RBC 3.71 L (3.80-5.40) m/uL Hgb 11.4 (11.4-16.0) gm/dL Hct 34.2 (34.0-46.0) % MCV 92.3 (80.0-100.0) fL MCH 30.6 (25.0-35.0) pg MCHC 33.2 (31.0-37.0) g/dL RDW 16.9 H (11.5-15.5) % Plt Count 261 (150-450) k/uL MPV 7.0 Neutrophils % 92 % Lymphocytes % 3 % Monocytes % 4 % Eosinophils % 0 % Basophils % 0 % Neutrophils # 5.7 (1.3-7.7) k/uL Lymphocytes # 0.2 L (1.0-4.8) k/uL Monocytes # 0.2 (0-1.0) k/uL Eosinophils # 0.0 (0-0.7) k/uL Basophils # 0.0 (0-0.2) k/uL Anisocytosis Slight Sodium 141 (137-145) mmol/L Potassium 3.6 (3.5-5.1) mmol/L Chloride 107 (98-107) mmol/L Carbon Dioxide 24 (22-30) mmol/L Anion Gap 10 mmol/L BUN 15 (7-17) mg/dL Creatinine 0.60 (0.52-1.04) mg/dL Est GFR (CKD-EPI)AfAm >90 (>60 ml/min/1.73 sqM) Est GFR (CKD-EPI)NonAf >90 (>60 ml/min/1.73 sqM) Glucose 132 H (74-99) mg/dL Plasma Lactic Acid Jeanmarie 1.5 (0.7-2.0) mmol/L Calcium 9.4 (8.4-10.2) mg/dL Total Bilirubin 0.1 L (0.2-1.3) mg/dL AST 44 H (14-36) U/L ALT 40 H (4-34) U/L Alkaline Phosphatase 61 (38-126) U/L Total Protein 6.7 (6.3-8.2) g/dL Albumin 4.2 (3.5-5.0) g/dL - Radiology Data Radiology results: report reviewed, image reviewed 3 views of the right foot are obtained. Report was reviewed in its entirety. Impression by Dr. Zacarias shows shallow ulcer on the ball foot. Generally soft tissue swelling suggestive sialitis or soft tissue edema. Osteopenia. No acute osseous abnormalities seen her radiographic evidence for osteomyelitis at this time. Disposition Clinical Impression: Surgical site infection, Cellulitis of right foot Disposition: ADMITTED IP TO THIS [facility] Condition: Serious Referrals: Martin Cardenas MD [Primary Care Provider] - 1-2 days Decision to Admit Reason: Admit from EC Decision Date: 01/01/21 Decision Time: 21:36
[2021-01-01 20:16] LABS: ALT 40 U/L (4-34); AST 44 U/L (14-36); African American GFR (CKD) >90 (>60 ml/min/1.73 sqM); Albumin 4.2 g/dL (3.5-5.0); Alkaline Phosphatase 61 U/L (38-126); Anion Gap 10 mmol/L; Blood Urea Nitrogen 15 mg/dL (7-17); Calcium 9.4 mg/dL (8.4-10.2); Carbon Dioxide 24 mmol/L (22-30); Chloride 107 mmol/L (98-107); Glucose 132 mg/dL (74-99); Non-African American GFR(CKD) >90 (>60 ml/min/1.73 sqM); Potassium 3.6 mmol/L (3.5-5.1); Sodium 141 mmol/L (137-145); Total Bilirubin 0.1 mg/dL (0.2-1.3); Total Protein 6.7 g/dL (6.3-8.2)
[2021-01-01 20:17] LABS: Anisocytosis Slight; Basophils % (A) 0 %; Eosinophils % (A) 0 %; HCT 34.2 % (34.0-46.0); HGB 11.4 gm/dL (11.4-16.0); Lymphocytes # (A) 0.2 k/uL (1.0-4.8); Lymphocytes % (A) 3 %; MCH 30.6 pg (25.0-35.0); MCHC 33.2 g/dL (31.0-37.0); MCV 92.3 fL (80.0-100.0); Monocytes # (A) 0.2 k/uL (0-1.0); Monocytes % (A) 4 %; Neutrophils # (A) 5.7 k/uL (1.3-7.7); Neutrophils % (A) 92 %; Platelet Count 261 k/uL (150-450); RBC 3.71 m/uL (3.80-5.40); RDW 16.9 % (11.5-15.5); WBC 6.2 k/uL (3.8-10.6)
--- NOTE | 2021-01-01 21:02 | XR ---
EXAMINATION TYPE: XR foot complete RT DATE OF EXAM: 01/01/2021 COMPARISON: None HISTORY: 75-year-old female right great toe surgery, redness and edema, infection. TECHNIQUE: 3 views FINDINGS: Soft tissue swelling of the great toe. No discrete bony destruction. No periostitis. Moderate sized p lantar heel spur. Generalized soft tissue swelling. There is a shallow ulcer along the ball of the fo ot. IMPRESSION: Shallow ulcer along the ball of the foot. Generalized soft tissue swelling suggesting cellulitis or s oft tissue edema. Osteopenia. No acute osseous abnormality seen or radiographic evidence for osteomye litis at this time.
[2021-01-01] MEDS ORDERED: AMPICILLIN-SULBACTAM 3 GM in SODIUM CHLORIDE 0.9% 100 ML IVPB STA (21:30)
[2021-01-01] MEDS ORDERED: VANCOMYCIN IV PER PHARMACY 1 EACH MISC MISCELLANE PRN (21:30)
[2021-01-01] MEDS ORDERED: NALOXONE 0.4 MG/ML 1 ML VIAL IV PRN (21:30)
[2021-01-01] MEDS ORDERED: VANCOMYCIN 1,500 MG in SODIUM CHLORIDE 0.9% 250 ML IVPB ONE (21:45)
[2021-01-01] MEDS: HYDROmorphone 0.5 MG/0.5 ML SYRINGE IVP PRN (22:45)
[2021-01-01 23:16] VITALS: RESP 17
[2021-01-02] MEDS ORDERED: traZODone HCL 100 MG TAB PO SCH (01:13)
--- NOTE | 2021-01-02 03:04 | P.HPIM ---
History of Present Illness H&P Date: 01/01/21 Chief Complaint: right foot wound 75 year old female with scleroderma patient had surgery done about 2 weeks ago , for chronic wound over the base of the right big toe. after a week from surgery , she noticed ongoing drainage from her surgical wound. she went and saw her foot doctor , who started her on augmentine, and changed dressing. despite these measures, she noticed continued drainage, swelling , and erythema over the right foot . for which her doc recommended today that she comes to the hospital for IV ABx she denies any fever or chills, she continued to take prednisone and methotrexate since surgery otherwise she denies any fever, chills, chest pain , trouble breathing , abd pain , nausea vomiting, changes in bowel or urinary habits xray done in th ED did not show evidence of osteomyelitis Review of Systems Pertinent positives as noted in HPI. All other systems were reviewed and are negative Past Medical History Past Medical History: Deep Vein Thrombosis (DVT), Eye Disorder, GERD/Reflux, Hypertension, Musculoskeletal Disorder Additional Past Medical History / Comment(s): violeta cataracts, neuropathy violeta feet, sclerederma, osorio's esophogus, gaves disease, (r/t stomach) pulmonary hypertension, History of Any Multi-Drug Resistant Organisms: None Reported Past Surgical History: Bowel Resection, Cholecystectomy, Hysterectomy, Joint Replacement Additional Past Surgical History / Comment(s): rt knee replacement, oopherectomy post partial hysterectomy, EGD, COLONOSCOPY. Right foot surgery Past Anesthesia/Blood Transfusion Reactions: No Reported Reaction Past Psychological History: Depression Smoking Status: Never smoker Past Alcohol Use History: Rare Past Drug Use History: None Reported - Past Family History Father Family Medical History: Cancer Additional Family Medical History / Comment(s): throat cancer Mother Family Medical History: Chest Pain / Angina, Osteoarthritis (OA) Medications and Allergies Home Medications Medication Instructions Recorded Confirmed Type Esomeprazole Magnesium [NexIUM] 20 mg PO BID 02/23/16 01/01/21 History Sertraline HCl 200 mg PO DAILY 02/23/16 01/01/21 History Sildenafil [Revatio] 20 mg PO TID 06/30/16 01/01/21 History Multivit-Min/Iron/Folic/Lutein 1 tab PO DAILY 10/25/17 01/01/21 History [Centrum Silver Women Tablet] fentaNYL 75MCG/HR PATCH [Duragesic 1 patch TRANSDERM Q72H 10/25/17 01/01/21 History 75MCG/HR] metHOTREXate sodium [Methotrexate] 17.5 mg PO TH 10/25/17 01/01/21 History predniSONE 10 mg PO DAILY 10/25/17 01/01/21 History Gabapentin 600 mg PO TID 08/21/19 01/01/21 History HYDROcodone/APAP 5-325MG [[place] 1 tab PO Q6H PRN 08/21/19 01/01/21 History 5-325] Levothyroxine Sodium [Synthroid] 25 mcg PO DAILY 08/21/19 01/01/21 History Magnesium Oxide 400 mg PO DAILY 08/21/19 01/01/21 History traZODone HCL 100 mg PO HS 08/21/19 01/01/21 History Amoxicillin/Potassium Clav 1 tab PO Q12HR 01/01/21 01/01/21 History [Augmentin 500-125 Tablet] Ascorbic Acid [Vitamin C] 500 mg PO DAILY 01/01/21 01/01/21 History Ondansetron Odt [Zofran Odt] 4 mg PO Q8HR PRN 01/01/21 01/01/21 History Vitamin E (Dl,Tocopheryl Acet) 400 unit PO DAILY 01/01/21 01/01/21 History [Vitamin E] Allergies Allergy/AdvReac Type Severity Reaction Status Date / Time Sulfa (Sulfonamide Allergy Rash/Hives Verified 01/01/21 18:55 Antibiotics) Physical Exam Vitals: Vital Signs Temp Pulse Resp BP Pulse Ox 01/01/21 18:52 98.0 F 83 16 167/76 98 Intake and Output 01/01/21 01/01/21 01/01/21 06:59 14:59 22:59 Other: Weight 83.915 kg Constitutional: No acute distress, conversant, pleasant Eyes: Anicteric sclerae, moist conjunctiva, Pupils equal round reactive to light ENMT: NC/AT Oropharynx clear, no erythema, or exudates Neck: Supple, FROM, no masses, or JVD No carotid bruits No thyromegaly Lungs: Clear to auscultation Clear to percussion Normal respiratory effort, no accessory muscle use Cardiovascular: Heart regular in rate and rhythm, No murmurs, gallops, or rubs No peripheral edema Abdominal: Soft Nontender, no guarding, rebound or rigidity Abdomen moving with respiration Normoactive bowel sounds No hepatomegaly, No splenomegaly No palpable mass No abdominal wall hernia noted Skin: surgical wound with stiches over the medial aspect of the right big toe base, with drainage , mild erythema and tenderness to palpation , warm to the touch Extremities: No digital cyanosis No clubbing Pedal pulses weak and symmetrical, capillary refill immediate Radial pulses intact and symmetrical No calf tenderness Psychiatric: Alert and oriented to person, place and time Appropriate affect fair judgement Neuro Muscles Strength 5/5 in all 4 extremities Sensation to light touch grossly present throughout Cranial nerves II-XII grossly intact No focal sensory deficits Lymphatics: no palpable cervical or supraclavicular , or inguinal lymph nodes Results CBC & Chem 7: 01/01/21 19:51 01/01/21 19:51 Labs: Abnormal Lab Results - Last 24 Hours (Table) 01/01/21 01/01/21 Range/Units 19:51 19:51 RBC 3.71 L (3.80-5.40) m/uL RDW 16.9 H (11.5-15.5) % Lymphocytes # 0.2 L (1.0-4.8) k/uL Glucose 132 H (74-99) mg/dL Total Bilirubin 0.1 L (0.2-1.3) mg/dL AST 44 H (14-36) U/L ALT 40 H (4-34) U/L Assessment and Plan Assessment: Surgical wound infection of the rightbig toe, failed outpatient therapy follow up cultures Vanco surgery consult monitor jessica taylor pain control hold methotrexate scleroderma hypertension pulmonary hypertension barretts esophagus resume homemeds hold methtrexate DVT PPX heparin sc tid full code anticipated length of stay > 2 midnight anticipated discharge to home
[2021-01-02] MEDS: HYDROmorphone 0.5 MG/0.5 ML SYRINGE IVP PRN (05:03)
[2021-01-02] MEDS ORDERED: AMPICILLIN-SULBACTAM 3 GM in SODIUM CHLORIDE 0.9% 100 ML IVPB SCH (06:00)
[2021-01-02] MEDS ORDERED: LEVOTHYROXINE 25 MCG TAB PO SCH (06:30)
[2021-01-02] MEDS ORDERED: PANTOPRAZOLE 40 MG TABLET PO SCH (07:30)
[2021-01-02 07:49] VITALS: BP 113/67; PULSE 66; TEMP 97.4
[2021-01-02] MEDS ORDERED: VANCOMYCIN 1,500 MG in SODIUM CHLORIDE 0.9% 250 ML IVPB SCH ×2 (09:00→12:00)
[2021-01-02] MEDS ORDERED: GABAPENTIN 300 MG CAP PO SCH (09:00)
[2021-01-02] MEDS ORDERED: predniSONE 10 MG TAB PO SCH (09:00)
[2021-01-02] MEDS ORDERED: SERTRALINE 100 MG TAB PO SCH (09:00)
--- NOTE | 2021-01-02 10:41 | P.CNOR ---
History of Present Illness - HPI Consult date: 01/02/21 Consult reason: other History of present illness: The patient is a 75-year-old pleasant female who underwent right foot surgery about [address] Mock. She had a history of ulceration at the base of her foot and underwent the sesamoid removal. She initially was doing well but developed some redness and erythema around the site. She was started on antibiotics about 6 days ago when she saw Dr. Mock at the office. She had been taking Augmentin although she feels that she was not making good improvement presented to the hospital yesterday evening. She was admitted for observation for her cellulitis and started on further antibiotics with Unasyn and vancomycin. She feels she is making some improvement with this. She denies any fevers chills. She denies any calf pain or thigh pain. She denies any chest pain or shortness of breath. She feels that there is some drainage at the site and this seems to be clearing up. Review of Systems As stated per HPI. Denies chest pain shortness breath. Denies any fevers chills or night sweats. Her right foot seems to be improving with her continued antibiotics. Past Medical History Past Medical History: Deep Vein Thrombosis (DVT), Eye Disorder, GERD/Reflux, Hypertension, Musculoskeletal Disorder Additional Past Medical History / Comment(s): violeta cataracts, neuropathy violeta feet, sclerederma, osorio's esophogus, gaves disease, (r/t stomach) pulmonary h ypertension, History of Any Multi-Drug Resistant Organisms: None Reported Past Surgical History: Bowel Resection, Cholecystectomy, Hysterectomy, Joint Replacement Additional Past Surgical History / Comment(s): rt knee replacement, oopherectomy post partial hysterectomy, EGD, COLONOSCOPY. Right foot surgery Past Anesthesia/Blood Transfusion Reactions: No Reported Reaction Past Psychological History: Depression Smoking Status: Never smoker Past Alcohol Use History: Rare Past Drug Use History: None Reported - Past Family History Father Family Medical History: Cancer Additional Family Medical History / Comment(s): throat cancer Mother Family Medical History: Chest Pain / Angina, Osteoarthritis (OA) Medications and Allergies Home Medications Medication Instructions Recorded Confirmed Type Esomeprazole Magnesium [NexIUM] 20 mg PO BID 02/23/16 01/01/21 History Sertraline HCl 200 mg PO DAILY 02/23/16 01/01/21 History Sildenafil [Revatio] 20 mg PO TID 06/30/16 01/01/21 History Multivit-Min/Iron/Folic/Lutein 1 tab PO DAILY 10/25/17 01/01/21 History [Centrum Silver Women Tablet] fentaNYL 75MCG/HR PATCH [[place]ages[place] 1 patch TRANSDERM Q72H 10/25/17 01/01/21 History 75MCG/HR] metHOTREXate sodium [Methotrexate] 17.5 mg PO TH 10/25/17 01/01/21 History predniSONE 10 mg PO DAILY 10/25/17 01/01/21 History Gabapentin 600 mg PO TID 08/21/19 01/01/21 History HYDROcodone/APAP 5-325MG [[place] 1 tab PO Q6H PRN 08/21/19 01/01/21 History 5-325] Levothyroxine Sodium [Synthroid] 25 mcg PO DAILY 08/21/19 01/01/21 History Magnesium Oxide 400 mg PO DAILY 08/21/19 01/01/21 History traZODone HCL 100 mg PO HS 08/21/19 01/01/21 History Amoxicillin/Potassium Clav 1 tab PO Q12HR 01/01/21 01/01/21 History [Augmentin 500-125 Tablet] Ascorbic Acid [Vitamin C] 500 mg PO DAILY 01/01/21 01/01/21 History Ondansetron Odt [Zofran Odt] 4 mg PO Q8HR PRN 01/01/21 01/01/21 History Vitamin E (Dl,Tocopheryl Acet) 400 unit PO DAILY 01/01/21 01/01/21 History [Vitamin E] Cephalexin [Keflex] 500 mg PO Q12HR 7 Days #28 cap 01/02/21 Rx Clindamycin [Cleocin] 150 mg PO Q6H #56 cap 01/02/21 Rx Allergies Allergy/AdvReac Type Severity Reaction Status Date / Time Sulfa (Sulfonamide Allergy Rash/Hives Verified 01/01/21 18:55 Antibiotics) Physical Examination Osteopathic Statement: *. No significant issues noted on an osteopathic structural exam other than those noted in the History and Physical/Consult. - Ankle & Foot right Ankle appearance: erythema (Her incision at the medial aspect of her MTP joint her great toe appears to be healing appropriately. There is no active drainage at that site. There is an ulceration at the bottom of her MTP joint. It appe ars to be healing. There is some minimaldiffuse erythema but no specific fluid collection.), other (Her compartments are soft. There is no purulence there is no pus. Calf is soft nontender thighs Soft nontender. Other extremities have no active or passive range of motion pain there is no streaking or skin) Results - Labs Labs: Abnormal Lab Results - Last 24 Hours (Table) 01/01/21 01/01/21 Range/Units 19:51 19:51 RBC 3.71 L (3.80-5.40) m/uL RDW 16.9 H (11.5-15.5) % Lymphocytes # 0.2 L (1.0-4.8) k/uL Glucose 132 H (74-99) mg/dL Total Bilirubin 0.1 L (0.2-1.3) mg/dL AST 44 H (14-36) U/L ALT 40 H (4-34) U/L Microbiology - Last 24 Hours (Table) 01/01/21 19:51 Gram Stain - Preliminary Foot - Right Wound Culture - Preliminary H & H 01/01/21 Range/Units 19:51 Hgb 11.4 (11.4-16.0) gm/dL Hct 34.2 (34.0-46.0) % Result Diagrams: 01/01/21 19:51 01/01/21 19:51 - Diagnostic results Ankle/Foot x-ray: report reviewed, image reviewed (X-ray shows the evidence of ulceration at the bottom of foot. There is no specific fluid collection or new fracture. She is status post sesamoid bone removal) Assessment and Plan Assessment: Right foot cellulitis with superficial infection 2 weeks status post surgical intervention for removal of sesamoid bone at the right great toe History of plantar ulceration Improving wound site with antibiotic management Plan: Right foot cellulitis with superficial infection 2 weeks status post surgical intervention for removal of sesamoid bone at the right great toe History of plantar ulceration Improving wound site with antibiotic management The patient feels that she is having some limited success with her Augmentin at home. She is having improvement after having IV antibiotics here in the hospital. There is no streaking and the erythema is almost completely gone at this point. I think it would be okay to switch her to a different antibiotic. For appropriate coverage. We will change her over to clindamycin and Keflex for multi-coverage for her. I discussed this with Dr. Ricketts and he is in agreement. The patient was comfortable with this and we will try to send her home today with close follow-up in the next couple of days with Dr. Ricketts. If she is having worsening she understands that she can return to the hospital but hopefully it will continue to improve with continued antibiotic management. We do not have plans for further surgical intervention at this point. She will continue her local wound care and oral antibiotics at home
--- NOTE | 2021-01-02 11:30 | P.DS ---
<Pavel Taylor - Last Filed: 01/02/21 14:06> Providers Expected date of discharge: 01/02/21 Hospital Course: Discharge Diagnosis: Cellulitis of right foot with superficial infection Delayed surgical wound healing Ulcer of right foot plantar surface Scleroderma Hypertension Pulmonary hypertension Alexis's esophagus Hospital Course: Patient is a 71-year-old female with a past medical history of scleroderma on methotrexate and chronic wound to her right lower extremity. Patient recently underwent debridement of this wound 2 weeks ago by recreation specialist and stated that approximately one week ago she noted some drainage from her surgical site and returned to her foot doctor who then started her on Augmentin. Patient reports she has been on Augmentin for 5 days and has seen some improvement in the redness and swelling, however she reports she felt something wasn't right and had pain in her right foot so she came to the emergency department last night. Patient was admitted under observation status for further evaluation of her right foot wound. Patient was started on IV antibiotics vancomycin and Zosyn. She was admitted under our services and also evaluated by Dr. Palomares, Speech And Drama Teacher. Patient's wound was cultured. Patient's condition stable. No need for IV antibiotics at this time. Patient is being discharged home on a 7 day course of cephalexin and clindamycin. Patient to follow-up outpatient as instructed with her PCP Dr. Cardenas and her recreation specialist Dr. Mock in 3 days. Patient seen and examined at bedside. Reports pain is controlled and denies having any other complaints or needs. Patient reports that she feels that the remainder of the redness she experienced after her 5 day course of Augmentin has completely resolved since receiving the IV antibiotics. Patient denies having any fevers, chills, diaphoresis, headache, lightheadedness, dizziness, chest pain, palpitations, shortness of breath, abdominal pain, changes in appetite, nausea, vomiting, or experiencing any numbness/tingling/weakness in her extremities. Vital signs reviewed and stable. General: Nontoxic, no distress and appears stated age. Derm: Skin warm and dry, normal coloration for ethnicity. Healing ulcer plantar surface of right foot. Minimal erythema only at the incision site of medial aspect of right foot, clear drainage noted on dressing, no purulent drainage noted. Sutures intact. Head: Atraumatic, normocephalic and symmetric. Eyes: EOMs intact, no lid lag, and anicteric sclera Mouth: no lip lesions, mucus membranes moist Cardiovascular: regular rate and rhythm with normal S1S2, no murmur, positive posterior tibial pulses bilaterally, and cap refill < 2 seconds. Lungs: Respirations even, regular, and unlabored on room air. Lungs CTA bila terally, no rhonchi, no rales, no wheezing, and no accessory muscle usage. Abdominal: soft, nontender to palpation, no guarding, no appreciable organomegaly Ext: ROM intact. No gross muscle atrophy, no edema, no contractures Neuro: Speech clear, face symmetrical and CN II-XII grossly intact with no noted focal neuro deficits Psych: Alert and oriented to person, place, time, and situation. Appropriate and pleasant affect. A total of 45 minutes of time were spent preparing this complex discharge summary. Patient Condition at Discharge: Stable Plan - Discharge Summary New Discharge Prescriptions: New Cephalexin [Keflex] 500 mg PO Q12HR 7 Days #28 cap Clindamycin [Cleocin] 150 mg PO Q6H #56 cap Continue Sertraline HCl 200 mg PO DAILY Esomeprazole Magnesium [NexIUM] 20 mg PO BID Sildenafil [Revatio] 20 mg PO TID metHOTREXate sodium [Methotrexate] 17.5 mg PO TH predniSONE 10 mg PO DAILY fentaNYL 75MCG/HR PATCH [Duragesic 75MCG/HR] 1 patch TRANSDERM Q72H Multivit-Min/Iron/Folic/Lutein [Centrum Silver Women Tablet] 1 tab PO DAILY HYDROcodone/APAP 5-325MG [[place] 5-325] 1 tab PO Q6H PRN PRN Reason: Pain Magnesium Oxide 400 mg PO DAILY Gabapentin 600 mg PO TID traZODone HCL 100 mg PO HS Levothyroxine Sodium [Synthroid] 25 mcg PO DAILY Ascorbic Acid [Vitamin C] 500 mg PO DAILY Vitamin E (Dl,Tocopheryl Acet) [Vitamin E] 400 unit PO DAILY Ondansetron Odt [Zofran ODT] 4 mg PO Q8HR PRN PRN Reason: Nausea And Vomiting Discontinued Amoxicillin/Potassium Clav [Augmentin 500-125 Tablet] 1 tab PO Q12HR Discharge Medication List Esomeprazole Magnesium [NexIUM] 20 mg PO BID 02/23/16 [History] Sertraline HCl 200 mg PO DAILY 02/23/16 [History] Sildenafil [Revatio] 20 mg PO TID 06/30/16 [History] Multivit-Min/Iron/Folic/Lutein [Centrum Silver Women Tablet] 1 tab PO DAILY 10/25/17 [History] fentaNYL 75MCG/HR PATCH [Duragesic 75MCG/HR] 1 patch TRANSDERM Q72H 10/25/17 [History] metHOTREXate sodium [Methotrexate] 17.5 mg PO TH 10/25/17 [History] predniSONE 10 mg PO DAILY 10/25/17 [History] Gabapentin 600 mg PO TID 08/21/19 [History] HYDROcodone/APAP 5-325MG [[place] 5-325] 1 tab PO Q6H PRN 08/21/19 [History] Levothyroxine Sodium [Synthroid] 25 mcg PO DAILY 08/21/19 [History] Magnesium Oxide 400 mg PO DAILY 08/21/19 [History] traZODone HCL 100 mg PO HS 08/21/19 [History] Ascorbic Acid [Vitamin C] 500 mg PO DAILY 01/01/21 [History] Ondansetron Odt [Zofran ODT] 4 mg PO Q8HR PRN 01/01/21 [History] Vitamin E (Dl,Tocopheryl Acet) [Vitamin E] 400 unit PO DAILY 01/01/21 [History] Cephalexin [Keflex] 500 mg PO Q12HR 7 Days #28 cap 01/02/21 [Rx] Clindamycin [Cleocin] 150 mg PO Q6H #56 cap 01/02/21 [Rx] Follow up Appointment(s)/Referral(s): Martin Cardenas MD [Primary Care Provider] - 1-2 days Dallas Mock DPM [Doctor of Osteopathic Medicine] - 3 Days Patient Instructions/Handouts: Cellulitis (DC) Activity/Diet/Wound Care/Special Instructions: Keep site clean and dry. Dry dressing change as needed. Take oral antibiotics as written. Discharge Disposition: HOME SELF-CARE <Lucy Grant - Last Filed: 01/02/21 18:02> Providers Date of admission: 01/02/21 09:22 Attending physician: Thien Rangel MD Consults: 01/01/21 21:34 Consult Physician Routine Consulting Provider: Smitha Palomares Consult Reason/Comments: Surgical site infection; cellulitis Do you want consulting provider notified?: Already Contacted Primary care physician: Martin Cardenas MD Hospital Course: Pavel Taylor NP rendered care for this patient independently, reviewed the findings and plan as documented in the note above. I did not physically speak with or examine the patient on this date.
== END 2021-01-02 13:34 | disposition home or self-care (01) | DRG 863 ==
LOC: EC 18:51 → 6NMEDSUR 22:30 → OBSVTOIN 01-02 09:22
PROVIDERS: ADMIT Internal Medicine; ATTEND Internal Medicine
DX: T81.41XA Infection following a procedure, superficial incisional surgical site, initial encounter (principal); L03.115 Cellulitis of right lower limb; Z20.822 Contact with and (suspected) exposure to COVID-19; F32.9 Major depressive disorder, single episode, unspecified; I10 Essential (primary) hypertension; I27.20 Pulmonary hypertension, unspecified; K22.70 Barrett's esophagus without dysplasia; L97.519 Non-pressure chronic ulcer of other part of right foot with unspecified severity; M34.9 Systemic sclerosis, unspecified; Z79.890 Hormone replacement therapy; Z79.899 Other long term (current) drug therapy; Z80.8 Family history of malignant neoplasm of other organs or systems; Z90.711 Acquired absence of uterus with remaining cervical stump; Z96.651 Presence of right artificial knee joint; K21.9 Gastro-esophageal reflux disease without esophagitis; G62.9 Polyneuropathy, unspecified
CPT/HCPCS: 36415; 80053; 83605; 85025; 87040; 87070; 87205; 96365; 96367; 96375; 99284

== ENCOUNTER → 2021-01-21 | Outpatient (CLI) | payer MEDICARE ==
--- NOTE | 2021-01-21 16:00 | XR ---
Right foot HISTORY: Osteomyelitis, infection, postop 3 views the right foot correlated to prior exam 01/01/2021 Soft tissue swelling is extensive medial to the metatarsophalangeal joint of the first digit and over the dorsum of the foot. There is overlying dressing. There is some soft tissue calcifications presen t at the level of the distal metaphysis of the right first metatarsal. Some lucencies present within the soft tissues. Alignment is maintained. Bone mineralization is reduced. No evident periostitis or evident bone destruction. Small calcific density present at the medial aspect of the metatarsal phala ngeal joint is punctate. Degenerative changes are present at the tibiotalar joint, there is a plantar calcaneal spur. IMPRESSION: Correlate for cellulitis, difficult to exclude underlying abscess, bone scan may be of be nefit to assess for osteomyelitis.
== END | disposition home or self-care (01) ==
LOC: RADXRMAIN 12:25
PROVIDERS: ATTEND Nurse Practitioner Family
DX: M86.8X7 Other osteomyelitis, ankle and foot (principal)

== ENCOUNTER → 2021-08-30 | Outpatient (CLI) | payer MEDICARE ==
[2021-08-30 18:26] LABS: HCT 37.5 % (37.2-46.3); MCH 26.1 pg (27.0-32.0); MCHC 29.3 g/dL (32.0-37.0); MCV 89.1 fL (80.0-97.0); Mean Platelet Volume 9.4 fL (9.5-12.2); NRBC Per 100 WBC 0 /100 WBCS (0.0-0.0); Platelet Count 321 X 10*3/uL (140-440); RBC 4.21 X 10*6/uL (4.10-5.20); RDW 21.6 % (11.5-14.5); WBC 8.64 X 10*3/uL (4.50-10.00)
[2021-08-30 20:17] LABS: ALT 14 U/L (8-44); AST 13 U/L (13-35); African American GFR (CKD) 98.9 (60.0-200.0); Albumin 4.4 g/dL (3.8-4.9); Albumin/Globulin Ratio 1.63 (1.60-3.17); Alkaline Phosphatase 55 U/L (41-126); BUN/Creat Ratio 22.86 Ratio (12.00-20.00); Calcium 9.5 mg/dL (8.7-10.3); Carbon Dioxide 21.3 mmol/L (20.0-27.5); Chloride 105 mmol/L (96-109); Globulin 2.7 g/dL (1.6-3.3); Glucose 110 mg/dL (70-110); Non-African American GFR(CKD) 85.4 (60.0-200.0); Potassium 3.8 mmol/L (3.5-5.5); Sodium 140 mmol/L (135-145); Total Bilirubin <0.15 mg/dL (0.30-1.20); Total Protein 7.1 g/dL (6.2-8.2)
== END | disposition home or self-care (01) ==
LOC: LABWHC1 11:36
PROVIDERS: ATTEND Internal Medicine
DX: M34.9 Systemic sclerosis, unspecified (principal)
CPT/HCPCS: 36415; 80053; 85027; 87799

== ENCOUNTER → 2021-08-31 | Outpatient (CLI) | payer MEDICARE ==
--- NOTE | 2021-08-31 14:32 | BD ---
EXAMINATION TYPE: Axial Bone Density DATE OF EXAM: 08/31/2021 COMPARISON: DEXA bone scan October 11, 2018 CLINICAL HISTORY: Postmenopausal female. Height: 5 FT 1 1/2 IN Weight: 185 FRAX RISK QUESTIONS: Alcohol (3 or more units per day): NO Family History (Parent hip fracture): NO Glucocorticoids (More than 3mos): YES (Ex: prednisone, prednisolone, methylprednisolone, dexamethasone, and hydrocortisone). History of Fracture in Adulthood: NO Secondary Osteoporosis: 1. Type 1 Diabetes: NO 2. Hyperthyroidism: NO 3. Menopause before 45: PART AGE 43 OVARIES REMOVED AGE 47 4. Malnutrition: NO 5. Chronic liver disease: NO Rheumatoid Arthritis: YES Current Tobacco Use: NO RISK FACTORS HISTORY OF: Surgery to Spine/Hip(right/left)/Wrist (right/left): NO Family History of Osteoporosis: UNSURE Active: NO Diet low in dairy products/other sources of calcium: NO Postmenopausal woman: YES Take estrogen and/or progesterone medications: TOOK HRT FOR APPROX 5 YEARS FOLLOWING HYST Lost more than 2 inches in height since high school: YES Frequent falls: NO Poor Health: FAIR Hyperparathyroidism: NO Adrenal Insufficiency: NO MEDICATIONS: Prednisone or other steroids: YES How Long: APPPROX 12 YEARS Thyroid Medications: YES Which medication: SYNTHROID, How Long: APPROX 4 YEARS Additional Medications: PREDNISONE, SYNTHROID, LASIX, ZOLOFT, OMEPRAZOLE,VEIN RECORDS MANAGEMENT COORDINATOR, METHOTREXATE , Additional History: SCLERODERMA CHEMO EXAM MEASUREMENTS: Bone mineral densitometry was performed using the [employer] System. Bone mineral density as measured about the Lumbar spine is: ----- L1-L4(G/cm2): 1.471 T Score Values are as follows: ----- L2: 0.6 ----- L3: 3.3 ----- L4: 3.5 ----- L1-L4: 2.4 Bone mineral density has: DECREASED -9.2 % since study of: 2018 Bone mineral density about the R hip (g/cm2): 0.990 Bone mineral density about the L hip (g/cm2): 1.084 T Score values are as follows: -----R Neck: -0.3 -----L Neck: 0.3 -----R Total: 0.9 -----L Total: 1.3 Bone mineral density has: DECREASED -7.3 % since study of: 2019 IMPRESSION: Normal (Values between +1 and -1 indicate normal bone mass). Consider repeating this study in 5 year s or sooner if there is some new clinical indication. NOTE: T-SCORE=SD OF THE YOUNG ADULT MEAN.
--- NOTE | 2021-09-01 09:09 | MM ---
Reason for exam: screening (asymptomatic). Last mammogram was performed 2 years and 11 months ago. History: Patient is postmenopausal. Family history of breast cancer in maternal aunt at age 60. Took estrogen for 16 years. Physical Findings: A clinical breast exam by your physician is recommended on an annual basis and results should be correlated with mammographic findings. MG Screening Mammo w CAD Bilateral CC and MLO view(s) were taken. Prior study comparison: October 11, 2018, bilateral MG 3d screening mammo w/cad. February 15, 2017, bilateral MG 3d screening mammo w/cad. The breast tissue is heterogeneously dense. This may lower the sensitivity of mammography. Stable punctate calcifications. There is no discrete abnormality. No significant changes when compared with prior studies. ASSESSMENT: Benign, BI-RAD 2 RECOMMENDATION: Routine screening mammogram of both breasts in 1 year.
== END | disposition home or self-care (01) ==
LOC: RADMAMWWP 10:12
PROVIDERS: ATTEND Internal Medicine
DX: Z12.31 Encounter for screening mammogram for malignant neoplasm of breast (principal); M89.9 Disorder of bone, unspecified; N95.9 Unspecified menopausal and perimenopausal disorder
CPT/HCPCS: 77067; 77080

== ENCOUNTER 2021-10-28 10:54 | Emergency (ER) | payer MEDICARE ==
[2021-10-28 11:13] VITALS: BP 144/73; PULSE 72; RESP 18; TEMP 98
[2021-10-28 12:09] LABS: Appearance,Urine Cloudy (Clear); Bacteria,Urine Many /hpf; Bilirubin,Urine Negative (Negative); Blood,Urine Negative (Negative); Color,Urine Yellow; Glucose,Urine (UA) Negative (Negative); Ketones,Urine Negative (Negative); Leukocyte Esterase,Urine Large (Negative); Mucus,Urine Few /hpf; Nitrite,Urine Positive (Negative); Protein,Urine 1+ (Negative); Specific Gravity,Urine 1.022 (1.001-1.035); Squamous Epithelial Cell,Urine 1 /hpf (0-4); Urobilinogen,Urine <2.0 mg/dL (<2.0); WBC,Urine 122 /hpf (0-5)
--- NOTE | 2021-10-28 12:15 | ED ---
Back Pain HPI - General Chief Complaint: Back Pain/Injury Stated Complaint: Back Pain Time Seen by Provider: 10/28/21 11:15 Source: patient, family, RN notes reviewed Limitations: no limitations - History of Present Illness Initial Comments: This is a 75-year-old female who presents to the emergency department with right lower back pain. States that this pain has been present for the last 10 days. She has chronic back pain but states that this is different. She also notes t hat her urine is much darker in color and she has not been urinating as much as normal. Denies any dysuria. Her primary care provider advised she come to the emergency department to rule out a kidney stone. Denies any history of kidney stones. She does have some nausea but denies any associated vomiting. MD Complaint: back pain Onset/Timin -: days(s) Similar Symptoms Previously: No Radiation: none Treatments Prior to Arrival: NSAIDS - Related Data Home Medications Medication Instructions Recorded Confirmed Esomeprazole Magnesium [NexIUM] 20 mg PO DAILY 02/23/16 10/28/21 Sertraline HCl 200 mg PO DAILY 02/23/16 10/28/21 Sildenafil [Revatio] 20 mg PO TID 06/30/16 10/28/21 Multivit-Min/Iron/Folic/Lutein 1 tab PO DAILY 10/25/17 10/28/21 [Centrum Silver Women Tablet] fentaNYL 75MCG/HR PATCH [Duragesic 1 patch TRANSDERM Q72H 10/25/17 10/28/21 75MCG/HR] metHOTREXate sodium [Methotrexate] 17.5 mg PO TH 10/25/17 10/28/21 predniSONE 10 mg PO DAILY 10/25/17 10/28/21 Gabapentin 600 mg PO TID 08/21/19 10/28/21 HYDROcodone/APAP 5-325MG [[place] 1 tab PO DAILY PRN 08/21/19 10/28/21 5-325] Levothyroxine Sodium [Synthroid] 25 mcg PO DAILY 08/21/19 10/28/21 Magnesium Oxide 400 mg PO DAILY 08/21/19 10/28/21 traZODone HCL 100 mg PO HS 08/21/19 10/28/21 Ascorbic Acid [Vitamin C] 500 mg PO DAILY 01/01/21 10/28/21 Vitamin E (Dl,Tocopheryl Acet) 400 unit PO DAILY 01/01/21 10/28/21 [Vitamin E (400 Iu = 180 mg)] Previous Rx's Medication Instructions Recorded Cephalexin [Keflex] 500 mg PO Q12HR 7 Days #14 cap 10/28/21 Allergies Allergy/AdvReac Type Severity Reaction Status Date / Time Sulfa (Sulfonamide Allergy Rash/Hives Verified 10/28/21 11:13 Antibiotics) Review of Systems ROS Statement: Those systems with pertinent positive or pertinent negative responses have been documented in the HPI. ROS Other: All systems not noted in ROS Statement are negative. Constitutional: Denies: fever, chills ENT: Denies: ear pain, throat pain Respiratory: Denies: cough, dyspnea Cardiovascular: Denies: chest pain, palpitations Gastrointestinal: Reports: nausea. Denies: abdominal pain, vomiting, diarrhea Genitourinary: Reports: frequency (decreased). Denies: urgency, dysuria Musculoskeletal: Reports: back pain Skin: Denies: rash Neurological: Denies: headache Past Medical History Past Medical History: Deep Vein Thrombosis (DVT), Eye Disorder, GERD/Reflux, H ypertension, Musculoskeletal Disorder Additional Past Medical History / Comment(s): violeta cataracts, neuropathy violeta feet, sclerederma, osorio's esophogus, gaves disease, (r/t stomach) pulmonary hypertension, History of Any Multi-Drug Resistant Organisms: None Reported Past Surgical History: Bowel Resection, Cholecystectomy, Hysterectomy, Joint Replacement Additional Past Surgical History / Comment(s): rt knee replacement, oopherectomy post partial hysterectomy, EGD, COLONOSCOPY. Right foot surgery Past Anesthesia/Blood Transfusion Reactions: No Reported Reaction Past Psychological History: Depression Smoking Status: Never smoker Past Alcohol Use History: Rare Past Drug Use History: None Reported - Past Family History Father Family Medical History: Cancer Additional Family Medical History / Comment(s): throat cancer Mother Family Medical History: Chest Pain / Angina, Osteoarthritis (OA) General Exam Limitations: no limitations General appearance: alert, in no apparent distress Head exam: Present: atraumatic, normocephalic, normal inspection Respiratory exam: Present: normal lung sounds bilaterally. Absent: respiratory distress, wheezes, rales, rhonchi, stridor Cardiovascular Exam: Present: regular rate, normal rhythm, normal heart sounds. Absent: systolic murmur, diastolic murmur, rubs, gallop, clicks GI/Abdominal exam: Present: soft, normal bowel sounds. Absent: distended, tenderness, guarding, rebound, rigid Back exam: Absent: CVA tenderness (R), CVA tenderness (L) Neurological exam: Present: alert, oriented X3, CN II-XII intact Psychiatric exam: Present: normal affect, normal mood Skin exam: Present: warm, dry, intact, normal color. Absent: rash Course Vital Signs 10/28/21 11:11 Temperature 98 F Pulse Rate 72 Respiratory 18 Rate Blood Pressure 144/73 O2 Sat by Pulse 97 Oximetry Medical Decision Making - Medical Decision Making This is a 75-year-old male who presents to the emergency department for right lower back pain. Given that this is a new pain, her urine is darker in color, and she has decreased frequency, will obtain a CT without contrast to evaluate for possible renal calculi. Urinalysis positive for nitrates consistent with a UTI. CT abdomen and pelvis did not reveal any renal calculi, but referred to abnormal appearance of the left lower pole calyx extending into the pelvis. Increased hyperdensity and prominence. A uroepithelial neoplasm must be excluded in this case. Patient was given urology information, and advised to contact them for an appointment to further evaluate this abnormality. Keflex prescribed to be taken twice daily for 7 days to treat the UTI. Return precautions reviewed in depth, the patient is instructed to return to the emergency department with any new, worsening, or concerning symptoms. Patient verbalized understanding. This case was discussed in detail with the attending ED physician. Presentation, findings, and treatment plan discussed in detail as well. - Lab Data Result diagrams: 10/28/21 12:12 10/28/21 12:12 Lab Results 10/28/21 10/28/21 10/28/21 Range/Units 11:49 12:12 12:12 WBC 7.4 (3.8-10.6) k/uL RBC 4.03 (3.80-5.40) m/uL Hgb 11.4 (11.4-16.0) gm/dL Hct 35.7 (34.0-46.0) % MCV 88.6 (80.0-100.0) fL MCH 28.4 (25.0-35.0) pg MCHC 32.0 (31.0-37.0) g/dL RDW 19.4 H (11.5-15.5) % Plt Count 324 (150-450) k/uL MPV 7.2 Neutrophils % 85 % Lymphocytes % 6 % Monocytes % 5 % Eosinophils % 2 % Basophils % 0 % Neutrophils # 6.3 (1.3-7.7) k/uL Lymphocytes # 0.5 L (1.0-4.8) k/uL Monocytes # 0.4 (0-1.0) k/uL Eosinophils # 0.1 (0-0.7) k/uL Basophils # 0.0 (0-0.2) k/uL Hypochromasia Slight Anisocytosis Slight Sodium 142 (137-145) mmol/L Potassium 3.2 L (3.5-5.1) mmol/L Chloride 106 (98-107) mmol/L Carbon Dioxide 29 (22-30) mmol/L Anion Gap 7 mmol/L BUN 15 (7-17) mg/dL Creatinine 0.68 (0.52-1.04) mg/dL Est GFR (CKD-EPI)AfAm >90 (>60 ml/min/1.73 sqM) Est GFR (CKD-EPI)NonAf 86 (>60 ml/min/1.73 sqM) Glucose 90 (74-99) mg/dL Calcium 8.8 (8.4-10.2) mg/dL Total Bilirubin 0.5 (0.2-1.3) mg/dL AST 24 (14-36) U/L ALT 71 H (4-34) U/L Alkaline Phosphatase 71 (38-126) U/L Total Protein 6.7 (6.3-8.2) g/dL Albumin 3.7 (3.5-5.0) g/dL Urine Color Yellow Urine Appearance Cloudy H (Clear) Urine pH 6.0 (5.0-8.0) Ur Specific [place] 1.022 (1.001-1.035) Urine Protein 1+ H (Negative) Urine Glucose (UA) Negative (Negative) Urine Ketones Negative (Negative) Urine Blood Negative (Negative) Urine Nitrite Positive H (Negative) Urine Bilirubin Negative (Negative) Urine Urobilinogen <2.0 (<2.0) mg/dL Ur Leukocyte Esterase Large H (Negative) Urine WBC 122 H (0-5) /hpf Urine WBC Clumps Few H (None) /hpf Ur Squamous Epith Cells 1 (0-4) /hpf Urine Bacteria Many H (None) /hpf Urine Mucus Few H (None) /hpf - Radiology Data Radiology results: report reviewed, image reviewed Disposition Clinical Impression: UTI (urinary tract infection) Disposition: HOME SELF-CARE Instructions (If sedation given, give patient instructions): Urinary Tract Infection in Women (ED), Urinary Tract Infection in Older Adults (ED) Additional Instructions: Return to the emergency department with any new, worsening, or concerning symptoms. Take the Keflex twice a day for 7 days. Call urology and make an appointment for follow-up of abnormal computed tomography scan. Follow-up with your primary care provider in 1 to 2 days. Prescriptions: Cephalexin [Keflex] 500 mg PO Q12HR 7 Days #14 cap Is patient prescribed a controlled substance at d/c from ED?: No Referrals: Martin Cardenas MD [Primary Care Provider] - 1-2 days Arsen Griffin MD [STAFF PHYSICIAN] - 1-2 days
--- NOTE | 2021-10-28 12:24 | CT ---
EXAMINATION TYPE: CT abdomen pelvis wo con DATE OF EXAM: 10/28/2021 HISTORY: Rt flank pain CT DLP: 780.7 mGycm. Automated Exposure Control for Dose Reduction was Utilized. TECHNIQUE: CT scan of the abdomen and pelvis is performed without oral or IV contrast. COMPARISON: Renal ultrasound December 03, 2020 FINDINGS: Within the limitations of a non-contrast study, the following observations are made. LUNG BASES: Dependent density could reflect edema and/or atelectasis. LIVER/GB: No significant abnormality is appreciated. PANCREAS: No significant abnormality is seen. SPLEEN: No significant abnormality is seen. ADRENALS: No significant abnormality is seen. KIDNEYS: No renal stones or hydronephrosis is seen bilaterally. There is 2.2 cm partially exophytic s imple thin-walled cyst posteriorly upper pole right kidney coronal image 66 corresponding to prior ul trasound. There is 1.4 cm low dense lesion laterally mid to lower pole of left kidney axial image 23 retroflexed simple thin-walled cyst corresponding to ultrasound. Mild fullness to the left lower pole calyx with hyperdense material extending to the pelvis which is asymmetrically more prominent. Findi ngs are best seen on coronal image 58. No hydroureter or obstructing ureteral calculi. No dilatation of the upper to mid pole calyces. BOWEL: Air-fluid level in mildly distended esophagus. Surgical sutures right lower quadrant. No suspi cious small or large bowel dilatation. GENITAL ORGANS: Uterus surgically absent. LYMPH NODES: No greater than 1cm abdominal or pelvic lymph nodes are appreciated. OSSEOUS STRUCTURES: Underlying levoconvex scoliosis centered at L2-L3 level. Multilevel spondylolisth esis or grade 1 anterolisthesis L3 on L4, L4 on L5, and L5 on S1. Moderate to severe multilevel disc space narrowing and vacuum disc phenomenon along with moderate multilevel spurring L3-L4 through the L5-S1 levels. Moderate disc space narrowing and vacuum disc phenomenon L2-L3 level. Moderate to sever e axial joint space loss left hip with moderate head neck collar spurring. OTHER: No significant additional abnormality is seen. IMPRESSION: 1. No renal stones or hydronephrosis is seen bilaterally. No acute findings are clearly evident. 2. Abnormal appearance to the left lower pole calyx extending into the pelvis. Increased hyperdensity and prominence. One must exclude a uroepithelial neoplasm. Referral to urology advised to further ev aluate.
[2021-10-28 12:28] LABS: Anisocytosis Slight; Basophils % (A) 0 %; Eosinophils # (A) 0.1 k/uL (0-0.7); Eosinophils % (A) 2 %; HCT 35.7 % (34.0-46.0); HGB 11.4 gm/dL (11.4-16.0); Hypochromasia Slight; Lymphocytes # (A) 0.5 k/uL (1.0-4.8); Lymphocytes % (A) 6 %; MCH 28.4 pg (25.0-35.0); MCV 88.6 fL (80.0-100.0); Mean Platelet Volume 7.2; Monocytes # (A) 0.4 k/uL (0-1.0); Monocytes % (A) 5 %; Neutrophils # (A) 6.3 k/uL (1.3-7.7); Neutrophils % (A) 85 %; Platelet Count 324 k/uL (150-450); RBC 4.03 m/uL (3.80-5.40); RDW 19.4 % (11.5-15.5); WBC 7.4 k/uL (3.8-10.6)
[2021-10-28 12:31] LABS: ALT 71 U/L (4-34); AST 24 U/L (14-36); African American GFR (CKD) >90 (>60 ml/min/1.73 sqM); Albumin 3.7 g/dL (3.5-5.0); Alkaline Phosphatase 71 U/L (38-126); Anion Gap 7 mmol/L; Blood Urea Nitrogen 15 mg/dL (7-17); Calcium 8.8 mg/dL (8.4-10.2); Carbon Dioxide 29 mmol/L (22-30); Chloride 106 mmol/L (98-107); Glucose 90 mg/dL (74-99); Non-African American GFR(CKD) 86 (>60 ml/min/1.73 sqM); Potassium 3.2 mmol/L (3.5-5.1); Sodium 142 mmol/L (137-145); Total Bilirubin 0.5 mg/dL (0.2-1.3); Total Protein 6.7 g/dL (6.3-8.2)
== END 2021-10-28 13:08 | disposition home or self-care (01) ==
LOC: EC 10:54
DX: N39.0 Urinary tract infection, site not specified (principal); I10 Essential (primary) hypertension; K21.9 Gastro-esophageal reflux disease without esophagitis; Z88.2 Allergy status to sulfonamides; Z79.899 Other long term (current) drug therapy
CPT/HCPCS: 36415; 74176; 80053; 81001; 85025; 87086; 99284

== ENCOUNTER 2021-10-30 20:26 | Emergency (ER) | payer MEDICARE ==
[2021-10-30 20:46] VITALS: RESP 18; TEMP 97.9
[2021-10-30] MEDS ORDERED: DIAZEPAM 5 MG/ML 2 ML INJ IVP STA (21:52)
[2021-10-30] MEDS ORDERED: LIDOCAINE 5% PATCH TOPICAL STA (21:52)
[2021-10-30] MEDS ORDERED: KETOROLAC 15 MG/ML 1 ML VIAL IVP STA (21:52)
[2021-10-30] MEDS ORDERED: methylPREDNISolone SOD SUCCI 125 MG/2 ML VIAL IV STA (21:53)
[2021-10-30 23:05] VITALS: BP 171/73; PULSE 78
--- NOTE | 2021-10-30 23:50 | ED ---
Back Pain HPI - General Chief Complaint: Back Pain/Injury Stated Complaint: RT flank pain Time Seen by Provider: 10/30/21 21:11 Source: patient - History of Present Illness Initial Comments: 75-year-old female with past medical history of chronic back pain, DVT, hypertension presents emergency department course reported right buttock pain. Patient was seen in the emergency department 2 days ago for the pain. They did perform a CT of her chest. Patient was found to have a UTI for which she was placed on Keflex. She went home and states that her pain continues. It is located on the right side in her right buttock and radiates down the posterior aspect of her right leg. Does have chronic SI joint issues and she does feel that this is consistent. She is treated by a surgeon out of [place] as well as Dr. Palomares. She does have fentanyl patches that she uses for chronic pain. She denies any changes in her bowel or bladder habits. No fevers. Has been able to ambulate however does painful. She reports that her urine looks much improved after being on the antibiotics. No anterior abdominal pain. No new trauma. No other alleviating, precipitating modifying factors - Related Data Home Medications Medication Instructions Recorded Confirmed Esomeprazole Magnesium [NexIUM] 20 mg PO DAILY 02/23/16 10/28/21 Sertraline HCl 200 mg PO DAILY 02/23/16 10/28/21 Sildenafil [Revatio] 20 mg PO TID 06/30/16 10/28/21 Multivit-Min/Iron/Folic/Lutein 1 tab PO DAILY 10/25/17 10/28/21 [Centrum Silver Women Tablet] fentaNYL 75MCG/HR PATCH [Duragesic 1 patch TRANSDERM Q72H 10/25/17 10/28/21 75MCG/HR] metHOTREXate sodium [Methotrexate] 17.5 mg PO TH 10/25/17 10/28/21 predniSONE 10 mg PO DAILY 10/25/17 10/28/21 Gabapentin 600 mg PO TID 08/21/19 10/28/21 HYDROcodone/APAP 5-325MG [[place] 1 tab PO DAILY PRN 08/21/19 10/28/21 5-325] Levothyroxine Sodium [Synthroid] 25 mcg PO DAILY 08/21/19 10/28/21 Magnesium Oxide 400 mg PO DAILY 08/21/19 10/28/21 traZODone HCL 100 mg PO HS 08/21/19 10/28/21 Ascorbic Acid [Vitamin C] 500 mg PO DAILY 01/01/21 10/28/21 Vitamin E (Dl,Tocopheryl Acet) 400 unit PO DAILY 01/01/21 10/28/21 [Vitamin E (400 Iu = 180 mg)] Previous Rx's Medication Instructions Recorded Cephalexin [Keflex] 500 mg PO Q12HR 7 Days #14 cap 10/28/21 Lidocaine 5% Patch [Lidoderm 5% 1 patch TOPICAL DAILY #30 patch 10/30/21 Patch] diazePAM [Valium] 2 mg PO Q8HR PRN 3 Days #9 tab 10/30/21 predniSONE [Deltasone] 20 mg PO BID #10 tab 10/30/21 Allergies Allergy/AdvReac Type Severity Reaction Status Date / Time Sulfa (Sulfonamide Allergy Rash/Hives Verified 10/28/21 11:13 Antibiotics) Review of Systems ROS Statement: Those systems with pertinent positive or pertinent negative responses have been documented in the HPI. ROS Other: All systems not noted in ROS Statement are negative. Past Medical History Past Medical History: Deep Vein Thrombosis (DVT), Eye Disorder, GERD/Reflux, Hypertension, Musculoskeletal Disorder Additional Past Medical History / Comment(s): violeta cataracts, neuropathy violeta feet, sclerederma, osorio's esophogus, gaves disease, (r/t stomach) pulmonary hypertension, History of Any Multi-Drug Resistant Organisms: None Reported Past Surgical History: Bowel Resection, Cholecystectomy, Hysterectomy, Joint Replacement Additional Past Surgical History / Comment(s): rt knee replacement, oopherectomy post partial hysterectomy, EGD, COLONOSCOPY. Right foot surgery Past Anesthesia/Blood Transfusion Reactions: No Reported Reaction Past Psychological History: Depression Smoking Status: Never smoker Past Alcohol Use History: Rare Past Drug Use History: None Reported - Past Family History Father Family Medical History: Cancer Additional Family Medical History / Comment(s): throat cancer Mother Family Medical History: Chest Pain / Angina, Osteoarthritis (OA) General Exam General appearance: alert, in no apparent distress Head exam: Present: atraumatic, normocephalic, normal inspection Eye exam: Present: normal appearance, PERRL, EOMI. Absent: scleral icterus, conjunctival injection, periorbital swelling ENT exam: Present: normal exam, mucous membranes moist Neck exam: Present: normal inspection. Absent: tenderness, meningismus, lymphadenopathy Respiratory exam: Present: normal lung sounds bilaterally. Absent: respiratory distress, wheezes, rales, rhonchi, stridor Cardiovascular Exam: Present: regular rate, normal rhythm, normal heart sounds. Absent: systolic murmur, diastolic murmur, rubs, gallop, clicks GI/Abdominal exam: Present: soft, normal bowel sounds. Absent: distended, tenderness, guarding, rebound, rigid Extremities exam: Present: normal inspection, full ROM, normal capillary refill. Absent: tenderness, pedal edema, joint swelling, calf tenderness Back exam: Present: tenderness (right SI joint. 5/5 muscle strength b/l le) Neurological exam: Present: alert, oriented X3, CN II-XII intact Psychiatric exam: Present: normal affect, normal mood Skin exam: Present: warm, dry, intact, normal color. Absent: rash Course Vital Signs 10/30/21 10/30/21 20:41 23:04 Temperature 97.9 F Pulse Rate 64 78 Respiratory 18 18 Rate Blood Pressure 174/73 171/73 O2 Sat by Pulse 98 96 Oximetry Medical Decision Making - Medical Decision Making Upon arrival patient's placed into room 3. I did review the patient's previous record. Patient is extremely tender over the SI joints and therefore she is given a lidocaine patch, 50 mg of Toradol, 5 mg of Valium and 125 of Solu- Medrol. Patient is reevaluated and reports to significant improvement in her pain. I did discuss diagnosis, differential and treatment options. Informed the patient that I would like to increase her dose of prednisone for the next 5 days. Also recommended that we use Lidoderm patches and Valium for pain control. Instructed to follow-up with Dr. Cardona for further management of her symptoms or return for any new or worsening symptoms. Patient agreed treatment plan and was discharged home in stable condition Disposition Clinical Impression: Chronic SI joint pain Disposition: HOME SELF-CARE Condition: Stable Instructions (If sedation given, give patient instructions): Sacroiliitis (ED) Additional Instructions: Please take the prescription medications as directed and follow-up with Dr. Palomares for further treatment options. Return to the emergency department for any new or worsening symptoms Prescriptions: predniSONE [Deltasone] 20 mg PO BID #10 tab Lidocaine 5% Patch [Lidoderm 5% Patch] 1 patch TOPICAL DAILY #30 patch diazePAM [Valium] 2 mg PO Q8HR PRN 3 Days #9 tab PRN Reason: Muscle Pain Is patient prescribed a controlled substance at d/c from ED?: Yes When asked, does pt state using other controlled substances?: Yes If prescribed controlled substance>3 days was MAPS reviewed?: Prescribed <3 Days Referrals: Martin Cardenas MD [Primary Care Provider] - 1-2 days Smitha Palomares DO [Doctor of Osteopathic Medicine] - 1-2 days Time of Disposition: 23:50
== END 2021-10-31 00:01 | disposition home or self-care (01) ==
LOC: EC 20:26
DX: M53.3 Sacrococcygeal disorders, not elsewhere classified (principal); I10 Essential (primary) hypertension; Z88.2 Allergy status to sulfonamides
CPT/HCPCS: 99283; 96374; 96375; J2930; J3360; J1885

== ENCOUNTER → 2021-11-25 | Outpatient (CLI) | payer MEDICARE ==
[2021-11-25 17:30] LABS: INR 0.9 (<1.2); Partial Thromboplastin Time 24.4 sec (22.0-30.0)
[2021-11-25 23:14] LABS: African American GFR (CKD) 98.2 (60.0-200.0); Anion Gap 14.7 mmol/L (10.00-18.00); BUN/Creat Ratio 16.14 Ratio (12.00-20.00); Blood Urea Nitrogen 11.3 mg/dL (9.0-27.0); Calcium 9.3 mg/dL (8.7-10.3); Carbon Dioxide 21.3 mmol/L (20.0-27.5); Non-African American GFR(CKD) 84.8 (60.0-200.0); Potassium 3.5 mmol/L (3.5-5.5)
[2021-11-25 23:28] LABS: HCT 41.2 % (37.2-46.3); HGB 11.8 g/dL (12.0-15.0); MCH 26.6 pg (27.0-32.0); MCHC 28.6 g/dL (32.0-37.0); Mean Platelet Volume 9.7 fL (9.5-12.2); NRBC Per 100 WBC 0 /100 WBCS (0.0-0.0); Platelet Count 414 X 10*3/uL (140-440); RBC 4.43 X 10*6/uL (4.10-5.20); RDW 18.8 % (11.5-14.5); WBC 7.41 X 10*3/uL (4.50-10.00)
[2021-11-26 02:40] LABS: Appearance,Urine Cloudy (Clear); Bilirubin,Urine Negative (Negative); Blood,Urine Trace (Negative); Color,Urine Yellow (Yellow); Ketones,Urine Negative (Negative); Nitrite,Urine Positive (Negative); Specific Gravity,Urine 1.022 (1.001-1.030); Urobilinogen,Urine 0.2 (0.2,1.0)
[2021-11-26 04:39] LABS: Bacteria,Urine 4+ /HPF (None Seen); Calcium Oxalate Crystals,Urine Present /LPF (None Seen)
--- NOTE | 2021-11-26 09:21 | XR ---
EXAMINATION TYPE: XR chest 2V DATE OF EXAM: 11/26/2021 COMPARISON: Two-view chest x-ray dated 08/21/2019 HISTORY: Preop TECHNIQUE: Frontal and lateral views of the chest are obtained. FINDINGS: There is no focal air space opacity, pleural effusion, or pneumothorax seen. Bandlike area of increased attenuation along the lateral aspect of the mid chest likely some minimal focal pleural thickening at the minor fissure. Aorta is dense. The cardiac silhouette size is likely stable accoun ting for differences in technique. The osseous structures are intact. IMPRESSION: No acute cardiopulmonary process.
== END | disposition home or self-care (01) ==
LOC: LABPAT 17:01
PROVIDERS: ATTEND Orthopaedic Surgery Orthopaedic Surgery of the Spine
DX: Z01.812 Encounter for preprocedural laboratory examination (principal); M48.061 Spinal stenosis, lumbar region without neurogenic claudication; M54.16 Radiculopathy, lumbar region
CPT/HCPCS: 36415; 71046; 80048; 81001; 85027; 85610; 85730; 93005

== ENCOUNTER → 2021-11-27 | Outpatient (CLI) | payer MEDICARE | END | disposition home or self-care (01) | LOC: LABPAT 10:36 | PROVIDERS: ATTEND Orthopaedic Surgery Orthopaedic Surgery of the Spine | DX: Z01.812 Encounter for preprocedural laboratory examination (principal); Z22.322 Carrier or suspected carrier of Methicillin resistant Staphylococcus aureus | CPT/HCPCS: 87070 ==

== ENCOUNTER 2021-12-01 09:14 | Inpatient (IN) | payer MEDICARE ==
[~2021-12-01 09:14] MED LIST changes: -LACTATED RINGERS 1,000 ML IV SCH; +LIDOCAINE 1% (10MG/ML) FOR IV START INTRADERMA PRN; -LIDOCAINE 1% 20 ML VIAL (10MG/ML) FOR IV START INTRADERMA PRN; +ONDANSETRON 4 MG/2 ML VIAL IVP ONE
[2021-12-01 10:08] LABS: Glucose,Whole Blood 89 mg/dL (75-99)
[2021-12-01] MEDS: LACTATED RINGERS 1,000 ML IV SCH (10:11)
[2021-12-01] MEDS ORDERED: LIDOCAINE 1% INJ 10MG/ML (20 ML MDV) ONE (10:37)
[2021-12-01] MEDS ORDERED: fentaNYL (PF) 50 MCG/ML 2 ML AMP IVP ONE ×2 (10:54→18:00)
[2021-12-01] MEDS ORDERED: MIDAZOLAM 2 MG/2 ML VIAL IVP ONE (10:54)
[2021-12-01] MEDS ORDERED: ONDANSETRON 4 MG/2 ML VIAL IVP ONE ×2 (11:00→16:45)
[2021-12-01] MEDS ORDERED: DEXAMETHASONE SOD PHOSPHATE 4 MG/ML 1 ML VIAL IVP ONE (11:00)
[2021-12-01] MEDS ORDERED: SODIUM CHLORIDE 0.9% IRRIG 1,000 ML BTL IRRIGATION ONE (11:10)
[2021-12-01] MEDS ORDERED: KETAMINE 10 MG/ML 20 ML VIAL ONE (11:10)
[2021-12-01] MEDS ORDERED: SUCCINYLCHOLINE CHLORIDE 100 MG/5 ML SYR IV ONE (11:10)
[2021-12-01] MEDS ORDERED: GLYCOPYRROLATE 0.2 MG/ML 2 ML VIAL ONE (11:10)
[2021-12-01] MEDS ORDERED: LIDOCAINE 2% INJ 20 MG/ML (2 ML VIAL) ONE (11:10)
[2021-12-01] MEDS ORDERED: MIDAZOLAM 2 MG/2 ML VIAL ONE (11:10)
[2021-12-01] MEDS ORDERED: PROPOFOL 10 MG/ML 20 ML VIAL IV ONE (11:10)
[2021-12-01] MEDS ORDERED: fentaNYL (PF) 50 MCG/ML 2 ML AMP ONE (11:10)
[2021-12-01] MEDS ORDERED: HEPARIN SODIUM,PORCINE 10,000 UNIT/ML 1 ML VIAL ONE (11:10)
[2021-12-01] MEDS ORDERED: ROCURONIUM 10 MG/ML (5 ML VIAL) IV ONE (11:10)
[2021-12-01] MEDS ORDERED: NEOSTIGMINE 1 MG/ML 10 ML VIAL ONE (11:10)
[2021-12-01] MEDS ORDERED: BUPIVACAINE-EPI 0.5%-1:200,000 10 ML VIAL SQ ONE (11:53)
[2021-12-01] MEDS: ceFAZolin 1,000 MG in SODIUM CHLORIDE 0.9% IRRIGATIO 1,000 ML IRRIGATION PRN ×2 (11:55→12:17)
[2021-12-01] MEDS ORDERED: LACTATED RINGERS 1,000 ML IV ONE ×4 (11:55→15:33)
[2021-12-01] MEDS ORDERED: GELATIN SPONGE,ABSORB (LARGE) 1 EACH SPONGE MISCELLANE ONE (11:55)
[2021-12-01] MEDS ORDERED: THROMBIN (BOVINE) 5,000 UNIT VIAL MISCELLANE ONE (11:56)
--- NOTE | 2021-12-01 16:14 | XR ---
EXAMINATION TYPE: XR lumbar spine 2 or 3V, FL guidance operating room DATE OF EXAM: 12/01/2021 COMPARISON: NONE HISTORY: Posterior spinal fusion Fluoroscopy support supplied to the referring clinician. See dictated report from orthopedic surgery , 5 intraoperative C-arm images, 32 seconds fluoroscopy time
[2021-12-01] MEDS ORDERED: BENZOCAINE/MENTHOL LOZENG 1 EACH LOZENGE MUCOUS MEM PRN (16:26)
[2021-12-01] MEDS ORDERED: diazePAM 5 MG TAB PO PRN (16:26)
[2021-12-01] MEDS ORDERED: SENNOSIDES-DOCUSATE SODIUM 1 EACH TAB PO PRN (16:26)
[2021-12-01] MEDS ORDERED: ONDANSETRON 4 MG/2 ML VIAL IVP PRN (16:26)
[2021-12-01] MEDS ORDERED: HYDROmorphone 0.5 MG/0.5 ML SYRINGE IVP PRN (16:26)
[2021-12-01] MEDS ORDERED: FUROSEMIDE 20 MG TAB PO PRN (16:29)
[2021-12-01] MEDS ORDERED: POTASSIUM CHLORIDE ER 10 MEQ TAB.ER.PRT PO PRN (16:29)
[2021-12-01] MEDS ORDERED: HYDROcodone/APAP 5-325MG 1 EACH TAB PO PRN (16:29)
[2021-12-01] MEDS: HYDROmorphone 0.5 MG/0.5 ML SYRINGE IVP PRN ×4 (16:35→17:20)
--- NOTE | 2021-12-01 16:42 | P.OP ---
Date of Procedure: 12/01/21 Preoperative Diagnosis: Degenerative scoliosis, spondylolisthesis, spinal stenosis, degenerative disc disease, low back pain, lower extremity radiculopathy, lower extremity weakness Postoperative Diagnosis: Same Anesthesia: GETA Pathology: none sent Condition: stable Disposition: PACU Description of Procedure: BRIEF OPERATIVE NOTE Preoperative Diagnosis:Degenerative scoliosis, spondylolisthesis, spinal stenosis, degenerative disc disease, low back pain, lower extremity radiculopathy, lower extremity weakness Postoperative Diagnosis:Degenerative scoliosis, spondylolisthesis, spinal stenosis, degenerative disc disease, low back pain, lower extremity radiculopathy, lower extremity weakness Procedure: Ziem CT-guided intraoperative navigation imaging for lumbar fusion L2-3 L3 4 L4 5 L5-S1 Laminectomy and decompression with wide bilateral foraminotomies L2-3 L3 4 L4 5 L5-S1 Posterior lateral decompression and fusion L2-3 L3 4 L4 5 L5- S1 Transforaminal lumbar interbody fusion for a 360 fusion L3 4 L4 5 Discectomy for decompression L3 4 L4 5 Placement of interbody graft L3 4 L4 5 Local autogenous bone grafting Use of Cell Saver Use of bone graft extenders Use of neuro monitoring Surgeon: Dr. Palomares Dry Goods Inspector: Billy Rocha is present throughout the entire the case persistence during positioning, dissection, exposure, visualization, and all crucial elements of the case as well as closure. Anesthesia: General anesthesia per Dr. gaytan Estimated blood loss: Approximately 450 mL with some given back through Cell Saver Complications: None apparent Components implanted: K2M cannulated Hammond pedicle screw system with 6.5 mm screws and 2 rods with peek interbody cages 26 mm with local autogenous bone graft mixed with with fibrous bone bags and bio4 bone supplement allograft to supplemental local autogenous bone graft Disposition: To recovery room in good stable condition. OPERATIVE INDICATIONS The patient has had long-standing issues in their lower back and lower extremit ies. She is having worsening symptoms despite aggressive conservative treatment. She is not having severe changes of the lumbar spine including spondylolisthesis with degenerative scoliosis and spinal stenosis at multiple levels. She had severe facet arthropathy and lower extremity radiculopathy which correlated well with her low back and lower extremity imaging findings. The patient has been through conservative treatment. We discussed various treatment options including surgery, and the patient wishes to proceed with surgery We discussed the risk, patient's alternatives and benefits of surgery including but not limited to, risk of bleeding risk of infection, risk of need for further surgery, risk of decreased, loss of motion, muscle function, malunion nonunion, hardware failure, nerve damage, paralysis, heart attack, blindness and . OPERATIVE SUMMARY After discussing all the risks, patient alternatives and benefits at length, the patient elected to proceed with surgical intervention, signed informed consent, and presented for their procedure. The patient was seen and examined in the preoperative holding area and the surgical site was marked. The patient was given antibiotics and brought to the operating room. The patient was sedated and intubated by anesthesia in standard fashion. The patient was positioned on to the operating room table in a prone position on the appropriate frame which was well-padded and well molded. We were careful to pad any bony prominences and pressure points. We were careful to maintain the patient's cervical spine and good neutral alignment and position throughout. The patient was prepped and draped in a normal standard fashion. An appropriate timeout and keystone protocol performed. We were able to proceed with the surgery. The local wound area was infiltrated with local anesthetic. An incision was made at the midline longitudinally over the appropriate levels from L2 to S1. Dissection was taken down subcutaneously to the level of the fascia which was split midline. Dissection was taken over the lamina bilaterally over the facet joints and to the transverse processes. Intraoperative x-ray was taken which showed a marker at the appropriate level. With the appropriate level positively confirmed, we were able to proceed with placement of the pedicle holes and screws. At this point we established a guidance system for the ZIEM CT guidance mechanism. I was able place a spinous process anchor with guidance mechanism at the spinous process of L2. We then draped the patient appropriately and brought in the guidance system which performed a 360 spin for imaging. With this accomplished we're able to begin with screw placement at L2 3 4 5 and S1 The patient had all their twitches back. The wound was copiously irrigated and suctioned dry as had been done periodically throughout the case. Using the navigation guided system, Screw holes were established similarly at each level. A sharp Jamshidi needle was used to establish the starting hole. It was progress under navigation guidance and then I was able to place a guidewire into the space into the vertebral body. This was done at L2-L3 L4-L5 and S1 bilaterally. Once I had all the wires intact I was able to use C-arm guidance and verified direct positioning of the wires all had excellent alignment and position from L2 to S1. We were then able to place screws over the guidewires with fluoroscopic guidance at L2-L3 L4-L5 and S1 bilaterally. Once the screws replaced we did testing with neuro monitoring and all of the screws did not have any response at greater than 20 mA. The transverse process or sacral ala was decorticated with a high-speed bur. I was able to use these holes to place the appropriate size screw and good alignment and good position with good bony purchase. When the screws were inserted there were stimulated, and found to have no stimulation at 20 mA. I was able to turn my attention to the decompression decompression was performed with a combination of rongeurs, curettes, Kerrison rongeurs and a ball-tip feeler. All of the bone that was removed was stripped and morcellized for use as autogenous bone graft later in the case. I was able to obtain good central decompression as well as wide bilateral foraminal decompression. There is no evidence of dural tear or leak. Good hemostasis was maintained. The wound was irrigated and suctioned dry. I performed a laminectomy decompression L2-3 L3 4 L4 5 and L5-S1. I was able to get good central and bilateral foraminal decompression at each of these levels. At L1 I also started a laminectomy inadvertently. I did not destabilize level and there was evidence of well-maintained dural space without any evidence of dural tear or leak. I was able to move on Mesha performed a complete facetectomy at the appropriate level on the most symptomatic side On the right at L3 4 and L4 5. I felt that these were the most unstable levels and at the apex of her scoliotic curvature with the most severe disc degeneration. I felt that anchoring these levels. Good base for the fusion construct. All bone that was removed was saved for local autogenous bone grafting. I was able to gain access to the disc space at the appropriate level/levels. Good hemostasis was maintained. I was able to protect the neurologic structures. A discectomy was performed. This provided further decompression. I was also able to perform complete discectomy and endplate preparation with a combination of pituitary curettes, rasps and scrapers. With the interbody space prepared, I was able to do appropriate sizing. The appropriate size cage was chosen. The wound was irrigated and suctioned dry. The interbody space was packed with local autogenous bone graft and a small portion of bone graft substitute, as was the cage itself. Protecting the soft tissue structures, I was able place the cage in good alignment and good position with good fit and fill. There is no evidence of extrusion of the graft material nor protrusion of the interbody device. The wound was irrigated and suctioned dry. With the hardware intact, intraoperative x-ray was again taken which showed good alignment and position of the hardware at the appropriate levels From L2 to S1. We were then able to measure, contour and place the rods and appropriate hardware bilaterally. I was able to place capcrews, tighten them down, and torque them off appropriately. With this intact I was able to place the local otitis bone graft with additional bone graft enhancer as necessary into the posterior lateral gutters bilaterally. With the bone graft intact, a stable construct, and good decompression at the appropriate levels, we were able to proceed with closure. Good hemostasis was maintained. There is no evidence of dural tear or leak. The fascia was closed for a watertight closure. The subcutaneous tissue was closed over a superficial drain. The subcuticular tissue was closed with absorbable suture. The wound was cleaned and dried and dressed with the appropriate dressing. The drapes were broken down. The patient was gently rolled back onto their hospital bed being careful to maintain their cervical spine and good neutral alignment and position. They were woken up by anesthesia, extubated, and brought to the recovery room in good stable condition. The patient will be admitted to the hospital for appropriate postoperative care, medical management and monitoring. We will continue to follow them closely about the postoperative course.
[2021-12-01] MEDS ORDERED: hydrALAZINE HCL 20 MG/ML 1 ML VIAL IVP ONE (18:10)
[2021-12-01] MEDS: HYDROmorphone 1 MG/ML 1 ML SYRINGE IVP PRN ×2 (18:56→22:08)
[2021-12-01] MEDS: SODIUM CHLORIDE 0.9% 1,000 ML IV SCH (19:10)
[2021-12-01] MEDS: ACETAMINOPHEN TAB 325 MG TAB PO SCH ×2 (19:15→23:19)
[2021-12-01 20:25] LABS: Glucose,Whole Blood 90 mg/dL (75-99)
[2021-12-01] MEDS: traZODone HCL 50 MG TAB PO SCH (20:30)
[2021-12-01] MEDS: GABAPENTIN 300 MG CAP PO SCH (20:30)
[2021-12-01] MEDS: NITROFURANTOIN MONOHYD/M-CRYST 100 MG CAP PO SCH (20:31)
[2021-12-01] MEDS: SILDENAFIL 20 MG TAB PO SCH (20:31)
[2021-12-01] MEDS: PANTOPRAZOLE 40 MG TABLET PO SCH (20:31)
[2021-12-01] MEDS: HYDROcodone/APAP 10-325MG 1 EACH TAB PO PRN (21:15)
[2021-12-02] MEDS: HYDROmorphone 1 MG/ML 1 ML SYRINGE IVP PRN ×2 (01:08→05:27)
--- NOTE | 2021-12-02 02:33 | P.CONS ---
History of Present Illness - Reason for Consult Consult date: 12/01/21 post op medical management Requesting physician: Smitha Palomares - Chief Complaint back pain - History of Present Illness 76-year-old female with scleroderma on chronic steroids, Osorio's esophagitis Patient comes in the hospital for scheduled back surgery due to chronic back pain from spinal stenosis. Patient tolerated procedure well no observed immediate postoperative complications patient tolerating by mouth intake has a Grayson catheter pain is well controlled in tolerated. Patient takes chronic steroids at 10 mg daily this is below the suppression dose. She also takes methotrexate which she hasn't been taking for a while due to recurrent infections. Otherwise she currently denies any dizziness lightheadedness nausea vomiting denies any chest pain trouble breathing denies any abdominal pain. Patient denies any new focal neuro deficits in her lower extremities Review of Systems Pertinent positives as noted in HPI. All other systems were reviewed and are negative Past Medical History Past Medical History: Deep Vein Thrombosis (DVT), Eye Disorder, GERD/Reflux, Hypertension, Musculoskeletal Disorder Additional Past Medical History / Comment(s): violeta cataracts, neuropathy violeta feet, sclerederma, osorio's esophogus, gaves disease, (r/t stomach) pulmonary hypertension, History of Any Multi-Drug Resistant Organisms: None Reported Past Surgical History: Bowel Resection, Cholecystectomy, Hysterectomy, Joint Replacement Additional Past Surgical History / Comment(s): rt knee replacement, oopherectomy post partial hysterectomy, EGD, COLONOSCOPY. Right foot surgery Past Anesthesia/Blood Transfusion Reactions: No Reported Reaction Past Psychological History: Depression Smoking Status: Never smoker Past Alcohol Use History: Rare Additional Past Alcohol Use History / Comment(s): smoked 1ppd from age [age], quit 1985 Past Drug Use History: None Reported - Past Family History Father Family Medical History: Cancer Additional Family Medical History / Comment(s): throat cancer Mother Family Medical History: Chest Pain / Angina, Osteoarthritis (OA) Medications and Allergies Home Medications Medication Instructions Recorded Confirmed Type Esomeprazole Magnesium [NexIUM] 20 mg PO HS 02/23/16 11/26/21 History Sertraline HCl 200 mg PO 1400 02/23/16 11/26/21 History Sildenafil [Revatio] 20 mg PO TID 06/30/16 11/26/21 History Multivit-Min/Iron/Folic/Lutein 1 tab PO DAILY 10/25/17 11/26/21 History [Centrum Silver Women Tablet] fentaNYL 75MCG/HR PATCH [Duragesic 1 patch TRANSDERM Q72H 10/25/17 11/26/21 History 75MCG/HR] predniSONE 10 mg PO 1400 10/25/17 11/26/21 History Gabapentin 600 mg PO TID 08/21/19 11/26/21 History HYDROcodone/APAP 5-325MG [[place] 1 tab PO DAILY PRN 08/21/19 11/26/21 History 5-325] Levothyroxine Sodium [Synthroid] 25 mcg PO QAM 08/21/19 11/26/21 History Magnesium Oxide 400 mg PO DAILY 08/21/19 11/26/21 History Ascorbic Acid [Vitamin C] 500 mg PO DAILY 01/01/21 11/26/21 History Cholecalciferol (Vitamin D3) 1 cap PO DAILY 11/26/21 11/26/21 History [Vitamin D3 (125 MCG = 5,000 IU)] Furosemide [Lasix] 20 mg PO DAILY PRN 11/26/21 11/26/21 History Potassium Chloride [Klor-Con M10] 10 meq PO DAILY PRN 11/26/21 11/26/21 History traZODone HCL [Desyrel] 50 mg PO HS 11/26/21 11/26/21 History Nitrofurantoin Macrocrystal 100 mg PO BID 12/01/21 12/01/21 History [Nitrofurantoin] Allergies Allergy/AdvReac Type Severity Reaction Status Date / Time Sulfa (Sulfonamide Allergy Rash/Hives Verified 12/01/21 09:44 Antibiotics) Physical Exam Vitals: Vital Signs Temp Pulse Pulse Resp BP BP Pulse Ox 12/01/21 19:28 97.9 F 84 14 127/66 93 L 12/01/21 18:00 87 16 144/65 99 12/01/21 17:45 80 16 165/69 100 12/01/21 17:30 87 16 172/70 100 12/01/21 17:15 70 16 192/96 100 12/01/21 17:00 87 16 178/74 99 12/01/21 16:45 82 16 200/81 100 12/01/21 16:32 97 F L 87 18 146/83 98 12/01/21 11:00 92 16 154/70 99 12/01/21 10:07 97.2 F L 97 16 158/61 98 Intake and Output 12/01/21 12/01/21 12/02/21 14:59 22:59 06:59 Intake Total 2451 850 Output Total 875 Balance 2450 - Intake: IV 2451 850 Output: Drainage 100 Back 100 Urine 325 Estimated Blood Loss 450 Other: Voiding Method Indwelling Catheter Weight 79.379 kg Constitutional: No acute distress, conversant, pleasant Eyes: Anicteric sclerae, moist conjunctiva, Pupils equal round reactive to light ENMT: NC/AT Oropharynx clear, no erythema, or exudates Neck: Supple, FROM, no masses, or JVD No carotid bruits No thyromegaly Lungs: Clear to auscultation Clear to percussion Normal respiratory effort, no accessory muscle use Cardiovascular: Heart regular in rate and rhythm, No murmurs, gallops, or rubs No peripheral edema Abdominal: Soft, Grayson catheter in place Nontender, no guarding, rebound or rigidity Abdomen moving with respiration Normoactive bowel sounds No hepatomegaly, No splenomegaly No palpable mass No abdominal wall hernia noted Skin: Normal temperature, tone, texture, turgor No induration No subcutaneous nodules No rash, lesions No ulcers Extremities: No digital cyanosis No clubbing Pedal pulses intact and symmetrical Radial pulses intact and symmetrical No calf tenderness Psychiatric: Alert and oriented to person, place and time Appropriate affect fair judgement Neuro Muscles Strength 4/5 in all 4 extremities Sensation to light touch grossly present throughout Cranial nerves II-XII grossly intact No focal sensory deficits Lymphatics: no palpable cervical or supraclavicular , or inguinal lymph nodes Assessment and Plan Assessment: Chronic back pain post spine surgery postoperative day 0 Pain control DVT prophylaxis per orthopedics Scleroderma on chronic steroids Patient on prednisone 10 mg as is below suppression dose Check a.m. cortisol level if below 10 consider having suppressed HPA access and consider addition of glucocorticoids dose otherwise as above 10 patient can continue with her prednisone daily dose Pulmonary hypertension continue with sildenafil Osorio's esophagus continue with Protonix Hypothyroid resume levothyroxine Follow-up a.m. labs CBC and BMP Full code Thank you for allowing us to participate in the care of this patient. We will follow peripherally. Do not hesitate to contact us with questions. Someone can be reached from the [facility] hospitalist group at all hours of the day at [phone].
[2021-12-02] MEDS: HYDROcodone/APAP 10-325MG 1 EACH TAB PO PRN ×3 (03:48→17:27)
[2021-12-02] MEDS: ACETAMINOPHEN TAB 325 MG TAB PO SCH ×3 (05:27→17:26)
[2021-12-02] MEDS: LEVOTHYROXINE 25 MCG TAB PO SCH (05:28)
[2021-12-02] MEDS: SODIUM CHLORIDE 0.9% 1,000 ML IV SCH ×2 (05:32→21:14)
[2021-12-02] MEDS: LACTATED RINGERS 1,000 ML IV SCH (07:34)
[2021-12-02] MEDS: MULTIVITAMINS, THERA 1 EACH TAB PO SCH (07:44)
[2021-12-02] MEDS: MAGNESIUM OXIDE 400 MG TAB PO SCH (07:45)
[2021-12-02] MEDS: ASCORBIC ACID 500 MG TAB PO SCH (07:45)
[2021-12-02] MEDS: SENNOSIDES-DOCUSATE SODIUM 1 EACH TAB PO SCH (07:45)
[2021-12-02] MEDS: CHOLECALCIFEROL 125 MCG (5000 IU) TABLET PO SCH (07:45)
[2021-12-02] MEDS: GABAPENTIN 300 MG CAP PO SCH ×3 (07:45→21:13)
[2021-12-02] MEDS: SILDENAFIL 20 MG TAB PO SCH ×3 (07:45→21:14)
[2021-12-02] MEDS: NITROFURANTOIN MONOHYD/M-CRYST 100 MG CAP PO SCH ×2 (07:45→21:12)
--- NOTE | 2021-12-02 08:08 | P.PN ---
Progress Note - Text Progress Note Date: 12/02/21 Postoperative day #1 Patient is seen and examined today at bedside. The patient has some pain around the surgical site as expected. Pain is being controlled with medication. She has not yet been out of bed. She has been able have some breakfast and is tolerating that well. She says the pain is adequately controlled. She denies any nausea or vomiting. She said her legs are feeling good. Physical Exam Afebrile with stable vital signs Abdomen is soft nontender. Chest has good excursion deep and space expiration The incision site is clean dry and intact. No erythema there is no purulence. Dressings are intact. Extremities have not had neurologic change from prior to surgery. She has sustained dorsal flexion plantarflexion and EHL intact. Calves and thighs were soft nontender without evidence of DVT. Assessment/Plan Postoperative day #1 status post lumbar decompression and fusion at L2-3 L3 4 L4 5 and L5-S1 for her degenerative scoliosis and spinal stenosis with degenerative disc disease and lower extremity radiculopathy Patient is progressing as expected from the surgery. Today we will work to get her up out of bed standing on her feet. She will continue to work with physical therapy and hopefully she'll be able to get her fully out today. She states that she has a lumbar brace at home and we will ask her family to bring it in for her as it may be helpful in her therapy. She may get up out of bed without the brace. We will continue to increase the patient's mobilization with therapy. We will continue pain control with oral or IV medications. We'll continue to follow patient closely.
[2021-12-02 09:11] LABS: Anisocytosis Slight; Basophils # (A) 0.1 k/uL (0-0.2); Basophils % (A) 0 %; Eosinophils # (A) 0.2 k/uL (0-0.7); Eosinophils % (A) 1 %; HCT 29.1 % (34.0-46.0); Hypochromasia Marked; Lymphocytes # (A) 0.5 k/uL (1.0-4.8); Lymphocytes % (A) 3 %; MCH 27.3 pg (25.0-35.0); MCHC 29.9 g/dL (31.0-37.0); MCV 91.3 fL (80.0-100.0); Mean Platelet Volume 7.4; Monocytes # (A) 0.7 k/uL (0-1.0); Monocytes % (A) 5 %; Neutrophils # (A) 12.8 k/uL (1.3-7.7); Neutrophils % (A) 90 %; Platelet Count 380 k/uL (150-450); RBC 3.18 m/uL (3.80-5.40); RDW 17.7 % (11.5-15.5); WBC 14.3 k/uL (3.8-10.6)
[2021-12-02 09:14] LABS: HGB 8.7 gm/dL (11.4-16.0)
[2021-12-02 09:29] LABS: African American GFR (CKD) >90 (>60 ml/min/1.73 sqM); Anion Gap 7 mmol/L; Blood Urea Nitrogen 11 mg/dL (7-17); Calcium 8.1 mg/dL (8.4-10.2); Carbon Dioxide 23 mmol/L (22-30); Chloride 110 mmol/L (98-107); Glucose 127 mg/dL (74-99); Non-African American GFR(CKD) 89 (>60 ml/min/1.73 sqM); Potassium 3.1 mmol/L (3.5-5.1); Sodium 140 mmol/L (137-145)
[2021-12-02] MEDS: predniSONE 10 MG TAB PO SCH (12:09)
[2021-12-02] MEDS: SERTRALINE 100 MG TAB PO SCH (15:18)
[2021-12-02] MEDS: PANTOPRAZOLE 40 MG TABLET PO SCH (21:13)
[2021-12-02] MEDS: traZODone HCL 50 MG TAB PO SCH (21:13)
[2021-12-03] MEDS: ACETAMINOPHEN TAB 325 MG TAB PO SCH ×3 (00:19→13:21)
[2021-12-03 02:48] VITALS: RESP 16
[2021-12-03] MEDS: LEVOTHYROXINE 25 MCG TAB PO SCH (05:19)
--- NOTE | 2021-12-03 07:46 | P.PN ---
Subjective Progress Note Date: 12/02/21 Chief Complaint back pain History of Present Illness 76-year-old female with scleroderma on chronic steroids, Alexis's esophagitis Patient comes in the hospital for scheduled back surgery due to chronic back pain from spinal stenosis. Patient tolerated procedure well no observed immediate postoperative complications patient tolerating by mouth intake has a Grayson catheter pain is well controlled in tolerated. Patient takes chronic steroids at 10 mg daily this is below the suppression dose. She also takes methotrexate which she hasn't been taking for a while due to recurrent infections. Otherwise she currently denies any dizziness lightheadedness nausea vomiting denies any chest pain trouble breathing denies any abdominal pain. Patient denies any new focal neuro deficits in her lower extremities Interval history: Patient was seen examined at bedside. She denies any chest pain or shortness of breath. She still complaining of back pain. No acute changes overnight. Physical examination: General: non toxic, no distress, appears at stated age Derm: warm, dry Head: atraumatic, normocephalic, symmetric Eyes: EOMI, no lid lag, anicteric sclera Mouth: no lip lesion, mucus membranes moist Cardiovascular: S1S2 reg, no murmur, positive posterior tibial pulse bilateral, Lungs: CTA bilateral, no rhonchi, no rales , no accessory muscle use Abdominal: soft, nontender to palpation, no guarding, no appreciable organomegaly Ext: no gross muscle atrophy, no edema, no contractures Neuro: CN II-XI grossly intact, no focal neuro deficits Psych: Alert, oriented, appropriate affect Assessment and plan: #Chronic back pain -Status postt lumbar decompression and fusion at L2-3 L3 4 L4 5 and L5-S1 for her degenerative scoliosis and spinal stenosis with degenerative disc disease and lower extremity radiculopathy Pain control DVT prophylaxis per orthopedics #Scleroderma -Patient on prednisone 10 mg as is below suppression dose #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 -continue with sildenafil #Alexis's esophagus continue with Protonix #Hypothyroid resume levothyroxine Full code Objective - Vital Signs Vital signs: Vital Signs Temp 98.0 F 12/03/21 02:00 Pulse 81 12/03/21 02:00 Resp 16 12/03/21 02:00 BP 110/58 12/03/21 02:00 Pulse Ox 93 L 12/03/21 02:00 FiO2 Intake & Output 12/02/21 12/03/21 12/03/21 18:59 06:59 18:59 Intake Total 888 Output Total 1060 990 Balance -172 -990 Intake: Oral 888 Output: Drainage 160 140 Back 160 140 Urine 900 850 Other: Voiding Method Indwelling Catheter Indwelling Catheter # Bowel Movements 1 - Labs CBC & Chem 7: 12/02/21 08:35 12/02/21 08:35 Labs: Abnormal Lab Results - Last 24 Hours (Table) 12/02/21 12/02/21 Range/Units 08:35 08:35 WBC 14.3 H (3.8-10.6) k/uL RBC 3.18 L (3.80-5.40) m/uL Hgb 8.7 L D (11.4-16.0) gm/dL Hct 29.1 L (34.0-46.0) % MCHC 29.9 L (31.0-37.0) g/dL RDW 17.7 H (11.5-15.5) % Neutrophils # 12.8 H (1.3-7.7) k/uL Lymphocytes # 0.5 L (1.0-4.8) k/uL Potassium 3.1 L (3.5-5.1) mmol/L Chloride 110 H (98-107) mmol/L Glucose 127 H (74-99) mg/dL Calcium 8.1 L (8.4-10.2) mg/dL
[2021-12-03] MEDS: HYDROcodone/APAP 10-325MG 1 EACH TAB PO PRN (07:58)
[2021-12-03] MEDS: ASCORBIC ACID 500 MG TAB PO SCH (07:58)
[2021-12-03] MEDS: CHOLECALCIFEROL 125 MCG (5000 IU) TABLET PO SCH (07:58)
[2021-12-03] MEDS: predniSONE 10 MG TAB PO SCH (07:59)
[2021-12-03] MEDS: MAGNESIUM OXIDE 400 MG TAB PO SCH (07:59)
[2021-12-03] MEDS: GABAPENTIN 300 MG CAP PO SCH ×2 (07:59→16:17)
[2021-12-03] MEDS: NITROFURANTOIN MONOHYD/M-CRYST 100 MG CAP PO SCH (07:59)
[2021-12-03] MEDS: MULTIVITAMINS, THERA 1 EACH TAB PO SCH (07:59)
[2021-12-03] MEDS: SENNOSIDES-DOCUSATE SODIUM 1 EACH TAB PO SCH (07:59)
[2021-12-03] MEDS: SILDENAFIL 20 MG TAB PO SCH ×2 (07:59→16:17)
[2021-12-03] MEDS: SODIUM CHLORIDE 0.9% 1,000 ML IV SCH (13:20)
[2021-12-03] MEDS: LACTATED RINGERS 1,000 ML IV SCH (13:20)
[2021-12-03 13:42] VITALS: BP 139/68; PULSE 87; TEMP 99.7
--- NOTE | 2021-12-03 13:52 | P.PN ---
Subjective Progress Note Date: 12/02/21 Chief Complaint back pain History of Present Illness 76-year-old female with scleroderma on chronic steroids, Alexis's esophagitis Patient comes in the hospital for scheduled back surgery due to chronic back pain from spinal stenosis. Patient tolerated procedure well no observed immediate postoperative complications patient tolerating by mouth intake has a Grayson catheter pain is well controlled in tolerated. Patient takes chronic steroids at 10 mg daily this is below the suppression dose. She also takes methotrexate which she hasn't been taking for a while due to recurrent infections. Otherwise she currently denies any dizziness lightheadedness nausea vomiting denies any chest pain trouble breathing denies any abdominal pain. Patient denies any new focal neuro deficits in her lower extremities Interval history: Patient was seen examined at bedside. She denies any chest pain or shortness of breath. She still complaining of back pain. No acute changes overnight. Physical examination: General: non toxic, no distress, appears at stated age Derm: warm, dry Head: atraumatic, normocephalic, symmetric Eyes: EOMI, no lid lag, anicteric sclera Mouth: no lip lesion, mucus membranes moist Cardiovascular: S1S2 reg, no murmur, positive posterior tibial pulse bilateral, Lungs: CTA bilateral, no rhonchi, no rales , no accessory muscle use Abdominal: soft, nontender to palpation, no guarding, no appreciable organomegaly Ext: no gross muscle atrophy, no edema, no contractures Neuro: CN II-XI grossly intact, no focal neuro deficits Psych: Alert, oriented, appropriate affect Assessment and plan: #Chronic back pain -Status postt lumbar decompression and fusion at L2-3 L3 4 L4 5 and L5-S1 for her degenerative scoliosis and spinal stenosis with degenerative disc disease and lower extremity radiculopathy Pain control DVT prophylaxis per orthopedics #Scleroderma -Patient on prednisone 10 mg as is below suppression dose #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 -continue with sildenafil #Alexis's esophagus continue with Protonix #Hypothyroid resume levothyroxine Full code Objective - Vital Signs Vital signs: Vital Signs Temp 99.7 F H 12/03/21 13:41 Pulse 87 12/03/21 13:41 Resp 16 12/03/21 08:00 BP 139/68 12/03/21 13:41 Pulse Ox 96 12/03/21 13:41 FiO2 Intake & Output 12/02/21 12/03/21 12/03/21 18:59 06:59 18:59 Intake Total 888 Output Total 1060 990 Balance -172 -990 Intake: Oral 888 Output: Drainage 160 140 Back 160 140 Urine 900 850 Other: Voiding Method Indwelling Catheter Indwelling Catheter Indwelling Catheter # Bowel Movements 1 - Labs CBC & Chem 7: 12/02/21 08:35 12/02/21 08:35
[2021-12-03 15:07] LABS: Anisocytosis Slight; Basophils % (A) 0 %; Eosinophils % (A) 0 %; HGB 8.4 gm/dL (11.4-16.0); Hypochromasia Moderate; Lymphocytes # (A) 0.2 k/uL (1.0-4.8); Lymphocytes % (A) 2 %; MCH 27.1 pg (25.0-35.0); MCV 90.3 fL (80.0-100.0); Mean Platelet Volume 7.3; Monocytes # (A) 0.4 k/uL (0-1.0); Monocytes % (A) 3 %; Neutrophils # (A) 13.5 k/uL (1.3-7.7); Neutrophils % (A) 95 %; Platelet Count 331 k/uL (150-450); RDW 17.7 % (11.5-15.5); WBC 14.2 k/uL (3.8-10.6)
[2021-12-03 15:19] LABS: African American GFR (CKD) >90 (>60 ml/min/1.73 sqM); Anion Gap 4 mmol/L; Blood Urea Nitrogen 11 mg/dL (7-17); Calcium 8.1 mg/dL (8.4-10.2); Carbon Dioxide 29 mmol/L (22-30); Chloride 103 mmol/L (98-107); Glucose 152 mg/dL (74-99); Non-African American GFR(CKD) >90 (>60 ml/min/1.73 sqM); Sodium 136 mmol/L (137-145)
[2021-12-03] MEDS ORDERED: POTASSIUM CHLORIDE ER 20 MEQ TAB.ER PO STA (16:06)
[2021-12-03] MEDS: SERTRALINE 100 MG TAB PO SCH (16:17)
--- NOTE | 2021-12-03 16:43 | P.DS ---
Providers Date of admission: 12/02/21 15:30 Expected date of discharge: 12/03/21 Attending physician: Smitha Palomares Consults: 12/01/21 16:26 Consult Physician Routine Consulting Provider: Martin Cardenas Consult Reason/Comments: Medical management Do you want consulting provider notified?: Yes 12/01/21 22:01 Consult Physician Routine Consulting Provider: Wagner Rivera Consult Reason/Comments: medical management Do you want consulting provider notified?: Yes Primary care physician: Martin Cardenas MD Hospital Course: This is a 76-year-old male who has been followed in our office by Dr. Palomares for continued complaints of their lower back and lower extremities. Treatment options were discussed, and patient elected to undergo a lumbar decompression and fusion at L2-3 L3-4 L4-5 and L5-S1 on 12/01/[address] Palomares. Patient was seen pre-operatively by Dr. Cardenas and cleared for sugery. The procedure was performed without complication or sequelae. The patient is d oing fairly well postoperatively. Vital signs and labs are stable on postoperative day #2. Patient was examined bedside today. Patient states she is overall doing well and pain is well-controlled. Her hemovac drain was pulled today. She has been ambulating with a walker. Patient is tolerating her diet well. Grayson was removed and patient voiding freely. Patient is comfortable being discharged to rehab today. Patient denies chest pain, shortness of breath, nausea, vomiting, fevers, chills. On examination, the patient is sitting up in the bed in no apparent distress. She is alert and orientated 3. On inspection of the low back, there is a clean, dry, intact surgical dressing in place. Hemovac drain removed. There is no bleeding or drainage the dressing. Patient has good strength and ROM of the bilateral lower extremities. Motor and sensory function is intact of the bilateral lower extremities. The bilateral lower extremities are warm and well perfused with brisk capillary refill. Calves are soft and non-tender to palpation. Patient is discharged to rehab in good condition, pending medical clearance. Patient will follow-up with Dr. Palomares in the office in 2 weeks. Please see med rec for accurate list of discharge medication. Plan - Discharge Summary Discharge Rx Participant: No New Discharge Prescriptions: New HYDROcodone/APAP 10-325MG [[place] 10-325] 1 tab PO Q6HR PRN 7 Days #28 tab PRN Reason: Pain Continue Sertraline HCl 200 mg PO 1400 Esomeprazole Magnesium [NexIUM] 20 mg PO HS Sildenafil [Revatio] 20 mg PO TID predniSONE 10 mg PO 1400 Multivit-Min/Iron/Folic/Lutein [Centrum Silver Women Tablet] 1 tab PO DAILY Magnesium Oxide 400 mg PO DAILY Levothyroxine Sodium [Synthroid] 25 mcg PO QAM Ascorbic Acid [Vitamin C] 500 mg PO DAILY Furosemide [Lasix] 20 mg PO DAILY PRN PRN Reason: ANKLE SWELLING Cholecalciferol (Vitamin D3) [Vitamin D3 (125 MCG = 5,000 IU)] 1 cap PO DAILY fentaNYL 75MCG/HR PATCH [Duragesic 75MCG/HR] 1 patch TRANSDERM Q72H #3 patch Gabapentin 600 mg PO TID #12 tab Potassium Chloride [Klor-Con M10] 10 meq PO DAILY PRN PRN Reason: ANKLE SWELLING traZODone HCL [Desyrel] 50 mg PO HS Nitrofurantoin Macrocrystal [Nitrofurantoin] 100 mg PO BID Discontinued HYDROcodone/APAP 5-325MG [[place] 5-325] 1 tab PO DAILY PRN PRN Reason: Pain Discharge Medication List Esomeprazole Magnesium [NexIUM] 20 mg PO HS 02/23/16 [History] Sertraline HCl 200 mg PO 1400 02/23/16 [History] Sildenafil [Revatio] 20 mg PO TID 06/30/16 [History] Multivit-Min/Iron/Folic/Lutein [Centrum Silver Women Tablet] 1 tab PO DAILY 10/25/17 [History] predniSONE 10 mg PO 1400 10/25/17 [History] Levothyroxine Sodium [Synthroid] 25 mcg PO QAM 08/21/19 [History] Magnesium Oxide 400 mg PO DAILY 08/21/19 [History] Ascorbic Acid [Vitamin C] 500 mg PO DAILY 01/01/21 [History] Cholecalciferol (Vitamin D3) [Vitamin D3 (125 MCG = 5,000 IU)] 1 cap PO DAILY 11/26/21 [History] Furosemide [Lasix] 20 mg PO DAILY PRN 11/26/21 [History] Potassium Chloride [Klor-Con M10] 10 meq PO DAILY PRN 11/26/21 [History] traZODone HCL [Desyrel] 50 mg PO HS 11/26/21 [History] Nitrofurantoin Macrocrystal [Nitrofurantoin] 100 mg PO BID 12/01/21 [History] Gabapentin 600 mg PO TID #12 tab 12/03/21 [Rx] HYDROcodone/APAP 10-325MG [[place] 10-325] 1 tab PO Q6HR PRN 7 Days #28 tab 12/03/21 [Rx] fentaNYL 75MCG/HR PATCH [Duragesic 75MCG/HR] 1 patch TRANSDERM Q72H #3 patch 12/03/21 [Rx] Follow up Appointment(s)/Referral(s): Smitha Palomares DO [Doctor of Osteopathic Medicine] - 2 Weeks Located Within [facility] [NON-STAFF] - As Needed [facility] [NON-STAFF] - As Needed Activity/Diet/Wound Care/Special Instructions: Keep operative dressing intact. May shower over dressing. May ambulate and mobilize as tolerated with walker. Fall precautions. Take pain medications as prescribed. Follow-up in the office with Dr. Palomares in two weeks. Call the office with any questions or concerns, Discharge Disposition: TRANSFER TO SNF/ECF
== END 2021-12-03 16:57 | DRG 455 ==
LOC: OR 09:14 → 4SSUR 16:27 → OR 12-02 14:54 → 4SSUR 12-02 15:30
PROVIDERS: ADMIT Orthopaedic Surgery Orthopaedic Surgery of the Spine; ATTEND Orthopaedic Surgery Orthopaedic Surgery of the Spine
DX: M48.062 Spinal stenosis, lumbar region with neurogenic claudication (principal); M34.9 Systemic sclerosis, unspecified; I27.21 Secondary pulmonary arterial hypertension; M41.86 Other forms of scoliosis, lumbar region; M41.87 Other forms of scoliosis, lumbosacral region; M48.07 Spinal stenosis, lumbosacral region; M43.16 Spondylolisthesis, lumbar region; M43.17 Spondylolisthesis, lumbosacral region; M47.26 Other spondylosis with radiculopathy, lumbar region; M47.27 Other spondylosis with radiculopathy, lumbosacral region; M51.16 Intervertebral disc disorders with radiculopathy, lumbar region; M51.17 Intervertebral disc disorders with radiculopathy, lumbosacral region; I10 Essential (primary) hypertension; E03.9 Hypothyroidism, unspecified; H91.90 Unspecified hearing loss, unspecified ear; F32.A Depression, unspecified; G62.9 Polyneuropathy, unspecified; K21.9 Gastro-esophageal reflux disease without esophagitis; K22.70 Barrett's esophagus without dysplasia; H26.9 Unspecified cataract; M16.0 Bilateral primary osteoarthritis of hip; L65.9 Nonscarring hair loss, unspecified; Z79.890 Hormone replacement therapy; Z79.52 Long term (current) use of systemic steroids; Z79.891 Long term (current) use of opiate analgesic; Z79.899 Other long term (current) drug therapy; Z86.718 Personal history of other venous thrombosis and embolism; Z86.69 Personal history of other diseases of the nervous system and sense organs; Z87.39 Personal history of other diseases of the musculoskeletal system and connective tissue; Z97.3 Presence of spectacles and contact lenses; Z90.49 Acquired absence of other specified parts of digestive tract; Z90.711 Acquired absence of uterus with remaining cervical stump; Z90.721 Acquired absence of ovaries, unilateral; Z96.653 Presence of artificial knee joint, bilateral; Z87.19 Personal history of other diseases of the digestive system; Z87.42 Personal history of other diseases of the female genital tract; Z87.891 Personal history of nicotine dependence; Z98.890 Other specified postprocedural states; Z88.2 Allergy status to sulfonamides; Z82.49 Family history of ischemic heart disease and other diseases of the circulatory system; Z80.8 Family history of malignant neoplasm of other organs or systems; Z82.61 Family history of arthritis
CPT/HCPCS: 72100; 80048; 81001; 82533; 85025; 86850; 86891; 86900; 86901

== ENCOUNTER → 2022-01-10 | Outpatient (CLI) | payer MEDICARE ==
[2022-01-10 13:29] VITALS: BP 167/77; PULSE 79; RESP 16; TEMP 98.6
--- NOTE | 2022-01-10 13:30 | P.PAINPG ---
PQRS Measure Charge Sheet Comment: HISTORY OF PRESENT ILLNESS: 76 yr old female as a referral from [facility], Dr Larose presents today with severe and chronic LBP secondary to DDD and facet arthropathy for evaluation. Pain level is 3/10 in intensity, started 10 days ago, localized in lower aspect of lumbar spine, throbbing in character w radiation down LLE. Palliated with 5 visits of home PT and she isn't cleared for office sessions of PT, massage therapy every 2 weeks prior to surgery but has not returned since lumbar surgery, chirpractic treatments semi monthly but hasnt been cleared to return after surgery. Relieved with medications (Fentanyl, [place], Neurontin), heat, repositioning and rest. She is unhappy with the physician she receives narcotics from, feels Fentanyl 75mcg/hr is not working and wants to REDUCE her dependency on narcotics. PMH: DVT, BL Cataracts, GERD, HTN, Scleroderma, Alexis's Esophagitis, Graves Disease, Hypothyroidism, Pulmonary HTN, MDD PSH: Lumbar Spinal Fusion, Bowel Resection, Cholecystectomy, Hysterectomy, R Knee Replacement, Oophorectomy, EGD/ Colonoscopy, R Foot Surgery SH: 21 pack yr tobacco user (Quit 1985), Rare ETOH use, No illicit drug use FH: Father- Esophageal CA. Mother- Angina/ OA All: Sulfa Meds: See list REVIEW OF ORGAN SYSTEMS: CONSTITUTIONAL: No fevers or chills. No recent weight loss. NEUROLOGICAL: + numbness and tingling along the distal extremities. No seizure disorders or headaches. MUSCULOSKELETAL: + pain PSYCHIATRIC: Denies current depression or suicidal thoughts. Physical Examinations : Constitutional : Cooperative , not in acute distress . Neurologic : Cranial nerve II to XII intact. No focal neurological deficits. Psychiatric : alert & oriented x 3. Matching mood & appropriate affect. Judgment & insight intact. Musculoskeletal : Cervical Spine Motor strength in the deltoid and biceps: Normal right side. Normal Left side Motor strength biceps and the wrist extensors: Normal right side . Normal left side Motor strength in the triceps muscle: Normal right side. Normal left side Deep tendon reflexes: Normal at the biceps. Normal at Brachioradialis. Normal at triceps Vertebral body tenderness to deep palpation over Cervical facet loading test: positive bilaterally Spurling test: positive bilaterally Neck distraction test: positive bilaterally Bernard sign: positive bilaterally Lumbar spine Motor strength lower extremities ,thigh and legs 5/5 Right side , 5/5 Left side Deep tendon reflexes : Normal Knee Jerk. Normal Ankle Jerk Vertebral body tenderness over L3, L4, L5 Lumbar facet Loading Test: positive Right / positive Left Range of motion of the lumbar spine Flexion 30 degrees, extension 10 degrees Straight Leg Raise test: Left/ Right positive at <45 degree [place] test: positive right / positive left. Severe tenderness over the Sacroiliac joint on the Right / Left sides Gaenslen test: positive bilaterally Seated flexion test: positive bilaterally. Sacral spine : Severe tenderness over the Sacroiliac joint: right side / left side Range of motion: Flexion of the lumbar spine <60 degrees Range of motion: Extension of the lumbar spine <20 degrees Gaenslen's Test positive Emerson's Test positive [place] test: positive right side / left side Thigh Thrust Test Sacral Thrust Test Imaging: Lumbar spine x- ray reviewed Assessment/ Plan : Lumbar DDD Pt would like reduced quantities of medications. Reviewed MAPS, signed Opiate and Narcotic agreement today, 01/10/22. Use, side effects and adverse reactions discussed. We will fill: [place] 5/325mg #75 (reduced from [place] 10/325mg #90), Fentanyl 50mcg/hr #10 (reduced from Fentanyl 75mcg/hr) and Neurontin 300mg #90 w 1 refill. All questions answered. I have spent greater than 30 minutes on patient care today. Dr Foss was available by phone for the evaluation of this patient. The time was used to review the medical records including relevant urine studies and Prescription history (MAPs), review of the available imaging, evaluation and examination of the patient, coordination of care with the medical staff and if applicable referring physicians, as well as creation of the medical record PQRS Narrative: Smoking Status Former smoker Home Medications: Ambulatory Orders Esomeprazole Magnesium [NexIUM] 20 mg PO HS 02/23/16 Sertraline HCl 200 mg PO 1400 02/23/16 Sildenafil [Revatio] 20 mg PO TID 06/30/16 Multivit-Min/Iron/Folic/Lutein [Centrum Silver Women Tablet] 1 tab PO DAILY 10/25/17 Levothyroxine Sodium [Synthroid] 25 mcg PO QAM 08/21/19 Magnesium Oxide 400 mg PO DAILY 08/21/19 Ascorbic Acid [Vitamin C] 500 mg PO DAILY 01/01/21 Cholecalciferol (Vitamin D3) [Vitamin D3 (125 MCG = 5,000 IU)] 1 cap PO DAILY 11/26/21 Furosemide [Lasix] 20 mg PO DAILY PRN 11/26/21 Potassium Chloride [Klor-Con M10] 10 meq PO DAILY PRN 11/26/21 traZODone HCL [Desyrel] 50 mg PO HS 11/26/21 Gabapentin 600 mg PO TID #12 tab 12/03/21 HYDROcodone/APAP 10-325MG [[place] 10-325] 1 tab PO Q6HR PRN 7 Days #28 tab 12/03/21 fentaNYL 75MCG/HR PATCH [Duragesic 75MCG/HR] 1 patch TRANSDERM Q72H #3 patch 12/03/21 Controlled Substance Measures - Controlled Substance Measures Is patient prescribed a controlled substance at discharge?: Yes When asked, does pt state using other controlled substances?: No If prescribed controlled substance>3 days was MAPS reviewed?: Yes If Rx opioid, was Start Talking consent form obtained?: Yes Was information provided regarding opioid addiction?: Yes
== END | disposition home or self-care (01) ==
LOC: PNWHC3 12:46
PROVIDERS: ATTEND Specialist
DX: M51.36 Other intervertebral disc degeneration, lumbar region (principal)
CPT/HCPCS: 99211

== ENCOUNTER → 2022-03-09 | Outpatient (CLI) | payer MEDICARE ==
--- NOTE | 2022-03-09 14:51 | P.PN ---
Subjective Progress Note Date: 03/09/22 This is follow-up visit for this 76 years old female with a chronic history of severe low back pain, she had lumbar laminectomy and fusion surgery done a few months ago , patient diagnosed with lumbar spondylosis with lumbar facet arthropathy and lumbar degenerative disc disease, continued to have severe low back pain, and patient was on fentanyl patch 75 mcg , increased gradually and she is currently on fentanyl patch 50 g and [place] 5/325 every 12 hours and Neurontin 600 mg 3 times a day, patient wished to decrease her pain medication dose because she is concerned about the side effects and addiction, and she is here today to adjust her pain medications Physical Examinations : Constitutional : Cooperative , not in acute distress . Neurologic : Cranial nerve II to XII intact. No focal neurological deficits. Psychiatric : alert & oriented x 3. Matching mood & appropriate affect. Judgment & insight intact. Musculoskeletal : Cervical Spine Motor strength in the deltoid and biceps: Normal right side. Normal Left side Motor strength biceps and the wrist extensors: Normal right side . Normal left side Motor strength in the triceps muscle: Normal right side. Normal left side Deep tendon reflexes: Normal at the biceps. Normal at Brachioradialis. Normal at triceps Vertebral body tenderness to deep palpation over Cervical facet loading test: positive bilaterally Spurling test: positive bilaterally Neck distraction test: positive bilaterally Bernard sign: positive bilaterally Lumbar spine Motor strength lower extremities ,thigh and legs 5/5 Right side , 5/5 Left side Deep tendon reflexes : Normal Knee Jerk. Normal Ankle Jerk Vertebral body tenderness over L3, L4, L5 Lumbar facet Loading Test: positive Right / positive Left Range of motion of the lumbar spine Flexion 30 degrees, extension 10 degrees Straight Leg Raise test: Left/ Right positive at <45 degree [place] test: positive right / positive left. Severe tenderness over the Sacroiliac joint on the Right / Left sides Gaenslen test: positive bilaterally Seated flexion test: positive bilaterally. Sacral spine : Severe tenderness over the Sacroiliac joint: right side / left side Range of motion: Flexion of the lumbar spine <60 degrees Range of motion: Extension of the lumbar spine <20 degrees Gaenslen's Test positive Emerson's Test positive [place] test: positive right side / left side Thigh Thrust Test Sacral Thrust Test Imaging: Lumbar spine x- ray reviewed Assessment/ Plan : Lumbar DDD Lumbar spondylosis with lumbar facet arthropathy. Chronic and current use of high-risk medication ( opioid ) Patient currently on fentanyl patch 50 g every 72 hours and [place] 5/325 every 12 hours, and Neurontin 600 mg 3 times a day I will decrease fentanyl patch to 185 g every 72 hours dispense 10 with no refills, recommend to increase [place] to 10/325 every 8 hours dispense 90 with no refills, continue Neurontin 600 mg 3 times a day, patient will follow up in the pain clinic in 4 weeks) next visit we'll decrease the fentanyl patch to 12 g every 72 hours
[2022-03-09 18:26] LABS: HCT 34.7 % (37.2-46.3); HGB 9.8 g/dL (12.0-15.0); MCH 22.8 pg (27.0-32.0); MCHC 28.2 g/dL (32.0-37.0); MCV 80.9 fL (80.0-97.0); Mean Platelet Volume 11.2 fL (9.5-12.2); NRBC Per 100 WBC 0 /100 WBCS (0.0-0.0); Platelet Count 296 X 10*3/uL (140-440); RBC 4.29 X 10*6/uL (4.10-5.20); RDW 21.1 % (11.5-14.5); WBC 7.36 X 10*3/uL (4.50-10.00)
[2022-03-09 18:39] LABS: ALT 18 U/L (8-44); AST 16 U/L (13-35); African American GFR (CKD) 98.4 (60.0-200.0); Albumin 4.1 g/dL (3.8-4.9); Albumin/Globulin Ratio 1.93 (1.60-3.17); Alkaline Phosphatase 60 U/L (41-126); BUN/Creat Ratio 15.78 Ratio (12.00-20.00); Calcium 9.3 mg/dL (8.7-10.3); Carbon Dioxide 22.9 mmol/L (20.0-27.5); Chloride 107 mmol/L (96-109); Globulin 2.1 g/dL (1.6-3.3); Glucose 94 mg/dL (70-110); Non-African American GFR(CKD) 84.9 (60.0-200.0); Sodium 143 mmol/L (135-145); Total Bilirubin <0.15 mg/dL (0.30-1.20); Total Protein 6.2 g/dL (6.2-8.2)
== END | disposition home or self-care (01) ==
LOC: LABWHC1 12:01
PROVIDERS: ATTEND Internal Medicine
DX: K52.9 Noninfective gastroenteritis and colitis, unspecified (principal)
CPT/HCPCS: 36415; 80053; 84443; 85027

== ENCOUNTER → 2022-03-09 | Outpatient (CLI) | payer MEDICARE ==
[2022-03-09 11:44] VITALS: BP 134/70; PULSE 71; RESP 18; TEMP 98.3
== END | disposition home or self-care (01) ==
LOC: PNWHC3 10:47
PROVIDERS: ATTEND Specialist
DX: Z51.81 Encounter for therapeutic drug level monitoring (principal)
CPT/HCPCS: 80307; G0482; G0463; 99212

== ENCOUNTER → 2022-03-11 | Outpatient (CLI) | payer MEDICARE ==
[2022-03-11 18:51] LABS: % Iron Saturation 14.48 (12.00-45.00); Ferritin 19.7 ng/mL (10.0-291.0)
== END | disposition home or self-care (01) ==
LOC: LABWHC1 12:27
PROVIDERS: ATTEND Internal Medicine
DX: D64.9 Anemia, unspecified (principal)
CPT/HCPCS: 36415; 82607; 82728; 82746; 83540; 83550

== ENCOUNTER → 2022-04-05 | Outpatient (CLI) | payer MEDICARE ==
[2022-04-05 14:26] LABS: African American GFR (CKD) >90 (>60 ml/min/1.73 sqM); Blood Urea Nitrogen 16 mg/dL (7-17); Non-African American GFR(CKD) 81 (>60 ml/min/1.73 sqM)
--- NOTE | 2022-04-05 15:57 | CT ---
EXAMINATION TYPE: CT urogram wo/w con CT DLP: 2648 mGycm, Automated exposure control for dose reduction was used. DATE OF EXAM: 04/05/2022 3:42 PM COMPARISON: CT abdomen and pelvis 10/28/2021. CLINICAL INDICATION:Female, 76 years old with history of R31.1 BENIGN ESSENTIAL MICROSCOPIC HEMATURIA ; PHH, hematuria, left flank pain TECHNIQUE: Urogram was performed before and after the uneventful ministration of 70 cc of Isovue-300 intravenous ly. Delayed imaging was performed. Coronal and sagittal reformats were performed. One or more CT dose reduction strategies were utilized during this examination. 2D and 3D reconstructions are performed to assist visualization of the urinary tract on a separate workstation. FINDINGS: GENITOURINARY: RIGHT KIDNEY AND URETER: No calculi. No hydronephrosis or hydroureter. Superior pole 2.4 cm cyst. No urothelial lesions: no filling defect, dilation, stricture or wall thickening. LEFT KIDNEY AND URETER: No calculi. No hydronephrosis or hydroureter. Mid kidney 1.4 cm cyst. Mid kid erasmo 1.2 cm cyst. Abnormal enhancing lesion within the left renal pelvis extending into the proximal u reter to the ureteropelvic junction (series 22, image 34 and series 24 image 90 and 94). URINARY BLADDER: Not optimally distended. No gross lesion within limitations. REPRODUCTIVE: Posthysterectomy. No suspicious adnexal mass.. ABDOMEN LIVER: Unremarkable. GALLBLADDER AND BILE DUCTS: Post cholecystectomy. Mild prominence of the intra and extrahepatic bile ducts which is not unexpected in setting of cholecystectomy. PANCREAS: Unremarkable. SPLEEN: Unremarkable. ADRENAL GLANDS: Unremarkable. STOMACH AND BOWEL: Small hiatal hernia. Surgical changes with anastomosis in the right lower quadrant . No evidence of bowel obstruction. PERITONEUM: No evidence of pneumoperitoneum, free fluid, or adenopathy. VASCULATURE: Atherosclerotic calcifications are present throughout the abdominal aorta and its branch es. No abdominal aortic aneurysm. MUSCULOSKELETAL: No acute osseous abnormalities. Postsurgical changes from lumbar fusion involving L2 through through S1 with bilateral pedicular screws and rods. Grade 1 anterolisthesis of L5 on S1.. SOFT TISSUE/ABDOMINAL WALL: Diastases recti. Scattered calcifications within the soft tissues. LOWER CHEST: Small pericardial effusion. The lung bases are clear. IMPRESSION: Abnormal enhancing lesion within the left renal pelvis extending into to the ureteropelvic junction. No hydronephrosis. Poor evaluation of the urinary bladder secondary to underdistention. 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 Urology consultation with direct visualization is recommended.
== END | disposition home or self-care (01) ==
LOC: RADCTMAIN 13:52
PROVIDERS: ATTEND Urology
DX: R31.1 Benign essential microscopic hematuria (principal)
CPT/HCPCS: 82565; 84520; 74178; 36415; 74400; Q9967

== ENCOUNTER → 2022-04-06 | Outpatient (CLI) | payer MEDICARE ==
[2022-04-06 13:16] VITALS: BP 132/68; PULSE 99; RESP 16
--- NOTE | 2022-04-06 14:12 | P.PAINPG ---
PQRS Measure Charge Sheet Comment: A 76 yr old female with a history of severe and chronic low back pain secondary to lumbar degenerative disc diseases and lumbar spondylosis with facet arthropathy without myelopathy presents today for medication refills. Pain level is currently at 8/10 in intensity, constant, L lower back, dull in character w shooting towards L knee. Pain is provoked by bending/twisting. Pain is alleviated with PT in the past, home stretching regimen, chiropractic treatments as needed, medications, repositioning and rest. Patient is currently on Fentanyl 25mcg/hr #30, [place] 10/325mg #90, Neurontin 600mg #90 Patient denies any side effects of the medication(s), denies excessive drowsiness or sleepiness, denies suicidal ideation and reports that the current pain medication is helping to control the pain and improve activities of daily living. Patient denies any motor or sensory deficits. Patient denies any fever or night sweats, denies any change in the bowel movements or urination. Physical Examination: -Constitutional: Cooperative. Not in acute distress . - Neurologic: Cranial nerve II to XII intact. No focal neurological deficits. - Psychatric: Alert & oriented x 3. Matching mood & appropriate affect. Judgment and insight intact. - Musculoskeletal: Cervical spine: Muscle bulk/ tone/ strength in the bilateral upper extremities normal Vertebral body tenderness to palpation over Spurling test positive Distraction test positive Facet loading test positive Thoracic spine Muscle bulk / tone/ strength in the bilateral paraspinal muscles normal Vertebral body tender to palpation over Facet loading test positive Lumbar spine: Motor bulk/ tone/ strength lower extremities , thigh and legs : 5/5 Deep tendon reflexes : Normal Knee Jerk. Normal Ankle Jerk . Vertebral body tenderness to palpation over L4, L5 Lumbar Facet Loading Test positive Straight Leg Raise: positive at 30 degrees right side/ left side Gaenslen's Test positive BL Sacral spine : Severe tenderness over the Sacroiliac joint: right side / left side Range of motion: Flexion of the lumbar spine <60 degrees Range of motion: Extension of the lumbar spine <20 degrees Gaenslen's Test positive Emerson's Test positive [place] test: positive right side / left side Thigh Thrust Test Sacral Thrust Test Assessment and plan: Chronic low back pain secondary to lumbar degenerative disc disease , lumbar spondylosis with facet arthropathy without myelopathy Chronic and current use of high-risk medication (Opioids). The patient was counseled about risk of opioid use, psychological risk associated with opioids and was orally counseled to not overuse , divert or sell medications. Pt is to store medication in a safe location. The patient is counseled against driving while using narcotic medications and also not to use alcohol or any illicit recreational drugs. Patient verbalized understanding that the lack of compliance will result in failure to renew narcotic prescription(s) as well as possible discharge from the clinic Diagnoses, prognosis and treatment options including but not limited to physical therapy, surgical interventions, interventional therapies and medication management including narcotics and adjuvant medication were discussed. All patient questions answered MAPS reviewed and it was appropriate. UDS from 03/09/22 reviewed and consistent Prescription refill for Fentanyl 25mcg/hr #30, [place] 10/325mg #90, Neurontin 600mg #90 w 1 RF I have spent less than 30 minutes on patient care today. Dr Foss was available by phone for the evaluation of this patient. The time was used to review the medical records including relevant urine studies and Prescription history (MAPs), review of the available imaging, evaluation and examination of the patient, coordination of care with the medical staff and if applicable referring physicians, as well as creation of the medical record - Pain Location Left Lower Back Non-Pharmacological Interventions: Chiropractic Treatment, Home Exercise, Inactivity, Physical Therapy, Stretching Pharmacological Interventions: PRN Medication, Scheduled Medication, Topical Medication PQRS Narrative: Smoking Status Former smoker Narcotic Agreement Date Signed 01/10/22 Hx Alcohol Use (MH) No Home Medications: Ambulatory Orders Esomeprazole Magnesium [NexIUM] 20 mg PO HS 02/23/16 Sertraline HCl 200 mg PO 1400 02/23/16 Sildenafil [Revatio] 20 mg PO TID 06/30/16 Multivit-Min/Iron/Folic/Lutein [Centrum Silver Women Tablet] 1 tab PO DAILY 10/25/17 Levothyroxine Sodium [Synthroid] 25 mcg PO QAM 08/21/19 Magnesium Oxide 400 mg PO DAILY 08/21/19 Ascorbic Acid [Vitamin C] 500 mg PO DAILY 01/01/21 Cholecalciferol (Vitamin D3) [Vitamin D3 (125 MCG = 5,000 IU)] 1 cap PO DAILY 11/26/21 Furosemide [Lasix] 20 mg PO DAILY PRN 11/26/21 Potassium Chloride [Klor-Con M10] 10 meq PO DAILY PRN 11/26/21 traZODone HCL [Desyrel] 50 mg PO HS 11/26/21 Gabapentin 600 mg PO TID 30 Days #90 tab 04/06/22 HYDROcodone/APAP 10-325MG [[place] 10-325] 1 tab PO Q8HR PRN 30 Days #90 tab 04/06/22 HYDROcodone/APAP 10-325MG [[place] 10-325] 1 tab PO Q8HR PRN 30 Days #90 tab 04/06/22 fentaNYL 25MCG/HR PATCH [Duragesic 25MCG/HR] 1 patch TRANSDERM Q72H 30 Days #10 patch 04/06/22 fentaNYL 25MCG/HR PATCH [Duragesic 25MCG/HR] 1 patch TRANSDERM Q72H 30 Days #10 patch 04/06/22 Controlled Substance Measures - Controlled Substance Measures Is patient prescribed a controlled substance at discharge?: Yes When asked, does pt state using other controlled substances?: No If prescribed controlled substance>3 days was MAPS reviewed?: Yes If Rx opioid, was Start Talking consent form obtained?: Yes Was information provided regarding opioid addiction?: Yes
== END | disposition home or self-care (01) ==
LOC: PNWHC3 13:00
PROVIDERS: ATTEND Specialist
DX: M51.36 Other intervertebral disc degeneration, lumbar region (principal); M47.896 Other spondylosis, lumbar region; M46.96 Unspecified inflammatory spondylopathy, lumbar region
CPT/HCPCS: 99211

== ENCOUNTER → 2022-05-12 | Outpatient (CLI) | payer MEDICARE ==
[2022-05-12 22:27] LABS: Gliadin AB IgG, Deaminated NEGATIVE (NEGATIVE); Gliadin AB IgG, Unit <0.4 U/mL
[2022-05-13 04:29] LABS: Gliadin AB IgA, Deaminated NEGATIVE (NEGATIVE); Gliadin AB IgA, Unit 0.3 U/mL
== END | disposition home or self-care (01) ==
LOC: LABWHC1 10:41
PROVIDERS: ATTEND Internal Medicine Gastroenterology
DX: K52.9 Noninfective gastroenteritis and colitis, unspecified (principal)
CPT/HCPCS: 36415; 82656; 83516

== ENCOUNTER → 2022-05-12 | Outpatient (CLI) | payer MEDICARE ==
--- NOTE | 2022-05-12 11:17 | XR ---
EXAMINATION TYPE: XR chest 2V DATE OF EXAM: 05/12/2022 COMPARISON: 11/25/2021 TECHNIQUE: PA and lateral views submitted. HISTORY: Preop FINDINGS: The lungs are clear and there is no pneumothorax, pleural effusion, or focal pneumonia. Heart size upper limits of normal. Atherosclerotic change aorta. No overt failure. Arthropathy at the shoulders. Postsurgical change involving the vertebral column IMPRESSION: 1. No acute process.
[2022-05-12 18:22] LABS: HCT 34.8 % (37.2-46.3); HGB 9.6 g/dL (12.0-15.0); MCH 23.5 pg (27.0-32.0); MCHC 27.6 g/dL (32.0-37.0); MCV 85.3 fL (80.0-97.0); Mean Platelet Volume 10.1 fL (9.5-12.2); NRBC Per 100 WBC 0 /100 WBCS (0.0-0.0); Platelet Count 449 X 10*3/uL (140-440); RBC 4.08 X 10*6/uL (4.10-5.20); RDW 24.1 % (11.5-14.5); WBC 7.86 X 10*3/uL (4.50-10.00)
[2022-05-12 18:28] LABS: African American GFR (CKD) 98.6 (60.0-200.0); Anion Gap 10.9 mmol/L (10.00-18.00); BUN/Creat Ratio 20.95 Ratio (12.00-20.00); Blood Urea Nitrogen 14.5 mg/dL (9.0-27.0); Calcium 9.3 mg/dL (8.7-10.3); Carbon Dioxide 22.9 mmol/L (20.0-27.5); Non-African American GFR(CKD) 85.1 (60.0-200.0)
[2022-05-12 18:52] LABS: Anisocytosis (M) 2+; Basophils # (A) 0.04 X 10*3/uL (0.00-0.10); Basophils % (A) 0.5 %; Eosinophils # (A) 0.13 X 10*3/uL (0.04-0.35); Eosinophils % (A) 1.7 %; Immature Grans, Automated 1.3 %; Lymphocytes # (A) 0.93 X 10*3/uL (0.90-5.00); Lymphocytes % (A) 11.8 %; Monocytes # (A) 0.53 X 10*3/uL (0.20-1.00); Monocytes % (A) 6.7 %; Neutrophils # (A) 6.13 X 10*3/uL (1.80-7.70)
[2022-05-12 21:20] LABS: Appearance,Urine Clear (Clear); Bilirubin,Urine Negative (Negative); Blood,Urine Negative (Negative); Color,Urine Yellow (Yellow); Ketones,Urine Negative (Negative); Nitrite,Urine Negative (Negative); PH, Urine 5.5 (5.0-8.0); Specific Gravity,Urine 1.019 (1.001-1.030); Urobilinogen,Urine 0.2 (0.2,1.0)
[2022-05-12 22:13] LABS: Bacteria,Urine 3+ /HPF (None Seen); Calcium Oxalate Crystals,Urine Present /LPF (None Seen)
== END | disposition home or self-care (01) ==
LOC: LABPAT 10:37
PROVIDERS: ATTEND Urology
DX: Z01.812 Encounter for preprocedural laboratory examination (principal); Z01.818 Encounter for other preprocedural examination; D41.02 Neoplasm of uncertain behavior of left kidney
CPT/HCPCS: 71046; 80048; 81001; 85025; 87086

== ENCOUNTER 2022-05-19 11:18 | Inpatient (IN) | payer MEDICARE ==
--- NOTE | 2022-05-19 07:57 | P.HPIHPCON ---
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 Om Ureteroscopy tumor was quite extensive involving the renal pelvis and the UPJ. Discussed with her and her given the diffuse involvement of the tumor preferred approach would be left nephroureterectomy. Discussed with her endoscopic options would have low success rate. Discussed with her with nephroureterectomy the risk which includes but not limited to bleeding, infection, injury to nearby organs which include but not limited to the spleen, pancreas, bowel. Discussed also risk from anesthesia with her. Discussed with her given her previous abdominal surgeries if there is significant adhesions we might not be able to perform the procedure, and even potential of converting to open. Discussed also if there is significant adhesions in the pelvis I may not be able to perform a complete ureterectomy. Discussed also with the nephrectomy the potential of needing dialysis. She understood all the risk and agreed to proceed with left-sided robotic nephroureterectomy Consent for Procedure: I have explained the operation/procedure to the patient, including the risks, benefits, side effects, alternative therapies (including not receiving the proposed treatment or service), the likelihood of the patient achieving his/her goals, and potential recuperation problems for the procedure/sedation/analgesia, as well as any blood products, if indicated. I also explained to the patient the risks, benefits and side effects of the alternatives, as well as the risks rela danni to not receiving the proposed procedure, care, treatment, or services. Past Medical History Past Medical History: Deep Vein Thrombosis (DVT), Eye Disorder, GERD/Reflux, Hypertension, Musculoskeletal Disorder Additional Past Medical History / Comment(s): violeta cataracts, neuropathy violeta feet, sclerederma, osorio's esophogus, GRAVES disease, (r/t stomach) pulmonary hypertension History of Any Multi-Drug Resistant Organisms: None Reported Past Surgical History: Bowel Resection, Cholecystectomy, Hysterectomy, Joint Replacement Additional Past Surgical History / Comment(s): 12/01/21 LUMBAR SURGERY. 04/22/21 LEFT KNEE REPLACEMENT. rt knee replacement, oopherectomy post partial hysterectomy, EGD, COLONOSCOPY. Right foot surgery Past Anesthesia/Blood Transfusion Reactions: No Reported Reaction Past Psychological History: Depression Smoking Status: Former smoker Past Alcohol Use History: Rare Additional Past Alcohol Use History / Comment(s): smoked 1ppd from age [age], quit 1985 Past Drug Use History: None Reported - Past Family History Father Family Medical History: Cancer Additional Family Medical History / Comment(s): throat cancer Mother Family Medical History: Chest Pain / Angina, Osteoarthritis (OA) Medications and Allergies Home Medications Medication Instructions Recorded Confirmed Type Esomeprazole Magnesium [NexIUM] 20 mg PO 1400 02/23/16 05/17/22 History Sertraline HCl 200 mg PO 1400 02/23/16 05/17/22 History Sildenafil [Revatio] 20 mg PO TID 06/30/16 05/17/22 History Multivit-Min/Iron/Folic/Lutein 1 tab PO DAILY 10/25/17 05/17/22 History [Centrum Silver Women Tablet] Levothyroxine Sodium [Synthroid] 25 mcg PO QAM 08/21/19 05/17/22 History Magnesium Oxide 400 mg PO DAILY 08/21/19 05/17/22 History Ascorbic Acid [Vitamin C] 500 mg PO DAILY 01/01/21 05/17/22 History Cholecalciferol (Vitamin D3) 1 cap PO DAILY 11/26/21 05/17/22 History [Vitamin D3 (125 MCG = 5,000 IU)] Furosemide [Lasix] 20 mg PO DAILY PRN 11/26/21 05/17/22 History Potassium Chloride [Klor-Con M10] 20 meq PO DAILY PRN 11/26/21 05/17/22 History traZODone HCL [Desyrel] 50 mg PO HS 11/26/21 05/17/22 History Gabapentin 600 mg PO TID 30 Days #90 tab 04/06/22 05/17/22 Rx HYDROcodone/APAP 10-325MG [[place] 1 tab PO Q8HR PRN 30 Days #90 tab 04/06/22 05/17/22 Rx 10-325] fentaNYL 25MCG/HR PATCH [Duragesic 1 patch TRANSDERM Q72H 30 Days #10 04/06/22 05/17/22 Rx 25MCG/HR] patch Acetaminophen Tab [Tylenol] 500 mg PO Q6H PRN 05/17/22 05/17/22 History predniSONE 10 mg PO 1400 05/17/22 05/17/22 History Allergies Allergy/AdvReac Type Severity Reaction Status Date / Time Sulfa (Sulfonamide Allergy Rash/Hives Verified 05/17/22 15:08 Antibiotics) Surgical - Exam - General no distress, no pain - Eyes normal ocular movement, no pale - ENT normal nares, normal mucosa - Respiratory normal expansion, normal respiratory effort - Abdomen Abdomen: soft, non tender Assessment and Plan Assessment: OR for left-sided robotic nephroureterectomy
[~2022-05-19 11:18] MED LIST changes: +DEXAMETHASONE SOD PHOSPHATE 4 MG/ML 1 ML VIAL IV ONE; +HEPARIN SODIUM,PORCINE/PF 5,000 UNIT/0.5 ML SYRINGE SQ PRN; -LIDOCAINE 1% (10MG/ML) FOR IV START INTRADERMA PRN
--- NOTE | 2022-05-19 11:44 | XR ---
EXAMINATION TYPE: XR KUB DATE OF EXAM: 05/19/2022 Comparison: 10/26/2012, CT 04/05/2022 Clinical History: 76-year-old female PRE-OP: LOCATION OF KIDNEY TUMOR Findings: There is marked air distention of the colon. Transverse colon dilated up to 11.1 cm. Air extends dist ally to the rectum. There is a staple line at the right mid to lower abdomen suggesting prior bowel s urgery. Extensive posterior and interbody lumbar fusion changes are present. No dilated small bowel i s seen. Moderate degenerative change left hip. Impression: Excessive gassy distention of the colon. Transverse colon is dilated up to 11.1 cm. Findings may be t ransient. Correlate as to potential etiology. No evidence for small bowel obstruction.
[2022-05-19] MEDS: LACTATED RINGERS 1,000 ML IV SCH ×2 (12:34→13:01)
[2022-05-19] MEDS ORDERED: MIDAZOLAM 2 MG/2 ML VIAL IV ONE (12:36)
[2022-05-19 12:42] LABS: Anisocytosis Moderate; HCT 34.7 % (34.0-46.0); HGB 10.6 gm/dL (11.4-16.0); Hypochromasia Marked; MCH 24.8 pg (25.0-35.0); MCHC 30.5 g/dL (31.0-37.0); MCV 81.2 fL (80.0-100.0); Mean Platelet Volume 7.7; Microcytosis Slight; Platelet Count 387 k/uL (150-450); RBC 4.27 m/uL (3.80-5.40); RDW 21.3 % (11.5-15.5); WBC 7.9 k/uL (3.8-10.6)
[2022-05-19] MEDS ORDERED: SODIUM CHLORIDE 0.9% (PF) 10 ML VIAL ONE (12:50)
[2022-05-19] MEDS ORDERED: fentaNYL (PF) 50 MCG/ML 2 ML AMP ONE (12:50)
[2022-05-19] MEDS ORDERED: MIDAZOLAM 2 MG/2 ML VIAL ONE (12:50)
[2022-05-19] MEDS ORDERED: LIDOCAINE 2% INJ 20 MG/ML (2 ML VIAL) ONE (12:50)
[2022-05-19] MEDS ORDERED: ROCURONIUM 10 MG/ML (5 ML VIAL) IV ONE (12:50)
[2022-05-19] MEDS ORDERED: SUCCINYLCHOLINE CHLORIDE 200 MG/10 ML VIAL IV ONE (12:50)
[2022-05-19] MEDS ORDERED: PROPOFOL 10 MG/ML 20 ML VIAL IV ONE (12:50)
[2022-05-19] MEDS ORDERED: SUGAMMADEX SODIUM 200 MG/2 ML SDV IV ONE (12:50)
[2022-05-19] MEDS ORDERED: ROPIVACAINE 5 MG/ML 30 ML VIAL ONE (12:50)
[2022-05-19 12:55] LABS: Glucose,Whole Blood 69 mg/dL (70-110)
[2022-05-19 12:55] LABS: Glucose,Whole Blood 70 mg/dL (70-110)
[2022-05-19] MEDS ORDERED: FUROSEMIDE 20 MG TAB PO PRN (12:55)
[2022-05-19] MEDS ORDERED: POTASSIUM CHLORIDE ER 10 MEQ TAB.ER.PRT PO PRN (12:55)
[2022-05-19] MEDS ORDERED: BUPIVACAINE (PF) 0.25% 30 ML VIAL SQ ONE ×2 (13:01)
--- NOTE | 2022-05-19 14:19 | P.ANPRN ---
Procedure Note - Anesthesia - Nerve Block Performed Bilateral Erector Spinae Single Time Out Performed: Yes ([id number]) Date of Procedure: 05/19/22 Procedure Start Time: 12:37 Procedure Stop Time: 12:43 Location of Patient: PreOp Indication: Acute Post-Operative Pain, Requested by Surgeon Specifically requested for management of pain by : Arsen Griffin Sedation Type: Sedate with meaningful contact maintained Preparation: Sterile Prep Position: Supine Catheter: None Needle Types: Pajunk Needle Gauge: 21 Ultrasound used to visualize needle placement: Yes Ultrasound used to observe medication spread: Yes Injectate: 0.5% Ropivacaine (see comment for volume) (15cc + 5cc nacl pf each side) Blood Aspirated: No Pain Paresthesia on Injection Noted: No Resistance on Injection: Normal Image Stored and Saved: Yes Events: Uneventful and Well Tolerated
--- NOTE | 2022-05-19 14:51 | P.OP ---
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 Om Ureteroscopy tumor was quite extensive involving the renal pelvis and the UPJ. Discussed with her and her given the diffuse involvement of the tumor preferred approach would be left nep hroureterectomy. Discussed with her endoscopic options would have low success rate. Discussed with her with nephroureterectomy the risk which includes but not limited to bleeding, infection, injury to nearby organs which include but not limited to the spleen, pancreas, bowel. Discussed also risk from anesthesia with her. Discussed with her given her previous abdominal surgeries if there is significant adhesions we might not be able to perform the procedure, and even potential of converting to open. Discussed also if there is significant adhesions in the pelvis I may not be able to perform a complete ureterectomy. Discussed also with the nephrectomy the potential of needing dialysis. She understood all the risk and agreed to proceed with left-sided robotic nephroureterectomy Operative Findings: Extensive adhesion involving the colon, the colon was completely adherent to the sidewall. Colon was completely fixed to the spleen Description of Procedure: The patient was taken to the operating room . General anesthesia was induced. She was prepped and draped in sterile fashion, and she was placed in modified flank position . All pressure points were padded. The abdominal insufflation was achieved with the Veress needle. A 8 mm camera port was placed. At this point laparoscopy was performed which showed significant adhesion involving the left pelvic sidewall, and there was extensive adhesions in the pelvis. I was able to place an additional robotic port superior to the camera port. Next using the LigaSure adhesions were taken down, lysis of adhesion was performed until I was able to place the remaining robotic and the medical assistant supervisor trocar. Robotic trocars and medical assistant supervisor ports were placed under direct vision. The robot was docked into place. The colon was quite distended, and was completely adherent to the sidewall. I was able to to partially mobilize the colon away from the sidewall. But at this point the upper edge of the colon was completely adherent to the spleen. Attempt to mobilize the colon off of the spleen was unsuccessful given that the colon was plastered on the spleen. Additionally the colon was completely plastered onto the lower pelvis which made attempt to mobilize the bowel further unsuccessful. Given the degree of adhesions decision was made to abort the surgery, as the colon could not be mobilized safely. Over an hour was spent attempting to lyse adhesions. Had a prolonged discussion with the patient's , I discussed with them she will be referred to an academic center for an attempted nephroureterectomy. The robot was then de-docked. The medical assistant supervisor port Fascia was closed in figure of 8 fashion. Skin was closed with subcuticular sutures and dermabond. The patient was awoken from general anesthesia in stable condition.
[2022-05-19] MEDS: HYDROmorphone 0.5 MG/0.5 ML SYRINGE IVP PRN ×2 (14:53→15:06)
[2022-05-19] MEDS: predniSONE 10 MG TAB PO SCH (17:24)
[2022-05-19] MEDS: GABAPENTIN 300 MG CAP PO SCH ×2 (18:25→21:15)
[2022-05-19] MEDS: SERTRALINE 100 MG TAB PO SCH (18:25)
[2022-05-19] MEDS: HEPARIN SODIUM,PORCINE/PF 5,000 UNIT/0.5 ML SYRINGE SQ SCH ×2 (18:26→23:32)
[2022-05-19] MEDS: PANTOPRAZOLE 40 MG TABLET PO SCH (18:26)
[2022-05-19] MEDS: SILDENAFIL 20 MG TAB PO SCH ×2 (18:27→21:15)
[2022-05-19] MEDS: D5-0.45% NACL WITH KCL 20MEQ/L 1,000 ML IV SCH (18:57)
[2022-05-19] MEDS ORDERED: traZODone HCL 50 MG TAB PO SCH (21:00)
[2022-05-19] MEDS: HYDROmorphone 1 MG/ML 1 ML SYRINGE IVP PRN (21:15)
[2022-05-20] MEDS: HYDROmorphone 1 MG/ML 1 ML SYRINGE IVP PRN ×3 (01:30→14:31)
[2022-05-20] MEDS: LACTATED RINGERS 1,000 ML IV SCH (05:58)
[2022-05-20] MEDS: D5-0.45% NACL WITH KCL 20MEQ/L 1,000 ML IV SCH (05:58)
[2022-05-20] MEDS ORDERED: LEVOTHYROXINE 25 MCG TAB PO SCH (06:30)
[2022-05-20] MEDS ORDERED: MAGNESIUM OXIDE 400 MG TAB PO SCH (09:00)
[2022-05-20] MEDS: HEPARIN SODIUM,PORCINE/PF 5,000 UNIT/0.5 ML SYRINGE SQ SCH ×2 (09:15→16:14)
[2022-05-20] MEDS: GABAPENTIN 300 MG CAP PO SCH ×2 (09:34→16:14)
[2022-05-20] MEDS: SILDENAFIL 20 MG TAB PO SCH ×2 (09:34→16:14)
[2022-05-20 10:45] LABS: African American GFR (CKD) 98.2 (60.0-200.0); Anion Gap 11.8 mmol/L (10.00-18.00); BUN/Creat Ratio 19.57 Ratio (12.00-20.00); Blood Urea Nitrogen 13.7 mg/dL (9.0-27.0); Calcium 8.3 mg/dL (8.7-10.3); Carbon Dioxide 21.2 mmol/L (20.0-27.5); Non-African American GFR(CKD) 84.8 (60.0-200.0); Potassium 3.7 mmol/L (3.5-5.5)
[2022-05-20 12:27] VITALS: BP 110/60; PULSE 82; RESP 16; TEMP 98.7
--- NOTE | 2022-05-20 15:24 | P.DS ---
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 On 05/19/22 She presented for an elective left- sided robotic nephroureterectomy with Dr. Griffin. There were significant adhesions involving the left pelvic sidewall, and there was extensive adhesions in the pelvis. Attempt to mobilize the colon off of the spleen was unsuccessful given that the colon was plastered on the spleen. The decision was made to abort the surgery, as the colon could not be mobilized safely. She was discharged home on POD#1. She is able to ambulate and void without difficulty. She denies any shortness of breath, nausea, or vomiting. Her pain is well controlled. She will be referred to an academic center for an attempted nephroureterectomy. Impression and plan of care have been directed as dictated by the signing physi cian. Giana Tyler nurse practitioner acting as scribe for signing physician. Giana Tyler [facility] Palliative Care/Urology Spectralink [id number] Email: [email or web address] Patient Condition at Discharge: Good Plan - Discharge Summary Discharge Rx Participant: No New Discharge Prescriptions: No Action Sertraline HCl 200 mg PO 1400 Esomeprazole Magnesium [NexIUM] 20 mg PO 1400 Sildenafil [Revatio] 20 mg PO TID Multivit-Min/Iron/Folic/Lutein [Centrum Silver Women Tablet] 1 tab PO DAILY Magnesium Oxide 400 mg PO DAILY Levothyroxine Sodium [Synthroid] 25 mcg PO QAM Ascorbic Acid [Vitamin C] 500 mg PO DAILY Furosemide [Lasix] 20 mg PO DAILY PRN PRN Reason: ANKLE SWELLING Cholecalciferol (Vitamin D3) [Vitamin D3 (125 MCG = 5,000 IU)] 1 cap PO DAILY fentaNYL 25MCG/HR PATCH [Duragesic 25MCG/HR] 1 patch TRANSDERM Q72H 30 Days #10 patch Acetaminophen Tab [Tylenol] 500 mg PO Q6H PRN PRN Reason: Pain Potassium Chloride [Klor-Con M10] 20 meq PO DAILY PRN PRN Reason: ANKLE SWELLING traZODone HCL [Desyrel] 50 mg PO HS Gabapentin 600 mg PO TID 30 Days #90 tab HYDROcodone/APAP 10-325MG [[place] 10-325] 1 tab PO Q8HR PRN 30 Days #90 tab PRN Reason: Pain predniSONE 10 mg PO 1400 Discharge Medication List Esomeprazole Magnesium [NexIUM] 20 mg PO 1400 02/23/16 [History] Sertraline HCl 200 mg PO 1400 02/23/16 [History] Sildenafil [Revatio] 20 mg PO TID 06/30/16 [History] Multivit-Min/Iron/Folic/Lutein [Centrum Silver Women Tablet] 1 tab PO DAILY 10/25/17 [History] Levothyroxine Sodium [Synthroid] 25 mcg PO QAM 08/21/19 [History] Magnesium Oxide 400 mg PO DAILY 08/21/19 [History] Ascorbic Acid [Vitamin C] 500 mg PO DAILY 01/01/21 [History] Cholecalciferol (Vitamin D3) [Vitamin D3 (125 MCG = 5,000 IU)] 1 cap PO DAILY 11/26/21 [History] Furosemide [Lasix] 20 mg PO DAILY PRN 11/26/21 [History] Potassium Chloride [Klor-Con M10] 20 meq PO DAILY PRN 11/26/21 [History] traZODone HCL [Desyrel] 50 mg PO HS 11/26/21 [History] Gabapentin 600 mg PO TID 30 Days #90 tab 04/06/22 [Rx] HYDROcodone/APAP 10-325MG [[place] 10-325] 1 tab PO Q8HR PRN 30 Days #90 tab 04/06/22 [Rx] fentaNYL 25MCG/HR PATCH [Duragesic 25MCG/HR] 1 patch TRANSDERM Q72H 30 Days #10 patch 04/06/22 [Rx] Acetaminophen Tab [Tylenol] 500 mg PO Q6H PRN 05/17/22 [History] predniSONE 10 mg PO 1400 05/17/22 [History]
[2022-05-20] MEDS: predniSONE 10 MG TAB PO SCH (16:11)
[2022-05-20] MEDS: PANTOPRAZOLE 40 MG TABLET PO SCH (16:11)
[2022-05-20] MEDS: SERTRALINE 100 MG TAB PO SCH (16:13)
== END 2022-05-20 18:38 | disposition home or self-care (01) | DRG 675 ==
LOC: 2ORMAIN 11:18 → 5NMEDONC 15:29
PROVIDERS: ADMIT Urology; ATTEND Urology
PROC: 0DNW4ZZ Release Peritoneum, Percutaneous Endoscopic Approach (ICD-10-PCS; principal; 2022-05-19 12:30)
PROC: 3E0T3BZ Introduction of Anesthetic Agent into Peripheral Nerves and Plexi, Percutaneous Approach (ICD-10-PCS; principal; 2022-05-19 12:30)
PROC: 8E0W4CZ Robotic Assisted Procedure of Trunk Region, Percutaneous Endoscopic Approach (ICD-10-PCS; principal; 2022-05-19 12:30)
DX: C68.9 Malignant neoplasm of urinary organ, unspecified (principal); M34.9 Systemic sclerosis, unspecified; I27.20 Pulmonary hypertension, unspecified; K66.0 Peritoneal adhesions (postprocedural) (postinfection); I10 Essential (primary) hypertension; K22.70 Barrett's esophagus without dysplasia; K21.9 Gastro-esophageal reflux disease without esophagitis; E05.00 Thyrotoxicosis with diffuse goiter without thyrotoxic crisis or storm; G62.9 Polyneuropathy, unspecified; F32.A Depression, unspecified; Z96.653 Presence of artificial knee joint, bilateral; Z90.49 Acquired absence of other specified parts of digestive tract; Z79.890 Hormone replacement therapy; Z79.899 Other long term (current) drug therapy; Z79.52 Long term (current) use of systemic steroids; Z86.718 Personal history of other venous thrombosis and embolism; Z80.8 Family history of malignant neoplasm of other organs or systems; Z82.49 Family history of ischemic heart disease and other diseases of the circulatory system; Z82.61 Family history of arthritis; Z85.50 Personal history of malignant neoplasm of unspecified urinary tract organ; Z51.5 Encounter for palliative care; Z98.42 Cataract extraction status, left eye; Z98.41 Cataract extraction status, right eye; Z87.19 Personal history of other diseases of the digestive system; Z88.2 Allergy status to sulfonamides
CPT/HCPCS: 64999; 74018; 80048; 85027; 86850; 86900; 86901

== ENCOUNTER → 2022-06-01 | Outpatient (CLI) | payer MEDICARE ==
[2022-06-01 11:26] VITALS: BP 174/82; PULSE 59; RESP 18; TEMP 98.3
--- NOTE | 2022-06-01 14:44 | P.PAINPG ---
PQRS Measure Charge Sheet Comment: A 76 yr old female with a history of severe and chronic low back pain secondary to lumbar DDD and spondylosis with facet arthropathy without myelopathy presents today for medication refills. Pain level is currently at 5 /10 in intensity, constant, localized in the mid lumbar spine, sore in character w shooting towards the BL buttocks. Pain is provoked by . Pain is alleviated with PT x 6 wks in Apr 2022, massage therapy semi monthly, laying supine, medications (Tyl ES, Fentanyl, Castor, Neurontin) and rest. Interventional pain procedures completed include Denies Patient is currently on Fentanyl 25mcg/hr #10, Castor 10/325mg #90, Neurontin 600mg #90 Patient denies any side effects of the medication(s), denies excessive drowsiness or sleepiness, denies suicidal ideation and reports that the current pain medication is helping to control the pain and improve activities of daily living. Patient denies any motor or sensory deficits. Patient denies any fever or night sweats, denies any change in the bowel movements or urination. Physical Examination: -Constitutional: Cooperative. Not in acute distress . - Neurologic: Cranial nerve II to XII intact. No focal neurological deficits. - Psychatric: Alert & oriented x 3. Matching mood & appropriate affect. Judgment and insight intact. - Musculoskeletal: Cervical spine: Muscle bulk/ tone/ strength in the bilateral upper extremities normal Vertebral body tenderness to palpation over Spurling test positive Distraction test positive Facet loading test positive Thoracic spine Muscle bulk / tone/ strength in the bilateral paraspinal muscles normal Vertebral body tender to palpation over Facet loading test positive Lumbar spine: Motor bulk/ tone/ strength lower extremities , thigh and legs : 5/5 Deep tendon reflexes : Normal Knee Jerk. Normal Ankle Jerk . Vertebral body tenderness to palpation over L3, L4, L5 Lumbar Facet Loading Test positive Straight Leg Raise: positive at 30 degrees right side/ left side Gaenslen's Test positive Sacral spine : Severe tenderness over the Sacroiliac joint: right side / left side Range of motion: Flexion of the lumbar spine <60 degrees Range of motion: Extension of the lumbar spine <20 degrees Gaenslen's Test positive [place] test: positive right side / left side Thigh Thrust Test Sacral Thrust Test Assessment and plan: Chronic low back pain secondary to lumbar degenerative disc disease, spondylosis with facet arthropathy without myelopathy Chronic and current use of high-risk medication (Opioids). The patient was counseled about risk of opioid use, psychological risk associated with opioids and was orally counseled to not overuse , divert or sell medications. Pt is to store medication in a safe location. The patient is counseled against driving while using narcotic medications and also not to use alcohol or any illicit recreational drugs. Patient verbalized understanding that the lack of compliance will result in failure to renew narcotic prescription(s) as well as possible discharge from the clinic Diagnoses, prognosis and treatment options including but not limited to physical therapy, surgical interventions, interventional therapies and medication management including narcotics and adjuvant medication were discussed. All patient questions answered MAPS reviewed and it was appropriate. UDS from 03/09/22 reviewed and consistent Prescription refill for Fentanyl 25mcg/hr #10, Castor 10/325mg #90, Neurontin 600mg #90 w 1 RF I have spent less than 30 minutes on patient care today. Dr Foss was available by phone for the evaluation of this patient. The time was used to revi ew the medical records including relevant urine studies and Prescription history (MAPs), review of the available imaging, evaluation and examination of the patient, coordination of care with the medical staff and if applicable referring physicians, as well as creation of the medical record - Pain Location Bilateral Lower Back Non-Pharmacological Interventions: Inactivity, Massage, Position/Reposition Pharmacological Interventions: PRN Medication, Scheduled Medication PQRS Narrative: Smoking Status Former smoker Narcotic Agreement Date Signed 01/10/22 Hx Alcohol Use (MH) No Home Medications: Ambulatory Orders Esomeprazole Magnesium [NexIUM] 20 mg PO 1400 02/23/16 Sertraline HCl 200 mg PO 1400 02/23/16 Sildenafil [Revatio] 20 mg PO TID 06/30/16 Multivit-Min/Iron/Folic/Lutein [Centrum Silver Women Tablet] 1 tab PO DAILY 10/25/17 Levothyroxine Sodium [Synthroid] 25 mcg PO QAM 08/21/19 Magnesium Oxide 400 mg PO DAILY 08/21/19 Ascorbic Acid [Vitamin C] 500 mg PO DAILY 01/01/21 Cholecalciferol (Vitamin D3) [Vitamin D3 (125 MCG = 5,000 IU)] 1 cap PO DAILY 11/26/21 Furosemide [Lasix] 20 mg PO DAILY PRN 11/26/21 Potassium Chloride [Klor-Con M10] 20 meq PO DAILY PRN 11/26/21 traZODone HCL [Desyrel] 50 mg PO HS 11/26/21 Acetaminophen Tab [Tylenol] 500 mg PO Q6H PRN 05/17/22 predniSONE 10 mg PO 1400 05/17/22 Gabapentin 600 mg PO TID 30 Days #90 tab 06/01/22 HYDROcodone/APAP 10-325MG [Castor 10-325] 1 tab PO Q8HR PRN 30 Days #90 tab 06/01/22 HYDROcodone/APAP 10-325MG [Castor 10-325] 1 tab PO Q8HR PRN 30 Days #90 tab 06/01/22 fentaNYL 25MCG/HR PATCH [Duragesic 25MCG/HR] 1 patch TRANSDERM Q72H 30 Days #10 patch 06/01/22 fentaNYL 25MCG/HR PATCH [Duragesic 25MCG/HR] 25 mcg TRANSDERM Q72H 30 Days #10 p atch 06/01/22 Controlled Substance Measures - Controlled Substance Measures Is patient prescribed a controlled substance at discharge?: Yes When asked, does pt state using other controlled substances?: No If prescribed controlled substance>3 days was MAPS reviewed?: Yes If Rx opioid, was Start Talking consent form obtained?: Yes Was information provided regarding opioid addiction?: Yes
== END ==
LOC: PNWHC3 10:49
PROVIDERS: ATTEND Specialist
DX: M47.816 Spondylosis without myelopathy or radiculopathy, lumbar region (principal); M51.36 Other intervertebral disc degeneration, lumbar region; G89.29 Other chronic pain; Z79.891 Long term (current) use of opiate analgesic; Z88.2 Allergy status to sulfonamides; Z87.891 Personal history of nicotine dependence
CPT/HCPCS: 99211

== ENCOUNTER → 2022-07-27 | Outpatient (CLI) | payer MEDICARE ==
[2022-07-27 11:05] VITALS: BP 152/62; PULSE 97; RESP 18
--- NOTE | 2022-07-27 14:15 | P.PAINPG ---
PQRS Measure Charge Sheet Comment: A 76 yr old wheelchair bound female with a history of severe and chronic LBP secondary to lumbar DDD and spondylosis with facet arthropathy without myelopathy presents today for medication refills. Pain level is provoked at 3 /10 in intensity, constant, localized in the lumbar spine, achy in character w shooting towards the BLEs. Pain is provoked by over activity. Pain is alleviated with home stretches as tolerated, laying supine, repositioning and rest. Interventional pain procedures completed include Denies Patient is currently on [place] 10/325gm, Neurontin, Fentanyl 25mcg/ hr Patient denies any side effects of the medication(s), denies excessive drowsiness or sleepiness, denies suicidal ideation and reports that the current pain medication is helping to control the pain and improve activities of daily living. Patient denies any motor or sensory deficits. Patient denies any fever or night sweats, denies any change in the bowel movements or urination. Physical Examination: -Constitutional: Cooperative. Not in acute distress . - Neurologic: Cranial nerve II to XII intact. No focal neurological deficits. - Psychatric: Alert & oriented x 3. Matching mood & appropriate affect. Judgment and insight intact. - Musculoskeletal: Cervical spine: Muscle bulk/ tone/ strength in the bilateral upper extremities normal Vertebral body tenderness to palpation over Spurling test positive Distraction test positive Facet loading test positive Thoracic spine Muscle bulk / tone/ strength in the bilateral paraspinal muscles normal Vertebral body tender to palpation over Facet loading test positive Lumbar spine: Motor bulk/ tone/ strength lower extremities , thigh and legs : 5/5 Deep tendon reflexes : Normal Knee Jerk. Normal Ankle Jerk . Vertebral body tenderness to palpation over L3, L4, L5 Lumbar Facet Loading Test positive Straight Leg Raise: positive at 30 degrees right side/ left side Gaenslen's Test positive Sacral spine : Severe tenderness over the Sacroiliac joint: right side / left side Range of motion: Flexion of the lumbar spine <60 degrees Range of motion: Extension of the lumbar spine <20 degrees Gaenslen's Test positive [place] test: positive right side / left side Thigh Thrust Test Sacral Thrust Test Assessment and plan: Chronic LBP secondary to lumbar DDD, spondylosis with facet arthropathy without myelopathy Chronic and current use of high-risk medication (Opioids). The patient was counseled about risk of opioid use, psychological risk associated with opioids and was orally counseled to not overuse , divert or sell medications. Pt is to store medication in a safe location. The patient is counseled against driving while using narcotic medications and also not to use alcohol or any illicit recreational drugs. Patient verbalized understanding that the lack of compliance will result in failure to renew narcotic prescription(s) as well as possible discharge from the clinic Diagnoses, prognosis and treatment options including but not limited to physical therapy, surgical interventions, interventional therapies and medication management including narcotics and adjuvant medication were discussed. All patient questions answered MAPS reviewed and it was appropriate. Prescription refill for [place] 10/325mg #90, Neurontin 600mg #90, Fentanyl 25mcg/hr #10 w 1 RF. I have spent less than 30 minutes on patient care today. Dr Foss was available by phone for the evaluation of this patient. The time was used to review the medical records including relevant urine studies and Prescription history (MAPs), review of the available imaging, evaluation and examination of the patient, coordination of care with the medical staff and if applicable referring physicians, as well as creation of the medical record - Pain Location Lower Back Non-Pharmacological Interventions: Exercise, Heat, Home Exercise, Inactivity, Position/Reposition, Sitting, Stretching Pharmacological Interventions: PRN Medication, Scheduled Medication, Topical Medication PQRS Narrative: Smoking Status Former smoker Narcotic Agreement Date Signed 01/10/22 Hx Alcohol Use (MH) No Home Medications: Ambulatory Orders Esomeprazole Magnesium [NexIUM] 20 mg PO 1400 02/23/16 Sertraline HCl 200 mg PO 1400 02/23/16 Sildenafil [Revatio] 20 mg PO TID 06/30/16 Multivit-Min/Iron/Folic/Lutein [Centrum Silver Women Tablet] 1 tab PO DAILY 10/25/17 Levothyroxine Sodium [Synthroid] 25 mcg PO QAM 08/21/19 Magnesium Oxide 400 mg PO DAILY 08/21/19 Ascorbic Acid [Vitamin C] 500 mg PO DAILY 01/01/21 Cholecalciferol (Vitamin D3) [Vitamin D3 (125 MCG = 5,000 IU)] 1 cap PO DAILY 11/26/21 Furosemide [Lasix] 20 mg PO DAILY PRN 11/26/21 Potassium Chloride [Klor-Con M10] 20 meq PO DAILY PRN 11/26/21 traZODone HCL [Desyrel] 50 mg PO HS 11/26/21 Acetaminophen Tab [Tylenol] 500 mg PO Q6H PRN 05/17/22 predniSONE 10 mg PO 1400 05/17/22 Gabapentin 600 mg PO TID 30 Days #90 tab 07/27/22 HYDROcodone/APAP 10-325MG [[place] 10-325] 1 tab PO Q8H PRN 30 Days #90 tab 07/27/22 HYDROcodone/APAP 10-325MG [[place] 10-325] 1 tab PO Q8HR PRN 30 Days #90 tab 07/27/22 fentaNYL 25MCG/HR PATCH [Duragesic 25MCG/HR] 1 patch TRANSDERM Q72H 30 Days #10 patch 07/27/22 fentaNYL 25MCG/HR PATCH [Duragesic 25MCG/HR] 25 mcg TRANSDERM Q72H 30 Days #10 patch 07/27/22 Controlled Substance Measures - Controlled Substance Measures Is patient prescribed a controlled substance at discharge?: Yes When asked, does pt state using other controlled substances?: No If prescribed controlled substance>3 days was MAPS reviewed?: Yes If Rx opioid, was Start Talking consent form obtained?: Yes If opioid is for acute pain is fill amount 7 days or less?: No Was information provided regarding opioid addiction?: Yes
== END ==
LOC: PNWHC3 10:39
PROVIDERS: ATTEND Specialist
DX: M47.816 Spondylosis without myelopathy or radiculopathy, lumbar region (principal); M51.36 Other intervertebral disc degeneration, lumbar region; G89.29 Other chronic pain; Z79.891 Long term (current) use of opiate analgesic; Z87.891 Personal history of nicotine dependence; Z88.2 Allergy status to sulfonamides
CPT/HCPCS: 99211

== ENCOUNTER 2022-10-03 11:22 | Emergency (ER) | payer MEDICARE ==
[2022-10-03] MEDS ORDERED: IPRATROPIUM-ALBUTEROL 3 ML NEB INHALATION STA (11:48)
[2022-10-03 12:32] LABS: Potassium 3.3 mmol/L (3.5-5.1); Total Bilirubin 0.5 mg/dL (0.2-1.3); Total Protein 6.8 g/dL (6.3-8.2)
[2022-10-03 12:33] LABS: Anisocytosis Moderate; Basophils % (A) 0 %; Eosinophils # (A) 0.1 k/uL (0-0.7); Eosinophils % (A) 1 %; HCT 37.9 % (34.0-46.0); HGB 12.2 gm/dL (11.4-16.0); Hypochromasia Slight; Lymphocytes # (A) 0.7 k/uL (1.0-4.8); Lymphocytes % (A) 6 %; MCHC 32.3 g/dL (31.0-37.0); MCV 83.3 fL (80.0-100.0); Mean Platelet Volume 7.6; Microcytosis Slight; Monocytes # (A) 0.3 k/uL (0-1.0); Monocytes % (A) 3 %; Neutrophils # (A) 11.1 k/uL (1.3-7.7); Neutrophils % (A) 90 %; Platelet Count 433 k/uL (150-450); Poikilocytosis Slight; RBC 4.54 m/uL (3.80-5.40); RDW 20.5 % (11.5-15.5); WBC 12.3 k/uL (3.8-10.6)
--- NOTE | 2022-10-03 12:36 | ED ---
SOB HPI - General Chief Complaint: Shortness of Breath Stated Complaint: sob - sent by urgent care Time Seen by Provider: 10/03/22 11:39 Source: patient, RN notes reviewed Mode of arrival: ambulatory Limitations: no limitations - History of Present Illness Initial Comments: This is a 76-year-old female who presents to the emergency department for coughing and difficulty breathing. Patient states that this has been present over the last 10 days. She initially went to urgent care this morning, who instructed her to come to the emergency department for possible pneumonia. She denies any fevers. She was around her who is sick, but states that he is now much better. Patient does not smoke and she denies any history of respiratory illnesses such as COPD or asthma. Does report losing her taste and sense of smell. Denies any chest pain. Denies any fevers, chills, sore throat, chest pain, palpitations, abdominal pain, nausea, vomiting, diarrhea, back pain, or headaches. MD Complaint: shortness of breath, cough Onset/Timin -: days(s) - Related Data Home Medications Medication Instructions Recorded Confirmed Esomeprazole Magnesium [NexIUM] 20 mg PO DAILY 02/23/16 10/03/22 Sertraline HCl 200 mg PO DAILY 02/23/16 10/03/22 Sildenafil [Revatio] 20 mg PO TID 06/30/16 10/03/22 Multivit-Min/Iron/Folic/Lutein 1 tab PO DAILY 10/25/17 10/03/22 [Centrum Silver Women Tablet] Levothyroxine Sodium [Synthroid] 25 mcg PO DAILY 08/21/19 10/03/22 Magnesium Oxide 400 mg PO DAILY 08/21/19 10/03/22 Ascorbic Acid [Vitamin C] 500 mg PO DAILY 01/01/21 10/03/22 Cholecalciferol (Vitamin D3) 125 mcg PO DAILY 11/26/21 10/03/22 [Vitamin D3 (125 MCG = 5,000 IU)] Potassium Chloride [Klor-Con M10] 10 meq PO DAILY 11/26/21 10/03/22 predniSONE 10 mg PO DIRECTED 05/17/22 10/03/22 Albuterol Sulfate [Albuterol 2 puff PO RT-Q6H PRN 10/03/22 10/03/22 Sulfate Hfa] Amoxic-Pot Clav 875-125Mg 1 tab PO BID 10/03/22 10/03/22 [Augmentin 875-125] Azithromycin [Zithromax Z Pack] See Taper PO DIRECTED 10/03/22 10/03/22 Cyanocobalamin (Vitamin B-12) 1,000 mcg PO DAILY 10/03/22 10/03/22 [Vitamin B-12] HYDROcodone/APAP 10-325MG [Echo 1 tab PO BID 10/03/22 10/03/22 10-325] Naloxone HCl [Narcan] 4 mg NASAL DIRECTED PRN 10/03/22 10/03/22 Zinc Gluconate [Zinc] 50 mg PO DAILY 10/03/22 10/03/22 predniSONE 50 mg PO DAILY 10/03/22 10/03/22 traZODone HCL [Desyrel] 100 mg PO HS 10/03/22 10/03/22 Previous Rx's Medication Instructions Recorded Gabapentin 600 mg PO TID 30 Days #90 tab 07/27/22 Azithromycin [Zithromax] 250 mg PO DIRECTED #6 tab 10/03/22 Ipratropium-Albuterol Nebulize 3 ml INHALATION Q4-6H PRN #90 ml 10/03/22 [Duoneb 0.5 mg-3 mg/3 ml Soln] Promethazine/Dextromethorphan 5 ml PO Q4-6H PRN #473 ml 10/03/22 [Promethazine-Dm Syrup] predniSONE 50 mg PO DAILY 4 Days #4 tab 10/03/22 Allergies Allergy/AdvReac Type Severity Reaction Status Date / Time Sulfa (Sulfonamide Allergy Rash/Hives Verified 10/03/22 12:46 Antibiotics) Review of Systems ROS Statement: Those systems with pertinent positive or pertinent negative responses have been documented in the HPI. ROS Other: All systems not noted in ROS Statement are negative. Past Medical History Past Medical History: Deep Vein Thrombosis (DVT), Eye Disorder, GERD/Reflux, Hypertension, Musculoskeletal Disorder Additional Past Medical History / Comment(s): violeta cataracts, neuropathy violeta feet, sclerederma, osorio's esophogus, GRAVES disease, (r/t stomach) pulmonary hypertension History of Any Multi-Drug Resistant Organisms: None Reported Past Surgical History: Bowel Resection, Cholecystectomy, Hysterectomy, Joint Replacement Additional Past Surgical History / Comment(s): 12/01/21 LUMBAR SURGERY. 04/22/21 LEFT KNEE REPLACEMENT. rt knee replacement, oopherectomy post partial hysterectomy, EGD, COLONOSCOPY. Right foot surgery Past Anesthesia/Blood Transfusion Reactions: No Reported Reaction Past Psychological History: Depression Smoking Status: Former smoker Past Alcohol Use History: None Reported Past Drug Use History: None Reported - Past Family History Father Family Medical History: Cancer Additional Family Medical History / Comment(s): throat cancer Mother Family Medical History: Chest Pain / Angina, Osteoarthritis (OA) General Exam Limitations: no limitations General appearance: alert, in no apparent distress Head exam: Present: atraumatic, normocephalic, normal inspection Respiratory exam: Present: wheezes, decreased breath sounds, prolonged expiratory Cardiovascular Exam: Present: regular rate, normal rhythm, normal heart sounds. Absent: systolic murmur, diastolic murmur, rubs, gallop, clicks Neurological exam: Present: alert, oriented X3, CN II-XII intact Psychiatric exam: Present: normal affect, normal mood Skin exam: Present: warm, dry, intact, normal color. Absent: rash Course Vital Signs 10/03/22 10/03/22 10/03/22 11:25 11:29 12:29 Temperature 98.1 F Pulse Rate 69 72 90 Respiratory 24 22 20 Rate Blood Pressure 160/71 162/79 130/80 O2 Sat by Pulse 90 L 95 98 Oximetry 10/03/22 10/03/22 10/03/22 13:31 13:38 13:44 Temperature Pulse Rate 76 76 87 Respiratory 20 Rate Blood Pressure 161/88 O2 Sat by Pulse 97 Oximetry 10/03/22 14:16 Temperature 98 F Pulse Rate 90 Respiratory 18 Rate Blood Pressure 120/68 O2 Sat by Pulse 98 Oximetry Medical Decision Making - Medical Decision Making This is a 76-year-old female who presents to the emergency department for coughing and difficulty breathing. Was pt. sent in by a medical professional or institution? @ -[facility] Did you speak to anyone other than the patient for history? @ -Her Did you review nursing and triage notes? @ -Yes, and I agree, it is accurate with regards to the patient's symptoms. Were old charts reviewed? @ -No Differential Diagnosis? @ -Differential Dyspnea: Coronary syndrome, arrhythmia, tamponade, asthma, COPD, pulmonary embolism, pneumonia, pneumothorax, pulmonary effusion, anaphylaxis, diabetic ketoacidosis, flailed chest, pulmonary contusion, diaphragmatic rupture, anemia, neuromuscular, this is not meant to be an all-inclusive list. X-rays interpreted by me (1pt min.)? @ -Chest x-ray obtained, my interpretation identifies no localized consolidations or infiltrates. What testing was considered but not performed? (CT, X-rays, U/S, labs)? Why? @ -None What meds were considered but not given? Why? @ -None Did you discuss the management of the patient with other professionals? @ -No Did you reconcile home meds? @ -No Was smoking cessation discussed for >3mins.? @ -No Was critical care preformed (if so, how long)? @ -No Were there social determinants of health that impacted care today? How? (Homelessness, low income, unemployed, alcoholism, drug addiction, transportation, low edu. Level, literacy, decrease access to med. care, skilled nursing, rehab)? @ -No Was there de-escalation of care discussed even if they declined? (Discuss DNR or withdrawal of care, Hospice)? @ -No What co-morbidities impacted this encounter? (DM, HTN, Smoking, COPD, CAD, Cancer, CVA, Hep., AIDS, mental health diagnosis, sleep apnea, morbid obesity)? @ -None Was patient admitted / discharged? @ -Discharged. Lab work obtained revealing leukocytosis and otherwise no acute findings. Patient negative for Covid and influenza. She was given a DuoNeb breathing treatment with significant improvement in symptoms and wheezing. Patient overall feels notably improved and requests discharge home. She has an albuterol inhaler, which she states is not particularly effective. I filled out a prescription for a nebulizer that I instructed her to take to the medical supply store. Prescription for DuoNeb breathing treatments provided to be used with the nebulizer. Given that symptoms have been present for 10 days at this point, will start the patient on a course of antibiotics. Prescriptions for azithromycin, prednisone, and promethazine DM cough syrup provided with dosing instructions reviewed. Undiagnosed new problem with uncertain prognosis? @ -None Drug Therapy requiring intensive monitoring for toxicity (Heparin, Nitro, Insulin, Cardizem)? @ -None Were any procedures done? @ -None Diagnosis/symptom? @ -Bronchitis Acute, or Chronic, or Acute on Chronic? @ -Acute Uncomplicated (without systemic symptoms) or Complicated (systemic symptoms)? @ -Uncomplicated Side effects of treatment? @ -None Exacerbation, Progression, or Severe Exacerbation] @ -Not applicable Poses a threat to life or bodily function? @ -No Return precautions reviewed in depth, the patient is instructed to return to the emergency department with any new, worsening, or concerning symptoms. Patient verbalized understanding. This case was discussed in detail with the attending ED physician, Dr. Smiley. Presentation, findings, and treatment plan discussed in detail as well. - Lab Data Result diagrams: 10/03/22 11:48 10/03/22 11:48 Lab Results 10/03/22 10/03/22 10/03/22 Range/Units 11:48 11:48 11:48 WBC 12.3 H (3.8-10.6) k/uL RBC 4.54 (3.80-5.40) m/uL Hgb 12.2 (11.4-16.0) gm/dL Hct 37.9 (34.0-46.0) % MCV 83.3 (80.0-100.0) fL MCH 27.0 (25.0-35.0) pg MCHC 32.3 (31.0-37.0) g/dL RDW 20.5 H (11.5-15.5) % Plt Count 433 (150-450) k/uL MPV 7.6 Neutrophils % 90 % Lymphocytes % 6 % Monocytes % 3 % Eosinophils % 1 % Basophils % 0 % Neutrophils # 11.1 H (1.3-7.7) k/uL Lymphocytes # 0.7 L (1.0-4.8) k/uL Monocytes # 0.3 (0-1.0) k/uL Eosinophils # 0.1 (0-0.7) k/uL Basophils # 0.0 (0-0.2) k/uL Hypochromasia Slight Poikilocytosis Slight Anisocytosis Moderate Microcytosis Slight PT 10.1 (9.0-12.0) sec INR 0.9 (<1.2) APTT 22.3 (22.0-30.0) sec Sodium 143 (137-145) mmol/L Potassium 3.3 L (3.5-5.1) mmol/L Chloride 111 H (98-107) mmol/L Carbon Dioxide 19 L (22-30) mmol/L Anion Gap 13 mmol/L BUN 20 H (7-17) mg/dL Creatinine 1.00 (0.52-1.04) mg/dL Est GFR (CKD-EPI)AfAm 64 (>60 ml/min/1.73 sqM) Est GFR (CKD-EPI)NonAf 56 (>60 ml/min/1.73 sqM) Glucose 79 (74-99) mg/dL Plasma Lactic Acid Jeanmarie (0.7-2.0) mmol/L Calcium 9.0 (8.4-10.2) mg/dL Total Bilirubin 0.5 (0.2-1.3) mg/dL AST 20 (14-36) U/L ALT 19 (4-34) U/L Alkaline Phosphatase 57 (38-126) U/L Troponin I (0.000-0.034) ng/mL Total Protein 6.8 (6.3-8.2) g/dL Albumin 4.0 (3.5-5.0) g/dL Coronavirus (PCR) (Not Detectd) Influenza Type A RNA (Not Detectd) Influenza Type B (PCR) (Not Detectd) 10/03/22 10/03/22 10/03/22 Range/Units 11:48 11:48 11:48 WBC (3.8-10.6) k/uL RBC (3.80-5.40) m/uL Hgb (11.4-16.0) gm/dL Hct (34.0-46.0) % MCV (80.0-100.0) fL MCH (25.0-35.0) pg MCHC (31.0-37.0) g/dL RDW (11.5-15.5) % Plt Count (150-450) k/uL MPV Neutrophils % % Lymphocytes % % Monocytes % % Eosinophils % % Basophils % % Neutrophils # (1.3-7.7) k/uL Lymphocytes # (1.0-4.8) k/uL Monocytes # (0-1.0) k/uL Eosinophils # (0-0.7) k/uL Basophils # (0-0.2) k/uL Hypochromasia Poikilocytosis Anisocytosis Microcytosis PT (9.0-12.0) sec INR (<1.2) APTT (22.0-30.0) sec Sodium (137-145) mmol/L Potassium (3.5-5.1) mmol/L Chloride (98-107) mmol/L Carbon Dioxide (22-30) mmol/L Anion Gap mmol/L BUN (7-17) mg/dL Creatinine (0.52-1.04) mg/dL Est GFR (CKD-EPI)AfAm (>60 ml/min/1.73 sqM) Est GFR (CKD-EPI)NonAf (>60 ml/min/1.73 sqM) Glucose (74-99) mg/dL Plasma Lactic Acid Jeanmarie 1.4 (0.7-2.0) mmol/L Calcium (8.4-10.2) mg/dL Total Bilirubin (0.2-1.3) mg/dL AST (14-36) U/L ALT (4-34) U/L Alkaline Phosphatase (38-126) U/L Troponin I <0.012 (0.000-0.034) ng/mL Total Protein (6.3-8.2) g/dL Albumin (3.5-5.0) g/dL Coronavirus (PCR) (Not Detectd) Influenza Type A RNA Not Detected (Not Detectd) Influenza Type B (PCR) Not Detected (Not Detectd) 10/03/22 Range/Units 11:48 WBC (3.8-10.6) k/uL RBC (3.80-5.40) m/uL Hgb (11.4-16.0) gm/dL Hct (34.0-46.0) % MCV (80.0-100.0) fL MCH (25.0-35.0) pg MCHC (31.0-37.0) g/dL RDW (11.5-15.5) % Plt Count (150-450) k/uL MPV Neutrophils % % Lymphocytes % % Monocytes % % Eosinophils % % Basophils % % Neutrophils # (1.3-7.7) k/uL Lymphocytes # (1.0-4.8) k/uL Monocytes # (0-1.0) k/uL Eosinophils # (0-0.7) k/uL Basophils # (0-0.2) k/uL Hypochromasia Poikilocytosis Anisocytosis Microcytosis PT (9.0-12.0) sec INR (<1.2) APTT (22.0-30.0) sec Sodium (137-145) mmol/L Potassium (3.5-5.1) mmol/L Chloride (98-107) mmol/L Carbon Dioxide (22-30) mmol/L Anion Gap mmol/L BUN (7-17) mg/dL Creatinine (0.52-1.04) mg/dL Est GFR (CKD-EPI)AfAm (>60 ml/min/1.73 sqM) Est GFR (CKD-EPI)NonAf (>60 ml/min/1.73 sqM) Glucose (74-99) mg/dL Plasma Lactic Acid Jeanmarie (0.7-2.0) mmol/L Calcium (8.4-10.2) mg/dL Total Bilirubin (0.2-1.3) mg/dL AST (14-36) U/L ALT (4-34) U/L Alkaline Phosphatase (38-126) U/L Troponin I (0.000-0.034) ng/mL Total Protein (6.3-8.2) g/dL Albumin (3.5-5.0) g/dL Coronavirus (PCR) Not Detected (Not Detectd) Influenza Type A RNA (Not Detectd) Influenza Type B (PCR) (Not Detectd) - Radiology Data Radiology results: report reviewed, image reviewed Disposition Clinical Impression: Bronchitis Disposition: HOME SELF-CARE Instructions (If sedation given, give patient instructions): Acute Bronchitis (ED) Additional Instructions: Return to the emergency department with any new, worsening, or concerning symptoms. Take the antibiotic as prescribed for 5 days. Take the prednisone daily for 4 days, with your first dose beginning tomorrow, as you received a steroid here. You can use the breathing treatments every 4-6 hours as needed. The cough medication can be used every 4-6 hours as needed as well. Be aware that the cough medication may make you drowsy and you should take it at night until you know how it affects you. Follow up with your primary care provider in 1-2 days. Prescriptions: Ipratropium-Albuterol Nebulize [Duoneb 0.5 mg-3 mg/3 ml Soln] 3 ml INHALATION Q4-6H PRN #90 ml PRN Reason: Shortness Of Breath predniSONE 50 mg PO DAILY 4 Days #4 tab Promethazine/Dextromethorphan [Promethazine-Dm Syrup] 5 ml PO Q4-6H PRN #473 ml PRN Reason: Cough Azithromycin [Zithromax] 250 mg PO DIRECTED #6 tab Is patient prescribed a controlled substance at d/c from ED?: No Referrals: Kavon Welch MD [Primary Care Provider] - 1-2 days
[2022-10-03 12:40] LABS: INR 0.9 (<1.2); Partial Thromboplastin Time 22.3 sec (22.0-30.0); Prothrombin Time 10.1 sec (9.0-12.0)
--- NOTE | 2022-10-03 12:42 | XR ---
EXAMINATION TYPE: XR chest 2V DATE OF EXAM: 10/03/2022 COMPARISON: 05/12/2022 INDICATION: Upper respiratory tract infection and shortness of breath TECHNIQUE: Frontal and lateral views of the chest are obtained. FINDINGS: The heart size is normal. The pulmonary vasculature is normal. The lungs are clear. IMPRESSION: 1. No acute pulmonary process.
[2022-10-03] MEDS ORDERED: methylPREDNISolone SOD SUCCI 125 MG/2 ML VIAL IV STA (13:42)
[2022-10-03 14:17] VITALS: BP 120/68; PULSE 90; RESP 18; TEMP 98
[2022-10-06 22:32] LABS: Chol/HDL Ratio 4.27 Ratio; LDL Cholesterol,Calculated 84.8 mg/dL (0.0-131.0)
== END 2022-10-03 14:29 | disposition home or self-care (01) ==
LOC: EC 11:22
DX: J40 Bronchitis, not specified as acute or chronic (principal); I10 Essential (primary) hypertension; K21.9 Gastro-esophageal reflux disease without esophagitis; Z79.52 Long term (current) use of systemic steroids; Z79.899 Other long term (current) drug therapy; Z87.891 Personal history of nicotine dependence; Z88.1 Allergy status to other antibiotic agents; Z88.2 Allergy status to sulfonamides; Z90.49 Acquired absence of other specified parts of digestive tract; Z20.822 Contact with and (suspected) exposure to COVID-19
CPT/HCPCS: 36415; 94640; 93005; 80061; 80053; 83605; 84484; 85025; 85610; 85730; 87502; 87635; 71046; 99285; 96374; J2930

== ENCOUNTER → 2022-10-24 | Outpatient (CLI) | payer MEDICARE ==
--- NOTE | 2022-10-25 19:21 | MM ---
Reason for Exam: Screening (asymptomatic). Last mammogram was performed 1 year(s) and 1 month(s) ago. Patient History: Menarche at age 12. First Full-Term at age 21. Left ovary removed at age 47. Right ovary removed at age 47. Hysterectomy at age 44. Postmenopausal. Patient has history of breast feeding. Patient used Estrogen for 16 years. Maternal aunt had breast cancer, age 60. Risk Values: Jerri 5 year model risk: 1.7%. NCI Lifetime model risk: 3.8%. Prior Study Comparison: 02/15/2017 Bilateral Screening Mammogram, [facility]. 10/11/2018 Bilateral Screening Mammogram, [facility]. 08/31/2021 Bilateral Screening Mammogram, [facility]. Tissue Density: The breast tissue is heterogeneously dense. This may lower the sensitivity of mammography. Findings: Analyzed By CAD. Chronic nodularity left breast. Scattered small benign oil cyst calcifications are redemonstrated. There is no suspicious group of microcalcifications or new suspicious mass in either breast. Overall Assessment: Benign, BI-RAD 2 Management: Screening Mammogram of both breasts in 1 year. 1. Patient should continue monthly self breast exams. 2. A clinical breast exam by your physician is recommended on an annual basis. 3. This exam should not preclude additional follow-up of suspicious palpable abnormalities. Electronically signed and approved by: Pa Zacarias M.D. Radiologist
== END | disposition home or self-care (01) ==
LOC: RADMAMWWP 15:47
PROVIDERS: ATTEND Family Medicine
DX: Z12.31 Encounter for screening mammogram for malignant neoplasm of breast (principal); Z78.0 Asymptomatic menopausal state; Z80.3 Family history of malignant neoplasm of breast
CPT/HCPCS: 77063; 77067

== ENCOUNTER → 2022-10-27 | Outpatient (CLI) | payer MEDICARE ==
--- NOTE | 2022-10-27 14:15 | P.PAINPG ---
PQRS Measure Charge Sheet Comment: A 76 yr old female with a history of severe and chronic LBP x 1 yr secondary to lumbar DDD and spondylosis with facet arthropathy without myelopathy presents today for medication refills. Pain level is provoked at 8 /10 in intensity, constant, localized in the lumbar spine, dull/ achy in character w shooting towards the LLE. Pain is provoked by weight bearing activity. Pain is alleviated with medications, topicals, use of a walker for ambulatory assistance, PT to start next week at Dr Palomares's office, massage therapy semi monthly, chiropractic treatments weekly x 3 mo in 2021, use of a pulsating showerhead, repositioning and rest. Discontinued Fentanyl as pt was weaned off while hospitalized. Patient is currently on [place], Neurontin, Fentanyl Patient denies any side effects of the medication(s), denies excessive drowsiness or sleepiness, denies suicidal ideation and reports that the current pain medication is helping to control the pain and improve activities of daily living. Patient denies any motor or sensory deficits. Patient denies any fever or night sweats, denies any change in the bowel movements or urination. Physical Examination: -Constitutional: Cooperative. Not in acute distress . - Neurologic: Cranial nerve II to XII intact. No focal neurological deficits. - Psychatric: Alert & oriented x 3. Matching mood & appropriate affect. Judgment and insight intact. - Musculoskeletal: Cervical spine: Muscle bulk/ tone/ strength in the bilateral upper extremities normal Vertebral body tenderness to palpation over Spurling test positive Distraction test positive Facet loading test positive TTP Thoracic spine Muscle bulk / tone/ strength in the bilateral paraspinal muscles normal Vertebral body tender to palpation over Facet loading test positive TTP Lumbar spine: Motor bulk/ tone/ strength lower extremities , thigh and legs : 5/5 Deep tendon reflexes : Normal Knee Jerk. Normal Ankle Jerk . Vertebral body tenderness to palpation over L3, L4, L5 Lumbar Facet Loading Test positive Straight Leg Raise: positive at 30 degrees right side/ left side Gaenslen's Test positive Sacral spine : Severe tenderness over the Sacroiliac joint: right side / left side Range of motion: Flexion of the lumbar spine <60 degrees Range of motion: Extension of the lumbar spine <20 degrees Gaenslen's Test positive right side / left side [place] test: positive right side / left side Thigh Thrust Test positive right side / left side Sacral Thrust Test positive right side / left side Assessment and plan: Chronic LBP secondary to lumbar DDD, spondylosis with facet arthropathy without myelopathy Recommendation of . Risks, benefits of procedure discussed and pt verbalized understanding. Admits to anticoagulant use or medical history of diabetes. Protocol for discontinuation/ continuation of medications lizbet procedure discussed. All questions answered. Chronic and current use of high-risk medication (Opioids). The patient was counseled about risk of opioid use, psychological risk associated with opioids and was orally counseled to not overuse , divert or sell medications. Pt is to store medication in a safe location. The patient is counseled against driving while using narcotic medications and also not to use alcohol or any illicit recreational drugs. Patient verbalized understanding that the lack of compliance will result in failure to renew narcotic prescription(s) as well as possible discharge from the clinic Diagnoses, prognosis and treatment options including but not limited to physical therapy, surgical interventions, interventional therapies and medication management including narcotics and adjuvant medication were discussed. All patient questions answered MAPS reviewed and it was appropriate. Difficulty voiding so will collect UDS at next visit. Prescription refill for [place] , Neurontin w 1 RF I have spent less than 30 minutes on patient care today. Dr Foss was available by phone for the evaluation of this patient. The time was used to review the medical records including relevant urine studies and Prescription history (MAPs), review of the available imaging, evaluation and examination of the patient, coordination of care with the medical staff and if applicable referring physicians, as well as creation of the medical record PQRS Narrative: Smoking Status Former smoker Narcotic Agreement Date Signed 01/10/22 Hx Alcohol Use (MH) No Home Medications: Ambulatory Orders Esomeprazole Magnesium [NexIUM] 20 mg PO DAILY 02/23/16 Sertraline HCl 200 mg PO DAILY 02/23/16 Sildenafil [Revatio] 20 mg PO TID 06/30/16 Multivit-Min/Iron/Folic/Lutein [Centrum Silver Women Tablet] 1 tab PO DAILY 10/25/17 Levothyroxine Sodium [Synthroid] 25 mcg PO DAILY 08/21/19 Magnesium Oxide 400 mg PO DAILY 08/21/19 Ascorbic Acid [Vitamin C] 500 mg PO DAILY 01/01/21 Cholecalciferol (Vitamin D3) [Vitamin D3 (125 MCG = 5,000 IU)] 125 mcg PO DAILY 11/26/21 Potassium Chloride [Klor-Con M10] 10 meq PO DAILY 11/26/21 predniSONE 10 mg PO DIRECTED 05/17/22 Albuterol Sulfate [Albuterol Sulfate Hfa] 2 puff PO RT-Q6H PRN 10/03/22 Amoxic-Pot Clav 875-125Mg [Augmentin 875-125] 1 tab PO BID 10/03/22 Azithromycin [Zithromax Z Pack] See Taper PO DIRECTED 10/03/22 Azithromycin [Zithromax] 250 mg PO DIRECTED #6 tab 10/03/22 Cyanocobalamin (Vitamin B-12) [Vitamin B-12] 1,000 mcg PO DAILY 10/03/22 Ipratropium-Albuterol Nebulize [Duoneb 0.5 mg-3 mg/3 ml Soln] 3 ml INHALATION Q4-6H PRN #90 ml 10/03/22 Naloxone HCl [Narcan] 4 mg NASAL DIRECTED PRN 10/03/22 Promethazine/Dextromethorphan [Promethazine-Dm Syrup] 5 ml PO Q4-6H PRN #473 ml 10/03/22 Zinc Gluconate [Zinc] 50 mg PO DAILY 10/03/22 predniSONE 50 mg PO DAILY 10/03/22 predniSONE 50 mg PO DAILY 4 Days #4 tab 10/03/22 traZODone HCL [Desyrel] 100 mg PO HS 10/03/22 Gabapentin 600 mg PO TID 30 Days #90 tab 10/27/22 HYDROcodone/APAP 10-325MG [[place] 10-325] 1 tab PO BID PRN 30 Days #60 tab 10/27/22 HYDROcodone/APAP 10-325MG [[place] 10-325] 1 tab PO BID PRN 30 Days #60 tab 10/27/22 Controlled Substance Measures - Controlled Substance Measures Is patient prescribed a controlled substance at discharge?: Yes
== END ==
LOC: PNWHC3 10:59
PROVIDERS: ATTEND Specialist
DX: M51.36 Other intervertebral disc degeneration, lumbar region (principal); M47.816 Spondylosis without myelopathy or radiculopathy, lumbar region; G89.29 Other chronic pain; Z79.891 Long term (current) use of opiate analgesic; Z87.891 Personal history of nicotine dependence
CPT/HCPCS: 99211

== ENCOUNTER → 2022-12-14 | Outpatient (CLI) | payer MEDICARE ==
--- NOTE | 2022-12-14 15:29 | US ---
EXAMINATION TYPE: US venous doppler duplex LE LT DATE OF EXAM: 12/14/2022 1:59 PM COMPARISON: NONE CLINICAL INDICATION: Female, 77 years old with history of M79.89 LEFT LEG SWELLING; pain SIDE PERFORMED: Left TECHNIQUE: The lower extremity deep venous system is examined utilizing real time linear array sonog geovanna with graded compression, doppler sonography and color-flow sonography. VESSELS IMAGED: Common Femoral Vein Deep Femoral Vein Greater Saphenous Vein * Femoral Vein Popliteal Vein Small Saphenous Vein * Proximal Calf Veins (* superficial vessels) Left Leg: Negative for DVT IMPRESSION: 1. Left lower extremity ultrasound negative for deep venous thrombosis.
== END | disposition home or self-care (01) ==
LOC: RADUSWWP 13:41
PROVIDERS: ATTEND Family Medicine
DX: M79.89 Other specified soft tissue disorders (principal)

== ENCOUNTER → 2022-12-22 | Outpatient (CLI) | payer MEDICARE ==
[2022-12-22 12:02] VITALS: BP 138/72; PULSE 69; RESP 18; TEMP 98.1
--- NOTE | 2022-12-22 15:02 | P.PAINPG ---
PQRS Measure Charge Sheet Comment: A 76 yr old female with a history of severe and chronic LBP x 1 yr secondary to lumbar DDD and spondylosis with facet arthropathy without myelopathy presents today for medication refills. Pain level is provoked at 8 /10 in intensity, constant, localized in the lumbar spine L> R, sore in character w shooting towards the LLE. Pain is provoked by weight bearing activity. Pain is alleviated with medications, topicals, use of a walker for ambulatory assistance, PT x 5 wks which she is currently in at Dr Palomares's office, massage therapy semi monthly, chiropractic treatments weekly x 3 mo in 2021, use of a pulsating showerhead, repositioning and rest. Will consider Caudal ALEX w Lysis at next visit. Patient is currently on [place], Neurontin Patient denies any side effects of the medication(s), denies excessive drowsiness or sleepiness, denies suicidal ideation and reports that the current pain medication is helping to control the pain and improve activities of daily living. Patient denies any motor or sensory deficits. Patient denies any fever or night sweats, denies any change in the bowel movements or urination. Physical Examination: -Constitutional: Cooperative. Not in acute distress . - Neurologic: Cranial nerve II to XII intact. No focal neurological deficits. - Psychatric: Alert & oriented x 3. Matching mood & appropriate affect. Judgment and insight intact. - Musculoskeletal: Cervical spine: Muscle bulk/ tone/ strength in the bilateral upper extremities normal Vertebral body tenderness to palpation over Spurling test positive Distraction test positive Facet loading test positive TTP Thoracic spine Muscle bulk / tone/ strength in the bilateral paraspinal muscles normal Vertebral body tender to palpation over Facet loading test positive TTP Lumbar spine: Motor bulk/ tone/ strength lower extremities , thigh and legs : 5/5 Deep tendon reflexes : Normal Knee Jerk. Normal Ankle Jerk . Vertebral body tenderness to palpation over L3, L4, L5 Lumbar Facet Loading Test positive Straight Leg Raise: positive at 30 degrees right side/ left side Gaenslen's Test positive Sacral spine : Severe tenderness over the Sacroiliac joint: right side / left side Range of motion: Flexion of the lumbar spine <60 degrees Range of motion: Extension of the lumbar spine <20 degrees Gaenslen's Test positive right side / left side [place] test: positive right side / left side Thigh Thrust Test positive right side / left side Sacral Thrust Test positive right side / left side Assessment and plan: Chronic LBP secondary to lumbar DDD, spondylosis with facet arthropathy without myelopathy Chronic and current use of high-risk medication (Opioids). The patient was counseled about risk of opioid use, psychological risk associated with opioids and was orally counseled to not overuse , divert or sell medications. Pt is to store medication in a safe location. The patient is counseled against driving while using narcotic medications and also not to use alcohol or any illicit recreational drugs. Patient verbalized understanding that the lack of compliance will result in failure to renew narcotic prescription(s) as well as possible discharge from the clinic Diagnoses, prognosis and treatment options including but not limited to physical therapy, surgical interventions, interventional therapies and medication management including narcotics and adjuvant medication were discussed. All patient questions answered MAPS reviewed and it was appropriate. UDS collected today 12/22/22. Prescription refill for [place] , Neurontin w 1 RF I have spent less than 30 minutes on patient care today. Dr Foss was available by phone for the evaluation of this patient. The time was used to review the medical records including relevant urine studies and Prescription history (MAPs), review of the available imaging, evaluation and examination of the patient, coordination of care with the medical staff and if applicable referring physicians, as well as creation of the medical record PQRS Narrative: Smoking Status Former smoker Narcotic Agreement Date Signed 01/10/22 Hx Alcohol Use (MH) No Home Medications: Ambulatory Orders Esomeprazole Magnesium [NexIUM] 20 mg PO DAILY 02/23/16 Sertraline HCl 200 mg PO DAILY 02/23/16 Sildenafil [Revatio] 20 mg PO TID 06/30/16 Multivit-Min/Iron/Folic/Lutein [Centrum Silver Women Tablet] 1 tab PO DAILY 10/25/17 Levothyroxine Sodium [Synthroid] 25 mcg PO DAILY 08/21/19 Magnesium Oxide 400 mg PO DAILY 08/21/19 Ascorbic Acid [Vitamin C] 500 mg PO DAILY 01/01/21 Cholecalciferol (Vitamin D3) [Vitamin D3 (125 MCG = 5,000 IU)] 125 mcg PO DAILY 11/26/21 Potassium Chloride [Klor-Con M10] 10 meq PO DAILY 11/26/21 predniSONE 10 mg PO DIRECTED 05/17/22 Albuterol Sulfate [Albuterol Sulfate Hfa] 2 puff PO RT-Q6H PRN 10/03/22 Amoxic-Pot Clav 875-125Mg [Augmentin 875-125] 1 tab PO BID 10/03/22 Azithromycin [Zithromax Z Pack] See Taper PO DIRECTED 10/03/22 Azithromycin [Zithromax] 250 mg PO DIRECTED #6 tab 10/03/22 Cyanocobalamin (Vitamin B-12) [Vitamin B-12] 1,000 mcg PO DAILY 10/03/22 Ipratropium-Albuterol Nebulize [Duoneb 0.5 mg-3 mg/3 ml Soln] 3 ml INHALATION Q4-6H PRN #90 ml 10/03/22 Naloxone HCl [Narcan] 4 mg NASAL DIRECTED PRN 10/03/22 Promethazine/Dextromethorphan [Promethazine-Dm Syrup] 5 ml PO Q4-6H PRN #473 ml 10/03/22 Zinc Gluconate [Zinc] 50 mg PO DAILY 10/03/22 predniSONE 50 mg PO DAILY 10/03/22 predniSONE 50 mg PO DAILY 4 Days #4 tab 10/03/22 traZODone HCL [Desyrel] 100 mg PO HS 10/03/22 Gabapentin 600 mg PO TID 30 Days #90 tab 12/22/22 HYDROcodone/APAP 10-325MG [[place] 10-325] 1 tab PO BID PRN 30 Days #60 tab 12/22/22 HYDROcodone/APAP 10-325MG [[place] 10-325] 1 tab PO BID PRN 30 Days #60 tab 12/22/22 Controlled Substance Measures - Controlled Substance Measures Is patient prescribed a controlled substance at discharge?: Yes When asked, does pt state using other controlled substances?: No If prescribed controlled substance>3 days was MAPS reviewed?: Yes
== END ==
LOC: PNWHC3 10:55
PROVIDERS: ATTEND Specialist
DX: M51.36 Other intervertebral disc degeneration, lumbar region (principal); M47.816 Spondylosis without myelopathy or radiculopathy, lumbar region; G89.29 Other chronic pain; Z87.891 Personal history of nicotine dependence; Z79.891 Long term (current) use of opiate analgesic; Z88.2 Allergy status to sulfonamides
CPT/HCPCS: 99212

== ENCOUNTER → 2023-02-16 | Outpatient (CLI) | payer MEDICARE ==
[2023-02-16 11:51] VITALS: BP 153/76; PULSE 74; RESP 14; TEMP 98.2
--- NOTE | 2023-02-16 12:27 | P.PAINPG ---
PQRS Measure Charge Sheet Comment: A 77 yr old female with a history of severe and chronic LBP x 1 yr secondary to lumbar DDD and spondylosis with facet arthropathy without myelopathy presents today for medication refills. Pain level is provoked at 7/10 in intensity, constant, localized in the lumbar spine L> R, sore in character w shooting towards the LLE. Pain is provoked by weight bearing activity. Pain is alleviated with medications, topicals, use of a walker for ambulatory assistance, PT x 8 wks in Dec 2022, massage therapy semi monthly, chiropractic treatments weekly x 3 mo in 2021, use of a pulsating showerhead, repositioning and rest. Patient is currently on [place] 10/325mg #60, Neurontin 600mg #90 Patient denies any side effects of the medication(s), denies excessive drowsiness or sleepiness, denies suicidal ideation and reports that the current pain medication is helping to control the pain and improve activities of daily living. Patient denies any motor or sensory deficits. Patient denies any fever or night sweats, denies any change in the bowel movements or urination. Physical Examination: -Constitutional: Cooperative. Not in acute distress . - Neurologic: Cranial nerve II to XII intact. No focal neurological deficits. - Psychatric: Alert & oriented x 3. Matching mood & appropriate affect. Judgment and insight intact. - Musculoskeletal: Cervical spine: Muscle bulk/ tone/ strength in the bilateral upper extremities normal Vertebral body tenderness to palpation over Spurling test positive Distraction test positive Facet loading test positive TTP Thoracic spine Muscle bulk / tone/ strength in the bilateral paraspinal muscles normal Vertebral body tender to palpation over Facet loading test positive TTP Lumbar spine: Motor bulk/ tone/ strength lower extremities , thigh and legs : 5/5 Deep tendon reflexes : Normal Knee Jerk. Normal Ankle Jerk . Vertebral body tenderness to palpation over L3, L4, L5 Lumbar Facet Loading Test positive Straight Leg Raise: positive at 30 degrees right side/ left side Gaenslen's Test positive Sacral spine : Severe tenderness over the Sacroiliac joint: right side / left side Range of motion: Flexion of the lumbar spine <60 degrees Range of motion: Extension of the lumbar spine <20 degrees Gaenslen's Test positive right side / left side [place] test: positive right side / left side Thigh Thrust Test positive right side / left side Sacral Thrust Test positive right side / left side Assessment and plan: Chronic LBP secondary to lumbar DDD, spondylosis with facet arthropathy without myelopathy Chronic and current use of high-risk medication (Opioids). The patient was counseled about risk of opioid use, psychological risk associated with opioids and was orally counseled to not overuse , divert or sell medications. Pt is to store medication in a safe location. The patient is counseled against driving while using narcotic medications and also not to use alcohol or any illicit recreational drugs. Patient verbalized understanding that the lack of compliance will result in failure to renew narcotic prescription(s) as well as possible discharge from the clinic Diagnoses, prognosis and treatment options including but not limited to physical therapy, surgical interventions, interventional therapies and med ication management including narcotics and adjuvant medication were discussed. All patient questions answered MAPS reviewed and it was appropriate. UDS collected today 12/22/22. Prescription refill for [place] 10/325mg #60, Neurontin 600mG #90 w 1 RF I have spent less than 30 minutes on patient care today. Dr Foss was available by phone for the evaluation of this patient. The time was used to review the medical records including relevant urine studies and Prescription history (MAPs), review of the available imaging, evaluation and examination of the patient, coordination of care with the medical staff and if applicable referring physicians, as well as creation of the medical record PQRS Narrative: Smoking Status Former smoker Narcotic Agreement Date Signed 01/10/22 Hx Alcohol Use (MH) No Home Medications: Ambulatory Orders Esomeprazole Magnesium [NexIUM] 20 mg PO DAILY 02/23/16 Sertraline HCl 200 mg PO DAILY 02/23/16 Sildenafil [Revatio] 20 mg PO TID 06/30/16 Multivit-Min/Iron/Folic/Lutein [Centrum Silver Women Tablet] 1 tab PO DAILY 10/25/17 Levothyroxine Sodium [Synthroid] 25 mcg PO DAILY 08/21/19 Magnesium Oxide 400 mg PO DAILY 08/21/19 Ascorbic Acid [Vitamin C] 500 mg PO DAILY 01/01/21 Cholecalciferol (Vitamin D3) [Vitamin D3 (125 MCG = 5,000 IU)] 125 mcg PO DAILY 11/26/21 Potassium Chloride [Klor-Con M10] 10 meq PO DAILY 11/26/21 predniSONE 10 mg PO DIRECTED 05/17/22 Albuterol Sulfate [Albuterol Sulfate Hfa] 2 puff PO RT-Q6H PRN 10/03/22 Amoxic-Pot Clav 875-125Mg [Augmentin 875-125] 1 tab PO BID 10/03/22 Azithromycin [Zithromax Z Pack] See Taper PO DIRECTED 10/03/22 Azithromycin [Zithromax] 250 mg PO DIRECTED #6 tab 10/03/22 Cyanocobalamin (Vitamin B-12) [Vitamin B-12] 1,000 mcg PO DAILY 10/03/22 Ipratropium-Albuterol Nebulize [Duoneb 0.5 mg-3 mg/3 ml Soln] 3 ml INHALATION Q4-6H PRN #90 ml 10/03/22 Naloxone HCl [Narcan] 4 mg NASAL DIRECTED PRN 10/03/22 Promethazine/Dextromethorphan [Promethazine-Dm Syrup] 5 ml PO Q4-6H PRN #473 ml 10/03/22 Zinc Gluconate [Zinc] 50 mg PO DAILY 10/03/22 predniSONE 50 mg PO DAILY 10/03/22 predniSONE 50 mg PO DAILY 4 Days #4 tab 10/03/22 traZODone HCL [Desyrel] 100 mg PO HS 10/03/22 Gabapentin 600 mg PO TID 30 Days #90 tab 12/22/22 HYDROcodone/APAP 10-325MG [[place] 10-325] 1 tab PO BID PRN 30 Days #60 tab 12/22/22 HYDROcodone/APAP 10-325MG [[place] 10-325] 1 tab PO BID PRN 30 Days #60 tab 12/22/22 Controlled Substance Measures - Controlled Substance Measures Is patient prescribed a controlled substance at discharge?: Yes When asked, does pt state using other controlled substances?: No If prescribed controlled substance>3 days was MAPS reviewed?: Yes
== END ==
LOC: PNWHC3 10:49
PROVIDERS: ATTEND Specialist
DX: M51.36 Other intervertebral disc degeneration, lumbar region (principal); M47.816 Spondylosis without myelopathy or radiculopathy, lumbar region; G89.29 Other chronic pain; Z79.891 Long term (current) use of opiate analgesic; Z87.891 Personal history of nicotine dependence; Z88.2 Allergy status to sulfonamides
CPT/HCPCS: 99211

== ENCOUNTER → 2023-04-13 | Outpatient (CLI) | payer MEDICARE ==
[2023-04-13 11:21] VITALS: BP 138/76; PULSE 77; RESP 15; TEMP 98.6
--- NOTE | 2023-04-13 14:39 | P.PAINPG ---
PQRS Measure Charge Sheet History and Exam Findings: All other causes of pain ruled out Comment: A 77 yr old female with a history of severe and chronic LBP x 1.5 yr secondary to lumbar DDD and spondylosis with facet arthropathy without myelopathy presents today for medication refills. Pain level is provoked at 8/10 in intensity, constant, localized in the lumbar spine L> R, sore in character w shooting towards the LLE. Pain is provoked by weight bearing activity. Pain is alleviated with medications, topicals, use of a walker for ambulatory assistance, PT x 8 wks in Dec 2022, massage therapy semi monthly, chiropractic treatments weekly x 3 mo in 2021, use of a pulsating showerhead, repositioning and rest. Patient is currently on [place] 10/325mg #60, Neurontin 600mg #90 Patient denies any side effects of the medication(s), denies excessive drowsiness or sleepiness, denies suicidal ideation and reports that the current pain medication is helping to control the pain and improve activities of daily living. Patient denies any motor or sensory deficits. Patient denies any fever or night sweats, denies any change in the bowel movements or urination. Physical Examination: -Constitutional: Cooperative. Not in acute distress . - Neurologic: Cranial nerve II to XII intact. No focal neurological deficits. - Psychatric: Alert & oriented x 3. Matching mood & appropriate affect. Judgment and insight intact. - Musculoskeletal: Cervical spine: Muscle bulk/ tone/ strength in the bilateral upper extremities normal Vertebral body tenderness to palpation over Spurling test positive Distraction test positive Facet loading test positive TTP Thoracic spine Muscle bulk / tone/ strength in the bilateral paraspinal muscles normal Vertebral body tender to palpation over Facet loading test positive TTP Lumbar spine: Motor bulk/ tone/ strength lower extremities , thigh and legs : 5/5 Deep tendon reflexes : Normal Knee Jerk. Normal Ankle Jerk . Vertebral body tenderness to palpation over L3, L4, L5 Lumbar Facet Loading Test positive Straight Leg Raise: positive at 30 degrees right side/ left side Gaenslen's Test positive Sacral spine : Severe tenderness over the Sacroiliac joint: right side / left side Range of motion: Flexion of the lumbar spine <60 degrees Range of motion: Extension of the lumbar spine <20 degrees Gaenslen's Test positive right side / left side [place] test: positive right side / left side Thigh Thrust Test positive right side / left side Sacral Thrust Test positive right side / left side Assessment and plan: Chronic LBP secondary to lumbar DDD, spondylosis with facet arthropathy without myelopathy Chronic and current use of high-risk medication (Opioids). The patient was counseled about risk of opioid use, psychological risk associated with opioids and was orally counseled to not overuse , divert or sell medications. Pt is to store medication in a safe location. The patient is counseled against driving while using narcotic medications and also not to use alcohol or any illicit recreational drugs. Patient verbalized understanding that the lack of compliance will result in failure to renew narcotic prescription(s) as well as possible discharge from the clinic Diagnoses, prognosis and treatment options including but not limited to physical therapy, surgical interventions, interventional therapies and medication management including narcotics and adjuvant medication were discussed. All patient questions answered MAPS reviewed and it was appropriate. UDS from 12/22/22 reviewed and consistent. Prescription refill for [place] 10/325mg #60, Neurontin 600mG #90 w 1 RF I have spent less than 30 minutes on patient care today. Dr Foss was available by phone for the evaluation of this patient. The time was used to review the medical records including relevant urine studies and Prescription history (MAPs), review of the available imaging, evaluation and examination of the patient, coordination of care with the medical staff and if applicable referring physicians, as well as creation of the medical record PQRS Narrative: Smoking Status Former smoker Narcotic Agreement Date Signed 01/10/22 Hx Alcohol Use (MH) No Home Medications: Ambulatory Orders Esomeprazole Magnesium [NexIUM] 20 mg PO DAILY 02/23/16 Sertraline HCl 200 mg PO DAILY 02/23/16 Sildenafil [Revatio] 20 mg PO TID 06/30/16 Multivit-Min/Iron/Folic/Lutein [Centrum Silver Women Tablet] 1 tab PO DAILY 10/25/17 Levothyroxine Sodium [Synthroid] 25 mcg PO DAILY 08/21/19 Magnesium Oxide 400 mg PO DAILY 08/21/19 Ascorbic Acid [Vitamin C] 500 mg PO DAILY 01/01/21 Cholecalciferol (Vitamin D3) [Vitamin D3 (125 MCG = 5,000 IU)] 125 mcg PO DAILY 11/26/21 Potassium Chloride [Klor-Con M10] 10 meq PO DAILY 11/26/21 predniSONE 10 mg PO DAILY 05/17/22 traZODone HCL [Desyrel] 50 mg PO HS 10/03/22 Gabapentin 600 mg PO TID 30 Days #90 tab 04/13/23 HYDROcodone/APAP 10-325MG [[place] 10-325] 1 tab PO BID PRN 30 Days #60 tab 04/13/23 HYDROcodone/APAP 10-325MG [[place] 10-325] 1 tab PO BID PRN 30 Days #60 tab 04/13/23 Controlled Substance Measures - Controlled Substance Measures Is patient prescribed a controlled substance at discharge?: Yes When asked, does pt state using other controlled substances?: No If prescribed controlled substance>3 days was MAPS reviewed?: Yes
== END ==
LOC: PNWHC3 10:24
PROVIDERS: ATTEND Specialist
DX: M51.36 Other intervertebral disc degeneration, lumbar region (principal); M47.816 Spondylosis without myelopathy or radiculopathy, lumbar region; G89.29 Other chronic pain; Z79.891 Long term (current) use of opiate analgesic; Z87.891 Personal history of nicotine dependence; Z88.2 Allergy status to sulfonamides
CPT/HCPCS: 99211

== ENCOUNTER → 2023-04-14 | Outpatient (CLI) | payer MEDICARE ==
[2023-04-14 10:11] LABS: African American GFR (CKD) 59 (>60 ml/min/1.73 sqM); Blood Urea Nitrogen 25 mg/dL (7-17); Non-African American GFR(CKD) 51 (>60 ml/min/1.73 sqM)
--- NOTE | 2023-04-14 11:07 | XR ---
EXAMINATION TYPE: XR chest 2V DATE OF EXAM: 04/14/2023 COMPARISON: 10/03/2022 TECHNIQUE: PA and lateral views submitted. HISTORY: Renal cell carcinoma FINDINGS: The lungs are clear and there is no pneumothorax, pleural effusion, or focal pneumonia. Heart size normal and no overt failure. Osseous structures demonstrate hypertrophic and degenerative changes of the spine. Atherosclerotic change aorta. Mild cardiomegaly. Bilateral hip arthropathy. Postsurgical c hange involving the vertebral canal. IMPRESSION: 1. No acute process.
--- NOTE | 2023-04-14 13:42 | CT ---
CT urogram. HISTORY: Malignant neoplasm of left kidney. Status post left nephrectomy. COMPARISON: 04/05/2022. TECHNIQUE: Multiple axial images were obtained through the abdomen and pelvis before and after the un eventful administration of nonionic IV contrast material. 3-D postprocessing was performed. FINDINGS: The visualized lung bases are clear. There is mild pericardial effusion. There are surgical absence of the gallbladder. There is no biliary ductal dilatation. There is no focal mass or organomegaly involving the liver, pancreas, spleen or adrenal glands. There are surgical absence of the left kidney. There is a 2.6 cm simple cortical cyst of the right kidney but no solid renal mass or hydronephrosis. There are no filling defects within the right renal collecting system or ureter or within the urinar y bladder. The caliber the abdominal aorta is normal and there is no retroperitoneal adenopathy or hemorrhage. The bowel loops are normal in caliber is no dilatation or obstruction. There are anastomotic sutures in the right colon. No inflammatory changes are identified in the bowel wall or mesentery and there i s no free intraperitoneal air or fluid. There is no pelvic mass, free fluid, abscess or adenopathy. There are surgical absence of the uterus. There is laminectomy and fusion in the lower lumbar spine but no focal lytic or blastic osseous abnor malities. IMPRESSION: 1. Left nephrectomy. 2. No abnormality of the right kidney or collecting system. 3. No evidence of metastatic disease to the abdomen or pelvis. 4. Cholecystectomy, hysterectomy and lumbar fusion surgeries. 5. No evidence of metastatic disease within the abdomen or pelvis.
== END | disposition home or self-care (01) ==
LOC: RADCTMAIN 09:04
PROVIDERS: ATTEND Urology
DX: C64.2 Malignant neoplasm of left kidney, except renal pelvis (principal); Z90.5 Acquired absence of kidney; Z90.49 Acquired absence of other specified parts of digestive tract
CPT/HCPCS: 82565; 84520; 71046; 74178; 36415; 74400; Q9967

== ENCOUNTER → 2023-06-08 | Outpatient (CLI) | payer MEDICARE ==
[2023-06-08 13:02] VITALS: BP 149/86; PULSE 107; RESP 15; TEMP 98.6
--- NOTE | 2023-06-08 15:36 | P.PAINPG ---
PQRS Measure Charge Sheet Comment: A 77 yr old female with a history of severe and chronic LBP x 2 yrs secondary to lumbar DDD and spondylosis with facet arthropathy without myelopathy presents today for medication refills. Pain level is provoked at 6/10 in intensity, constant, predominantly axial localized in the lumbar spine L> R, sore in character w occasional shooting towards the LLE. Pain is provoked by weight bearing activity. Pain is alleviated with medications, topicals, use of a walker for ambulatory assistance, PT x 8 wks in Dec 2022, massage therapy semi monthly, chiropractic treatments weekly x 3 mo in 2021, use of a pulsating showerhead, repositioning and rest. Patient is currently on [place] 10/325mg #60, Neurontin 600mg #90 Patient denies any side effects of the medication(s), denies excessive drowsiness or sleepiness, denies suicidal ideation and reports that the current pain medication is helping to control the pain and improve activities of daily living. Patient denies any motor or sensory deficits. Patient denies any fever or night sweats, denies any change in the bowel movements or urination. Physical Examination: -Constitutional: Cooperative. Not in acute distress . - Neurologic: Cranial nerve II to XII intact. No focal neurological deficits. - Psychatric: Alert & oriented x 3. Matching mood & appropriate affect. Judgment and insight intact. - Musculoskeletal: Cervical spine: Muscle bulk/ tone/ strength in the bilateral upper extremities normal Vertebral body tenderness to palpation over Spurling test positive Distraction test positive Facet loading test positive TTP Thoracic spine Muscle bulk / tone/ strength in the bilateral paraspinal muscles normal Vertebral body tender to palpation over Facet loading test positive TTP Lumbar spine: Motor bulk/ tone/ strength lower extremities , thigh and legs : 5/5 Deep tendon reflexes : Normal Knee Jerk. Normal Ankle Jerk . Vertebral body tenderness to palpation over L3, L4, L5 Lumbar Facet Loading Test positive Straight Leg Raise: positive at 30 degrees right side/ left side Gaenslen's Test positive Sacral spine : Severe tenderness over the Sacroiliac joint: right side / left side Range of motion: Flexion of the lumbar spine <60 degrees Range of motion: Extension of the lumbar spine <20 degrees Gaenslen's Test positive right side / left side [place] test: positive right side / left side Thigh Thrust Test positive right side / left side Sacral Thrust Test positive right side / left side Assessment and plan: Chronic LBP secondary to lumbar DDD, spondylosis with facet arthropathy without myelopathy Chronic and current use of high-risk medication (Opioids). The patient was counseled about risk of opioid use, psychological risk associated with opioids and was orally counseled to not overuse , divert or sell medications. Pt is to store medication in a safe location. The patient is counseled against driving while using narcotic medications and also not to use alcohol or any illicit recreational drugs. Patient verbalized understanding that the lack of compliance will result in failure to renew narcotic prescription(s) as well as possible discharge from the clinic Diagnoses, prognosis and treatment options including but not limited to physical therapy, surgical interventions, interventional therapies and medication management including narcotics and adjuvant medication were discussed. All patient questions answered MAPS reviewed and it was appropriate. UDS from 12/22/22 reviewed and consistent. Prescription refill for [place] 10/325mg #60, Neurontin 600mG #90 w 1 RF I have spent less than 30 minutes on patient care today. Dr Foss was available by phone for the evaluation of this patient. The time was used to review the medical records including relevant urine studies and Prescription history (MAPs), review of the available imaging, evaluation and examination of the patient, coordination of care with the medical staff and if applicable referring physicians, as well as creation of the medical record PQRS Narrative: Smoking Status Former smoker Narcotic Agreement Date Signed 01/10/22 Hx Alcohol Use (MH) No Home Medications: Ambulatory Orders Esomeprazole Magnesium [NexIUM] 20 mg PO DAILY 02/23/16 Sertraline HCl 200 mg PO DAILY 02/23/16 Sildenafil [Revatio] 20 mg PO TID 06/30/16 Multivit-Min/Iron/Folic/Lutein [Centrum Silver Women Tablet] 1 tab PO DAILY 10/25/17 Levothyroxine Sodium [Synthroid] 25 mcg PO DAILY 08/21/19 Magnesium Oxide 400 mg PO DAILY 08/21/19 Ascorbic Acid [Vitamin C] 500 mg PO DAILY 01/01/21 Cholecalciferol (Vitamin D3) [Vitamin D3 (125 MCG = 5,000 IU)] 125 mcg PO DAILY 11/26/21 Potassium Chloride [Klor-Con M10] 10 meq PO DAILY 11/26/21 predniSONE 10 mg PO DAILY 11/15/22 traZODone HCL [Desyrel] 50 mg PO HS 10/03/22 Gabapentin 600 mg PO TID 30 Days #90 tab 06/08/23 HYDROcodone/APAP 10-325MG [[place] 10-325] 1 tab PO BID PRN 30 Days #60 tab 06/08/23 HYDROcodone/APAP 10-325MG [[place] 10-325] 1 tab PO BID PRN 30 Days #60 tab 06/08/23 Controlled Substance Measures - Controlled Substance Measures Is patient prescribed a controlled substance at discharge?: Yes When asked, does pt state using other controlled substances?: No If prescribed controlled substance>3 days was MAPS reviewed?: Yes
== END ==
LOC: PNWHC3 10:29
PROVIDERS: ATTEND Specialist
DX: M51.36 Other intervertebral disc degeneration, lumbar region (principal); M47.816 Spondylosis without myelopathy or radiculopathy, lumbar region; Z88.2 Allergy status to sulfonamides; Z87.891 Personal history of nicotine dependence
CPT/HCPCS: 99211

== ENCOUNTER → 2023-09-28 | Outpatient (CLI) | payer MEDICARE ==
[2023-09-28 11:12] VITALS: BP 132/72; PULSE 79; RESP 15; TEMP 98.6
--- NOTE | 2023-09-28 11:45 | XR ---
EXAM TYPE: LUMBAR SPINE X RAY SERIES COMPARISON: 04/14/2023 HISTORY: Pain TECHNIQUE: 4 views are submitted. FINDINGS: A levoscoliotic curvature to the spine with extensive postsurgical changes. Grade 1 anterior listhesi s L3-4 and L5-S1. Vascular calcifications in the aorta. Mild hypertrophic spurring involving the thor acolumbar junction. IMPRESSION: 1. Postsurgical changes with grade 1 anterior listhesis L3-4 and L5-S1.
--- NOTE | 2023-09-28 14:10 | P.PAINPG ---
PQRS Measure Charge Sheet Comment: A 77 yr old female with a history of severe and chronic LBP x 2 yrs secondary to post laminectomy syndrome presents today for medication refills. Pain level is provoked at 9/10 in intensity, constant, predominantly axial localized in the lumbar spine L> R, sore in character w occasional shooting towards the LLE. Pain is provoked by weight bearing activity. Pain is alleviated with medications, topicals, use of a walker for ambulatory assistance, PT x 8 wks in Dec 2022, massage therapy semi monthly, chiropractic treatments weekly x 3 mo in 2021, use of a pulsating showerhead, repositioning and rest. Patient is currently on [place] 10/325mg #60, Neurontin 600mg #90 Patient denies any side effects of the medication(s), denies excessive drowsiness or sleepiness, denies suicidal ideation and reports that the current pain medication is helping to control the pain and improve activities of daily living. Patient denies any motor or sensory deficits. Patient denies any fever or night sweats, denies any change in the bowel movements or urination. Physical Examination: -Constitutional: Cooperative. Not in acute distress . - Neurologic: Cranial nerve II to XII intact. No focal neurological deficits. - Psychatric: Alert & oriented x 3. Matching mood & appropriate affect. Judgment and insight intact. - Musculoskeletal: Cervical spine: Muscle bulk/ tone/ strength in the bilateral upper extremities normal Vertebral body tenderness to palpation over Spurling test positive Distraction test positive Facet loading test positive TTP Thoracic spine Muscle bulk / tone/ strength in the bilateral paraspinal muscles normal Vertebral body tender to palpation over Facet loading test positive TTP Lumbar spine: +Incisional scar intact Motor bulk/ tone/ strength lower extremities , thigh and legs : 5/5 Deep tendon reflexes : Normal Knee Jerk. Normal Ankle Jerk . Vertebral body tenderness to palpation over L3, L4, L5 Lumbar Facet Loading Test positive Straight Leg Raise: positive at 30 degrees right side/ left side Gaenslen's Test positive Sacral spine : Severe tenderness over the Sacroiliac joint: right side / left side Range of motion: Flexion of the lumbar spine <60 degrees Range of motion: Extension of the lumbar spine <20 degrees Gaenslen's Test positive right side / left side [place] test: positive right side / left side Thigh Thrust Test positive right side / left side Sacral Thrust Test positive right side / left side Assessment and plan: Chronic LBP secondary to post laminectomy syndrome Recommendation of lumbar x ray M51.36 May need additional testing if indicated. Chronic and current use of high-risk medication (Opioids). The patient was counseled about risk of opioid use, psychological risk associated with opioids and was orally counseled to not overuse , divert or sell medications. Pt is to store medication in a safe location. The patient is counseled against driving while using narcotic medications and also not to use alcohol or any illicit recreational drugs. Patient verbalized understanding that the lack of compliance will result in failure to renew narcotic prescription(s) as well as possible discharge from the clinic Diagnoses, prognosis and treatment options including but not limited to physical therapy, surgical interventions, interventional therapies and medication management including narcotics and adjuvant medication were discussed. All patient questions answered MAPS reviewed and it was appropriate. UDS from 12/22/22 reviewed and consistent. Prescription refill for [place] 10/325mg #60, Neurontin 600mg #90 w 1 RF I have spent less than 30 minutes on patient care today. Dr Foss was available by phone for the evaluation of this patient. The time was used to review the medical records including relevant urine studies and Prescription history (MAPs), review of the available imaging, evaluation and examination of the patient, coordination of care with the medical staff and if applicable referring physicians, as well as creation of the medical record - Pain Location Bilateral Lower Back Non-Pharmacological Interventions: Inactivity, Position/Reposition Pharmacological Interventions: Scheduled Medication PQRS Narrative: Smoking Status Former smoker Narcotic Agreement Date Signed 01/10/22 Hx Alcohol Use (MH) No Home Medications: Ambulatory Orders Esomeprazole Magnesium [NexIUM] 20 mg PO DAILY 02/23/16 Sertraline HCl 200 mg PO DAILY 02/23/16 Sildenafil [Revatio] 20 mg PO TID 06/30/16 Multivit-Min/Iron/Folic/Lutein [Centrum Silver Women Tablet] 1 tab PO DAILY 10/25/17 Levothyroxine Sodium [Synthroid] 25 mcg PO DAILY 08/21/19 Magnesium Oxide 400 mg PO DAILY 08/21/19 Ascorbic Acid [Vitamin C] 500 mg PO DAILY 01/01/21 Cholecalciferol (Vitamin D3) [Vitamin D3 (125 MCG = 5,000 IU)] 125 mcg PO DAILY 11/26/21 Potassium Chloride [Klor-Con M10] 10 meq PO DAILY 11/26/21 predniSONE 10 mg PO DAILY 05/17/22 traZODone HCL [Desyrel] 50 mg PO HS 10/03/22 Gabapentin 600 mg PO TID 30 Days #90 tab 08/02/23 Gabapentin 600 mg PO TID 30 Days #90 tab 09/28/23 HYDROcodone/APAP 10-325MG [[place] 10-325] 1 tab PO BID PRN 30 Days #60 tab 09/28/23 HYDROcodone/APAP 10-325MG [[place] 10-325] 1 tab PO BID PRN 30 Days #60 tab 09/28/23 Controlled Substance Measures - Controlled Substance Measures Is patient prescribed a controlled substance at discharge?: Yes When asked, does pt state using other controlled substances?: No If prescribed controlled substance>3 days was MAPS reviewed?: Yes If Rx opioid, was Start Talking consent form obtained?: Yes Was information provided regarding opioid addiction?: Yes
== END ==
LOC: PNWHC3 10:41
PROVIDERS: ATTEND Specialist
DX: M51.36 Other intervertebral disc degeneration, lumbar region (principal); M43.17 Spondylolisthesis, lumbosacral region; Z88.2 Allergy status to sulfonamides; Z79.890 Hormone replacement therapy; Z87.891 Personal history of nicotine dependence
CPT/HCPCS: 80307; 72100; G0463; 99212

== ENCOUNTER → 2023-10-20 | Outpatient (CLI) | payer MEDICARE ==
--- NOTE | 2023-10-21 10:03 | MR ---
EXAMINATION TYPE: MR lumbar spine wo con DATE OF EXAM: 10/20/2023 6:07 PM CLINICAL INDICATION:Female, 77 years old with history of M51.36 OTHER INTERVERTEBRAL DISC DEGENERATIO N, LUM; PHH, Lower back pain, radiates down left leg. Hx surgery. COMPARISON: Radiograph 09/20/2023 TECHNIQUE: Multi planar, multi sequence imaging was performed utilizing: T1-weighted, T2-weighted, a nd turbo inversion recovery imaging of the lumbar spine. IV Contrast: cc . (None if empty) FINDINGS: Alignment: The lumbar vertebral bodies have preserved heights with surgically fixed grade 2 anterolis thesis of L5 on S1 antegrade 1 anterolisthesis of L4 and L5 at L3-L4 Cord: The conus medullaris and the distal spinal cord appear unremarkable with regards to their signa l intensity and morphology. Bones/Discs: Post surgical changes extending from L2 to S1. Hardware artifact limits evaluation at th narendra levels. There is multilevel changes with facet joint arthropathy, disc space narrowing and osteop hyte formation. Multilevel disc desiccation is present. T12-L1: No evidence of significant spinal canal stenosis or neural foraminal stenosis. L1-L2: No evidence of significant spinal canal stenosis or neural foraminal stenosis. L2-L3: No evidence of significant spinal canal stenosis. Facet joint arthropathy moderate bilateral n eural foraminal stenosis. L3-L4: Grade 1 anterolisthesis with disc uncovering and facet joint arthropathy result in mild spinal canal and moderate right and mild to moderate left neural foraminal stenosis. L4-L5: Grade 1 anterolisthesis of L4 and L5. Disc uncovering and facet joint arthropathy result in mi ld spinal canal and moderate to severe right neural foraminal stenosis the left neural foramen is poo rly visualized. L5-S1: Disc uncovering from grade 2 anterolisthesis and facet joint arthropathy with mild spinal lauren l stenosis and mild to moderate bilateral neural foraminal stenosis. No significant spinal canal or neural foraminal stenosis in the remainder of the visualized levels. Other findings: High T2 signal right renal cyst measuring 27 mm. The left kidney is not definitively visualized may be surgically absent. IMPRESSION: 1. Postsurgical changes throughout the spine extending from L2 to S1. Hardware limits evaluation at these levels. 2. No evidence for significant spinal canal stenosis. There is degeneration changes with neural fora mike stenosis worse at L4-L5 on the last with moderate to severe stenosis.
== END | disposition home or self-care (01) ==
LOC: RADMRIMAIN 16:12
PROVIDERS: ATTEND Specialist
DX: M47.26 Other spondylosis with radiculopathy, lumbar region (principal); M51.16 Intervertebral disc disorders with radiculopathy, lumbar region; M99.73 Connective tissue and disc stenosis of intervertebral foramina of lumbar region; M34.9 Systemic sclerosis, unspecified; Z98.890 Other specified postprocedural states
CPT/HCPCS: 72148

== ENCOUNTER → 2023-10-20 | Outpatient (CLI) | payer MEDICARE ==
--- NOTE | 2023-10-24 23:23 | MR ---
EXAM: MR hand LT wo con DATE OF EXAM: 10/20/2023 COMPARISON: None available HISTORY: Left hand, systemic sclerosis. TECHNIQUE: Multiplanar, multisequence images of the left hand hand were acquired without contrast. 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 Joint space narrowing and bone marrow edema within the trapezium and first metacarpal base. Joint space narrowing and marginal osteophytes of the first metacarpophalangeal joint. LIGAMENTS: The first carpometacarpal joint anterior oblique ligament is thickened and demonstrates he terogenous increased signal. A tiny ossific density within the proximal aspect of the ligament may re present a tiny avulsion fracture. TENDONS: Flexor tendons are normal. Extensor tendons are normal. SOFT TISSUES: No bursal distention. No fluid collection. NEUROVASCULAR: Visualized neurovascular structures are normal. OTHER: Normal. IMPRESSION: 1. Sprain with possible tiny avulsion fracture involving the first CMC joint anterior oblique ligamen t. 2. Bone marrow edema within the trapezium and first metacarpal base. 3. Mild degenerative changes of the first MCP joint. 4. Benign chondroid lesions within the third and fourth metacarpal heads.
--- NOTE | 2023-10-24 23:31 | MR ---
EXAM: MR hand RT wo con DATE OF EXAM: 10/20/2023 COMPARISON: None available HISTORY: Right hand, systemic sclerosis. TECHNIQUE: Multiplanar, multisequence images of the right hand hand were acquired without contrast. FINDINGS: BONES/JOINTS: First carpometacarpal joint space narrowing and reactive/degenerative bone marrow edema within the adjacent trapezium and first metacarpal base. Third metacarpophalangeal joint space narro wing, subchondral sclerotic changes, reactive edema, and marginal osteophytes; periarticular erosion of the third metacarpal head radial aspect. Joints are normal in alignment with normal articular cart ilage. No joint effusion. LIGAMENTS: Interphalangeal capsular ligamentous complexes are normal. TENDONS: Flexor tendons are normal. Extensor tendons are normal. SOFT TISSUES: No bursal distention. No fluid collection. NEUROVASCULAR: Visualized neurovascular structures are normal. OTHER: Normal. IMPRESSION: 1. Mild-moderate degenerative changes first CMC joint. 2. Mild to moderate degenerative changes third MCP joint. Periarticular erosion of the third metacarp al head, may relate to an inflammatory irritability and/or crystalline deposition.
== END | disposition home or self-care (01) ==
LOC: RADMRIMAIN 16:19
PROVIDERS: ATTEND Internal Medicine
DX: M18.0 Bilateral primary osteoarthritis of first carpometacarpal joints (principal); M24.842 Other specific joint derangements of left hand, not elsewhere classified; M34.9 Systemic sclerosis, unspecified; M89.8X4 Other specified disorders of bone, hand; M51.36 Other intervertebral disc degeneration, lumbar region

== ENCOUNTER → 2023-11-23 | Outpatient (CLI) | payer MEDICARE ==
[2023-11-23 12:12] VITALS: BP 152/85; PULSE 77; RESP 16; TEMP 97.7
--- NOTE | 2023-11-23 14:50 | P.PAINPG ---
Objective - Vital Signs Vital signs: Intake & Output 11/22/23 11/23/23 11/23/23 18:59 06:59 18:59 Weight 81.647 kg PQRS Measure Charge Sheet Comment: A 77 yr old female with a history of severe and chronic LBP x 2 yrs secondary to post laminectomy syndrome presents today for medication refills. Pain level is provoked at 9/10 in intensity, constant, predominantly axial localized in the lumbar spine L> R, sore in character w occasional shooting towards the LLE. Pain is provoked by weight bearing activity. Pain is alleviated with medications, topicals, use of a walker for ambulatory assistance, PT x 8 wks in Dec 2022, massage therapy semi monthly, chiropractic treatments weekly x 3 mo in 2021, use of a pulsating showerhead, repositioning and rest. Oswestry axial pain score of 23. Patient is currently on [place] 10/325mg #60, Neurontin 600mg #90 Patient denies any side effects of the medication(s), denies excessive drowsiness or sleepiness, denies suicidal ideation and reports that the current pain medication is helping to control the pain and improve activities of daily living. Patient denies any motor or sensory deficits. Patient denies any fever or night sweats, denies any change in the bowel movements or urination. Physical Examination: -Constitutional: Cooperative. Not in acute distress . - Neurologic: Cranial nerve II to XII intact. No focal neurological deficits. - Psychatric: Alert & oriented x 3. Matching mood & appropriate affect. Judgment and insight intact. - Musculoskeletal: Cervical spine: Muscle bulk/ tone/ strength in the bilateral upper extremities normal Vertebral body tenderness to palpation over Spurling test positive Distraction test positive Facet loading test positive TTP Thoracic spine Muscle bulk / tone/ strength in the bilateral paraspinal muscles normal Vertebral body tender to palpation over Facet loading test positive TTP Lumbar spine: +Incisional scar intact Motor bulk/ tone/ strength lower extremities , thigh and legs : 5/5 Deep tendon reflexes : Normal Knee Jerk. Normal Ankle Jerk . Vertebral body tenderness to palpation over L3, L4, L5 Lumbar Facet Loading Test positive Straight Leg Raise: positive at 30 degrees right side/ left side Gaenslen's Test positive Sacral spine : Severe tenderness over the Sacroiliac joint: right side / left side Range of motion: Flexion of the lumbar spine <60 degrees Range of motion: Extension of the lumbar spine <20 degrees Gaenslen's Test positive right side / left side [place] test: positive right side / left side Thigh Thrust Test positive right side / left side Sacral Thrust Test positive right side / left side Imaging: MRI non contrast of the lumbar spine from 10/21/23 reviewed Assessment and plan: Chronic LBP secondary to post laminectomy syndrome Chronic and current use of high-risk medication (Opioids). The patient was counseled about risk of opioid use, psychological risk associated with opioids and was orally counseled to not overuse , divert or sell medications. Pt is to store medication in a safe location. The patient is counseled against driving while using narcotic medications and also not to use alcohol or any illicit recreational drugs. Patient verbalized understanding that the lack of compliance will result in failure to renew narcotic prescription(s) as well as possible discharge from the clinic Diagnoses, prognosis and treatment options including but not limited to physical therapy, surgical interventions, interventional therapies and medication management including narcotics and adjuvant medication were discussed. All patient questions answered MAPS reviewed and it was appropriate. UDS from 12/22/22 reviewed and consistent. Prescription refill for [place] 10/325mg #60, Neurontin 600mg #90 w 1 RF I have spent less than 30 minutes on patient care today. Dr Foss was available by phone for the evaluation of this patient. The time was used to review the medical records including relevant urine studies and Prescription history (MAPs), review of the available imaging, evaluation and examination of the patient, coordination of care with the medical staff and if applicable referring physicians, as well as creation of the medical record PQRS Narrative: Smoking Status Former smoker Narcotic Agreement Date Signed 01/10/22 Hx Alcohol Use (MH) No Home Medications: Ambulatory Orders Esomeprazole Magnesium [NexIUM] 20 mg PO DAILY 02/23/16 Sertraline HCl 200 mg PO DAILY 02/23/16 Sildenafil [Revatio] 20 mg PO TID 06/30/16 Multivit-Min/Iron/Folic/Lutein [Centrum Silver Women Tablet] 1 tab PO DAILY 10/25/17 Levothyroxine Sodium [Synthroid] 25 mcg PO DAILY 08/21/19 Magnesium Oxide 400 mg PO DAILY 08/21/19 Ascorbic Acid [Vitamin C] 500 mg PO DAILY 01/01/21 Cholecalciferol (Vitamin D3) [Vitamin D3 (125 MCG = 5,000 IU)] 125 mcg PO DAILY 11/26/21 Potassium Chloride [Klor-Con M10] 10 meq PO DAILY 11/26/21 predniSONE 10 mg PO DAILY 05/17/22 traZODone HCL [Desyrel] 50 mg PO HS 10/03/22 Gabapentin 600 mg PO TID 30 Days #90 tab 09/28/23 Diclofenac Sodium Gel [Voltaren 1% Gel] 100 gm TOPICAL BID 30 Days #1 each 11/23/23 Gabapentin 600 mg PO TID 30 Days #90 tab 11/23/23 HYDROcodone/APAP 10-325MG [[place] 10-325] 1 tab PO BID PRN 30 Days #60 tab 11/23/23 HYDROcodone/APAP 10-325MG [[place] 10-325] 1 tab PO BID PRN 30 Days #60 tab 11/23/23 Controlled Substance Measures - Controlled Substance Measures Is patient prescribed a controlled substance at discharge?: Yes When asked, does pt state using other controlled substances?: No If prescribed controlled substance>3 days was MAPS reviewed?: Yes
== END ==
LOC: PNWHC3 10:32
PROVIDERS: ATTEND Specialist
DX: M96.1 Postlaminectomy syndrome, not elsewhere classified (principal); G89.29 Other chronic pain; Z79.891 Long term (current) use of opiate analgesic; Z87.891 Personal history of nicotine dependence; Z88.2 Allergy status to sulfonamides
CPT/HCPCS: 99211

== ENCOUNTER → 2024-01-18 | Outpatient (CLI) | payer MEDICARE ==
[2024-01-18 10:37] VITALS: BP 147/80; PULSE 76; RESP 16
--- NOTE | 2024-01-18 14:13 | P.PAINPG ---
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 Pain level is provoked at 5 /10 in intensity, constant, predominantly axial localized in the lumbar spine L> R, sore in character w occasional shooting towards the LLE. Pain is provoked by weight bearing activity. Pain is alleviated with medications, topicals, use of a walker for ambulatory assistance, PT x 1 wk which she is currently in, massage therapy semi monthly, chiropractic treatments weekly x 3 mo in 2021, use of a pulsating showerhead, use of a walker for ambulatory assistance, repositioning and rest. 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 Also discussed pregabalin and compounded topical gabapentin as options. Oswestry axial pain score of 24. Patient is currently on [place] 10/325mg #60, Neurontin #90 Patient denies any side effects of the medication(s), denies excessive drowsiness or sleepiness, denies suicidal ideation and reports that the current pain medication is helping to control the pain and improve activities of daily living. Patient denies any motor or sensory deficits. Patient denies any fever or night sweats, denies any change in the bowel movements or urination. Physical Examination: -Constitutional: Cooperative. Not in acute distress . - Neurologic: Cranial nerve II to XII intact. No focal neurological deficits. - Psychatric: Alert & oriented x 3. Matching mood & appropriate affect. Judgment and insight intact. - Musculoskeletal: Cervical spine: Muscle bulk/ tone/ strength in the bilateral upper extremities normal Vertebral body tenderness to palpation over Spurling test positive Distraction test positive Facet loading test positive TTP Thoracic spine Muscle bulk / tone/ strength in the bilateral paraspinal muscles normal Vertebral body tender to palpation over Facet loading test positive TTP Lumbar spine: +Incisional scar intact Motor bulk/ tone/ strength lower extremities , thigh and legs : 5/5 Deep tendon reflexes : Normal Knee Jerk. Normal Ankle Jerk . Vertebral body tenderness to palpation over L3, L4, L5 Lumbar Facet Loading Test positive Straight Leg Raise: positive at 30 degrees right side/ left side Gaenslen's Test positive Sacral spine : Severe tenderness over the Sacroiliac joint: right side / left side Range of motion: Flexion of the lumbar spine <60 degrees Range of motion: Extension of the lumbar spine <20 degrees Gaenslen's Test positive right side / left side [place] test: positive right side / left side Thigh Thrust Test positive right side / left side Sacral Thrust Test positive right side / left side Imaging: MRI non contrast of the lumbar spine from 10/21/23 reviewed Assessment and plan: Chronic LBP secondary to post laminectomy syndrome Chronic and current use of high-risk medication (Opioids). The patient was counseled about risk of opioid use, psychological risk associated with opioids and was orally counseled to not overuse , divert or sell medications. Pt is to store medication in a safe location. The patient is counseled against driving while using narcotic medications and also not to use alcohol or any illicit recreational drugs. Patient verbalized understanding that the lack of compliance will result in failure to renew narcotic prescription(s) as well as possible discharge from the clinic Diagnoses, prognosis and treatment options including but not limited to physical therapy, surgical interventions, interventional therapies and medication management including narcotics and adjuvant medication were discuss ed. All patient questions answered MAPS reviewed and it was appropriate. UDS from 09/28/23 reviewed and consistent. Prescription refill for [place] 10/325mg #60, Neurontin 800mg #90 w 1 RF I have spent less than 30 minutes on patient care today. Dr Foss was available by phone for the evaluation of this patient. The time was used to review the medical records including relevant urine studies and Prescription history (MAPs), review of the available imaging, evaluation and examination of the patient, coordination of care with the medical staff and if applicable referring physicians, as well as creation of the medical record PQRS Narrative: Smoking Status Former smoker Narcotic Agreement Date Signed 01/10/22 Hx Alcohol Use (MH) No Home Medications: Ambulatory Orders Esomeprazole Magnesium [NexIUM] 20 mg PO DAILY 02/23/16 Sertraline HCl 200 mg PO DAILY 02/23/16 Sildenafil [Revatio] 20 mg PO TID 06/30/16 Multivit-Min/Iron/Folic/Lutein [Centrum Silver Women Tablet] 1 tab PO DAILY 10/25/17 Levothyroxine Sodium [Synthroid] 25 mcg PO DAILY 08/21/19 Magnesium Oxide 400 mg PO DAILY 08/21/19 Ascorbic Acid [Vitamin C] 500 mg PO DAILY 01/01/21 Cholecalciferol (Vitamin D3) [Vitamin D3 (125 MCG = 5,000 IU)] 125 mcg PO DAILY 11/26/21 Potassium Chloride [Klor-Con M10] 10 meq PO DAILY 11/26/21 predniSONE 10 mg PO DAILY 05/17/22 traZODone HCL [Desyrel] 50 mg PO HS 10/03/22 Diclofenac Sodium Gel [Voltaren 1% Gel] 100 gm TOPICAL BID 30 Days #1 each 11/23/23 Gabapentin [Neurontin] 800 mg PO TID 30 Days #90 tab 01/18/24 HYDROcodone/APAP 10-325MG [[place] 10-325] 1 tab PO BID PRN 30 Days #60 tab 01/18/24 HYDROcodone/APAP 10-325MG [[place] 10-325] 1 tab PO BID PRN 30 Days #60 tab 01/18/24 Controlled Substance Measures - Controlled Substance Measures Is patient prescribed a controlled substance at discharge?: Yes When asked, does pt state using other controlled substances?: No If prescribed controlled substance>3 days was MAPS reviewed?: Yes
== END ==
LOC: PNWHC3 10:20
PROVIDERS: ATTEND Specialist
DX: M96.1 Postlaminectomy syndrome, not elsewhere classified (principal); Z79.891 Long term (current) use of opiate analgesic; Z87.891 Personal history of nicotine dependence; Z88.2 Allergy status to sulfonamides
CPT/HCPCS: 99211

== ENCOUNTER → 2024-04-03 | Outpatient (CLI) | payer MEDICARE ==
--- NOTE | 2024-04-03 11:22 | CT ---
INDICATION: Patient age:Female; 78 years old; Reason for study: M34.9 SYSTEMIC SCLEROSIS; PH[facility]. COMPARISON: CT chest 09/17/2016, chest radiograph 04/14/2023 TECHNIQUE: Multiple thin axial images were obtained through the chest at selected intervals. Prone and supine in spiratory along with supine expiratory images were submitted for review. Please note that due to inte rval acquisition images as defined by high-resolution CT protocol the entire lung parenchyma is not e valuated, therefore small nodular densities may not be visualized. Evaluation of vascular structures , viscera and lymphatics is limited due to lack of intravenous contrast administration. One or more C T dose reduction strategies were utilized during this examination. Total DLP 249 mGycm. FINDINGS: LUNGS: There is no evidence of interstitial thickening, honeycombing or architectural distortion in t he lungs. No bronchiectasis. Subtle patchy groundglass opacities within the right upper lobe (series 9, image 24). Peripheral right upper lobe punctate calcific granuloma. LARGE AIRWAYS: Central airways are patent. No dynamic airway collapse on expiratory imaging. PLEURA: No pleural effusion or thickening. HEART AND PERICARDIUM: Heart is normal in size. There is a small pericardial effusion present. Mild c oronary artery calcifications present. MEDIASTINUM AND SULAIMAN: No mediastinal or hilar lymphadenopathy or soft tissue mass. VESSELS: The thoracic aorta is normal in course and caliber. CHEST WALL AND DIAPHRAGM: Normal. LOWER NECK: Normal. UPPER ABDOMEN: Partial visualization of right renal upper pole 1.7 cm cyst. MUSCULOSKELETAL: No acute fracture. Left shoulder arthroplasty changes. IMPRESSION: Patchy right upper lobe groundglass opacities likely representing an atypical pneumonia. No evidence for interstitial lung disease. [facility], , 04/03/2024 11:20 AM
== END | disposition home or self-care (01) ==
LOC: RADCTMAIN 10:23
PROVIDERS: ATTEND Pediatrics Pediatric Rheumatology
DX: M34.9 Systemic sclerosis, unspecified
CPT/HCPCS: 71250

== ENCOUNTER → 2024-04-25 | Outpatient (CLI) | payer MEDICARE ==
[2024-04-25 11:26] VITALS: BP 142/86; PULSE 72; RESP 17; TEMP 98
--- NOTE | 2024-04-25 15:02 | P.PAINPG ---
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 Pain level is provoked at 5 /10 in intensity, constant, predominantly axial localized in the lumbar spine L> R, sore in character w occasional shooting towards the LLE. Pain is provoked by weight bearing activity. Pain is alleviated with medications, topicals, use of a walker for ambulatory assistance, PT x 1 wk which she is currently in, massage therapy semi monthly, chiropractic treatments weekly x 3 mo in 2021, use of a pulsating showerhead, use of a walker for ambulatory assistance, repositioning and rest. 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 Also discussed pregabalin and compounded topical gabapentin as options. Patient is currently on [place] 10/325mg #60, Neurontin #90 Patient denies any side effects of the medication(s), denies excessive drowsiness or sleepiness, denies suicidal ideation and reports that the current pain medication is helping to control the pain and improve activities of daily living. Patient denies any motor or sensory deficits. Patient denies any fever or night sweats, denies any change in the bowel movements or urination. Physical Examination: -Constitutional: Cooperative. Not in acute distress . - Neurologic: Cranial nerve II to XII intact. No focal neurological deficits. - Psychatric: Alert & oriented x 3. Matching mood & appropriate affect. Judg ment and insight intact. - Musculoskeletal: Cervical spine: Muscle bulk/ tone/ strength in the bilateral upper extremities normal Vertebral body tenderness to palpation over Spurling test positive Distraction test positive Facet loading test positive TTP Thoracic spine Muscle bulk / tone/ strength in the bilateral paraspinal muscles normal Vertebral body tender to palpation over Facet loading test positive TTP Lumbar spine: +Incisional scar intact Motor bulk/ tone/ strength lower extremities , thigh and legs : 5/5 Deep tendon reflexes : Normal Knee Jerk. Normal Ankle Jerk . Vertebral body tenderness to palpation over L3, L4, L5 Lumbar Facet Loading Test positive Straight Leg Raise: positive at 30 degrees right side/ left side Gaenslen's Test positive Sacral spine : Severe tenderness over the Sacroiliac joint: right side / left side Range of motion: Flexion of the lumbar spine <60 degrees Range of motion: Extension of the lumbar spine <20 degrees Gaenslen's Test positive right side / left side [place] test: positive right side / left side Thigh Thrust Test positive right side / left side Sacral Thrust Test positive right side / left side Imaging: MRI non contrast of the lumbar spine from 10/21/23 reviewed Assessment and plan: Chronic LBP secondary to post laminectomy syndrome Chronic and current use of high-risk medication (Opioids). The patient was counseled about risk of opioid use, psychological risk associated with opioids and was orally counseled to not overuse , divert or sell medications. Pt is to store medication in a safe location. The patient is counseled against driving while using narcotic medications and also not to use alcohol or any illicit recreational drugs. Patient verbalized understanding that the lack of compliance will result in failure to renew narcotic prescription(s) as well as possible discharge from the clinic Diagnoses, prognosis and treatment options including but not limited to physical therapy, surgical interventions, interventional therapies and medication management including narcotics and adjuvant medication were discussed. All patient questions answered . Opiate/ narcotic agreement renewed . MAPS reviewed and it was appropriate. UDS collected 04/25/24 . Prescription refill for [place] 10/325mg #60, Neurontin 800mg #90 w 1 RF I have spent less than 30 minutes on patient care today. Dr Foss was available by phone for the evaluation of this patient. The time was used to review the medical records including relevant urine studies and Prescription history (MAPs), review of the available imaging, evaluation and examination of the patient, coordination of care with the medical staff and if applicable referring physicians, as well as creation of the medical record PQRS Narrative: Smoking Status Former smoker Narcotic Agreement Date Signed 01/10/22 Hx Alcohol Use (MH) No Home Medications: Ambulatory Orders Esomeprazole Magnesium [NexIUM] 20 mg PO DAILY 02/23/16 Sertraline HCl 200 mg PO DAILY 02/23/16 Sildenafil [Revatio] 20 mg PO TID 06/30/16 Multivit-Min/Iron/Folic/Lutein [Centrum Silver Women Tablet] 1 tab PO DAILY 10/25/17 Levothyroxine Sodium [Synthroid] 25 mcg PO DAILY 08/21/19 Magnesium Oxide 400 mg PO DAILY 08/21/19 Ascorbic Acid [Vitamin C] 500 mg PO DAILY 01/01/21 Cholecalciferol (Vitamin D3) [Vitamin D3 (125 MCG = 5,000 IU)] 125 mcg PO DAILY 11/26/21 Potassium Chloride [Klor-Con M10] 10 meq PO DAILY 11/26/21 predniSONE 10 mg PO DAILY 05/17/22 traZODone HCL [Desyrel] 50 mg PO HS 10/03/22 Diclofenac Sodium Gel [Voltaren 1% Gel] 100 gm TOPICAL BID 30 Days #1 each 11/23/23 Diclofenac Sodium Gel [Voltaren 1% Gel] 50 gm TOPICAL BID 30 Days #1 each 04/25/24 Gabapentin [Neurontin] 800 mg PO TID 30 Days #90 tab 04/25/24 HYDROcodone/APAP 10-325MG [[place] 10-325] 1 tab PO BID PRN 30 Days #60 tab 04/25/24 HYDROcodone/APAP 10-325MG [[place] 10-325] 1 tab PO BID PRN 30 Days #60 tab 04/25/24 Controlled Substance Measures - Controlled Substance Measures Is patient prescribed a controlled substance at discharge?: Yes When asked, does pt state using other controlled substances?: No If prescribed controlled substance>3 days was MAPS reviewed?: Yes
== END ==
LOC: PNWHC3 10:43
PROVIDERS: ATTEND Specialist
DX: M51.36 Other intervertebral disc degeneration, lumbar region
CPT/HCPCS: 80307; 99211

== ENCOUNTER → 2024-05-07 | Outpatient (CLI) | payer MEDICARE ==
--- NOTE | 2024-05-07 12:21 | CA ---
Lexiscan Nuclear Stress Test Report Name: Darby Cordero Exam Date: 05/07/2024 09:44 Exam Location: [place] Stress Ht (in): 63 Wt (lb): 180 BSA: 1.85 Ordering Phys: Nicko Sprague MD Referring Phys: Laureen Fuller Technologist: Vinay Dumont Age: 78 Gender: F : 1945 Procedure CPT: Indications: R06.09 OTHER FORMS OF DYSPNEA R93.1 ICD-10 Codes: Patient History: DIFFICULTY IN BREATHING, HTN, HYPERCHOLESTEROLEMIA, FAMILY HX OF HEART DISEASE, PRIOR SMOKER Medications: Meds past 24 hrs: Pretest Chest Pain: STRESS TEST Lexiscan Protocol Exercise Duration (min:sec): 02:[address] Depressions (mm): Angina Score: Augustin Score: Resting HR (bpm): 69 Peak HR (bpm): 84 Resting BP (mmHg): 171 / 78 Peak BP (mmHg): / 75 MPHR: 143 Target HR: 122 % MPHR: 59 METS: 1.0 Total Dose: Peak Dose: Atropine: Double Product: BP Response: Stress Termination: INFUSION COMPLETE Stress Symptoms: NO SYMPTOMS Stress Summary: ECG ANALYSIS Resting ECG: Normal sinus rhythm normal axis normal intervals Stress ECG: Patient was given intravenous Lexiscan as a protocol did not have chest pain or diagnostic ST segment depression CONCLUSIONS Negative stress test by EKG criteria Cardiolite portion of the stress test will be reported separately Dr. Vignesh Walker MD (Electronically Signed) Final Date: 07 May 2024 12:20
--- NOTE | 2024-05-07 14:09 | NM ---
EXAMINATION TYPE: NM stress lexiscan cardiolite DATE OF EXAM: 05/07/2024 COMPARISON: NONE CLINICAL INDICATION: Female, 78 years old with history of R06.09 OTHER FORMS OF DYSPNEA R93.1; TECHNIQUE: After the intravenous administration of 7.7 mCi Tc 99m Sestamibi - Cardiolite resting SPE CT images acquired 65 minutes post injection. The patient received 0.4mg Lexiscan, 24 mCi Tc 99m Sestamibi - Stress images obtained 50 minutes post injection FINDINGS: Review of stress and rest SPECT images demonstrates a reduced intensity uptake involving the anterior \inferoapical portion of the myocardium on stress images.. Gated analysis shows reduced wall motion with an estimated left ventricular ejection fraction of 58 %. IMPRESSION: Suspicion for reversible ischemia involving the inferior apical myocardium. Findings involving the an terior arm may be artifactual recommend correlation clinically. [facility], , 05/07/2024 2:07 PM
== END | disposition home or self-care (01) ==
LOC: RADNMMAIN 07:58
PROVIDERS: ATTEND Internal Medicine
DX: R06.09 Other forms of dyspnea (principal); R93.1 Abnormal findings on diagnostic imaging of heart and coronary circulation; E78.00 Pure hypercholesterolemia, unspecified; I10 Essential (primary) hypertension; Z87.891 Personal history of nicotine dependence
CPT/HCPCS: 93017; 78452; A9500

== ENCOUNTER → 2024-05-29 | Outpatient (CLI) | payer MEDICARE ==
--- NOTE | 2024-05-29 13:29 | XR ---
EXAMINATION TYPE: XR chest 2V DATE OF EXAM: 05/29/2024 COMPARISON: NONE CLINICAL INDICATION: Female, 78 years old with history of KSP; C64.2 MALIGNANT NEOPLASM OF LEFT KIDNE Y; , TECHNIQUE: XR chest 2V views of the chest. FINDINGS: The lungs are clear and there is no pneumothorax, pleural effusion, or focal pneumonia. Borderline c ardiomegaly but no overt failure. Osseous structures demonstrate hypertrophic and degenerative change s of the spine. Surgical changes left shoulder. Atherosclerotic change of the aorta. Postsurgical gisell nges involve the vertebral column. IMPRESSION: 1. No acute process. [facility], , 05/29/2024 1:27 PM
--- NOTE | 2024-05-29 13:54 | CT ---
EXAMINATION TYPE: CT abdomen pelvis wo con CT DLP: 847.2 mGycm, Automated exposure control for dose reduction was used. DATE OF EXAM: 05/29/2024 1:39 PM COMPARISON: CT urogram 04/14/2023 CLINICAL INDICATION:Female, 78 years old with history of KSP; C64.2 MALIGNANT NEOPLASM OF LEFT KIDNEY ; right flank pain TECHNIQUE: Standard CT of the abdomen and pelvis without IV or oral contrast. Lack of IV or oral co ntrast limits evaluation of solid and hollow organ viscera. Coronal and sagittal reformats were perfo rmed. FINDINGS: LOWER CHEST: Mild bilateral lower lobe dependent subsegmental atelectasis. Small pericardial effusion . ABDOMEN LIVER: Unremarkable noncontrast appearance. GALLBLADDER AND BILE DUCTS: The gallbladder is surgically absent. No biliary duct dilatation. PANCREAS: Unremarkable noncontrast appearance SPLEEN: Unremarkable noncontrast appearance ADRENAL GLANDS: Degenerative gland is unremarkable. Right adrenal gland punctate calcifications redem onstrated. KIDNEYS AND URETERS: Postsurgical changes from left nephrectomy. No suspicious soft tissue within the surgical site. No hydronephrosis or right renal calculi. Stable right renal upper pole 2.5 cm cyst. No ureteral calculus. PELVIS BLADDER: Underdistended but grossly unremarkable. REPRODUCTIVE: The uterus is surgically absent. ABDOMEN & PELVIS STOMACH AND BOWEL: Stomach and duodenum are unremarkable. Postsurgical changes with suture involving the right colon. No focal bowel wall thickening or surrounding inflammatory changes. No evidence of b owel obstruction. PERITONEUM: No evidence of pneumoperitoneum or free fluid. VASCULATURE: Moderate atherosclerotic calcifications are present throughout the abdominal aorta and i ts branches. No evidence of aortic aneurysm. MUSCULOSKELETAL: No acute osseous abnormalities. Degenerative changes of the pubic symphysis. Left hi p osteoarthritic change. Multilevel degenerative disc disease. Postsurgical changes with bilateral pe dicle screws and rods involving L2-S1. Fixed grade I anterolisthesis of L3 on L4, L4 on L5 and L5 on S1. LYMPH NODES: No gross evidence for lymphadenopathy. SOFT TISSUE/ABDOMINAL WALL: Left lateral flank soft tissue stranding changes redemonstrated. Few scat tered calcifications within the soft tissues. IMPRESSION: Postsurgical changes from left nephrectomy. No CT evidence for recurrence or metastatic disease. No C T evidence for acute process. No obstructive uropathy of the right kidney. [facility], , 05/29/2024 1:51 PM
== END | disposition home or self-care (01) ==
LOC: RADCTMAIN 13:04
PROVIDERS: ATTEND Urology
DX: C64.2 Malignant neoplasm of left kidney, except renal pelvis (principal); I70.0 Atherosclerosis of aorta; Z90.5 Acquired absence of kidney; M16.12 Unilateral primary osteoarthritis, left hip; I31.39 Other pericardial effusion (noninflammatory)
CPT/HCPCS: 71046; 74176

== ENCOUNTER → 2024-06-20 | Outpatient (CLI) | payer MEDICARE ==
[2024-06-20 11:02] VITALS: BP 148/65; PULSE 71; RESP 16
--- NOTE | 2024-06-20 15:14 | P.PAINPG ---
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 Pain level is provoked at 5 /10 in intensity, constant, predominantly axial localized in the lumbar spine L> R, sore in character w occasional shooting towards the LLE. Pain is provoked by weight bearing activity. Pain is alleviated with medications, topicals, use of a walker for ambulatory assistance, PT x 1 wk which she is currently in, massage therapy semi monthly, chiropractic treatments weekly x 3 mo in 2021, use of a pulsating showerhead, use of a walker for ambulatory assistance, repositioning and rest. 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 Also discussed pregabalin and compounded topical gabapentin as options. Interventional procedures include Patient is currently on [place] 10/325mg #60, Neurontin #90 Patient denies any side effects of the medication(s), denies excessive drowsiness or sleepiness, denies suicidal ideation and reports that the current pain medication is helping to control the pain and improve activities of daily living. Patient denies any motor or sensory deficits. Patient denies any fever or night sweats, denies any change in the bowel movements or urination. Physical Examination: -Constitutional: Cooperative. Not in acute distress . - Neurologic: Cranial nerve II to XII intact. No focal neurological deficits. - Psychatric: Alert & oriented x 3. Matching mood & appropriate affect. Judgment and insight intact. - Musculoskeletal: Cervical spine: Muscle bulk/ tone/ strength in the bilateral upper extremities normal Vertebral body tenderness to palpation over Spurling test positive Distraction test positive Facet loading test positive TTP Thoracic spine Muscle bulk / tone/ strength in the bilateral paraspinal muscles normal Vertebral body tender to palpation over Facet loading test positive TTP Lumbar spine: +Incisional scar intact Motor bulk/ tone/ strength lower extremities , thigh and legs : 5/5 Deep tendon reflexes : Normal Knee Jerk. Normal Ankle Jerk . Vertebral body tenderness to palpation over L5 Lumbar Facet Loading Test positive Straight Leg Raise: positive at 30 degrees right side/ left side Gaenslen's Test positive Sacral spine : Severe tenderness over the Sacroiliac joint: right side / left side Range of motion: Flexion of the lumbar spine <60 degrees Range of motion: Extension of the lumbar spine <20 degrees Gaenslen's Test positive right side / left side [place] test: positive right side / left side Thigh Thrust Test positive right side / left side Sacral Thrust Test positive right side / left side Imaging: MRI non contrast of the lumbar spine from 10/21/23 reviewed Assessment and plan: Chronic LBP secondary to post laminectomy syndrome Recommendation of Caudal ALEX w Lysis. Risks, benefits of procedure discussed and pt verbalized understanding. Chronic and current use of high-risk medication (Opioids). The patient was counseled about risk of opioid use, psychological risk associated with opioids and was orally counseled to not overuse , divert or sell medications. Pt is to store medication in a safe location. The patient is counseled against driving while using narcotic medications and also not to use alcohol or any illicit recreational drugs. Patient verbalized understanding that the lack of compliance will result in failure to renew narcotic prescription(s) as well as possible discharge from the clinic Diagnoses, prognosis and treatment options including but not limited to physical therapy, surgical interventions, interventional therapies and medication management including narcotics and adjuvant medication were discussed. All patient questions answered . Opiate/ narcotic agreement renewed 06/30/24. MAPS reviewed and it was appropriate. UDS from 04/25/24 reviewed +ETOH metabolites, +Opiate metabolites. Recheck UDS 06/20/24 . Prescription refill for [place] 10/325mg #60, Neurontin 800mg #90 w 1 RF I have spent less than 30 minutes on patient care today. Dr Foss was available by phone for the evaluation of this patient. The time was used to revi ew the medical records including relevant urine studies and Prescription history (MAPs), review of the available imaging, evaluation and examination of the patient, coordination of care with the medical staff and if applicable referring physicians, as well as creation of the medical record - Pain Location Left Lower Back Non-Pharmacological Interventions: Heat, Home Exercise, Ice, Inactivity, Physical Therapy, Position/Reposition, Stretching Pharmacological Interventions: Epidural, PRN Medication, Scheduled Medication, Topical Medication PQRS Narrative: Smoking Status Former smoker Narcotic Agreement Date Signed 04/25/24 Blood Pressure 148/65 Pain Intensity [Left Lower 5 Back] Scale Used Numeric (1 - 10) Hx Alcohol Use (MH) No Home Medications: Ambulatory Orders Esomeprazole Magnesium [NexIUM] 20 mg PO DAILY 02/23/16 Sertraline HCl 200 mg PO DAILY 02/23/16 Sildenafil [Revatio] 20 mg PO TID 06/30/16 Multivit-Min/Iron/Folic/Lutein [Centrum Silver Women Tablet] 1 tab PO DAILY 10/25/17 Levothyroxine Sodium [Synthroid] 25 mcg PO DAILY 08/21/19 Magnesium Oxide 400 mg PO DAILY 08/21/19 Ascorbic Acid [Vitamin C] 500 mg PO DAILY 01/01/21 Cholecalciferol (Vitamin D3) [Vitamin D3 (125 MCG = 5,000 IU)] 125 mcg PO DAILY 11/26/21 Potassium Chloride [Klor-Con M10] 10 meq PO DAILY 11/26/21 predniSONE 10 mg PO DAILY 05/17/22 traZODone HCL [Desyrel] 50 mg PO HS 10/03/22 Gabapentin [Neurontin] 800 mg PO TID 30 Days #90 tab 04/25/24 Diclofenac Sodium Gel [Voltaren 1% Gel] 50 gm TOPICAL BID 30 Days #1 each 06/20/24 HYDROcodone/APAP 10-325MG [[place] 10-325] 1 tab PO BID PRN 30 Days #60 tab 06/20/24 HYDROcodone/APAP 10-325MG [[place] 10-325] 1 tab PO BID PRN 30 Days #60 tab 06/20/24 diazePAM [Valium] 5 mg PO DAILY PRN 1 Days #2 tab 06/20/24 Controlled Substance Measures - Controlled Substance Measures Is patient prescribed a controlled substance at discharge?: Yes When asked, does pt state using other controlled substances?: Yes If prescribed controlled substance>3 days was MAPS reviewed?: Yes If Rx opioid, was Start Talking consent form obtained?: Yes Was information provided regarding opioid addiction?: Yes
== END ==
LOC: PNWHC3 10:47
PROVIDERS: ATTEND Specialist
DX: M96.1 Postlaminectomy syndrome, not elsewhere classified (principal); Z87.891 Personal history of nicotine dependence; Z88.2 Allergy status to sulfonamides
CPT/HCPCS: 80307; G0463; 99212

== ENCOUNTER → 2024-07-19 | Day surgery (SDC) | payer MEDICARE ==
[2024-07-17 13:43] VITALS: BMI 31.8
[~2024-07-19] MED LIST changes: -DEXAMETHASONE SOD PHOSPHATE 4 MG/ML 1 ML VIAL IV ONE; -HEPARIN SODIUM,PORCINE/PF 5,000 UNIT/0.5 ML SYRINGE SQ PRN; +IOPAMIDOL M200 10 ML VIAL ONE; +LACTATED RINGERS 1,000 ML IV SCH; -ONDANSETRON 4 MG/2 ML VIAL IVP ONE; +methylPREDNISolone ACETATE 80 MG/ML 1 ML VIAL ONE
[2024-07-19 09:58] VITALS: TEMP 97.6
[2024-07-19 10:06] LABS: Glucose,Whole Blood 80 mg/dL (70-110)
--- NOTE | 2024-07-19 10:49 | P.PCN ---
Date of Procedure: 07/19/24 Procedure(s) Performed: PREOP DIAGNOSIS: 1- Lumbar postlaminectomy syndrome. POSTOP DIAGNOSIS:1- Lumbar postlaminectomy syndrome. PROCEDURE: 1-Caudal epidural steroid injection with epidurolysis under fluoroscopic guidance.(Fluoroscopy images a in the radiology Department ) 2-caudal epidurogram. ANESTHESIA: Lidocaine 1% 5 mL only. EBL: Minimal. PROCEDURE INDICATION: The patient with post-laminectomy syndrome with low back pain and radiculopathy radiating down in both legs, here for a caudal epidural steroid injection with epidurolysis. PROCEDURE DESCRIPTION: The patient was seen and identified in the preoperative area. Risks, benefits, complications, and alternatives were discussed with the patient. The patient agreed to proceed with the procedure and signed the consent, and vital signs were stable. Patient was taken to the OR and time out was completed. The patient was placed in the prone position on procedure table and a pillow was placed under the abdomen to reduce lumbar lordosis. The lumbosacral area was prepped and draped in the usual sterile fashion. Vital signs were closely monitored during the procedure. lateral view and the anterior-posterior plates of the sacrum were identified with infiltration of the area overlying the sacral hiatus with 1% lidocaine .A 17 gauge RK epidural needle was used to advance through the sacral hiatus into the caudal epidural space. Omnipaque 180 dye. 2cc was injected and the position of the needle was verified to be in the midline. A Racz catheter was introduced into the epidural space and was advanced towards the L5-S1 interspace under direct fluoroscopic guidance. Multiple passes were made with the catheter for lysis of epidural adhesions. Depo-Medrol 60 mg ( preservative-free ) with 3ml of preservative free Lidocaine 1% and 5 ml of preservative free normal saline was injected slowly. Additional spread was seen to L4 under fluoroscopy. The needle and the catheter were withdrawn intact. EPIDUROGRAM: Omnipaque 180 mg dye 2 ml was injected with spread of the dye into the caudal epidural space and with spread cutoff at L5 prior to epidurolysis. Post epidurolysis dye 2 ml was injected and spread was seen to L3-4.There was further spread of the solution together with the dye above the L3 COMPLICATIONS: None. DISPOSITION / PLANS: The patient was placed in a supine position and transferred to the recovery area in a stable condition for observation and was discharged from the recovery room after meeting discharge criteria. Home discharge instructions given to the patient by the staff. The patient was reexamined prior to discharge. The patient will schedule a follow up in the clinic in 2-4 weeks.
[2024-07-19 10:56] VITALS: RESP 14
--- NOTE | 2024-07-19 11:09 | FL ---
EXAMINATION TYPE: FL guided pain mgmt statistic DATE OF EXAM: 07/19/2024 10:51 AM COMPARISON: Pre Operative Images if available both CT/MRI or plain film CLINICAL INDICATION: Female, 78 years old with history of CDL EPI; TECHNIQUE: FL guided pain mgmt statistic, multiple fluoroscopic images provided for procedure. Total fluoroscopy time: 5.3 seconds Total submitted images to PACS: 2 DAP: 0.54038 mGym2 Gycm2 uGym2 cGycm2 or equivalent. FINDINGS: Fluoroscopic images during injection for pain management demonstrate multilevel degeneration changes throughout the spine. No evidence for fracture. No acute process identified. IMPRESSION: 1. No evidence for intraoperative complication. 2. Please see the operative/procedural note for further details. [facility], , 07/19/2024 11:06 AM
[2024-07-19 11:10] VITALS: BP 167/84; PULSE 89
== END ==
LOC: ORPAIN 09:21
PROVIDERS: ATTEND Specialist
DX: M96.1 Postlaminectomy syndrome, not elsewhere classified (principal); M54.16 Radiculopathy, lumbar region
CPT/HCPCS: 62264; Q9966; J1010; C1894

== ENCOUNTER → 2024-09-16 | Outpatient (CLI) | payer MEDICARE ==
[2024-09-16 20:32] LABS: INR 0.97 sec (0.93-1.11); Prothrombin Time 11.1 sec (9.9-11.9)
[2024-09-16 20:43] LABS: HCT 39.8 % (37.2-46.3); HGB 11.8 g/dL (12.0-15.0); MCH 27.1 pg (27.0-32.0); MCHC 29.6 g/dL (32.0-37.0); MCV 91.3 FL (80.0-97.0); Mean Platelet Volume 10.5 FL (9.5-12.2); NRBC Per 100 WBC 0 X 10*3/uL (0.00-0.01); Platelet Count 276 X 10*3/uL (140-440); RBC 4.36 X 10*6/uL (4.10-5.20)
[2024-09-16 21:02] LABS: BUN/Creat Ratio 16.73 Ratio (12.00-20.00); Blood Urea Nitrogen 18.4 mg/dL (9.0-27.0); Calcium 9.2 mg/dL (8.7-10.3); Chloride 106 mmol/L (96-109); Glucose 90 mg/dL (70-110); Potassium 3.5 mmol/L (3.5-5.5); Sodium 144 mmol/L (135-145)
== END | disposition home or self-care (01) ==
LOC: LABWHC1 13:18
PROVIDERS: ATTEND Internal Medicine
DX: Z01.810 Encounter for preprocedural cardiovascular examination (principal); I51.9 Heart disease, unspecified
CPT/HCPCS: 36415; 80048; 85027; 85610

== ENCOUNTER → 2024-09-19 | Outpatient (CLI) | payer MEDICARE ==
--- NOTE | 2024-08-22 09:46 | P.PN ---
Progress Note - Text Progress Note Date: 08/22/24 Can not come in for appt today due to illness. E-script for 1 mo supply of Dulzura 10/325mg #60 sent.
[2024-09-19 13:47] VITALS: BP 164/85; PULSE 104; RESP 16; TEMP 97.3
--- NOTE | 2024-09-19 14:11 | P.PAINPG ---
PQRS Measure Charge Sheet Comment: A 78 yr old female with a history of severe and chronic LBP x 2 yrs secondary to post laminectomy syndrome presents today for medication refills and evaluation s/p Caudal ALEX w Lysis. Pt states she experienced 0 % pain relief x 2 mo s/p procedure. Pain level is provoked at 5 /10 in intensity, constant, pre dominantly axial localized in the lumbar spine L> R, sore in character w occasional shooting towards the LLE. Pain is provoked by weight bearing activity. Pain is alleviated with medications, topicals, use of a walker for ambulatory assistance, PT x 1 wk which she is currently in, massage therapy semi monthly, chiropractic treatments weekly x 3 mo in 2021, use of a pulsating showerhead, use of a walker for ambulatory assistance, repositioning and rest. 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 Also discussed pregabalin and compounded topical gabapentin as options. Interventional procedures include Caudal ALEX w Lysis x1 Patient is currently on [place] 10/325mg #60, Neurontin #90 Patient denies any side effects of the medication(s), denies excessive drowsiness or sleepiness, denies suicidal ideation and reports that the current pain medication is helping to control the pain and improve activities of daily living. Patient denies any motor or sensory deficits. Patient denies any fever or night sweats, denies any change in the bowel movements or urination. Physical Examination: -Constitutional: Cooperative. Not in acute distress . - Neurologic: Cranial nerve II to XII intact. No focal neurological deficits. - Psychatric: Alert & oriented x 3. Matching mood & appropriate affect. Judgment and insight intact. - Musculoskeletal: Cervical spine: Muscle bulk/ tone/ strength in the bilateral upper extremities normal Vertebral body tenderness to palpation over Spurling test positive Distraction test positive Facet loading test positive TTP Thoracic spine Muscle bulk / tone/ strength in the bilateral paraspinal muscles normal Vertebral body tender to palpation over Facet loading test positive TTP Lumbar spine: +Incisional scar intact Motor bulk/ tone/ strength lower extremities , thigh and legs : 5/5 Deep tendon reflexes : Normal Knee Jerk. Normal Ankle Jerk . Vertebral body tenderness to palpation over L5 Lumbar Facet Loading Test positive Straight Leg Raise: positive at 30 degrees right side/ left side Gaenslen's Test positive Sacral spine : Severe tenderness over the Sacroiliac joint: right side / left side Range of motion: Flexion of the lumbar spine <60 degrees Range of motion: Extension of the lumbar spine <20 degrees Gaenslen's Test positive right side / left side [place] test: positive right side / left side Thigh Thrust Test positive right side / left side Sacral Thrust Test positive right side / left side Imaging: MRI non contrast of the lumbar spine from 10/21/23 reviewed Assessment and plan: Chronic LBP secondary to post laminectomy syndrome Chronic and current use of high-risk medication (Opioids). The patient was counseled about risk of opioid use, psychological risk associated with opioids and was orally counseled to not overuse , divert or sell medications. Pt is to store medication in a safe location. The patient is counseled against driving while using narcotic medications and also not to use alcohol or any illicit recreational drugs. Patient verbalized understanding that the lack of compliance will result in failure to renew narcotic prescription(s) as well as possible discharge from the clinic Diagnoses, prognosis and treatment options including but not limited to physical therapy, surgical interventions, interventional therapies and medication management including narcotics and adjuvant medication were discussed. All patient questions answered . Opiate/ narcotic agreement renewed 06/30/24. MAPS reviewed and it was appropriate. Recheck UDS 06/20/24 reviewed and consistent. Prescription refill for [place] 10/325mg #60, Neurontin 800mg #90 w 1 RF I have spent less than 30 minutes on patient care today. Dr Foss was available by phone for the evaluation of this patient. The time was used to review the medical records including relevant urine studies and Prescription history (MAPs), review of the available imaging, evaluation and examination of the patient, coordination of care with the medical staff and if applicable referring physicians, as well as creation of the medical record PQRS Narrative: Smoking Status Former smoker Narcotic Agreement Date Signed 06/20/24 Hx Alcohol Use (MH) No Home Medications: Ambulatory Orders Esomeprazole Magnesium [NexIUM] 20 mg PO DAILY 02/23/16 Sertraline HCl 200 mg PO DAILY 02/23/16 Sildenafil [Revatio] 20 mg PO TID 06/30/16 Multivit-Min/Iron/Folic/Lutein [Centrum Silver Women Tablet] 1 tab PO DAILY 10/02 11/17 Levothyroxine Sodium [Synthroid] 25 mcg PO DAILY 08/21/19 Magnesium Oxide 400 mg PO DAILY 08/21/19 Ascorbic Acid [Vitamin C] 500 mg PO DAILY 01/01/21 Cholecalciferol (Vitamin D3) [Vitamin D3 (125 MCG = 5,000 IU)] 125 mcg PO DAILY 11/26/21 Potassium Chloride [Klor-Con M10] 10 meq PO DAILY 11/26/21 predniSONE 7 mg PO DAILY 05/17/22 traZODone HCL [Desyrel] 50 mg PO HS 10/03/22 diazePAM [Valium] 5 mg PO DAILY PRN 1 Days #2 tab 06/20/24 Turmeric/Turmeric Root Extract [Turmeric 450-50 mg Capsule] 1 each PO DAILY 07/17/24 Gabapentin [Neurontin] 800 mg PO TID 30 Days #90 tab 09/19/24 HYDROcodone/APAP 10-325MG [[place] 10-325] 1 tab PO BID PRN 30 Days #60 tab 09/19/24 HYDROcodone/APAP 10-325MG [[place] 10-325] 1 tab PO BID PRN 30 Days #60 tab 09/19/24 Controlled Substance Measures - Controlled Substance Measures Is patient prescribed a controlled substance at discharge?: Yes When asked, does pt state using other controlled substances?: No If prescribed controlled substance>3 days was MAPS reviewed?: Yes
== END ==
LOC: PNWHC3 11:05
PROVIDERS: ATTEND Specialist
DX: M96.1 Postlaminectomy syndrome, not elsewhere classified (principal); G89.29 Other chronic pain; Z79.891 Long term (current) use of opiate analgesic; Z88.2 Allergy status to sulfonamides; Z87.891 Personal history of nicotine dependence
CPT/HCPCS: 99211

== ENCOUNTER → 2024-11-14 | Outpatient (CLI) | payer MEDICARE ==
[2024-11-14 11:21] VITALS: BP 121/86; PULSE 95; RESP 16; TEMP 97.8
--- NOTE | 2024-11-14 15:59 | P.PAINPG ---
Objective - Vital Signs Vital signs: Vital Signs Temp 97.8 F 11/14/24 11:14 Pulse 95 11/14/24 11:14 Resp 16 11/14/24 11:14 BP 121/86 11/14/24 11:14 Pulse Ox 97 11/14/24 11:14 FiO2 Intake & Output 11/13/24 11/14/24 11/14/24 18:59 06:59 18:59 Weight 81.647 kg PQRS Measure Charge Sheet Mode of Arrival: Ambulatory Comment: A 78 yr old female with a history of severe and chronic LBP x 2 yrs secondary to post laminectomy syndrome presents today for medication refills. Pain level is provoked at 5 /10 in intensity, constant, predominantly axial localized in the lumbar spine L> R, sore in character w occasional shooting towards the LLE. Pain is provoked by weight bearing activity. Pain is alleviated with medications, topicals, use of a walker for ambulatory assistance, PT x 1 wk which she is currently in, massage therapy semi monthly, chiropractic treatments weekly x 3 mo in 2021, use of a pulsating showerhead, use of a walker for ambulatory assistance, repositioning and rest. Will have R hip surgery so will receive [place] #90 for this month only. Interventional procedures include Caudal ALEX w Lysis x1 Patient is currently on [place] 10/325mg #60, Neurontin #90 Patient denies any side effects of the medication(s), denies excessive drowsiness or sleepiness, denies suicidal ideation and reports that the current pain medication is helping to control the pain and improve activities of daily living. Patient denies any motor or sensory deficits. Patient denies any fever or night sweats, denies any change in the bowel movements or urination. Physical Examination: -Constitutional: Cooperative. Not in acute distress . - Neurologic: Cranial nerve II to XII intact. No focal neurological deficits. - Psychatric: Alert & oriented x 3. Matching mood & appropriate affect. Judgment and insight intact. - Musculoskeletal: Cervical spine: Muscle bulk/ tone/ strength in the bilateral upper extremities normal Vertebral body tenderness to palpation over Spurling test positive Distraction test positive Facet loading test positive TTP Thoracic spine Muscle bulk / tone/ strength in the bilateral paraspinal muscles normal Vertebral body tender to palpation over Facet loading test positive TTP Lumbar spine: +Incisional scar intact Motor bulk/ tone/ strength lower extremities , thigh and legs : 5/5 Deep tendon reflexes : Normal Knee Jerk. Normal Ankle Jerk . Vertebral body tenderness to palpation over L5 Lumbar Facet Loading Test positive Straight Leg Raise: positive at 30 degrees right side/ left side Gaenslen's Test positive Sacral spine : Severe tenderness over the Sacroiliac joint: right side / left side Range of motion: Flexion of the lumbar spine <60 degrees Range of motion: Extension of the lumbar spine <20 degrees Gaenslen's Test positive right side / left side [place] test: positive right side / left side Thigh Thrust Test positive right side / left side Sacral Thrust Test positive right side / left side Imaging: MRI non contrast of the lumbar spine from 10/21/23 reviewed Assessment and plan: Chronic LBP secondary to post laminectomy syndrome Chronic and current use of high-risk medication (Opioids). The patient was counseled about risk of opioid use, psychological risk associated with opioids and was orally counseled to not overuse , divert or sell medications. Pt is to store medication in a safe location. The patient is counseled against driving while using narcotic medications and also not to use alcohol or any illicit recreational drugs. Patient verbalized understanding that the lack of compliance will result in failure to renew narcotic prescription(s) as well as possible discharge from the clinic Diagnoses, prognosis and treatment options including but not limited to physical therapy, surgical interventions, interventional therapies and medication management including narcotics and adjuvant medication were discussed. All patient questions answered . Opiate/ narcotic agreement renewed 06/30/24. MAPS reviewed and it was appropriate. Recheck UDS 06/20/24 reviewed and consistent. Prescription refill for [place] 10/325mg #60, Neurontin 800mg #90 w 2 RF I have spent less than 30 minutes on patient care today. Dr Foss was available by phone for the evaluation of this patient. The time was used to review the medical records including relevant urine studies and Prescription history (MAPs), review of the available imaging, evaluation and examination of the patient, coordination of care with the medical staff and if applicable referring physicians, as well as creation of the medical record PQRS Narrative: Smoking Status Former smoker Narcotic Agreement Date Signed 06/20/24 Blood Pressure 121/86 Pain Intensity [Bilateral Hip] 8 Pain Intensity [Back] 8 Scale Used Numeric (1 - 10) Hx Alcohol Use (MH) No Home Medications: Ambulatory Orders Esomeprazole Magnesium [NexIUM] 20 mg PO DAILY 02/23/16 Sertraline HCl 200 mg PO DAILY 02/23/16 Sildenafil [Revatio] 20 mg PO TID 06/30/16 Multivit-Min/Iron/Folic/Lutein [Centrum Silver Women Tablet] 1 tab PO DAILY 10/25/17 Levothyroxine Sodium [Synthroid] 25 mcg PO DAILY 08/21/19 Magnesium Oxide 400 mg PO DAILY 08/21/19 Ascorbic Acid [Vitamin C] 500 mg PO DAILY 01/01/21 Cholecalciferol (Vitamin D3) [Vitamin D3 (125 MCG = 5,000 IU)] 125 mcg PO DAILY 11/26/21 Potassium Chloride [Klor-Con M10] 10 meq PO DAILY 11/26/21 predniSONE 7 mg PO DAILY 05/17/22 traZODone HCL [Desyrel] 50 mg PO HS 10/03/22 diazePAM [Valium] 5 mg PO DAILY PRN 1 Days #2 tab 06/20/24 Turmeric/Turmeric Root Extract [Turmeric 450-50 mg Capsule] 1 each PO DAILY 07/17/24 Gabapentin [Neurontin] 800 mg PO TID 30 Days #90 tab 09/19/24 HYDROcodone/APAP 10-325MG [[place] 10-325] 1 tab PO BID PRN 30 Days #60 tab 11/14/24 HYDROcodone/APAP 10-325MG [[place] 10-325] 1 tab PO BID PRN 30 Days #60 tab 11/14/24 HYDROcodone/APAP 10-325MG [[place] 10-325] 1 tab PO TID PRN 30 Days #90 tab 11/14/24 Controlled Substance Measures - Controlled Substance Measures Is patient prescribed a controlled substance at discharge?: Yes When asked, does pt state using other controlled substances?: No If prescribed controlled substance>3 days was MAPS reviewed?: Yes
== END ==
LOC: PNWHC3 11:06
PROVIDERS: ATTEND Specialist
DX: M54.50 Low back pain, unspecified (principal); G89.29 Other chronic pain; Z88.2 Allergy status to sulfonamides; Z87.891 Personal history of nicotine dependence; Z79.890 Hormone replacement therapy; Z79.52 Long term (current) use of systemic steroids
CPT/HCPCS: 99211

== ENCOUNTER → 2025-01-22 | Outpatient (CLI) | payer MEDICARE ==
[2025-01-22 13:01] LABS: INR 1.0 (<1.2); Partial Thromboplastin Time 21.5 sec (22.0-30.0); Prothrombin Time 11.0 sec (10.0-12.5)
[2025-01-22 15:49] LABS: HCT 34.6 % (37.2-46.3); HGB 9.9 g/dL (12.0-15.0); MCH 25.3 pg (27.0-32.0); MCHC 28.6 g/dL (32.0-37.0); MCV 88.3 FL (80.0-97.0); NRBC Per 100 WBC 0 X 10*3/uL (0.00-0.01); Platelet Count 325 X 10*3/uL (140-440); RBC 3.92 X 10*6/uL (4.10-5.20); RDW 18.2 % (11.5-14.5); WBC 7.40 X 10*3/uL (4.50-10.00)
[2025-01-22 15:58] LABS: ALT 15 U/L (8-44); AST 22 U/L (13-35); Albumin 4.1 g/dL (3.8-4.9); Albumin/Globulin Ratio 2.05 Ratio (1.60-3.17); Alkaline Phosphatase 114 U/L (41-126); Anion Gap 12.60 mmol/L (4.00-12.00); BUN/Creat Ratio 14.30 Ratio (12.00-20.00); Blood Urea Nitrogen 14.3 mg/dL (9.0-27.0); Calcium 9.2 mg/dL (8.7-10.3); Carbon Dioxide 21.4 mmol/L (21.6-31.8); Chloride 107 mmol/L (96-109); Globulin 2.0 g/dL (1.6-3.3); Glucose 93 mg/dL (70-110); Potassium 4.1 mmol/L (3.5-5.5); Sodium 141 mmol/L (135-145); Total Protein 6.1 g/dL (6.2-8.2)
== END | disposition home or self-care (01) ==
LOC: LABPAT 11:43
PROVIDERS: ATTEND Orthopaedic Surgery
DX: Z01.818 Encounter for other preprocedural examination (principal); I49.8 Other specified cardiac arrhythmias; M16.12 Unilateral primary osteoarthritis, left hip; Z22.322 Carrier or suspected carrier of Methicillin resistant Staphylococcus aureus
CPT/HCPCS: 80053; 85027; 85610; 85730; 86850; 86900; 86901; 87070; 93005

== ENCOUNTER 2025-01-28 07:25 | Inpatient (IN) | payer MEDICARE ==
[2025-01-23 10:10] VITALS: BMI 31.8
[~2025-01-28 07:25] MED LIST changes: +GABAPENTIN 300 MG CAP PO PRN; -IOPAMIDOL M200 10 ML VIAL ONE; -LACTATED RINGERS 1,000 ML IV SCH; +TRANEXAMIC 1,000 MG/100ML-NACL 1,000 MG in SALINE 1 100ML.BAG IVPB PRN; -methylPREDNISolone ACETATE 80 MG/ML 1 ML VIAL ONE
[2025-01-28] MEDS: IV FLUID CONTINUATION 1,000 ML IV ONE ×2 (07:48→16:32)
[2025-01-28 08:26] LABS: Glucose,Whole Blood 104 mg/dL (70-110)
[2025-01-28] MEDS: LACTATED RINGERS 1,000 ML IV SCH (08:34)
[2025-01-28] MEDS: DEXAMETHASONE SOD PHOSPHATE 4 MG/ML 1 ML VIAL IV ONE (08:35)
[2025-01-28] MEDS: ONDANSETRON 4 MG/2 ML VIAL IVP ONE (08:35)
[2025-01-28] MEDS: ACETAMINOPHEN TAB 500 MG TAB PO PRN (08:35)
[2025-01-28] MEDS: MELOXICAM 7.5 MG TAB PO PRN (08:35)
[2025-01-28] MEDS: MIDAZOLAM 2 MG/2 ML VIAL IV PRN (08:59)
[2025-01-28] MEDS ORDERED: HYDROmorphone 0.5 MG/0.5 ML SYRINGE IVP PRN ×2 (10:15)
[2025-01-28] MEDS ORDERED: MAGNESIUM HYDROXIDE 2,400 MG/30 ML CUP PO PRN (10:15)
[2025-01-28] MEDS ORDERED: ONDANSETRON 4 MG/2 ML VIAL IVP PRN (10:15)
[2025-01-28] MEDS ORDERED: NALOXONE 0.4 MG/ML 1 ML VIAL IV PRN (10:15)
--- NOTE | 2025-01-28 10:28 | P.ANPRN ---
Procedure Note - Anesthesia - Nerve Block Performed Left Manuel Single Time Out Performed: Yes ([id number]) Date of Procedure: 01/28/25 Procedure Start Time: 08:59 Procedure Stop Time: 09:03 Location of Patient: PreOp Indication: Acute Post-Operative Pain, Requested by Surgeon Specifically requested for management of pain by DrPrudencio: David Hagan Sedation Type: Sedate with meaningful contact maintained Preparation: Sterile Prep Position: Supine Catheter: None Needle Types: Pajunk Needle Gauge: 21 Ultrasound used to visualize needle placement: Yes Ultrasound used to observe medication spread: Yes Injectate: 0.5% Ropivacaine (see comment for volume) (30cc+decadron 4mg) Blood Aspirated: No Pain Paresthesia on Injection Noted: No Resistance on Injection: Normal Image Stored and Saved: Yes Events: Uneventful and Well Tolerated
[2025-01-28] MEDS: ceFAZolin 1,000 MG in SODIUM CHLORIDE 0.9% 1,000 ML IRRIGATION ONE (11:37)
[2025-01-28] MEDS: ROPIVACAINE 5 MG/ML 30 ML VIAL MISCELLANE ONE (11:40)
--- NOTE | 2025-01-28 12:24 | P.OP ---
Date of Procedure: 01/28/25 Preoperative Diagnosis: Severe osteoarthritis left hip Postoperative Diagnosis: Severe osteoarthritis left hip Procedure(s) Performed: Left total hip arthroplasty the direct anterior approach Implants: [employer] Polarstem standard size 0 with a collar [employer] R3, 3 hole hemispherical acetabular shell, 48 mm [employer] Reflection 6.5 mm cancellus screw, 20 mm, 25 mm [employer] R3, XLPE 20 acetabular liner [employer] Oxinium femoral head 32 mm, +4 All components were press-fit. The articulation is Oxinium on polyethylene. Anesthesia: spinal Surgeon: David Hagan Commutator Undercutter #1: Shelley Christopher Estimated Blood Loss (ml): 300 Pathology: none sent Condition: stable Disposition: PACU Indications for Procedure: After failure of conservative treatment we discussed the surgical and nonsurgical treatment options at length. Patient wishes to proceed with a total hip arthroplasty with a direct anterior approach. Complications specific to this procedure were discussed at length, including but not limited to infection, leg length discrepancy, dislocation, nerve injury, and fracture. Covid-19 was also discussed at length with the patient, and they are aware of the current policies and procedures. The patient was given the option of delaying surgery, but they elect to proceed knowing these risks. Patient is aware of all these complications and informed consent was obtained Operative Findings: The operative findings are consistent with severe osteoarthritis of the left hip Description of Procedure: The patient was seen and evaluated in the preoperative area and the consent was reviewed. The operative site was marked with a skin marker. The patient verified the procedure and operative site. A LEONID block was placed by anesthesia in the preoperative area. The patient was then brought to the operating room and given preoperative antibiotics intravenously. 1 g of Tranexamic acid was also given intravenously. A spinal anesthetic was administered by the anesthesia department. The patient was then placed on the [place] table with the bony prominences well-padded. The hip area was then prepped with a ChloraPrep solution and draped in the usual sterile fashion. A universal timeout was then performed, which confirmed the patient's name, surgical site, ALLERGIES, and procedure being performed on the consent. Next the incision site was located at 1 cm distal and 4 cm lateral to the anterior superior iliac spine. The skin and subcutaneous tissues were sharply incised. Incision was carefully dissected down to the fascia overlying the tensor fascia rupert muscle. This fascia was then incised in line with the muscle fibers. Care was taken to stay laterally in order to avoid injuring the lateral femoral cutaneous nerve. Next, using blunt finger dissection, the tensor fascia rupert muscle was dissected off its investing fascia. The muscle was then carefully retracted laterally with a cobra retractor over the lateral neck of the femur. Next, the circumflex vessels were identified and cauterized using the Aquamantis device. The anterior hip capsule was then exposed. The capsule was then opened and an inverted T fashion. The retractors were then placed intracapsularly. The retractors were maintained intracapsular throughout the procedure. The proximal femur was then visualized. Fluoroscopic x-rays were then taken in order to evaluate the preoperative leg lengths. A small amount of traction was placed on the leg. The femoral neck was then osteotomized at the appropriate level above the lesser trochanter. A small wedge of bone was then removed from the remaining femoral head. Next, using a corkscrew the femoral head was removed from the acetabulum. On gross visual inspection, the femoral head had complete loss of articular cartilage and multiple periarticular osteophytes. The femoral head was then measured. Attention was then turned to the acetabulum. The acetabulum was exposed and any remaining labrum was excised. Sequential reaming of the acetabulum was performed using fluoroscopic guidance until there was a good bed of bleeding cancellus bone. When the appropriate size was reached, a trial was then placed. The position and fit of the trial was checked with fluoroscopy. The trial was then removed. Then, using fluoroscopic guidance, the final implant was impacted at 20 of anteversion and 40 of abduction, and fully seated in the acetabulum. 2 screws were then placed in the acetabulum. Again fluoroscopy was used to check position of the screws. Next, the liner was then impacted, with a 20 elevated liner located in the anterior superior quadrant. Component locking was confirmed. Attention was then directed to the femur. With the aid of the [place] table, the femur was externally rotated to approximately 130, extended, and adducted under the opposite leg. A side hook was then placed under the proximal femur, and the side hook elevator was used to elevate the proximal femur while releasing the capsule. Retractors were then placed. A capsular release was performed, as well as a release of the conjoined tendon, which afforded excellent visualization of the proximal femur. Next, a box osteotome was used to lateralize the proximal femur. A wharf hand was then used to locate the femoral canal. Sequential broaching was then performed with appropriate size which afforded excellent fixation in the proximal femur. A trial was then placed with appropriate head and neck, and the hip was gently reduced with the aid of the [place] table. Fluoroscopy was then used to check position of the components, as well as to evaluate the leg lengths and offset. The leg lengths and offset were measured as closely as possible to ensure stability of the hip. The hip was then gently dislocated and the trials were then removed. Final implants were then impacted and the hip was again reduced. Final fluoroscopic x-rays confirmed that the components were in anatomic position. The leg lengths and offset were measured and were found to coincide with the trial measurements. The hip was also taken through range of motion, and found to be stable. The hip was then copiously irrigated with antibiotic solution with pulsatile lavage. The hip was then irrigated with Irrisept solution. The soft tissues were then injected with a ropivacaine solution. A second dose of 1 g of Tranexamic acid was also given intravenously. The fascia was then closed with 2-0 strata fix suture. The subcutaneous tissue was closed with 3-0 Vicryl. The subcuticular tissue was closed with 3-0 strata fix suture. The skin was then closed with Exofin skin glue. After the glue and dried, and Optifoam silver impregnated dressing was applied. The patient was then transferred to the recovery room in stable condition. The mail handler assistant ELADIO Wasserman was required due to the complexity of surgery, and the need for skilled surgical appliance fitter for positioning, draping, exposure, retraction, and closure of the wound.
--- NOTE | 2025-01-28 12:47 | XR ---
EXAMINATION TYPE: XR Hip Limited LT, [place] guidance operating room Intraoperative/procedural fluoroscopi c services were provided. CLINICAL INDICATION:Female, 79 years old with history of TOTAL ANT HIP LT; , [facility] FINDINGS: Postsurgical changes from left hip total arthroplasty. Hardware appears intact with appropriate align ment. No radiographic evidence for complication. Total fluoroscopy time is 20.2 seconds. DAP: 3.0810 Gycm2 Please see the operative/procedural note for further details. [facility], , 01/28/2025 12:44 PM
--- NOTE | 2025-01-28 15:12 | XR ---
EXAMINATION TYPE: XR Hip Limited LT DATE OF EXAM: 01/28/2025 3:05 PM INDICATION: Patient age:Female; 79 years old; Reason for study: Status post hip surgery, assess surgical alignment; PHH. pain COMPARISON: Fluoroscopic images of the left hip from the same date. TECHNIQUE: The left hip was examined in single frontal projection. FINDINGS: Postsurgical changes from left hip arthroplasty. Hardware appears intact with appropriate a lignment. Associated soft tissue gas and edema. No acute fracture or dislocation. IMPRESSION: Postsurgical changes from left hip arthroplasty. Hardware appears intact with appropriate alignment. [facility], , 01/28/2025 3:10 PM
[2025-01-28] MEDS: HYDROmorphone 0.5 MG/0.5 ML SYRINGE IVP PRN (16:22)
[2025-01-28] MEDS: SODIUM CHLORIDE 0.9% 1,000 ML IV SCH (20:07)
[2025-01-28] MEDS: SENNOSIDES-DOCUSATE SODIUM 1 EACH TAB PO SCH (20:31)
[2025-01-28] MEDS: ASPIRIN 325 MG TAB PO SCH (20:31)
[2025-01-28] MEDS ORDERED: FUROSEMIDE 20 MG TAB PO PRN (20:49)
--- NOTE | 2025-01-28 21:49 | P.CONS ---
History of Present Illness - Reason for Consult Consult date: 01/28/25 - History of Present Illness Patient is a 79-year-old female, who had a left total hip arthroplasty done earlier today, she has a PMH of pulmonary arterial hypertension, scleroderma, lung disease. She had a Left nephrectomy on account of renal cancer in 2022, and a right and left heart catetherization 4 months ago, which revealed no significant coronary disease. Patient denies any shortness of breath, chest pain. She stated that she took a nap earlier in the afternoon, and stated that she does not feel any significant pain. Medical team consulted for medical management. Review of systems: Pertinent positives and negatives as discussed in HPI, a complete review of systems was performed and all other systems are negative. Patient seen and examined at bedside. Patient has no complaints Vital signs reviewed General: non toxic, no distress, appears at stated age, normal weight Derm: no unusual rashes/lesions, warm Head: atraumatic, normocephalic, symmetric Eyes: EOMI, anicteric sclera, pupils equal round reactive to light ENT: Nose and ears atraumatic Neck: No cervical lymphadenopathy, trachea midline, supple Mouth: no lip lesion, mucus membranes moist Cardiovascular: S1S2 reg, systolic murmur, positive dorsalis pedis pulse bilateral, no edema Lungs: CTA bilateral, no rhonchi, no rales, no accessory muscle use Abdominal: soft, nontender to palpation, no guarding Ext: muscle strength 5 out of 5 in all 4 extremities grossly, no gross muscle atrophy Neuro: CN II-XI grossly intact, no gross focal neuro deficits Psych: Alert, oriented to person, place, and time Assessment/Plan: #Status post left total hip arthroplasty -PT/OT evaluation in the morning -[place] for pain control per Ortho #Pulmonary arterial hypertension -Sildenafil 20mg p.o tid -Lasix 20mg p.o daily #Scleroderma -Supportive care -Consider placing patient on Xarelto 10mg daily due to increased risk of DVT Thank you for allowing us participate in the care of this patient. Kenny Chan MD PGY-1 FM Dictation was produced using [employer] dictation software. please excuse any grammatical, word or spelling errors. I have seen and evaluated the patient today. Discussed with the resident and agree with the residents finding and plan as documented in the resident's note. Changes highlighted in blue font. Past Medical History Past Medical History: Cancer, Deep Vein Thrombosis (DVT), Eye Disorder, GERD/Reflux, Hypertension, Musculoskeletal Disorder, Skin Disorder Additional Past Medical History / Comment(s): violeta cataracts removed, neuropathy violeta feet, sclerederma, osorio's esophogus, GRAVES disease, (r/t stomach) pulmonary hypertension 10 percent, one kidney ,left kidney removed due to cancer History of Any Multi-Drug Resistant Organisms: None Reported Past Surgical History: Bowel Resection, Cholecystectomy, Hysterectomy, Joint Replacement Additional Past Surgical History / Comment(s): 12/01/21 LUMBAR SURGERY. 04/22/21 LEFT KNEE REPLACEMENT. rt knee replacement, oopherectomy post partial hysterectomy, EGD, COLONOSCOPY. Right foot surgery Past Anesthesia/Blood Transfusion Reactions: No Reported Reaction Additional Past Anesthesia/Blood Transfusion Reaction / Comm: no blood transfsuion Past Psychological History: Depression Smoking Status: Former smoker Past Alcohol Use History: Rare Additional Past Alcohol Use History / Comment(s): smoked 1ppd from age [age], quit 1985 Past Drug Use History: None Reported - Past Family History Father Family Medical History: Cancer Additional Family Medical History / Comment(s): throat cancer Mother Family Medical History: Chest Pain / Angina, Osteoarthritis (OA) Medications and Allergies Home Medications Medication Instructions Recorded Confirmed Type Esomeprazole Magnesium [NexIUM] 20 mg PO QAM 02/23/16 01/28/25 History Sertraline HCl 200 mg PO QAM 02/23/16 01/28/25 History Sildenafil [Revatio] 20 mg PO TID 06/30/16 01/28/25 History Multivit-Min/Iron/Folic/Lutein 1 tab PO HS 10/25/17 01/28/25 History [Centrum Silver Women Tablet] Levothyroxine Sodium [Synthroid] 50 mcg PO QAM 08/21/19 01/28/25 History Magnesium Oxide 400 mg PO DAILY 08/21/19 01/28/25 History Cholecalciferol (Vitamin D3) 125 mcg PO HS 11/26/21 01/28/25 History [Vitamin D3 (125 MCG = 5,000 IU)] predniSONE 10 mg PO DAILY@1400 05/17/22 01/28/25 History Atorvastatin [Lipitor] 20 mg PO HS 11/20/24 01/28/25 History Furosemide [Lasix] 20 mg PO DAILY PRN 11/20/24 01/28/25 History HYDROcodone/APAP 10-325MG [[place] 1 tab PO BID PRN 11/20/24 01/28/25 History 10-325] Natures Balance Vitamin 1 tab PO TID 11/20/24 01/28/25 History Potassium Chloride ER [K-Dur 20] 60 meq PO W/LUNCH 11/20/24 01/28/25 History Turmeric Root Extract [Turmeric] 1,000 mg PO DAILY 11/20/24 01/28/25 History amLODIPine [Norvasc] 5 mg PO HS 11/20/24 01/28/25 History traZODone HCL [Desyrel] 50 mg PO HS 11/20/24 01/28/25 History Gabapentin [Neurontin] 800 mg PO TID 30 Days #90 tab 01/22/25 01/28/25 Rx Aspirin 325 mg PO BID #60 tab 01/28/25 Rx HYDROcodone/APAP 7.5-325MG [[place] 1 - 2 tab PO Q6H PRN #32 tab 01/28/25 Rx 7.5-325] Sennosides [Senokot] 2 tab PO DAILY PRN #60 tablet 01/28/25 Rx Allergies Allergy/AdvReac Type Severity Reaction Status Date / Time Sulfa (Sulfonamide Allergy Rash/Hives Verified 01/28/25 07:58 Antibiotics) Physical Exam Vitals: Vital Signs Temp Pulse Resp BP Pulse Ox FiO2 01/28/25 17:04 98 F 90 18 152/66 97 01/28/25 16:30 81 18 142/44 97 01/28/25 15:30 80 18 154/62 97 01/28/25 15:00 80 18 156/71 97 01/28/25 14:30 74 18 150/67 97 01/28/25 14:15 80 18 147/71 97 01/28/25 14:00 81 18 143/67 97 01/28/25 13:45 79 18 153/66 97 01/28/25 13:15 69 16 138/68 99 6 01/28/25 13:00 73 16 123/56 96 6 01/28/25 12:47 96.8 F L 66 16 130/66 96 6 01/28/25 09:20 68 14 142/65 99 01/28/25 09:04 72 16 131/58 99 01/28/25 07:56 97.6 F 75 18 137/60 97 Intake and Output 01/28/25 01/28/25 01/28/25 06:59 14:59 22:59 Intake Total 1051 300 Output Total 300 100 Balance 751 200 Intake: IV 1051 300 Output: Urine 100 Estimated Blood Loss 300 Other: # Voids 1 Weight 84.9 kg 84.9 kg
[2025-01-28] MEDS: GABAPENTIN 400 MG CAP PO SCH (23:11)
[2025-01-28] MEDS: CHOLECALCIFEROL 125 MCG (5000 IU) TABLET PO SCH (23:11)
[2025-01-28] MEDS: MULTIVITAMINS, THERA 1 EACH TAB PO SCH (23:11)
[2025-01-28] MEDS: ATORVASTATIN 20 MG TAB PO SCH (23:11)
[2025-01-28] MEDS: amLODIPine 5 MG TAB PO SCH (23:15)
[2025-01-28] MEDS: SILDENAFIL 20 MG TAB PO SCH (23:39)
[2025-01-29] MEDS: HYDROcodone/APAP 7.5-325MG 1 EACH TAB PO PRN (00:26)
[2025-01-29] MEDS: LEVOTHYROXINE 50 MCG TAB PO SCH (06:50)
[2025-01-29 08:02] LABS: Basophils # (A) 0.01 X 10*3/uL (0.00-0.10); Basophils % (A) 0.1 %; Eosinophils # (A) 0.01 X 10*3/uL (0.04-0.35); Eosinophils % (A) 0.1 %; HCT 25.4 % (37.2-46.3); HGB 7.5 g/dL (12.0-15.0); Immature Grans, Automated 0.70 %; Lymphocytes # (A) 0.52 X 10*3/uL (0.90-5.00); Lymphocytes % (A) 5.5 %; MCH 25.9 pg (27.0-32.0); MCHC 29.5 g/dL (32.0-37.0); MCV 87.6 FL (80.0-97.0); Monocytes # (A) 1.11 X 10*3/uL (0.20-1.00); Monocytes % (A) 11.8 %; NRBC Per 100 WBC 0 X 10*3/uL (0.00-0.01); Neutrophils # (A) 7.68 X 10*3/uL (1.80-7.70); Neutrophils % (A) 81.8 %; Platelet Count 253 X 10*3/uL (140-440); RBC 2.90 X 10*6/uL (4.10-5.20); RDW 17.3 % (11.5-14.5); WBC 9.40 X 10*3/uL (4.50-10.00)
[2025-01-29 08:13] LABS: Anion Gap 11.10 mmol/L (4.00-12.00); BUN/Creat Ratio 16.60 Ratio (12.00-20.00); Blood Urea Nitrogen 16.6 mg/dL (9.0-27.0); Calcium 7.9 mg/dL (8.7-10.3); Carbon Dioxide 20.9 mmol/L (21.6-31.8); Chloride 110 mmol/L (96-109); Glucose 121 mg/dL (70-110); Potassium 3.3 mmol/L (3.5-5.5); Sodium 142 mmol/L (135-145)
[2025-01-29] MEDS: MAGNESIUM OXIDE 400 MG TAB PO SCH (09:16)
[2025-01-29] MEDS: SERTRALINE 100 MG TAB PO SCH (09:16)
[2025-01-29] MEDS: PANTOPRAZOLE 40 MG TABLET PO SCH (09:16)
--- NOTE | 2025-01-29 09:18 | P.PN ---
Subjective Progress Note Date: 01/29/25 This is a 79-year-old female who is status post left total hip arthroplasty with direct anterior approach. This is postoperative day #1 and patient is seen and evaluated at bedside today. Patient states that her pain is well-controlled, but she has not worked with physical therapy yet today. Patient denies any new complaints today. Objective - Vital Signs Vital signs: Vital Signs Temp 98.2 F 01/29/25 07:20 Pulse 84 01/29/25 07:20 Resp 16 01/29/25 07:20 BP 130/69 01/29/25 07:20 Pulse Ox 97 01/29/25 07:20 FiO2 6 01/28/25 13:15 Intake & Output 01/28/25 01/29/25 01/29/25 18:59 06:59 18:59 Intake Total 1351 Output Total 400 Balance 951 Weight 84.9 kg Intake: IV 1351 Output: Urine 100 Estimated Blood Loss 300 Other: Voiding Method Toilet # Voids 1 1 # Bowel Movements 1 - Exam Vital signs are stable. Patient is in no acute distress and is alert and oriented 3. Calf is soft and nontender to palpation. Dressing is clean, dry, and intact. Patient has full foot and ankle motion without pain or difficulty. Sensation intact. Neurovascular status and circulatory status are intact. - Labs CBC & Chem 7: 01/29/25 03:21 01/29/25 03:21 Labs: Abnormal Lab Results - Last 24 Hours (Table) 01/29/25 01/29/25 Range/Units 03:21 03:21 RBC 2.90 L (4.10-5.20) X 10*6/uL Hgb 7.5 L (12.0-15.0) g/dL Hct 25.4 L (37.2-46.3) % MCH 25.9 L (27.0-32.0) pg MCHC 29.5 L (32.0-37.0) g/dL RDW 17.3 H (11.5-14.5) % Immature Gran # 0.07 H (0.00-0.04) X 10*3/uL Lymphocytes # 0.52 L (0.90-5.00) X 10*3/uL Monocytes # 1.11 H (0.20-1.00) X 10*3/uL Eosinophils # 0.01 L (0.04-0.35) X 10*3/uL Potassium 3.3 L (3.5-5.5) mmol/L Chloride 110 H (96-109) mmol/L Carbon Dioxide 20.9 L (21.6-31.8) mmol/L Est GFR (CKD-EPI) 58 L (>=60) Glucose 121 H (70-110) mg/dL Calcium 7.9 L (8.7-10.3) mg/dL Assessment and Plan (1) S/P total left hip arthroplasty Current Visit: Yes Status: Acute Code(s): Z96.642 - PRESENCE OF LEFT ARTIFICIAL HIP JOINT SNOMED Code(s): 971947336433 (2) Osteoarthritis of left hip Current Visit: Yes Status: Acute Code(s): M16.12 - UNILATERAL PRIMARY OSTEOARTHRITIS, LEFT HIP SNOMED Code(s): 653130578838004 Plan: Continue routine postop care and pain control. Continue anticoagulation. Weightbearing as tolerated with a walker. Leave dressing in place for 7 days. Appreciate input from internal medicine. Anticipate discharge home with homecare or to ECF in the next 24-48 hours.
--- NOTE | 2025-01-29 10:47 | P.PN ---
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 01/29: Patient was seen and examined at bedside. No acute events overnight. She states that she feels pretty well, pain is well-controlled, better than after her previous hip surgery, she denies chest pain, shortness of breath, abdominal pain, her appetite is not back yet. She is afebrile with heart rate in 80s, blood pressure 120/69, satting well on room air. Her morning blood work came back with acute on with likely in the settings of blood loss of 300 cc, hemoglobin 7.5, potassium 3.3, patient is on home 60 of oral mEq, normal sodium, normal creatinine, glucose is controlled. Discussed with RN. Repeat hemoglobin and potassium ordered. Pertinent positives and negatives as discussed above, a complete review of systems was performed and all other systems are negative. Vitals Signs Reviewed. General: Nontoxic, no distress, appears at stated age Derm: Warm, dry Head: Atraumatic, normocephalic, symmetric Eyes: EOMI, no lid lag, anicteric sclera Mouth: No lip lesion, mucus membranes moist Cardiovascular: S1S2 reg, murmur Lungs: CTA bilateral, no rhonchi, no rales, no accessory muscle use Abdominal: Soft, nontender to palpation, no guarding, no appreciable organomegaly Ext: No gross muscle atrophy, no edema, no contractures, postop dressing clean and dry Neuro: CN II-XI grossly intact, no focal neuro deficits Psych: Alert, oriented, appropriate affect Assessment and Plan: Acute on chronic anemia expected in the postop period with 300 ccEBL -Recheck hemoglobin Hypokalemia: Recheck potassium in the afternoon, continue all home potassium supplement 60 mEq oral daily Hypertension: Continue patient on amlodipine 5 mg orally once every day Hyperlipidemia: Continue atorvastatin 20 mg once every day Hypothyroidism: Continue patient on Synthroid 50 mcg orally once every day History of scleroderma/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 GERD with esophagitis: protonix 40 qAM Primary pulmonary hypertension.: Had has been [facility] the care [facility]. Continue sildenafil 20 mg orally 3 times every day, potassium supplement, Lasix 20 mg once every day PRN follow-up with the patient very closely. History of major depressive disorder: continue sertraline 200 mg orally once every day. Insomnia. Continue patient on trazodone 50 mg at bedtime. vitamin D deficiency. Continue vitamin D31. 5000 units once every day. DVT prophylaxis. Continue patient on aspirin 325 mg orally twice every day, Thank you for the consultation we will follow the patient with you. Objective - Vital Signs Vital signs: Vital Signs Temp 98.2 F 01/29/25 07:20 Pulse 84 01/29/25 07:20 Resp 16 01/29/25 07:20 BP 130/69 01/29/25 07:20 Pulse Ox 97 01/29/25 07:20 FiO2 6 01/28/25 13:15 Intake & Output 01/28/25 01/29/25 01/29/25 18:59 06:59 18:59 Intake Total 1351 Output Total 400 Balance 951 Weight 84.9 kg Intake: IV 1351 Output: Urine 100 Estimated Blood Loss 300 Other: Voiding Method Toilet Toilet # Voids 1 1 # Bowel Movements 1 - Labs CBC & Chem 7: 01/29/25 03:21 01/29/25 03:21 Labs: Abnormal Lab Results - Last 24 Hours (Table) 01/29/25 01/29/25 Range/Units 03:21 03:21 RBC 2.90 L (4.10-5.20) X 10*6/uL Hgb 7.5 L (12.0-15.0) g/dL Hct 25.4 L (37.2-46.3) % MCH 25.9 L (27.0-32.0) pg MCHC 29.5 L (32.0-37.0) g/dL RDW 17.3 H (11.5-14.5) % Immature Gran # 0.07 H (0.00-0.04) X 10*3/uL Lymphocytes # 0.52 L (0.90-5.00) X 10*3/uL Monocytes # 1.11 H (0.20-1.00) X 10*3/uL Eosinophils # 0.01 L (0.04-0.35) X 10*3/uL Potassium 3.3 L (3.5-5.5) mmol/L Chloride 110 H (96-109) mmol/L Carbon Dioxide 20.9 L (21.6-31.8) mmol/L Est GFR (CKD-EPI) 58 L (>=60) Glucose 121 H (70-110) mg/dL Calcium 7.9 L (8.7-10.3) mg/dL
[2025-01-29] MEDS: POTASSIUM CHLORIDE ER 20 MEQ TAB.ER PO SCH (11:54)
--- NOTE | 2025-01-29 15:02 | P.CONS ---
History of Present Illness - Reason for Consult Consult date: 01/29/25 Medical management Requesting physician: David Hagan - Chief Complaint Status post left total hip arthroplasty - History of Present Illness HISTORY OF PRESENT ILLNESS: This is a 79-year-old female with a previous medical history significant for hypertension and hypertensive cardiovascular disease, mixed hyperlipidemia, hypothyroidism, GERD, vitamin D deficiency, scleroderma, Raynaud's syndrome, primary pulmonary hypertension, polyneuropathy, major depres sive disorder and insomnia, history of severe osteoarthritis, she underwent left total hip arthroplasty yesterday, I had never received call after the surgery and I believe the patient was seen by the hospitalist group came and saw the patient today, she is sitting up in bed in no apparent distress, she is tolerating her treatment very well, she is using incentive spirometer, she has no chest pain or shortness of breath at this time, she has no abdominal pain, she denies any unusual symptoms at this point in time, will continue to follow- up with the patient very closely. I spoke with the unit tech about changing the consult to my name and no need for the residents to follow-up with the patient at this point in time REVIEW OF SYSTEMS: Constitutional: No documented fever, no chills, no night sweats. No weight change. No weakness, fatigue or lethargy. No daytime sleepiness. EENT: No headache. No blurred vision or double vision, no loss of vision. No loss of Hearing, no ringing in the ears, no dizziness. No nasal drainage or congestion. No epistaxis. No sore throat. Lungs: mild shortness of breath, no cough, no sputum production. No wheezing. Reports dyspnea with activity. Cardiovascular: No chest pain, positive for lower extremity edema. No palpitations. No paroxysmal nocturnal dyspnea. No orthopnea. No lightheadedness or dizziness. No syncopal episodes. Abdominal: Reports abdominal pain. No nausea, vomiting. No diarrhea. No constipation. No bloody or tarry stools reports loss of appetite. Genitourinary: No dysuria, increased frequency, urgency. No urinary retention. Musculoskeletal: No myalgias. positive for muscle weakness, positive for gait dysfunction, negative for frequent falls. No back pain. No neck pain, left hip pain Integumentary: Left hip wound is covered with dressing, no lesions. No rash or pruritus. No unusual bruising. No change in hair or nails. Neurologic: No aphasia. No facial droop. No change in mentation. No head injury. No headache. No paralysis.positive for neuropathy Psychiatric: positive for depression. No anxiety. No mood swings. Endocrine: No abnormal blood sugars. No weight change. PAST MEDICAL HISTORY: Hypertension and hypertensive cardiovascular disease. Mixed hyperlipidemia. Hypothyroidism. Scleroderma. GERD with esophagitis. Vitamin D deficiency. Raynaud's syndrome without gangrene. Primary pulmonary hypertension. Major depressive disorder. Arthritis. Insomnia. PAST SURGICAL HISTORY: Left heart catheterization at [facility] 09/19/2024 no CAD. Bilateral cataract surgery. Small bowel resection and partial colectomy. Partial hysterectomy. Bilateral salpingectomies and bilateral oophorectomies. Laparoscopic cholecystectomy 2009 Bilateral total knee arthroplasty Laminectomy L1 L5 with fusion and cage 2021 Left nephrectomy due to renal cancer Left reverse shoulder arthroplasty December 2023 Colonoscopy 2016 Right sternocleidomastoid muscle surgery for torticollis at the age of 16 Left third toe partial amputation due to osteomyelitis 2023. SOCIAL HISTORY: Patient used to smoke about 19-year-old and she quit in the 90s when she was 39-year-old up to a pack every day patient drinks occasionally, she denies any drug use or abuse, she was with her . FAMILY HISTORY: Father at the age of 68 from intracranial bleed and had throat cancer post radiation therapy and tuberculosis also had peptic ulcer disease, mother at the age of 82 from sepsis post total hip arthroplasty due to osteoarthritis patient has half brother who at the age of 97 was elevated the other brother 75-year-old with coronary artery disease status post permanent pacemaker placement, patient has a son who is 57-year-old with hypertension. PHYSICAL EXAMINATION: General: 79-year-old female who is sitting up in the recliner no apparent distress HEENT: Head is atraumatic, normocephalic, pupils were equal round reactive to light and recommendation, extraocular muscle movement were intact, sclera nonicteric, conjunctivae were pale, mucous membranes of the mouth are somewhat dry. Neck: Supple, no JVP, normal carotid upstroke bilaterally, no lymphadenopathy. Chest: Decreased breath sounds at the bases, few rhonchi, no expiratory wheezes, no chest wall tenderness, no intercostal retractions. Heart: First heart sound is normal, second heart sounds normal there are systolic ejection murmur 2 over systolic in the left sternal border. Abdomen: Soft, nontender, nondistended, positive bowel sounds. Extremities: There is +1 edema no calf tenderness DP +1 bilaterally, significant difformities in both hands and tight skin due to scleroderma, left hip incision is covered with dressing Neurologic examination: Patient is awake alert and oriented x3, cranial nerves II-12 appear grossly intact, muscle power were 4 out of 5 in upper extremities and 4 out of 5 in bilateral lower extremities. Skin: Right total hip arthroplasty is covered with a dressing minimal bruising and edema, very tight skin due to scleroderma ASSESSMENT AND PLAN: 1. postoperative day #1 status post left total hip arthroplasty via direct anterior approach. Continue patient incentive parameter, continue current pain management, continue physical therapy and Occupational Therapy evaluation, continue aspirin 325 mg orally twice every day, patient will likely benefit from short course at the [facility] because her is not able to care for her at this point in time due to his chronic medical conditions, we will discuss with the social science research assistant and case worker along with physical therapy evaluation 2. Acute on chronic anemia due to scleroderma and no recent surgical intervention. Hemoglobin down to 7.5, started the patient on iron 125 mg IV piggyback every day for the next 3 days. Follow-up with the patient very closely repeat CBC tomorrow morning. Transfuse for hemoglobin is than 7 3. Hypertension and hypertensive vascular disease. Continue patient on amlodipine 5 mg orally once every day, continue spironolactone 25 mg once every day, monitor the patient blood pressure very closely. 4. Hyperlipidemia. Continue atorvastatin 20 mg once every day, monitor lipid panel, keep LDL 55-73 5. Hypothyroidism. Continue patient on Synthroid 25 mcg orally once every day. Monitor the patient thyroid function test as an outpatient. 6. History of scleroderma/Raynaud's syndrome without gangrene continue patient on prednisone 10 mg orally once every day, monitor the patient's symptoms very closely, check cortisol level. 7. History of polyneuropathy. Continue patient on gabapentin 800 mg orally 3 times every day. 8. GERD with esophagitis. Continue Nexium 20 mg orally once every day or substitute. 9. Primary pulmonary hypertension. Had has been under the care of the [facility]. Continue sildenafil 20 mg orally 3 times every day, spironolactone 25 mg once every day, potassium supplement, Lasix 20 mg once every day follow-up with the patient very closely. 10. History of major depressive disorder. continue sertraline 200 mg orally once every day. 11. Insomnia. Continue patient on trazodone 50 mg at bedtime. 12. vitamin D deficiency. Continue vitamin D31. 5000 units once every day. 13. DVT prophylaxis. Continue patient on aspirin 325 mg orally twice every day, start bilateral knee-high CHARLEE hose. 14. GI prophylaxis. Continue PPI. 15. We will follow the patient with you Past Medical History Past Medical History: Cancer, Deep Vein Thrombosis (DVT), Eye Disorder, GERD/Reflux, Hypertension, Musculoskeletal Disorder, Skin Disorder Additional Past Medical History / Comment(s): violeta cataracts removed, neuropathy violeta feet, sclerederma, osorio's esophogus, GRAVES disease, (r/t stomach) pulmonary hypertension 10 percent, one kidney ,left kidney removed due to cancer History of Any Multi-Drug Resistant Organisms: None Reported Past Surgical History: Bowel Resection, Cholecystectomy, Hysterectomy, Joint Replacement Additional Past Surgical History / Comment(s): 12/01/21 LUMBAR SURGERY. 04/22/21 LEFT KNEE REPLACEMENT. rt knee replacement, oopherectomy post partial hysterectomy, EGD, COLONOSCOPY. Right foot surgery Past Anesthesia/Blood Transfusion Reactions: No Reported Reaction Additional Past Anesthesia/Blood Transfusion Reaction / Comm: no blood transfsuion Past Psychological History: Depression Smoking Status: Former smoker Past Alcohol Use History: Rare Additional Past Alcohol Use History / Comment(s): smoked 1ppd from age [age], quit 1985 Past Drug Use History: None Reported - Past Family History Father Family Medical History: Cancer Additional Family Medical History / Comment(s): throat cancer Mother Family Medical History: Chest Pain / Angina, Osteoarthritis (OA) Medications and Allergies Home Medications Medication Instructions Recorded Confirmed Type Esomeprazole Magnesium [NexIUM] 20 mg PO QAM 02/23/16 01/28/25 History Sertraline HCl 200 mg PO QAM 02/23/16 01/28/25 History Sildenafil [Revatio] 20 mg PO TID 06/30/16 01/28/25 History Multivit-Min/Iron/Folic/Lutein 1 tab PO HS 10/25/17 01/28/25 History [Centrum Silver Women Tablet] Levothyroxine Sodium [Synthroid] 50 mcg PO QAM 08/21/19 01/28/25 History Magnesium Oxide 400 mg PO DAILY 08/21/19 01/28/25 History Cholecalciferol (Vitamin D3) 125 mcg PO HS 11/26/21 01/28/25 History [Vitamin D3 (125 MCG = 5,000 IU)] predniSONE 10 mg PO DAILY@1400 05/17/22 01/28/25 History Atorvastatin [Lipitor] 20 mg PO HS 11/20/24 01/28/25 History Furosemide [Lasix] 20 mg PO DAILY PRN 11/20/24 01/28/25 History HYDROcodone/APAP 10-325MG [Page 1 tab PO BID PRN 11/20/24 01/28/25 History 10-325] Natures Balance Vitamin 1 tab PO TID 11/20/24 01/28/25 History Potassium Chloride ER [K-Dur 20] 60 meq PO W/LUNCH 11/20/24 01/28/25 History Turmeric Root Extract [Turmeric] 1,000 mg PO DAILY 11/20/24 01/28/25 History amLODIPine [Norvasc] 5 mg PO HS 11/20/24 01/28/25 History traZODone HCL [Desyrel] 50 mg PO HS 11/20/24 01/28/25 History Gabapentin [Neurontin] 800 mg PO TID 30 Days #90 tab 01/22/25 01/28/25 Rx Aspirin 325 mg PO BID #60 tab 01/28/25 Rx HYDROcodone/APAP 7.5-325MG [Page 1 - 2 tab PO Q6H PRN #32 tab 01/28/25 Rx 7.5-325] Sennosides [Senokot] 2 tab PO DAILY PRN #60 tablet 01/28/25 Rx Allergies Allergy/AdvReac Type Severity Reaction Status Date / Time Sulfa (Sulfonamide Allergy Rash/Hives Verified 01/28/25 07:58 Antibiotics) Physical Exam Vitals: Vital Signs Temp Pulse Resp BP Pulse Ox FiO2 01/29/25 07:20 98.2 F 84 16 130/69 97 01/29/25 00:38 98.4 F 85 16 108/59 97 01/28/25 23:14 92 136/74 01/28/25 19:06 98.1 F 93 16 128/70 96 01/28/25 17:04 98 F 90 18 152/66 97 01/28/25 16:30 81 18 142/44 97 01/28/25 15:30 80 18 154/62 97 01/28/25 15:00 80 18 156/71 97 01/28/25 14:30 74 18 150/67 97 01/28/25 14:15 80 18 147/71 97 01/28/25 14:00 81 18 143/67 97 01/28/25 13:45 79 18 153/66 97 01/28/25 13:15 69 16 138/68 99 6 01/28/25 13:00 73 16 123/56 96 6 01/28/25 12:47 96.8 F L 66 16 130/66 96 6 Intake and Output 01/28/25 01/29/25 01/29/25 22:59 06:59 14:59 Intake Total 300 Output Total 100 Balance 200 Intake: IV 300 Output: Urine 100 Other: Voiding Method Toilet # Voids 1 1 # Bowel Movements 1 Weight 84.9 kg Results CBC & Chem 7: 01/29/25 03:21 01/29/25 03:21 Labs: Abnormal Lab Results - Last 24 Hours (Table) 01/29/25 01/29/25 Range/Units 03:21 03:21 RBC 2.90 L (4.10-5.20) X 10*6/uL Hgb 7.5 L (12.0-15.0) g/dL Hct 25.4 L (37.2-46.3) % MCH 25.9 L (27.0-32.0) pg MCHC 29.5 L (32.0-37.0) g/dL RDW 17.3 H (11.5-14.5) % Immature Gran # 0.07 H (0.00-0.04) X 10*3/uL Lymphocytes # 0.52 L (0.90-5.00) X 10*3/uL Monocytes # 1.11 H (0.20-1.00) X 10*3/uL Eosinophils # 0.01 L (0.04-0.35) X 10*3/uL Potassium 3.3 L (3.5-5.5) mmol/L Chloride 110 H (96-109) mmol/L Carbon Dioxide 20.9 L (21.6-31.8) mmol/L Est GFR (CKD-EPI) 58 L (>=60) Glucose 121 H (70-110) mg/dL Calcium 7.9 L (8.7-10.3) mg/dL
[2025-01-29] MEDS: predniSONE 10 MG TAB PO SCH (15:26)
[2025-01-29 16:17] LABS: Basophils # (A) 0.02 10*3/uL (0.00-0.10); Basophils % (A) 0.2 %; Eosinophils # (A) 0.05 10*3/uL (0.04-0.35); Eosinophils % (A) 0.5 %; HCT 27.8 % (37.2-46.3); HGB 8.3 g/dL (12.0-15.0); Lymphocytes # (A) 0.66 10*3/uL (0.90-5.00); Lymphocytes % (A) 6.7 %; MCH 26.0 pg (27.0-32.0); MCHC 29.9 g/dL (32.0-37.0); MCV 87.1 fL (80.0-97.0); Monocytes # (A) 0.91 10*3/uL (0.20-1.00); Monocytes % (A) 9.2 %; Neutrophils # (A) 8.19 10*3/uL (1.80-7.70); Neutrophils % (A) 82.7 %; Platelet Count 245 10*3/uL (140-440); RBC 3.19 10*6/uL (4.10-5.20); RDW 17.7 % (11.5-14.5); WBC 9.90 10*3/uL (4.50-10.00)
[2025-01-29 16:37] LABS: African American GFR (CKD) 70 (>60 ml/min/1.73 sqM); Anion Gap 10 mmol/L; Blood Urea Nitrogen 17 mg/dL (7-17); Calcium 8.5 mg/dL (8.4-10.2); Carbon Dioxide 20 mmol/L (22-30); Chloride 108 mmol/L (98-107); Glucose 102 mg/dL (74-99); Non-African American GFR(CKD) 61 (>60 ml/min/1.73 sqM); Potassium 3.9 mmol/L (3.5-5.1); Sodium 138 mmol/L (137-145)
[2025-01-29] MEDS: SODIUM FERRIC GLUCONAT-SUCROSE 125 MG in SODIUM CHLORIDE 0.9% 100 ML IVPB ONE (17:06)
[2025-01-29] MEDS: HYDROmorphone 0.5 MG/0.5 ML SYRINGE IVP PRN (21:11)
[2025-01-30 07:19] VITALS: BP 110/65; PULSE 82; RESP 16; TEMP 98
[2025-01-30 08:09] LABS: Basophils # (A) 0.03 X 10*3/uL (0.00-0.10); Basophils % (A) 0.3 %; Eosinophils # (A) 0.04 X 10*3/uL (0.04-0.35); Eosinophils % (A) 0.3 %; HCT 28.5 % (37.2-46.3); HGB 8.3 g/dL (12.0-15.0); Immature Grans, Automated 0.80 %; Lymphocytes # (A) 0.69 X 10*3/uL (0.90-5.00); Lymphocytes % (A) 6.0 %; MCH 25.2 pg (27.0-32.0); MCHC 29.1 g/dL (32.0-37.0); MCV 86.6 FL (80.0-97.0); Monocytes # (A) 1.17 X 10*3/uL (0.20-1.00); Monocytes % (A) 10.1 %; NRBC Per 100 WBC 0 X 10*3/uL (0.00-0.01); Neutrophils # (A) 9.53 X 10*3/uL (1.80-7.70); Neutrophils % (A) 82.5 %; Platelet Count 281 X 10*3/uL (140-440); RBC 3.29 X 10*6/uL (4.10-5.20); RDW 17.9 % (11.5-14.5); WBC 11.55 X 10*3/uL (4.50-10.00)
[2025-01-30 08:30] LABS: ALT 8 U/L (8-44); AST 23 U/L (13-35); Albumin 3.4 g/dL (3.8-4.9); Albumin/Globulin Ratio 1.62 Ratio (1.60-3.17); Alkaline Phosphatase 92 U/L (41-126); Anion Gap 10.40 mmol/L (4.00-12.00); BUN/Creat Ratio 14.30 Ratio (12.00-20.00); Blood Urea Nitrogen 14.3 mg/dL (9.0-27.0); Calcium 8.5 mg/dL (8.7-10.3); Carbon Dioxide 20.6 mmol/L (21.6-31.8); Chloride 107 mmol/L (96-109); Globulin 2.1 g/dL (1.6-3.3); Glucose 106 mg/dL (70-110); Potassium 3.9 mmol/L (3.5-5.5); Sodium 138 mmol/L (135-145); Total Protein 5.5 g/dL (6.2-8.2)
[2025-01-30 09:20] LABS: Magnesium 1.9 mg/dL (1.5-2.4)
--- NOTE | 2025-01-30 10:03 | P.DS ---
Providers Date of admission: 01/28/25 10:15 Expected date of discharge: 01/30/25 Attending physician: David Hagan Consults: 01/28/25 10:15 Consult Physician Routine Consulting Provider: Yumiko Espana Consult Reason/Comments: medical management Do you want consulting provider notified?: Yes Primary care physician: Yumiko Malorie - Discharge Diagnosis(es) (1) S/P total left hip arthroplasty Current Visit: Yes Status: Acute (2) Osteoarthritis of left hip Current Visit: Yes Status: Acute Hospital Course: This is a 79-year-old female with known history of degenerative arthritis of the left hip. The patient presented for evaluation as an outpatient. After discussion and consideration patient elects to proceed with total hip arthroplasty. The patient is seen preoperatively by Dr. Hagan and medically cleared for surgery by their primary care physician. Patient is admitted to [facility] on 01/28/2025 for total hip arthroplasty. The procedure is performed without complication or sequelae. The patient is doing well postoperatively. Labs and vital signs are stable on day of discharge. On day of discharge patient's hip incision is healing well. There is minimal erythema. There is no drainage noted at this time. There is minimal soft tissue swelling to the hip and thigh. Patient has full foot and ankle motion without difficulty or pain. Calf is soft and nontender to palpation. Neurovascular status to the left lower extremity is intact. Patient is discharged home in good condition. Please see [facility] rec for accurate list of home medications. Plan - Discharge Summary Discharge Rx Participant: Yes New Discharge Prescriptions: New Aspirin 325 mg PO BID #60 tab Sennosides [Senokot] 2 tab PO DAILY PRN #60 tablet PRN Reason: Constipation HYDROcodone/APAP 7.5-325MG [[place] 7.5-325] 1 - 2 tab PO Q6H PRN #32 tab PRN Reason: Pain No Action Sertraline HCl 200 mg PO QAM Esomeprazole Magnesium [NexIUM] 20 mg PO QAM Sildenafil [Revatio] 20 mg PO TID Multivit-Min/Iron/Folic/Lutein [Centrum Silver Women Tablet] 1 tab PO HS Magnesium Oxide 400 mg PO DAILY Levothyroxine Sodium [Synthroid] 50 mcg PO QAM Cholecalciferol (Vitamin D3) [Vitamin D3 (125 MCG = 5,000 IU)] 125 mcg PO HS Natures Balance Vitamin 1 tab PO TID traZODone HCL [Desyrel] 50 mg PO HS Furosemide [Lasix] 20 mg PO DAILY PRN PRN Reason: Edema predniSONE 10 mg PO DAILY@1400 Potassium Chloride ER [K-Dur 20] 60 meq PO W/LUNCH Turmeric Root Extract [Turmeric] 1,000 mg PO DAILY amLODIPine [Norvasc] 5 mg PO HS Atorvastatin [Lipitor] 20 mg PO HS HYDROcodone/APAP 10-325MG [[place] 10-325] 1 tab PO BID PRN PRN Reason: Pain Gabapentin [Neurontin] 800 mg PO TID 30 Days #90 tab Discharge Medication List Esomeprazole Magnesium [NexIUM] 20 mg PO QAM 02/23/16 [History] Sertraline HCl 200 mg PO QAM 02/23/16 [History] Sildenafil [Revatio] 20 mg PO TID 06/30/16 [History] Multivit-Min/Iron/Folic/Lutein [Centrum Silver Women Tablet] 1 tab PO HS 10/25/17 [History] Levothyroxine Sodium [Synthroid] 50 mcg PO QAM 08/21/19 [History] Magnesium Oxide 400 mg PO DAILY 08/21/19 [History] Cholecalciferol (Vitamin D3) [Vitamin D3 (125 MCG = 5,000 IU)] 125 mcg PO HS 11/26/21 [History] predniSONE 10 mg PO DAILY@1400 05/17/22 [History] Atorvastatin [Lipitor] 20 mg PO HS 11/20/24 [History] Furosemide [Lasix] 20 mg PO DAILY PRN 11/20/24 [History] HYDROcodone/APAP 10-325MG [[place] 10-325] 1 tab PO BID PRN 11/20/24 [History] Natures Balance Vitamin 1 tab PO TID 11/20/24 [History] Potassium Chloride ER [K-Dur 20] 60 meq PO W/LUNCH 11/20/24 [History] Turmeric Root Extract [Turmeric] 1,000 mg PO DAILY 11/20/24 [History] amLODIPine [Norvasc] 5 mg PO HS 11/20/24 [History] traZODone HCL [Desyrel] 50 mg PO HS 11/20/24 [History] Gabapentin [Neurontin] 800 mg PO TID 30 Days #90 tab 01/22/25 [Rx] Aspirin 325 mg PO BID #60 tab 01/28/25 [Rx] Sennosides [Senokot] 2 tab PO DAILY PRN #60 tablet 01/28/25 [Rx] HYDROcodone/APAP 7.5-325MG [[place] 7.5-325] 1 - 2 tab PO Q6H PRN #32 tab 01/30/25 [Rx] Follow up Appointment(s)/Referral(s): Yumiko Espana MD [Primary Care Provider] - [facility] [NON-STAFF] - As Needed David Hagan DO [Doctor of Osteopathic Medicine] - 02/12/25 1:15 pm Activity/Diet/Wound Care/Special Instructions: Weightbearing as tolerated with walker. Leave dressing intact. Dressing may be removed by home care nurse or by patient in 7 days. Then change dressing twice daily until follow up. May shower with initial dressing intact and after removal. If dressing become saturated, please remove. Please take aspirin 325mg twice daily for 30 days to prevent blood clots. Recommend use of compression stockings daily until follow up to help prevent swelling and blood clots. May remove at night before sleeping. Please follow-up with [facility] in 2 weeks and call with any questions or concerns, . Discharge Disposition: HOME WITH HOME HEALTH SERVICES
[2025-01-30] MEDS: HYDROcodone/APAP 7.5-325MG 1 EACH TAB PO PRN (12:32)
== END 2025-01-30 13:51 | disposition home health service (06) | DRG 470 ==
LOC: OR 07:25 → 4SSUR 10:15
PROVIDERS: ADMIT Orthopaedic Surgery; ATTEND Orthopaedic Surgery
PROC: 8E0YXBF Computer Assisted Procedure of Lower Extremity, With Fluoroscopy (ICD-10-PCS; 2025-01-28)
PROC: 0SRB06A Replacement of Left Hip Joint with Oxidized Zirconium on Polyethylene Synthetic Substitute, Uncemented, Open Approach (ICD-10-PCS; principal; 2025-01-28 09:00)
DX: M16.12 Unilateral primary osteoarthritis, left hip (principal); D62 Acute posthemorrhagic anemia; I27.21 Secondary pulmonary arterial hypertension; M34.9 Systemic sclerosis, unspecified; E03.9 Hypothyroidism, unspecified; F32.9 Major depressive disorder, single episode, unspecified; I10 Essential (primary) hypertension; E55.9 Vitamin D deficiency, unspecified; Z79.890 Hormone replacement therapy; E78.2 Mixed hyperlipidemia; E87.6 Hypokalemia; G47.00 Insomnia, unspecified; I73.00 Raynaud's syndrome without gangrene; G62.9 Polyneuropathy, unspecified; K21.00 Gastro-esophageal reflux disease with esophagitis, without bleeding; K22.70 Barrett's esophagus without dysplasia; Z79.82 Long term (current) use of aspirin; Z79.899 Other long term (current) drug therapy; Z82.49 Family history of ischemic heart disease and other diseases of the circulatory system; Z85.528 Personal history of other malignant neoplasm of kidney; Z87.891 Personal history of nicotine dependence; Z90.5 Acquired absence of kidney; Z90.711 Acquired absence of uterus with remaining cervical stump; Z87.19 Personal history of other diseases of the digestive system; Z98.1 Arthrodesis status; Z96.612 Presence of left artificial shoulder joint; Z90.49 Acquired absence of other specified parts of digestive tract; Z96.641 Presence of right artificial hip joint; Z96.653 Presence of artificial knee joint, bilateral; Z88.2 Allergy status to sulfonamides
CPT/HCPCS: 64473; 73501; 80048; 80053; 83735; 85025